=== PATIENT | female | born 1940 | race Caucasian/White ===

== ENCOUNTER 2023-02-27 09:05 | Outpatient (OUT) | payer MEDICARE, OTHER, SELFPAY ==
[2023-02-27 09:53] LABS: Free Thyroxine Index 4.46 (1.30-4.50); Thyroid Stimulating Hormone 0.896 uIU/mL (0.358-3.740)
== END 2023-02-27 09:06 ==
LOC: LAB 09:05
PROVIDERS: PCP Family Medicine; Visit Provider Family Medicine
DX: E03.9 Hypothyroidism, unspecified (principal)
CPT/HCPCS: 36415; 84436; 84443; 84479

== ENCOUNTER 2023-06-03 10:30 | Emergency (ER) | payer MEDICARE, OTHER, SELFPAY ==
[2023-06-03] VITALS (26 sets, daily range): BP systolic 98–117; BP diastolic 67–78; PULSE 103–118; RESP 14–42; TEMP 36.5; O2SAT 96–99; BMI 17.9
--- NOTE | 2023-06-03 10:35 | ECG_ITS ---
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
--- NOTE | 2023-06-03 10:48 | ED_ITS ---
HPI - Arrhythmia/Palpitations General Chief Complaint: Arrhythmia/Palpitations Stated Complaint: FAST HEART RATE Time Seen by Provider: 06/03/23 10:35 Source: patient Mode of arrival: walk-in History of Present Illness HPI narrative: It was already diagnosed with A-fib few years ago with no new changes in her medication, coming to the ER with the palpitation feeling for the last 4 days, the patient has been drinking enough water for the last few days as well because she thought she could be dehydrated at that could be the reason for her tachycardia. The patient denies any dizziness chest pain or any other concerns No nausea no vomiting and she took her medication today as well Related Data Home Medications Medication Instructions Recorded Confirmed amiodarone 200 mg tablet 200 mg PO Q24H 06/03/23 06/03/23 apixaban 2.5 mg tablet (Eliquis) 2.5 mg PO Q12H 06/03/23 06/03/23 furosemide 20 mg tablet 20 mg PO QDAY 06/03/23 06/03/23 irbesartan 75 mg tablet 75 mg PO DAILY 06/03/23 06/03/23 levothyroxine 50 mcg tablet 50 mcg PO .even numbered days 06/03/23 06/03/23 multivitamin (Daily Multi-Vitamin 1 tab PO DAILY 06/03/23 06/03/23 tablet) potassium chloride 10 mEq 10 meq PO DAILY 06/03/23 06/03/23 tablet,extended release Previous Rx's Medication Instructions Recorded metoprolol tartrate 25 mg tablet 25 mg PO BID #20 tabs 06/03/23 Allergies Allergy/AdvReac Type Severity Reaction Status Date / Time Sulfa (Sulfonamide Allergy Verified 06/03/23 10:42 Antibiotics) Review of Systems ROS Status of ROS 10 or more systems reviewed and unremarkable except as noted in history and below PFSH PFS Social History Smoking status: Never smoker Exam Narrative Exam Narrative: Nurses notes and vital signs reviewed and patient is not hypoxic. General: Well-appearing and in no apparent distress. Skin: Warm, dry, no pallor noted. No rash. Head: Normocephalic, atraumatic. Neck: Supple, non-tender. Eye: Pupils are equal, round and EOMI. No scleral icterus. Ears, Nose, Mouth, and Throat: TM are clear, no nasal mucosal hypertrophy. Oral mucosa is moist, no posterior oropharynx erythema, uvula is mid-line Cardiovascular: irregularly regular Rate and Rhythm without murmur, gallop or rub. Respiratory: No accessory muscle use or respiratory distress. Lungs are clear to auscultation, no wheezing, rales or rhonchi Chest Wall: no tenderness Back: No midline thoracic or lumbar vertebral tenderness. No CVA tenderness Musculoskeletal: normal ROM, no calf or popliteal tenderness, no lower extremity edema/swelling GI: Abdomen is soft, non-distended. Normal bowel sounds. No masses appreciated. No tenderness to palpation. No rebound, guarding, or rigidity noted. Neurological: A&O x4. No cranial nerve dysfunction observed. No truncal ataxia. Moves all extremities. Sensation intact. Psychiatric: Cooperative and interactive. Normal mood and affect. Constitutional Vital Signs, click to edit/add: Last Vital Signs Temp 97.7 F 06/03/23 10:35 Pulse 114 H 06/03/23 14:20 Resp 17 06/03/23 14:20 BP 98/67 06/03/23 11:18 Pulse Ox 99 06/03/23 14:20 O2 Del Method Room Air 06/03/23 10:35 Course Vital Signs Vital signs: Vital Signs Temperature 97.7 F 06/03/23 10:35 Pulse Rate 118 H 06/03/23 10:35 Respiratory Rate 14 06/03/23 10:35 Blood Pressure 117/78 06/03/23 10:35 Pulse Oximetry 97 06/03/23 10:35 Oxygen Delivery Method Room Air 06/03/23 10:35 Temperature 97.7 F 06/03/23 10:35 Pulse Rate 114 H 06/03/23 14:20 Respiratory Rate 17 06/03/23 14:20 Blood Pressure 98/67 06/03/23 11:18 Pulse Oximetry 99 06/03/23 14:20 Oxygen Delivery Method Room Air 06/03/23 10:35 MDM - Arrhythmia/Palpitations MDM Narrative Medical decision making narrative: EKG showing A-fib with RVR heart rate was 108 on the EKG although it does show this could be scar around 130 Patient Eliquis for her afib as well as amiodarone The patient CBC and chemistry shows a mild elevation in creatinine as well as elevated BNPep Chest x-ray showed no acute pathology the patient was provided with 1 dose of Lopressor as well as 500 cc of IV fluid It was noted that the patient blood pressure initially was low but after a while in the ER and on bedside measurement her blood pressure was above 130 systolic The patient was eager to go home she did not want to be admitted because she have to care for her son at home. I spoke with the multi slide machine tender taking care of the patient and initially requested the patient being transferred to [facility] for cardioversion but the patient refused and she said that she is feeling better The patient will just follow-up with them as outpatient the metoprolol 25 mg changed to twice daily instead of 1 daily as she had that on her medication but it was stopped recently The patient to come back to the ER in case of any symptoms or concerns Lab Data Labs: Lab Results 06/03/23 06/03/23 Range/Units 10:46 12:18 WBC 7.3 (4.0-11.0) 10^3/uL RBC 4.75 (4.20-5.40) 10^6/uL Hgb 14.2 (12.0-16.0) g/dL Hct 43.9 (36.0-48.0) % MCV 92.4 (81.0-99.0) fL MCH 29.9 (26.7-34.0) pg MCHC 32.3 (29.9-35.2) g/dL RDW 13.6 (11.0-15.0) % Plt Count 298 (150-450) 10^3/uL MPV 11.0 (9.5-13.5) fL Neut % (Auto) 65.5 (43.0-75.0) % Lymph % (Auto) 20.6 (20.5-60.0) % [place] % (Auto) 12.1 H (1.7-12.0) % Eos % (Auto) 1.2 (0.9-7.0) % Baso % (Auto) 0.3 (0.2-2.0) % Neut # (Auto) 4.8 (1.4-6.5) 10^3/uL Lymph # (Auto) 1.5 (1.2-3.8) 10^3/uL [place] # (Auto) 0.9 H (0.3-0.8) 10^3/uL Eos # (Auto) 0.1 (0.0-0.7) 10^3/uL Baso # (Auto) 0.0 (0.0-0.1) 10^3/uL Abs Immat Gran (auto) 0.02 (0.00-0.03) 10^3/uL Imm/Tot Granulo (auto) 0.3 (0.0-0.5) % Sodium 139 (136-145) mmol/L Potassium 4.2 (3.5-5.1) mmol/L Chloride 102 (98-107) mmol/L Carbon Dioxide 29.4 (21.0-32.0) mmol/L Anion Gap 11.8 BUN 24.0 H (7.0-18.0) mg/dL Creatinine 1.32 H (0.55-1.02) mg/dL Est GFR ( Amer) 47 L (>=60) Est GFR (Non-Af Amer) 39 L (>=60) BUN/Creatinine Ratio 18.2 Glucose 116 H (74-106) mg/dL Lactate 1.0 (0.4-2.0) mmol/L Calcium 9.6 (8.5-10.1) mg/dL Magnesium 2.4 (1.8-2.4) mg/dL Total Bilirubin 0.4 (0.2-1.0) mg/dL AST 23 (15-37) U/L ALT 19 (14-59) U/L Alkaline Phosphatase 90 (46-116) U/L Troponin I High Sens 14.4 13.8 (4.0-51.3) pg/mL NT-Pro-B Natriuret Pep 1897.0 H* (<=1800.0) pg/mL Total Protein 7.4 (6.4-8.2) g/dL Albumin 3.9 (3.4-5.0) g/dL Globulin 3.5 g/dL Albumin/Globulin Ratio 1.1 TSH 1.542 (0.358-3.740) uIU/mL Discharge Plan Discharge Chief Complaint: Arrhythmia/Palpitations Clinical Impression: A-fib Patient Disposition: Home, Self-Care Time of Disposition Decision: 14:38 Condition: Good Prescriptions / Home Meds: New metoprolol tartrate 25 mg tablet 25 mg PO BID Qty: 20 0RF Discontinued metoprolol tartrate 25 mg tablet 25 mg PO DAILY No Action amiodarone 200 mg tablet 200 mg PO Q24H furosemide 20 mg tablet 20 mg PO QDAY irbesartan 75 mg tablet 75 mg PO DAILY levothyroxine 50 mcg tablet 50 mcg PO .even numbered days potassium chloride 10 mEq tablet extended release 10 meq PO DAILY Eliquis 2.5 mg tablet 2.5 mg PO Q12H multivitamin [Daily Multi-Vitamin] Tablet 1 tab PO DAILY Instructions: A-fib (Atrial Fibrillation) (ED) Stand Alone Forms: Portal Instructions Referrals: Krish Mccoy MD [Primary Care Provider] - 1 week Kaya Patel MD [Physician] - As soon as possible Discharge Date/Time: 06/03/23 14:59
[2023-06-03 11:04] LABS: Basophils Percent Auto 0.3 % (0.2-2.0); Eosinophils Absolute Auto 0.1 10^3/uL (0.0-0.7); Eosinophils Percent Auto 1.2 % (0.9-7.0); Hematocrit 43.9 % (36.0-48.0); Hemoglobin 14.2 g/dL (12.0-16.0); Immature Granulocytes Abs Auto 0.02 10^3/uL (0.00-0.03); Immature Granulocytes Pct Auto 0.3 % (0.0-0.5); Lymphocytes Absolute Auto 1.5 10^3/uL (1.2-3.8); Lymphocytes Percent Auto 20.6 % (20.5-60.0); Mean Corpuscular HGB Conc 32.3 g/dL (29.9-35.2); Mean Corpuscular Hemoglobin 29.9 pg (26.7-34.0); Mean Corpuscular Volume 92.4 fL (81.0-99.0); Monocytes Absolute Auto 0.9 10^3/uL (0.3-0.8); Monocytes Percent Auto 12.1 % (1.7-12.0); Neutrophils Absolute Auto 4.8 10^3/uL (1.4-6.5); Neutrophils Percent Auto 65.5 % (43.0-75.0); Platelet Count 298 10^3/uL (150-450); Red Blood Count 4.75 10^6/uL (4.20-5.40); Red Cell Distribution Width 13.6 % (11.0-15.0); White Blood Count 7.3 10^3/uL (4.0-11.0)
[2023-06-03 11:11] LABS: Alanine Aminotransferase 19 U/L (14-59); Albumin Globulin Ratio 1.1; Albumin Level 3.9 g/dL (3.4-5.0); Alkaline Phosphatase 90 U/L (46-116); Anion Gap 11.8; Aspartate Amino Transferase 23 U/L (15-37); BUN Creatinine Ratio 18.2; Bilirubin Total 0.4 mg/dL (0.2-1.0); Calcium 9.6 mg/dL (8.5-10.1); Carbon Dioxide 29.4 mmol/L (21.0-32.0); Chloride 102 mmol/L (98-107); Estimated GFR (African America 47 (>=60); Estimated GFR (Non-African Ame 39 (>=60); Globulin 3.5 g/dL; Glucose 116 mg/dL (74-106); Potassium 4.2 mmol/L (3.5-5.1); Sodium 139 mmol/L (136-145); Total Protein 7.4 g/dL (6.4-8.2)
[2023-06-03] MEDS: 0.9 % SODIUM CHLORIDE 1,000 ML 500 ML IV (11:12)
[2023-06-03] MEDS: METOPROLOL TARTRATE 5 MG/5 ML VIAL 2.5 MG IVP (11:13)
[2023-06-03 11:18] LABS: Thyroid Stimulating Hormone 1.542 uIU/mL (0.358-3.740)
[2023-06-03 11:19] LABS: Magnesium 2.4 mg/dL (1.8-2.4); Troponin I High Sensitivity 14.4 pg/mL (4.0-51.3)
--- NOTE | 2023-06-03 11:22 | XR_ITS ---
The [address] [address] Patient Name: RAFIA KNOWLES MRN: [id number] date: 1940 Sex: F Assigned Patient Location: ER Current Patient Location: ER Accession/Order Number: [id number] Exam Date: 06/03/2023 11:30 Report Date: 06/03/2023 11:40 At the request of: KEYSHAWN MACHUCA Procedure: XR chest 1V EXAM: XR chest 1V HISTORY: sob COMPARISON: 01/14/2023 TECHNIQUE: Single view of the chest FINDINGS: Heart size normal. No focal consolidation, pleural effusion, pulmonary congestion or pneumothorax. XR/XR chest 1V IMPRESSION: No acute findings. Electronically authenticated by: MARYANN MA Date: 06/03/2023 11:40
--- NOTE | 2023-06-03 11:52 | ECG_ITS ---
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
[2023-06-03 12:41] LABS: Troponin I High Sensitivity 13.8 pg/mL (4.0-51.3)
== END 2023-06-03 14:59 | disposition home or self-care (01) ==
PROVIDERS: Emergency Provider Emergency Medicine; PCP Family Medicine
DX: I48.91 Unspecified atrial fibrillation (principal); Z79.01 Long term (current) use of anticoagulants; Z79.899 Other long term (current) drug therapy; Z79.890 Hormone replacement therapy
CPT/HCPCS: 36415; 71045; 80053; 83605; 83735; 83880; 84443; 84484; 85025; 93005; 96374; 99285

== ENCOUNTER 2023-08-28 10:06 | Outpatient (OUT) | payer MEDICARE, OTHER, SELFPAY ==
--- NOTE | 2023-08-28 10:49 | CA_ITS ---
Patient Name: RAFIA KNOWLES MR#: [id number] : 1940 Exam Date: 08/28/2023 Ordering Doctor: DR IVELISSE PATEL M.D. ECHOCARDIOGRAM REPORT PROCEDURE: CA ECHO DOPPLER COMPLETE INDICATIONS: Mitral valve regurgitation, hypertension COMPARISON: None. DESCRIPTION: COMPLETE ECHOCARDIOGRAM Real-time transthoracic echocardiography with 2D, M-mode, spectral and color flow Doppler performed. QUALITY: Technical quality was good. 66 , 107 # LEFT VENTRICLE: Mild dilatation. Normal left ventricular wall thickness. LV EF: Global left ventricular systolic function is difficult to assess but appears moderately reduced; visually estimated ejection fraction is 30 to 35%. Diffuse hypokinesis. DIASTOLIC: Diastolic dysfunction. ATRIAL SEPTUM: Visually appears intact. LEFT ATRIUM: Severe dilatation. RIGHT ATRIUM: Moderate dilatation. RIGHT VENTRICLE: Normal chamber size. Normal right ventricular systolic function. TRICUSPID VALVE: Normal mobility and thickness. Mild regurgitation. Doppler studies reveal moderately (45-60) elevated right sided pressures. RVSP 49 mmHg MITRAL VALVE: Moderately thickened. No evidence of mitral valve stenosis. There is no mitral annular calcification. Severe mitral regurgitation. AORTIC VALVE: Normal trileaflet appearance. Mildly calcified aortic valve. Normal leaflet mobility. Doppler velocity suggests no significant aortic valve stenosis. Trivial aortic regurgitation. AORTIC ROOT: Normal diameter and appearance. PULMONIC VALVE: Normal thickness and mobility. No stenosis. Trivial regurgitation. PERICARDIUM: No evidence of pericardial effusion. IVC: Collapses with inspirations. IVC is dilated (2.3 cm) CONCLUSION: 1. Global left ventricular systolic function is difficult to assess but appears moderately reduced; visually estimated ejection fraction is 30 to 35% 2. The left ventricle is mildly dilated 3. The right ventricle is normal in size and systolic function 4. Diastolic dysfunction 5. Biatrial enlargement 6. Mild tricuspid regurgitation 7. Mildly elevated right-sided pressures; RVSP 49 mmHg 8. Severe mitral regurgitation Adult Echocardiography Procedure Report Left Ventricle LVEDD (3.7 - 5.6 cm): 5.57 cm LVESD (2.2 - 4.0 cm): 4.53 cm LVIVS thickness (0.6 - 1.2 cm): 0.93 cm LVPW thickness (0.5 - 1.0 cm): 0.80 cm e': 0.14 m/s E - e': 5.57 LVOT Max Gradient: 1.82 mm[Hg] LVOT Area (cm2): 0.67 m/s Peak Velocity (LVOT): 0.67 m/s Mean Velocity (LVOT): 0.45 m/s LVOT Diameter 2.00 cm Left Atrium LA Volume Index (2D A2C): 98.74 ml/m2 Left Atrium Systolic Dimension: 4.27 cm Mitral Valve MV E to A Ratio: 3.28 Mitral Valve A-Wave Peak Velocity: 0.24 m/s Mitral Valve E-Wave Peak Velocity: 0.78 m/s Right Ventricle Aorta AO Root Diam: 2.90 cm Ascending Ao Diam: 2.78 cm Aortic Valve AoV Area (Peak Rashaun): 1.44 cm2, 1.44 cm2 AoV Area (VTI): 1.61 cm2, 1.61 cm2 Peak Velocity(Antegrade Flow): 1.47 m/s Peak Gradient(Antegrade Flow): 8.69 mm[Hg] Mean Velocity(Antegrade Flow): 0.88 m/s Mean Gradient(Antegrade Flow): 3.65 mm[Hg] Velocity Time Integral: 34.49 cm Tricuspid Valve Peak Velocity (Regurgitant Flow): 2.93 m/s Pulmonic Valve Peak Velocity: 0.64 m/s Peak Gradient: 2.02 mm[Hg], 1.32 mm[Hg] Right Atrium Right Atrium Systolic Pressure: 54.80 ml, 54.80 ml Dictated by: Ivelisse Patel M.D. on 08/28/2023 at 15:42 Approved by: Ivelisse Patel M.D. on 08/28/2023 at 15:52
== END 2023-08-28 10:07 | disposition home or self-care (01) ==
LOC: CARD 10:06
PROVIDERS: PCP Family Medicine; Visit Provider Internal Medicine Interventional Cardiology
DX: I34.0 Nonrheumatic mitral (valve) insufficiency (principal)
CPT/HCPCS: 93306; 93356

== ENCOUNTER 2023-09-28 15:20 | Emergency (ER) | payer MEDICARE, OTHER, SELFPAY ==
[2023-09-28] VITALS (15 sets, daily range): BP systolic 107–137; BP diastolic 61–82; PULSE 85–114; RESP 15–29; TEMP 36.5; O2SAT 83–100; BMI 17.3
--- NOTE | 2023-09-28 15:25 | XR_ITS ---
The [place] [id number] Patient Name: RAFIA KNOWLES MRN: [id number] date: 1940 Sex: F Assigned Patient Location: ER Current Patient Location: ER Accession/Order Number: [id number] Exam Date: 09/28/2023 15:48 Report Date: 09/28/2023 16:26 At the request of: REGIS THAKUR Procedure: XR chest 1V CLINICAL HISTORY: Tachycardia. EXAMINATION: Portable AP upright chest: 09/28/2023 at 1545 hours. COMPARISON: AP chest 06/03/2023. FINDINGS: The patient is slightly rotated and lordotic. The trachea is midline. The heart size seems upper limits of the normal. The aorta is slightly tortuous. The lungs appear hyperinflated but clear. There is no focal consolidating infiltrates, pleural edema, or pneumothorax. XR/XR chest 1V IMPRESSION: Stable hyperinflated lungs without acute cardiopulmonary disease. Electronically authenticated by: ANIKA PETERSON Date: 09/28/2023 16:26
--- NOTE | 2023-09-28 15:41 | ED_ITS ---
HPI - General Adult General Chief complaint: Arrhythmia/Palpitations Stated complaint: rapid heart rate Time Seen by Provider: 09/28/23 15:22 Source: patient Mode of arrival: walk-in Limitations: no limitations History of Present Illness HPI narrative: Patient is a very pleasant 83-year-old female with a history of A-fib who presents to the emergency department for palpitations and a sensation that her heart is racing since 09/20/2024. She states that she saw her transmission calibration engineer from [facility] locally at the beginning of August last month, he wanted her to perform a test and she declined this stating if it ain't broke do not fix it . She did not have any medication adjustments at that time and had no focal medical complaints. She states due to her beta-lida usage, her heart rate was low and she was bradycardic in the office, her transmission calibration engineer felt it was too low. She states her heart rate has been in the 110s to 120s at home, she saw her PCP earlier this week and states she only told him that her heart rate was higher but did not indicate that she thought she was back in A-fib. She denies any other focal medical complaints, she is mildly short of breath intermittently on exertion, she has no chest pain. She has had no peripheral edema. She has been taking all of her medications including her anticoagulation appropriately. Related Data Home Medications Medication Instructions Recorded Confirmed amiodarone 200 mg tablet 200 mg PO Q24H 06/03/23 09/28/23 apixaban 2.5 mg tablet (Eliquis) 2.5 mg PO Q12H 06/03/23 09/28/23 furosemide 20 mg tablet 20 mg PO QDAY 06/03/23 09/28/23 irbesartan 75 mg tablet 75 mg PO DAILY 06/03/23 09/28/23 levothyroxine 50 mcg tablet 50 mcg PO .even numbered days 06/03/23 09/28/23 multivitamin (Daily Multi-Vitamin 1 tab PO DAILY 06/03/23 09/28/23 tablet) potassium chloride 10 mEq 10 meq PO DAILY 06/03/23 09/28/23 tablet,extended release Previous Rx's Medication Instructions Recorded metoprolol tartrate 25 mg tablet 25 mg PO BID #20 tabs 06/03/23 Allergies Allergy/AdvReac Type Severity Reaction Status Date / Time Sulfa (Sulfonamide Allergy Verified 06/03/23 10:42 Antibiotics) Review of Systems ROS Constitutional Denies: fever or chills Ears, nose, mouth, and throat Denies: throat pain or nasal congestion Cardiovascular Reports: palpitations; Denies: chest pain Respiratory Reports: shortness of breath; Denies: cough Gastrointestinal Denies: nausea or vomiting Musculoskeletal Denies: back pain Integumentary/Breast Denies: rash Neurological Denies: headache Hematologic/Lymphatic Denies: easy bruising PFSH [facility] Social History Smoking status: Never smoker Exam Narrative Exam Narrative: Gen.: Awake, alert, in no distress Head: Normocephalic, atraumatic ENT: Moist mucous membranes Respiratory: No respiratory distress, lungs clear bilaterally Cardio: Irregular, tachycardia Gastrointestinal: Abdomen is soft, nondistended and nontender to palpation Extremities: Moves extremities equally, no pedal edema Psych: Normal mood and affect Neuro: No focal neuro deficit Skin: Warm, dry, intact Constitutional Vital Signs, click to edit/add: Last Vital Signs Temp 97.7 F 09/28/23 15:25 Pulse 88 09/28/23 17:20 Resp 18 09/28/23 17:20 BP 110/61 09/28/23 17:15 Pulse Ox 100 09/28/23 17:20 O2 Del Method Room Air 09/28/23 15:25 Course Vital Signs Vital signs: Vital Signs Temperature 97.7 F 09/28/23 15:25 Pulse Rate 104 H 09/28/23 15:25 Respiratory Rate 18 09/28/23 15:25 Blood Pressure 137/82 09/28/23 15:25 Oxygen Delivery Method Room Air 09/28/23 15:25 Temperature 97.7 F 09/28/23 15:25 Pulse Rate 88 09/28/23 17:20 Respiratory Rate 18 09/28/23 17:20 Blood Pressure 110/61 09/28/23 17:15 Pulse Oximetry 100 09/28/23 17:20 Oxygen Delivery Method Room Air 09/28/23 15:25 Medical Decision Making MDM Narrative Medical decision making narrative: Patient was treated with 7.5 mg IV Cardizem bolus as well as gentle IV fluids with improvement of heart rate. She remains in A-fib with old left bundle branch block. She maintains normal vital signs otherwise in the ER. On reevaluation by attending physician, patient is resting comfortably with stable vitals. She has no complaints of chest pain, shortness of breath in the ER. Labs and chest x-ray are unremarkable. She request to be discharged home to follow-up with cardiology. She was encouraged to continue her anticoagulation and regular medications and return to the ER if symptoms change or worsen. Medical Records Medical records reviewed: Yes I reviewed the patient's medical records Lab Data Lab results reviewed: Yes I reviewed the patient's lab results Labs: Lab Results 09/28/23 Range/Units 15:39 WBC 8.2 (4.0-11.0) 10^3/uL RBC 4.44 (4.20-5.40) 10^6/uL Hgb 13.7 (12.0-16.0) g/dL Hct 41.9 (36.0-48.0) % MCV 94.4 (81.0-99.0) fL MCH 30.9 (26.7-34.0) pg MCHC 32.7 (29.9-35.2) g/dL RDW 13.2 (11.0-15.0) % Plt Count 255 (150-450) 10^3/uL MPV 11.4 (9.5-13.5) fL Neut % (Auto) 68.4 (43.0-75.0) % Lymph % (Auto) 21.2 (20.5-60.0) % [place] % (Auto) 8.4 (1.7-12.0) % Eos % (Auto) 1.3 (0.9-7.0) % Baso % (Auto) 0.2 (0.2-2.0) % Neut # (Auto) 5.6 (1.4-6.5) 10^3/uL Lymph # (Auto) 1.7 (1.2-3.8) 10^3/uL [place] # (Auto) 0.7 (0.3-0.8) 10^3/uL Eos # (Auto) 0.1 (0.0-0.7) 10^3/uL Baso # (Auto) 0.0 (0.0-0.1) 10^3/uL Abs Immat Gran (auto) 0.04 H (0.00-0.03) 10^3/uL Imm/Tot Granulo (auto) 0.5 (0.0-0.5) % PT 10.7 (9.0-11.6) sec INR 1.01 Sodium 139 (136-145) mmol/L Potassium 4.0 (3.5-5.1) mmol/L Chloride 103 (98-107) mmol/L Carbon Dioxide 30.4 (21.0-32.0) mmol/L Anion Gap 9.6 BUN 28.0 H (7.0-18.0) mg/dL Creatinine 1.33 H (0.55-1.02) mg/dL Est GFR ( Amer) 46 L (>=60) Est GFR (Non-Af Amer) 38 L (>=60) BUN/Creatinine Ratio 21.1 Glucose 142 H (74-106) mg/dL Calcium 10.1 (8.5-10.1) mg/dL Total Bilirubin 0.4 (0.2-1.0) mg/dL AST 36 (15-37) U/L ALT 39 (14-59) U/L Alkaline Phosphatase 100 (46-116) U/L Troponin I High Sens 12.8 (4.0-51.3) pg/mL Total Protein 7.2 (6.4-8.2) g/dL Albumin 3.7 (3.4-5.0) g/dL Globulin 3.5 g/dL Albumin/Globulin Ratio 1.1 TSH 1.676 (0.358-3.740) uIU/mL Imaging Data Chest x-ray: Attestation: I have reviewed the pertinent imaging results. Radiologist's impression: ITS Impressions Chest X-Ray 09/28/23 15:25 IMPRESSION: Stable hyperinflated lungs without acute cardiopulmonary disease. Electronically authenticated by: ANIKA PETERSON Date: 09/28/2023 16:26 ECG Data Attestation: I personally reviewed and interpreted this ECG as follows: (ekg, #1: A-fib with RVR, left bundle branch block, rate 115, no acute ST elevation. EKG reviewed by attending physician. EKG #2: A-fib at a rate of 90 with old left bundle branch block and no acute ST elevation or ectopy. EKG reviewed by attending physician) Discharge Plan Discharge Chief Complaint: Arrhythmia/Palpitations Clinical Impression: A-fib Patient Disposition: Home, Self-Care Time of Disposition Decision: 17:28 Condition: Good Prescriptions / Home Meds: No Action amiodarone 200 mg tablet 200 mg PO Q24H furosemide 20 mg tablet 20 mg PO QDAY irbesartan 75 mg tablet 75 mg PO DAILY levothyroxine 50 mcg tablet 50 mcg PO .even numbered days potassium chloride 10 mEq tablet extended release 10 meq PO DAILY Eliquis 2.5 mg tablet 2.5 mg PO Q12H multivitamin [Daily Multi-Vitamin] Tablet 1 tab PO DAILY metoprolol tartrate 25 mg tablet 25 mg PO BID Qty: 20 0RF Instructions: A-fib (Atrial Fibrillation) (ED) Stand Alone Forms: Portal Instructions Referrals: Krish Mccoy MD [Primary Care Provider] - 1 week Kaya Patel MD [Physician] - 1 week
--- OUTSIDE RECORDS SUMMARY | 2023-09-28 15:46 | XMS_ITS | CCD ---
Author Name Unknown Address [address] [facility] [address] [place] [address] Organization [facility] Care Team Providers Care Sap Bw Architect Name Role Phone ELTAHAWY, EHAB A Attending Unavailable ELTAHAWY, EHAB A Admitting Unavailable HOY, GERBER Referring Unavailable HOY, GERBER Primary Care Unavailable HOY ., DR MAYES Primary Care Unavailable JOSE, SHANTEL Attending Unavailable JOSE, SHANTEL Admitting Unavailable WEST, DR FLORENTINO Mello Consulting Unavailable JOSE, SHANTEL Consulting Unavailable HOY ., DR MAYES Admitting Unavailable HOY ., DR MAYES Attending Unavailable HOY ., DR MAYES Consulting Unavailable HOY ., DR MAYES Primary Care Unavailable HOY ., DR MAYES Primary Care Unavailable HOY ., DR MAYES Admitting Unavailable HOY ., DR MAYES Attending Unavailable HOY ., DR MAYES Consulting Unavailable HAY ., DR MARIE Attending Unavailable HAY ., DR MARIE Consulting Unavailable HAY ., DR MARIE Admitting Unavailable HOY ., DR MAYES Primary Care Unavailable LAICONSTANCE Consulting Unavailable ELTAHAWY, EHAB Attending Unavailable JOSE, SHANTEL Attending Unavailable JOSE, SHANTEL Attending Unavailable JAS VALDIVIA Attending Unavailable JAS VALDIVIA Attending Unavailable Allergies Allergy Classification Reported Allergen(s) Allergy Type Date of Onset Reaction(s) Facility (3 sources) Angiotensin Converting Enzyme (Hossein) Inhibitors; Translations: [HOSSEIN INHIBITORS] Drug allergy (disorder) 07-03-2012 [facility] Repository (3 sources) Sulfonamides (Antibiotic); Translations: [SULFA (SULFONAMIDE ANTIBIOTICS)] Drug allergy (disorder) 07-03-2012 [facility] Rep[facility] Problems Active Problems Problem Classification Problem Date Documented Date Episodic/Chronic Cardiac dysrhythmias (5 sources) Unspecified atrial fibrillation; Translations: [Paroxysmal atrial fibrillation] Onset: 06-08-2022 Chronic Cardiac dysrhythmias (8 sources) Palpitations; Translations: [Tachycardia, unspecified] Onset: 01-15-2023 Episodic Conduction disorders (2 sources) Left bundle-branch block, unspecified; Translations: [Left bundle-branch block, unspecified] Onset: 06-08-2022 Chronic Congestive heart failure; nonhypertensive (1 source) Unspecified diastolic (congestive) heart failure; Translations: [UNSPECIFIED DIASTOLIC HEART FAILURE] Onset: 02-01-2023 Chronic Coronary atherosclerosis and other heart disease (2 sources) 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; Translations: [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] Onset: 06-08-2022 Chronic Deficiency and other anemia (1 source) Anemia, unspecified; Translations: [ANEMIA UNSPECIFIED] Onset: 02-01-2023 Episodic Diabetes mellitus without complication (1 source) Other abnormal glucose; Translations: [OTHER ABNORMAL GLUCOSE] Onset: 02-01-2023 Episodic Disorders of lipid metabolism (2 sources) Mixed hyperlipidemia; Translations: [Mixed hyperlipidemia] Onset: 06-08-2022 Chronic Essential hypertension (2 sources) Essential (primary) hypertension; Translations: [Essential (primary) hypertension] Onset: 06-08-2022 Chronic Heart valve disorders (2 sources) Nonrheumatic mitral (valve) insufficiency; Translations: [Nonrheumatic mitral (valve) insufficiency] Onset: 06-08-2022 Chronic Hypertension with complications and secondary hypertension (1 source) Hypertensive heart disease with heart failure; Translations: [HTN HEART DISEASE W/HEART FAIL] Onset: 02-01-2023 Chronic Nutritional deficiencies (1 source) Vitamin D deficiency, unspecified; Translations: [VITAMIN D DEFICIENCY UNSPECIFIED] Onset: 02-01-2023 Chronic Other aftercare (1 source) intermission coordinator (current) use of anticoagulants; Translations: [CARE HOME CURRNT USE ANTICOAGULANTS] Onset: 01-17-2023 Episodic Other aftercare (1 source) intermission coordinator (current) use of aspirin; Translations: [CARE HOME CURRENT USE OF ASPIRIN] Onset: 01-17-2023 Episodic Danielle-; endo-; and myocarditis; cardiomyopathy (except that caused by tuberculosis or sexually transmitted disease) (1 source) Cardiomyopathy, unspecified; Translations: [CARDIOMYOPATHY UNSPECIFIED] Onset: 02-01-2023 Chronic Thyroid disorders (1 source) Hypothyroidism, unspecified; Translations: [HYPOTHYROIDISM UNSPECIFIED] Onset: 02-01-2023 Chronic Unclassified (2 sources) CONTACT W/AND (SUSP) EXPOS COVID-19; Translations: [CONTACT W/AND (SUSP) EXPOS COVID-19] Onset: 09-30-2022 Unclassified (1 source) COUGH, UNSPECIFIED; Translations: [COUGH, UNSPECIFIED] Onset: 09-30-2022 Viral infection (1 source) COVID-19; Translations: [COVID-19] Onset: 09-30-2022 Past or Other Problems Problem Classification Problem Date Documented Da te Episodic/Chronic Other aftercare (7 sources) Other intermission coordinator (current) drug therapy; Translations: [OTH CARE HOME CURRENT DRUG THERAPY] Onset: 10-17-2022 Episodic Other lower respiratory disease (2 sources) Other forms of dyspnea; Translations: [Other forms of dyspnea] Onset: 06-08-2022 Episodic Other upper respiratory disease (1 source) Nasal congestion; Translations: [NASAL CONGESTION] Onset: 09-30-2022 Episodic Unclassified (1 source) CONTACT W/AND (SUSP) EXPOS COVID-19; Translations: [CONTACT W/AND (SUSP) EXPOS COVID-19] Onset: 09-27-2022 Results Test Name Value Interpretation Reference Range Facility Office Visiton 08-23-2023 Follow-up visit [id number] [facility] 1940 Date Provider Department Center 08/23/2023 Bina-KAYA PATEL [facility] Family History Problem Relation Age of Onset Diabetes Mother Hypertension Mother Hypertension Father Diabetes Sister Heart attack Maternal Grandmother Family Status - Relation Status Age at Mother Father Sister Maternal Grandmother Level of Service:15935 [place] OFFICE/OUTPATIENT ESTABLISHED LOW MDM 20-29 MIN Normal [facility] Office Visiton 02-15-2023 Follow-up visit [id number] Al[facility] Escobedo 1940 Date Provider Department Center 02/15/2023 Melly-SHANTEL GARCIA CARD [facility] Family History Problem Relation Age of Onset Diabetes Mother Hypertension Mother Hypertension Father Diabetes Sister Heart attack Maternal Grandmother Family Status - Relation Status Age at Mother Father Sister Maternal Grandmother Level of Service:91083 [place] OFFICE/OUTPATIENT ESTABLISHED LOW MDM 20-29 MIN Reason for Visit and Comments: Atrial Fibrillation [80] Valve Disorder [3372] Hypertension [196070] Normal [facility] BNPon 01-26-2023 Natriuretic peptide B (Bld) [Mass/Vol] 1751.0 pg/mL Normal <=1,800.0 [facility] Comment on above: Performed By: #### L CHAMP, TSH #### [facility] [address] [place] [address] Dr. Tierney Rivera CBC AUTO DIFFon 01-26-2023 BASO # 0.0 103/ul Normal 0.0-0.1 [facility] Comment on above: Performed By: #### C BC #### [facility] [address] [place] [address] Dr. Tierney Rivera Basophils/100 WBC (Bld) 0.3 % Normal 0.2-2.0 [facility] Comment on above: Performed By: #### C BC #### [facility] [address] [place] [address] Dr. Tierney Rivera EO # 0.1 103/ul Normal 0.0-0.7 [facility] Comment on above: Performed By: #### C BC #### [facility] [address] [place] [address] Dr. Tierney Rivera Eosinophils/100 WBC (Bld) 2.3 % Normal 0.9-7.0 [facility] Comment on above: Performed By: #### C BC #### [facility] [address] [place] [address] Dr. Tierney Rivera Erythrocyte distribution width (RBC) [Ratio] 13.1 % Normal 11.0-15.0 [facility] Comment on above: Performed By: #### C BC #### [facility] [address] [place] [address] Dr. Tierney Rivera Hematocrit (Bld) [Volume fraction] 43.5 % Normal 36.0-48.0 [facility] Comment on above: Performed By: #### C BC #### [facility] [address] [place] [address] Dr. Tierney Rivera Hemoglobin (Bld) [Mass/Vol] 13.9 g/dL Normal 12.0-16.0 [facility] Comment on above: Performed By: #### C BC #### [facility] [address] [place] [address] Dr. Tierney Rivera IG # 0.02 10e3/ul Normal 0.00-0.03 [facility] Comment on above: Performed By: #### C BC #### [facility] [address] [place] [address] Dr. Tierney Rivera IG % 0.3 % Normal 0.0-0.5 [facility] Comment on above: Performed By: #### C BC #### [facility] [address] [place] [address] Dr. Tierney Rivera LYMPH # 1.2 103/ul Normal 1.2-3.8 [facility] Comment on above: Performed By: #### C BC #### [facility] [address] [place] [address] Dr. Tierney Rivera Lymphocytes/100 WBC (Bld) 20.6 % Normal 20.5-60.0 [facility] Comment on above: Performed By: #### C BC #### [facility] [address] [place] [address] Dr. Tierney Rivera MANUAL DIFF REQ NO Normal [facility] Comment on above: Performed By: #### C BC #### [facility] [address] [place] [address] Dr. Tierney Rivera MCH (RBC) [Entitic mass] 29.4 pg Normal 26.7-34.0 [facility] Comment on above: Performed By: #### C BC #### [facility] [address] [place] [address] Dr. Tierney Rivera MCHC (RBC) [Mass/Vol] 32.0 g/dL Normal 29.9-35.2 [facility] Comment on above: Performed By: #### C BC #### [facility] [address] [place] [address] Dr. Tierney Rivera MCV (RBC) [Entitic vol] 92.2 fL Normal 81.0-99.0 [facility] Comment on above: Performed By: #### C BC #### [facility] [address] [address] [address] Tierney Rivera MONO # 0.6 103/ul Normal 0.3-0.[address] [facility] Comment on above: Performed By: #### C BC #### [facility] [address] [address] [address] Tierney Rivera Monocytes/100 WBC (Bld) 10.2 % Normal 1.7-12.0 [facility] Comment on above: Performed By: #### C BC #### [facility] [address] [address] [address] Tierney Rivera NEUT # 3.8 103/ul Normal 1.4-6.5 [facility] Comment on above: Performed By: #### C BC #### [facility] [address] [place] [address] Dr. Tierney Rivera Neutrophils/100 WBC (Bld) 66.3 % Normal 43.0-75.0 [facility] Comment on above: Performed By: #### C BC #### [facility] [address] [address] [address] Tierney Rivera Platelet mean volume (Bld) [Entitic vol] 11.2 fL Normal 9.5-13.5 [facility] Comment on above: Performed By: #### C BC #### [facility] [address] [address] [address] Tiereny Rivera PLT 253 103/ul Normal 150-[address] [facility] Comment on above: Performed By: #### C BC #### [facility] [address] [address] [address] Tierney Rivera RBC 4.72 106/ul Normal 4.20-5.[address] [facility] Comment on above: Performed By: #### C BC #### [facility] [address] [address] [address] Tierney Rivera WBC 5.8 103/ul Normal 4.0-11.[address] [facility] Comment on above: Performed By: #### C BC #### [facility] [address] [place] [address] Dr. Tierney Rivera FREE THYROXINE INDEX T7on FTI 5.18 Critically high 1.30-4.50 [facility] Comment on above: Performed By: #### L IVER, TSH #### [facility] [address] [place] [address] Dr. Tierney Rivera T3U 36.0 % Normal 30.0-39.0 [facility] Comment on above: Performed By: #### L IVER, TSH #### [facility] [address] [place] [address] Dr. Tierney Rivera T4 [Mass/Vol] 14.40 ug/dL Critically high 4.80-13.90 [facility] Comment on above: Performed By: #### L IVER, TSH #### [facility] [address] [place] [address] Dr. Tierney Rivera GLYCOHEMOGLOBIN A1Con 2022 ADA RECOMMENDATION SEE BELOW Normal [facility] Comment on above: Result Comment: ADA RECOMMENDED LIMIT 4.0 - 6.0 ADA THERAPEUTIC TARGET < 7.0 ACTION SUGGESTED > 7.0 Performed By: #### L IVER, TSH #### [facility] [address] [place] [address] Dr. Tierney Rivera Glucose [Mass/Vol] 117 mg/dL Normal [facility] Comment on above: Performed By: #### L IVER, TSH #### [facility] [address] [place] [address] Dr. Tierney Rivera HbA1c (Bld) [Mass fraction] 5.7 % Normal 4.5-6.2 [facility] Comment on above: Performed By: #### L IVER, TSH #### [facility] [address] [place] [address] Dr. Tierney Rivera IRONon 01-26-2023 Iron [Mass/Vol] 67.0 ug/dL Normal 50.0-170.0 [facility] Comment on above: Performed By: #### V ITAD, IRON #### [facility] [address] [place] [address] Dr. Tierney Rivera PROF 14(COMP METB)on 023 Albumin [Mass/Vol] 4.0 g/dL Normal 3.4-5.0 [facility] Comment on above: Performed By: #### Breonna OAKES, TSH #### [facility] [address] [address] [address] Tierney Rivera Albumin/Globulin [Mass ratio] 1.1 {ratio} Normal [facility] Comment on above: Performed By: #### L CHAMP, TSH #### [facility] [address] [address] [address] Tierney Rivera ALP [Catalytic activity/Vol] 98 U/L Normal 46-116 [facility] Comment on above: Performed By: #### Breonna OAKES, TSH #### [facility] [address] [address] [address] Tierney Rivera ALT [Catalytic activity/Vol] 29 U/L Normal 14-59 [facility] Comment on above: Performed By: #### Breonna OAKES, TSH #### [facility] [address] [address] [address] Tierney Rivera Anion gap [Moles/Vol] 11.7 mmol/L Normal [facility] Comment on above: Performed By: #### Breonna OAKES, TSH #### [facility] [address] [address] [address] Tierney Rivera AST [Catalytic activity/Vol] 22 U/L Normal 15-37 [facility] Comment on above: Performed By: #### L CHAMP, TSH #### [facility] [address] [address] [address] Tierney Rivera Bilirubin [Mass/Vol] 0.4 mg/dL Normal 0.2-1.0 [facility] Comment on above: Performed By: #### L CHAMP, TSH #### [facility] [address] [address] [address] Tierney Rivera Calcium [Mass/Vol] 10.1 mg/dL Normal 8.5-10.1 [facility] Comment on above: Performed By: #### L CHAMP, TSH #### [facility] [address] [address] [address] Tierney Rivera Chloride [Moles/Vol] 103 mmol/L Normal 98-107 [facility] Comment on above: Performed By: #### L IVER, TSH #### [facility] [address] [address] [address] Tierney Rivera CO2 [Moles/Vol] 30.5 mmol/L Normal 21.0-32.0 [facility] Comment on above: Performed By: #### L IVER, TSH #### [facility] [address] [address] [address] Tierney Rivera Creatinine [Mass/Vol] 1.15 mg/dL Critically high 0.55-1.02 [facility] Comment on above: Performed By: #### L IVER, TSH #### [facility] [address] [place] [address] Dr. Tierney Rivera EGFR-AF KAZAKH 55 mL/min/1.73m2 Critically low >=60 [facility] Comment on above: Performed By: #### L IVER, TSH #### [facility] [address] [address] [address] Tierney Rivera EGFR-NON AF KAZAKH 45 mL/min/1.73m2 Critically low >=60 [facility] Comment on above: Performed By: #### L IVER, TSH #### [facility] [address] [address] [address] Tierney Rivera Globulin (S) [Mass/Vol] 3.8 g/dL Normal [facility] Comment on above: Performed By: #### L IVER, TSH #### [facility] [address] [address] [address] Tierney Rivera Glucose [Mass/Vol] 97 mg/dL Normal 74-106 [facility] Comment on above: Performed By: #### L IVER, TSH #### [facility] [address] [address] [address] Tierney Rivera Potassium [Moles/Vol] 4.2 mmol/L Normal 3.5-5.1 [facility] Comment on above: Performed By: #### L IVER, TSH #### [facility] [address] [place] [address] Dr. Tierney Rivera Protein [Mass/Vol] 7.8 g/dL Normal 6.4-8.2 [facility] Comment on above: Performed By: #### L IVER, TSH #### [facility] [address] [place] [address] Dr. Tierney Rivera Sodium [Moles/Vol] 141 mmol/L Normal 136-145 [facility] Comment on above: Performed By: #### L IVER, TSH #### [facility] [address] [place] [address] Dr. Tierney Rivera Urea nitrogen [Mass/Vol] 18.0 mg/dL Normal 7.0-18.0 [facility] Comment on above: Performed By: #### L IVER, TSH #### [facility] [address] [place] [address] Dr. Tierney Rivera Urea nitrogen/Creatinine [Mass ratio] 15.7 mg/mg Normal [facility] Comment on above: Performed By: #### L CHAMP, TSH #### [facility] [address] [place] [address] Dr. Tierney Rivera TSHon 01-26-2023 TSH 2.066 uIU/mL Normal 0.358-3.740 [facility] Comment on above: Performed By: #### L IVBISHNU, TSH #### [facility] [address] [place] [address] Dr. Tierney Rivera VITAMIN D 25 OHon 01-26-2023 VIT D 25-OH 45.0 ng/mL Normal [facility] Comment on above: Performed By: #### V ITAD, IRON #### [facility] [address] [place] [address] Dr. Tierney Rievra VIT D RANGES SEE BELOW Normal [facility] Comment on above: Result Comment: <20 ng/mL Vit D deficient 20 - <30 ng/mL Vit D insufficient 30 - 100 ng/mL Vit D sufficient >100 ng/mL Potential Toxicity Performed By: #### V ITAD, IRON #### [facility] [address] [place] [address] Dr. Tierney Rivera BNPon 01-15-2023 Natriuretic peptide B (Bld) [Mass/Vol] 868.0 pg/mL Normal <=1,800.0 [facility] Comment on above: Performed By: #### H STROPN, BNP, CMP #### [facility] [address] [place] [address] Dr. Tierney Rivera CBC AUTO DIFFon 01-15-2023 BASO # 0.0 103/ul Normal 0.0-0.1 [facility] Comment on above: Performed By: #### L CHAMP TSH #### [facility] [address] [place] [address] Dr. Tierney Rivera Basophils/100 WBC (Bld) 0.3 % Normal 0.2-2.0 [facility] Comment on above: Performed By: #### Breonna OAKES TSH #### [facility] [address] [place] [address] Dr. Tierney Rivera EO # 0.1 103/ul Normal 0.0-0.7 [facility] Comment on above: Performed By: #### Breonna OAKES TSH #### [facility] [address] [place] [address] Dr. Tierney Rivera Eosinophils/100 WBC (Bld) 1.7 % Normal 0.9-7.0 [facility] Comment on above: Performed By: #### Breonna OAKES TSH #### [facility] [address] [place] [address] Dr. Tierney Rivera Erythrocyte distribution width (RBC) [Ratio] 13.2 % Normal 11.0-15.0 [facility] Comment on above: Performed By: #### Breonna OAKES TSH #### [facility] [address] [place] [address] Dr. Tierney Rivera Hematocrit (Bld) [Volume fraction] 45.1 % Normal 36.0-48.0 [facility] Comment on above: Performed By: #### Breonna OAKES TSH #### [facility] [address] [place] [address] Dr. Tierney Rivera Hemoglobin (Bld) [Mass/Vol] 15.1 g/dL Normal 12.0-16.[address] [facility] Comment on above: Performed By: #### L CHAMP, TSH #### [facility] [address] [place] [address] Dr. Tierney Rivera IG # 0.01 10e3/ul Normal 0.00-0.[address] [facility] Comment on above: Performed By: #### L IVBISHNU, TSH #### [facility] [address] [place] [address] Dr. Tierney Rivera IG % 0.2 % Normal 0.0-0.[address] [facility] Comment on above: Performed By: #### L CHAMP, TSH #### [facility] [address] [place] [address] Dr. Tierney Rivera LYMPH # 2.2 103/ul Normal 1.2-3.[address] [facility] Comment on above: Performed By: #### L CHAMP, TSH #### [facility] [address] [place] [address] Dr. Tierney Rivera Lymphocytes/100 WBC (Bld) 32.5 % Normal 20.5-60.[address] [facility] Comment on above: Performed By: #### L CHAMP, TSH #### [facility] [address] [place] [address] Dr. Tierney Rivera MANUAL DIFF REQ NO Normal [facility] Comment on above: Performed By: #### L CHAMP, TSH #### [facility] [address] [place] [address] Dr. Tierney Rivera MCH (RBC) [Entitic mass] 30.0 pg Normal 26.7-34.[address] [facility] Comment on above: Performed By: #### L IVER, TSH #### [facility] [address] [place] [address] Dr. Tierney Rivera MCHC (RBC) [Mass/Vol] 33.5 g/dL Normal 29.9-35.[address] [facility] Comment on above: Performed By: #### L IVBISHNU, TSH #### [facility] [address] [address] [address] Tierney Rivera MCV (RBC) [Entitic vol] 89.7 fL Normal 81.0-99.0 [facility] Comment on above: Performed By: #### L IVER, TSH #### [facility] [address] [place] [address] Dr. Tierney Rivera MONO # 0.8 103/ul Normal 0.3-0.[address] [facility] Comment on above: Performed By: #### L IVER, TSH #### [facility] [address] [place] [address] Dr. Tierney Rivera Monocytes/100 WBC (Bld) 12.6 % Critically high 1.7-12.0 [facility] Comment on above: Performed By: #### L IVER, TSH #### [facility] [address] [place] [address] Dr. Tierney Rivera NEUT # 3.5 103/ul Normal 1.4-6.[address] [facility] Comment on above: Performed By: #### L IVER, TSH #### [facility] [address] [place] [address] Dr. Tierney Rivera Neutrophils/100 WBC (Bld) 52.7 % Normal 43.0-75.0 [facility] Comment on above: Performed By: #### L IVBISHNU, TSH #### [facility] [address] [place] [address] Dr. Tierney Rivera Platelet mean volume (Bld) [Entitic vol] 11.0 fL Normal 9.5-13.[address] [facility] Comment on above: Performed By: #### L IVER, TSH #### [facility] [address] [place] [address] Dr. Tierney Rviera PLT 266 103/ul Normal 150-[address] [facility] Comment on above: Performed By: #### L IVER, TSH #### [facility] [address] [place] [address] Dr. Tierney Rivera RBC 5.03 106/ul Normal 4.20-5.[address] [facility] Comment on above: Performed By: #### L IVER, TSH #### [facility] [address] [place] [address] Dr. Tierney Rivera WBC 6.6 103/ul Normal 4.0-11.0 [facility] Comment on above: Performed By: #### L IVER, TSH #### [facility] [address] [place] [address] Dr. Tierney Rivera CULTURE BLOODon 01-15-2023 Microscopic examination of blood, culture Culture Observations: NO GROWTH AT 5 DAYS. Normal [facility] Comment on above: Performed By: #### L IVER, TSH #### [facility] [address] [place] [address] Dr. Tierney Rivera Microscopic examination of blood, culture Culture Observations: NO GROWTH AT 5 DAYS. Normal [facility] Comment on above: Performed By: #### L IVER, TSH #### [facility] [address] [place] [address] Dr. Tierney Rivera ER URINE PROFILEon Bilirubin Ql (U) Negative Normal NEGATIVE [facility] Comment on above: Performed By: #### L IVER, TSH #### [facility] [address] [place] [address] Dr. Tierney Rivera Clarity (U) CLEAR Normal CLEAR [facility] Comment on above: Performed By: #### L IVER, TSH #### [facility] [address] [place] [address] Dr. Tierney Rivera Color (U) LT. YELLOW Normal YELLOW [facility] Comment on above: Performed By: #### L IVER, TSH #### [facility] [address] [place] [address] Dr. Tierney Rivera ERUAHD A micrscopic examination will be performed if indicated. Normal [facility] Comment on above: Performed By: #### L IVER, TSH #### [facility] [address] [place] [address] Dr. Tierney Rivera Glucose Ql (U) Negative Normal NEGATIVE [facility] Comment on above: Performed By: #### L IVER, TSH #### [facility] [address] [place] [address] Dr. Tierney Rivera Hemoglobin Ql (U) Negative Normal NEGATIVE [facility] Comment on above: Performed By: #### L IVER, TSH #### [facility] [address] [place] [address] Dr. Tierney Rivera Ketones Ql (U) Negative Normal NEGATIVE [facility] Comment on above: Performed By: #### L IVER, TSH #### [facility] [address] [place] [address] Dr. Tierney Rivera LEUKOCYTES Negative Normal NEGATIVE [facility] Comment on above: Performed By: #### L IVER, TSH #### [facility] [address] [place] [address] Dr. Tierney Rivera Nitrite Ql (U) Negative Normal NEGATIVE [facility] Comment on above: Performed By: #### L IVER, TSH #### [facility] [address] [place] [address] Dr. Tierney Rivera pH (U) 7.5 [pH] Normal 5-9 [facility] Comment on above: Performed By: #### L IVER, TSH #### [facility] [address] [place] [address] Dr. Tierney Rivera SPEC GRAVITY 1.010 Normal 1.005-<=1.[address] [place] [address] Comment on above: Performed By: #### L IVER, TSH #### [facility] [address] [place] [address] Dr. Tierney Rivera UA PROTEIN Negative Normal NEGATIVE/ TRACE [facility] Comment on above: Performed By: #### L IVER, TSH #### [facility] [address] [place] [address] Dr. Tierney Rivera UR MICRO IND NOT INDICATED Normal [facility] Comment on above: Performed By: #### L IVER, TSH #### [facility] [address] [place] [address] Dr. Tierney Rivera Urobilinogen Qn (U) 0.2 {Radu'U}/dL Normal 0.2 - 1. 0 [facility] Comment on above: Performed By: #### L CHAMP, TSH #### [facility] [address] [address] [address] Tierney Rivera LACTATE/LACTIC ACIDon 2022 Lactate [Moles/Vol] 1.5 mmol/L Normal 0.4-2.0 [facility] Comment on above: Performed By: #### L ACT #### [facility] [address] [address] [address] Tierney Rivera PROF 14(COMP METB)on 023 Albumin [Mass/Vol] 4.3 g/dL Normal 3.4-5.0 [facility] Comment on above: Performed By: #### L CHAMP, TSH #### [facility] [address] [place] [address] Dr. Tierney Rivera Albumin/Globulin [Mass ratio] 1.2 {ratio} Normal [facility] Comment on above: Performed By: #### L CHAMP, TSH #### [facility] [address] [place] [address] Dr. Tierney Rivera ALP [Catalytic activity/Vol] 111 U/L Normal 46-116 [facility] Comment on above: Performed By: #### L CHAMP, TSH #### [facility] [address] [place] [address] Dr. Tierney Rivera ALT [Catalytic activity/Vol] 23 U/L Normal 14-59 [facility] Comment on above: Performed By: #### L CHAMP, TSH #### [facility] [address] [address] [address] Tierney Rivera Anion gap [Moles/Vol] 11.8 mmol/L Normal [facility] Comment on above: Performed By: #### L CHAMP, TSH #### [facility] [address] [place] [address] Dr. Tierney Rivera AST [Catalytic activity/Vol] 22 U/L Normal 15-37 [facility] Comment on above: Performed By: #### L CHAMP, TSH #### [facility] [address] [place] [address] Dr. Tierney Rivera Bilirubin [Mass/Vol] 0.4 mg/dL Normal 0.2-1.0 [facility] Comment on above: Performed By: #### L CHAMP, TSH #### [facility] [address] [place] [address] Dr. Tierney Rivera Calcium [Mass/Vol] 10.6 mg/dL Critically high 8.5-10.1 [facility] Comment on above: Performed By: #### L CHAMP, TSH #### [facility] [address] [place] [address] Dr. Tierney Rivera Chloride [Moles/Vol] 103 mmol/L Normal 98-107 [facility] Comment on above: Performed By: #### L CHAMP, TSH #### [facility] [address] [place] [address] Dr. Tierney Rivera CO2 [Moles/Vol] 29.2 mmol/L Normal 21.0-32.0 [facility] Comment on above: Performed By: #### L CHAMP, TSH #### [facility] [address] [place] [address] Dr. Tierney Rivera Creatinine [Mass/Vol] 1.13 mg/dL Critically high 0.55-1.02 [facility] Comment on above: Performed By: #### L CHAMP, TSH #### [facility] [address] [place] [address] Dr. Tierney Rivera EGFR-AF KAZAKH 56 mL/min/1.73m2 Critically low >=[address] [facility] Comment on above: Performed By: #### L CHAMP, TSH #### [facility] [address] [place] [address] Dr. Tierney Rivera EGFR-NON AF KAZAKH 46 mL/min/1.73m2 Critically low >=60 [facility] Comment on above: Performed By: #### L CHAMP, TSH #### [facility] [address] [place] [address] Dr. Tierney Rivera Globulin (S) [Mass/Vol] 3.7 g/dL Normal [facility] Comment on above: Performed By: #### L CHAMP, TSH #### [facility] [address] [address] [address] Tierney Rivera Glucose [Mass/Vol] 109 mg/dL Critically high 74-106 [facility] Comment on above: Performed By: #### Breonna OAKES, TSH #### [facility] [address] [place] [address] Dr. Tierney Rivera Potassium [Moles/Vol] 4.0 mmol/L Normal 3.5-5.1 [facility] Comment on above: Performed By: #### L CHAMP, TSH #### [facility] [address] [place] [address] Dr. Tierney Rivera Protein [Mass/Vol] 8.0 g/dL Normal 6.4-8.2 [facility] Comment on above: Performed By: #### Breonna OAKES, TSH #### [facility] [address] [place] [address] Dr. Tierney Rivera Sodium [Moles/Vol] 140 mmol/L Normal 136-145 [facility] Comment on above: Performed By: #### Breonna OAKES, TSH #### [facility] [address] [place] [address] Dr. Tierney Rivera Urea nitrogen [Mass/Vol] 17.0 mg/dL Normal 7.0-18.0 [facility] Comment on above: Performed By: #### Breonna OAKES, TSH #### [facility] [address] [place] [address] Dr. Tierney Rivera Urea nitrogen/Creatinine [Mass ratio] 15.0 mg/mg Normal [facility] Comment on above: Performed By: #### Breonna OAKES, TSH #### [facility] [address] [place] [address] Dr. Tierney Rivera TROPONIN, HIGH SENSITIVITYon 01-15-2023 HSTROP 21.6 pg/mL Normal 4.0-51.[address] [facility] Comment on above: Result Comment: CUT- OFF POINTS HAVE BEEN ESTABLISHED BASED ON THE FOURTH UNIVERSAL DEFINITIONS OF MYOCARDIAL INFARCTION. THE UPPER REFERENCE LIMIT (URL) OF TROPONIN, DEFINED THE 99TH PERCENTILE OF cTnI DISTRIBUTION IN A REFERENCE POPULATION, HAS BEEN CONFIRMED THE DECISION THRESHOLD FOR [place] DIAGNOSIS. Performed By: #### H MATIAS BNP, CMP #### [facility] [address] [address] [address] Tierney Rivera XR CHEST 1 Von 01-15-2023 XR CHEST 1 V CHEST X-RAY HISTORY: Chest pain COMPARISON: 05/23/2021 chest x-ray TECHNIQUE: 1 view chest is submitted for review. FINDINGS: The lungs are hyperexpanded. Interstitial opacity in the right lower lobe. No effusion. The cardiac silhouette is enlarged.. Pulmonary vascularity is unremarkable. Osseous structures are within expected limits for patients age. . IMPRESSION: Hyperexpanded lungs with airspace opacity in the right lower lobe. Please correlate for pneumonia vs atelectasis. Electronically authenticated by: CONSTANCE LAI Date: 2023-01-15 00:29 Normal [facility] 37on 01-11-2023 37 Stop Metoprolol Increased irbesartan to 150 mg daily ( 2- 75 mg tablets until this pill bottle is empty) I sent a prescription for the higher dose so your next bottle you will be back to 1 tablet per day. Check blood work in 1-2 weeks to check kidney function Normal [facility] Office Visiton 01-11-2023 Follow-up visit [id number] Alfa Escobedo 1940 F Date Provider Department Center 01/11/2023 SHANTEL ALBERTO [facility] Family History Problem Relation Age of Onset Diabetes Mother Hypertension Mother Hypertension Father Diabetes Sister Heart attack Maternal Grandmother Family Status - Relation Status Age at Mother Father Sister Maternal Grandmother Level of Service:58112 [place] OFFICE/OUTPATIENT ESTABLISHED MOD MDM 30-39 MIN Reason for Visit and Comments: Atrial Fibrillation [80] Coronary Artery Disease [187] Valve Disorder [3372] Hypertension [356600] Normal [facility] FREE T4on 10-17-2022 Free T4 [Mass/Vol] 1.49 ng/dL Critically high 0.76-1.46 [facility] Comment on above: Performed By: #### L IVER, TSH #### [facility] [address] [place], [place] [address] Dr. Tierney Rivera LIVER PROFILEon 10-17-2022 Albumin [Mass/Vol] 3.7 g/dL Normal 3.4-5.0 [facility] Comment on above: Performed By: #### L IVER, TSH #### [facility] [address] [address] [address] Tierney Rivera Albumin/Globulin [Mass ratio] 1.1 {ratio} Normal [facility] Comment on above: Performed By: #### L IVER, TSH #### [facility] [address] [address] [address] Tierney Rivera ALP [Catalytic activity/Vol] 104 U/L Normal 46-116 [facility] Comment on above: Performed By: #### L IVER, TSH #### [facility] [address] [address] [address] Tierney Rivera ALT [Catalytic activity/Vol] 27 U/L Normal 14-59 [facility] Comment on above: Performed By: #### L IVER, TSH #### [facility] [address] [address] [address] Tierney Rivera AST [Catalytic activity/Vol] 23 U/L Normal 15-37 [facility] Comment on above: Performed By: #### L IVER, TSH #### [facility] [address] [address] [address] Tierney Rivera BILI, CONJUGATED 0.1 mg/dL Normal 0.0-0.2 [facility] Comment on above: Performed By: #### L IVER, TSH #### [facility] [address] [address] [address] Tierney Rivera Bilirubin [Mass/Vol] 0.4 mg/dL Normal 0.2-1.0 [facility] Comment on above: Performed By: #### L IVER, TSH #### [facility] [address] [address] [address] Tierney Rivera Globulin (S) [Mass/Vol] 3.5 g/dL Normal [facility] Comment on above: Performed By: #### L IVER, TSH #### [facility] [address] [address] [address] Tierney Rivera Protein [Mass/Vol] 7.2 g/dL Normal 6.4-8.2 [facility] Comment on above: Performed By: #### L CHAMP, TSH #### [facility] [address] [place] [address] Dr. Tierney Rivera TSHon 10-17-2022 TSH 1.020 uIU/mL Normal 0.358-3.740 [facility] Comment on above: Performed By: #### L LILAER, TSH #### [facility] [address] [place], [place] [address] Dr. Tierney Rivera XR CHEST 2 Von 10-17-2022 XR CHEST 2 V EXAMINATION: XR CHES T 2 V HISTORY: Long-term current use of drug therapy COMPARISON: 05/23/2021 TECHNIQUE: PA and lateral FINDINGS: LUNGS: No significant pulmonary parenchymal abnormalities. Hyperinflation. No focal infiltrates VASCULATURE: No increased pulmonary vasculature. PLEURA: No pneumothorax, effusion, or pleural thickening. CARDIAC: No cardiomegaly or cardiac silhouette abnormality. MEDIASTINUM: No visible mass or adenopathy. BONES: No fracture or visible bone lesion. OTHER: Negative. IMPRESSION: Hyperinflation, clear lungs Electronically authenticated by: FLORENTINO MAURO Date: 2022-10-17 09:[address] [facility] Covid-19 PCR (CVDTB)on SARS-CoV-2 (COVID-19) RNA SEDRIKC+probe Ql (Unsp spec) Detected Critically abnormal NOT DETECTED [facility] Comment on above: Result Comment: This test is not yet approved or cleared by the [place] FDA. When there are no FDA-approved or cleared tests available, and other criteria are met, FDA can make tests available under an emergency access mechanism called an Emergency Use Authorization (EUA). The EUA for this test is supported by the Chip Separator of Health and Human Service's (HHS's) declaration that circumstances exist to justify the emergency use of in vitro diagnostics for the detection and/or diagnosis of the virus that causes COVID-19. This EUA will remain in effect (meaning this test can be used) for the duration of the COVID-19 declaration justifying emergency of IVDs, unless it is terminated or revoked by FDA (after which the test may no longer be used). Performed By: #### C VDTBH #### [facility] [address] [address] [address] Tierney Rivera INFLUENZA A AND B AGon 09-27 [facility] SEE BELOW Normal [facility] Comment on above: Result Comment: Nega tive for Flu A protein angiten. Infection due to Flu A cannot be ruled out. Flu A angiten in the sample may be below the detection limit of the test. Performed By: #### I NFLUAB #### [facility] [address] [address] [address] Tierney Rivera INFLUBNEG SEE BELOW Normal [facility] Comment on above: Result Comment: Nega tive for Flu B protein antigen. Infection due to Flu B cannot be ruled out. Flu B antigen in the sample may be below the detection limit of the test. Performed By: #### I NFLUAB #### [facility] [address] [place] [address] Dr. Tierney Rivera INFLUENZA A AG Negative Normal NEGATIVE SEE COMMENT [facility] Comment on above: Performed By: #### I NFLUAB #### [facility] [address] [place] [address] Dr. Tierney Rivera INFLUENZA B AG Negative Normal NEGATIVE SEE COMMENT [facility] Comment on above: Performed By: #### I NFLUAB #### [facility] [address] [place] [address] Dr. Tierney Rivera Cardiovascular Lab Reporton 06-11-2021 Cardiovascular Lab Report [facility] Patient Name: Gregg [facility] Laura MR #: [id number] Department of Physician: Cecilia Hansen M.D. Division of Service Date: 06/10/2021 Cardiology Birthdate: 1940 Adult Cardiovascular Room #: [place] [address] Cardiovascular Laboratory Report FINAL IMPRESSION: 1. Angiographically non-obstructive coronary arteries. 2. Severely reduced global left ventricular systolic function by noninvasive imaging. 3. Mildly elevated right-sided heart pressures with moderately elevated pulmonary capillary wedge pressure consistent with biventricular congestive heart failure. 4. Low normal cardiac output/cardiac index. 5. Giant V waves on pulmonary capillary wedge pressure tracing consistent with severe mitral regurgitation. 6. Mild systemic hypertension. RECOMMENDATIONS: 1. Aggressive cardiovascular risk factor modification. 2. Resume Eliquis p.o. b.i.d. for thromboembolic prophylaxis given atrial fibrillation and high CHADS2-VASc score. 3. Amiodarone will be continued as a p.o. loading dose followed by maintenance dose of 200 mg daily. 4. Lasix will be added at 20 mg daily followed by a basic metabolic panel in 5 days; hydrochlorothiazide will be discontinued. 5. To avoid potential interactions, digoxin will be discontinued. 6. The patient will undergo a repeat echocardiogram in 2-3 months to evaluate her ejection fraction and degree of mitral regurgitation; if no improvement and she maintains sinus rhythm, she may need assessment for mitral valve replacement or MitraClip. 7. Follow up with Dr. Patel in the [facility]. 8. Follow up with Dr. Mccoy as scheduled. PROCEDURES: Ultrasound-guided access of the right common femoral vein, ultrasound-guided access of right common femoral artery, limited femoral angiography, right heart catheterization, bilateral selective coronary angiography, placement of a 5-New Zealander MynxGrip closure device. METHODS: After risks, benefits, and alternatives were explained, written informed consent was obtained. The patient was prepped and draped in usual sterile fashion over both groins. Using 1% lidocaine solution, local infiltration anesthesia was achieved. Using modified Seldinger technique, a micropuncture kit and under ultrasound guidance access to the right common femoral vein was obtained. A 6-New Zealander 11 cm sheath was inserted without difficulty. This was repeated over the artery; a 5-[place] Ze[place]ander 11 cm sheath was inserted. A Mcdonald catheter was used for right heart catheterization. Pressures were measured in the right atrium, right ventricle, pulmonary artery, and pulmonary capillary wedge positions. Oxygen saturations were obtained and cardiac output/cardiac index was calculated using modified Gisele principle. The Mcdonald catheter was removed. Bilateral selective coronary angiography was performed using 5-New Zealander JL4 and JR4 catheters. After reviewing the images, it was elected to conclude the procedure. All catheters were removed. A 5-[place] Zeal[place] MynxGrip closure device was deployed per protocol achieving optimal hemostasis over the arterial puncture site. The venous sheath was removed with application of manual pressure to achieve optimal hemostasis. Overall, the patient tolerated the procedure well. There were no overt complications. She was to be transferred to the holding area in stable condition. FINDINGS: Hemodynamics. AO 138/61 (84). RA 6. RV 43/4, 8. PA 43/18 (31). PCWP 18. TPG 13. Cardiac output 4.03/cardiac index 2.44. AO sat 95%/PA sat 65%. LEFT VENTRICULOGRAPHY: This was not performed. Ejection fraction is 20% to 25% by noninvasive imaging. CORONARY ARTERIES: Left main coronary artery. This arises from the left coronary cusp. It bifurcates into the left anterior descending and left circumflex coronary arteries and is free of significant stenosis. Left anterior descending coronary artery. This is angiographically nonobstructive. Left circumflex coronary artery. This is angiographically nonobstructive. Right coronary artery. This is a dominant vessel giving rise to the posterior descending and posterolateral branches. It is angiographically nonobstructive. Limited femoral angiography: shows minimal plaque and anatomy suitable for closure device. INDICATIONS: The patient is an 81-year-old woman who has new onset heart failure with reduced ejection fraction, atrial fibrillation with rapid ventricular response and severe mitral regurgitation by echocardiography. She presented today for coronary angiography and hemodynamic study. Findings and management strategies are outlined above. Electronically Signed by: Kaya Patel M.D. 06/15/2021 12:00 P Kaya Patel M.D. Date Dict: 06/10/2021/01:03 P/Kaya Patel M.D (more content not included)... Normal [facility] Encounters Encounter Date Encounter Type Care Provider Facility Start: 09-14-2023 End: 09-14-2023 ambulatory JAS VALDIVIA Not Available Start: 08-31-2023 End: 08-31-2023 ambulatory JAS VALDIVIA Not Available Start: 08-23-2023 End: 08-23-2023 ambulatory KAYA PATEL [facility] Start: 02-15-2023 End: 02-15-2023 ambulatory SHANTEL [facility] Start: 01-26-2023 End: 01-27-[address] GERBER MCCOY . Facility:[facility] Start: 01-15-2023 End: 01-15-[address] CYNTHIA ROMERO . Facility[facility] Start: 01-11-2023 End: 01-11-2023 ambulatory SHANTEL [facility] Start: 10-17-2022 End: 10-18-[address] GERBER MCCOY . Facility:[facility] Start: 09-27-2022 End: 09-27-[address] GERBER MCCOY . Facility:[facility] Start: 06-10-2021 End: 06-11-2021 ambulatory KAYA PATEL Facility:[facility] Payers Date Payer Category Payer Unknown [id number] 1958 Medicare [id number] 1958 Unknown [id number] 1940 Unknown [id number] [id number] 1940 Unknown [id number] 2.16.84 [id number] 1940 Unknown [id number] 2.16.84 [id number] 1940 Unknown [id number] 2.16.84 [id number] 1940 Unknown [id number] 2.16.84 [id number] 1940 Unknown [id number] [id number] 1940 Unknown [id number] Clinical Notes 01-11-2023 to 08-23-2023 Note Date & Type Note Facility 08-23-[address] [facility] Cardiology Clinic Note Chief Complaint: Patient here for 6 mo follow up CAD, PAF, and mitral valve regurgitation. She was kept overnight for observation in May 2023 at [facility], and declined transfer to [facility] for cardioversion. Patient does not remember this visit. Her this past March 2023. She denies chest pain, SOB, palpitations, lightheadedness, and bleeding on Eliquis. Dr. Mccoy switched her to metoprolol tartrate 25mg and she says she feels good on it. HPI: Lucille Escobedo is a 83 y.o. female with a history of severe mitral regurgitation, mild coronary artery disease, hypertension and paroxysmal atrial fibrillation here in routine follow-up Doing well; has no cardiovascular complaints. I was upset to hear her in March of this year. He apparently was diagnosed with malignant melanoma a year before and subsequently diagnosed with lymphoma. Cardiology ROS: Review of Systems Musculoskeletal: Positive for arthritis, back pain and joint pain. All other systems reviewed and are negative. Past Medical History She has a past medical history of Abnormal ECG, Arrhythmia, Atrial fibrillation (CMS/HCC), Coronary artery disease, Heart valve disease, Hypertension, LBBB (left bundle branch block), and Paroxysmal supraventricular tachycardia (CMS/HCC). Surgical History She has a past surgical history that includes Appendectomy; Cardioversion; Cardiac catheterization; and Hysterectomy. Social History She reports that she has never smoked. She has never used smokeless tobacco. She reports that she does not currently use alcohol. No history on file for drug use. Family History Family History Problem Relation Name Age of Onset Diabetes Mother Hypertension Mother Hypertension Father Diabetes Sister Heart attack Maternal Grandmother Allergies Hossein inhibitors and Sulfa (sulfonamide antibiotics) Medications Current Outpatient Medications: amiodarone (Pacerone) 200 mg tablet, Take 1 tablet (200 mg) by mouth once daily as directed., Disp: 90 tablet, Rfl: 3 apixaban (Eliquis) 2.5 mg tablet, Take 1 tablet by mouth in the morning and at bedtime., Disp: , Rfl: furosemide (Lasix) 20 mg tablet, Take 1 tablet (20 mg) by mouth in the morning., Disp: 90 tablet, Rfl: 3 irbesartan (Avapro) 75 mg tablet, Take 75 mg by mouth at bedtime. Taking 75mg in the AM, and 37.5mg in the PM, Disp: , Rfl: levothyroxine (Synthroid, Levoxyl) 50 mcg tablet, Take 50 mcg by mouth every other day., Disp: , Rfl: metoprolol succinate XL (Toprol-XL) 25 mg 24 hr tablet, 25 mg in the morning., Disp: , Rfl: potassium chloride CR (Klor-Con) 10 mEq ER tablet, Take 1 tablet by mouth in the morning., Disp: , Rfl: Last Recorded Vitals BP 145/65 (BP Location: Left arm, Patient Position: Sitting) Pulse (!) 45 Ht 1.676 m (5' 6 ) Wt 46.3 kg (102 lb) SpO2 99% BMI 16.46 kg/m??? Physical Examination: GENERAL: alert and oriented x3, well developed, in no acute distress. HEAD: atraumatic, normocephalic. EYES: VICENTE, EOMI. NECK: trachea midline, no JVD present, no carotid bruits present. CARDIAC: S1, S2 present. RRR. No murmur, rubs, or gallops. RESPIRATORY: CTAB, no increased effort of breathing, no rales, rhonchi, or wheezing. ABDOMEN: soft, nontender, nondistended. EXTREMITIES: no lower extremity edema, peripheral pulses are 2+ bilaterally. No rash/skin discoloration present. NEURO: strength/sensation equal and symmetric in bilateral upper and lower extremities. PSYCH: appropriate mood, affect, and judgement. Echocardiogram 11/19/2020: Global left ventricular systolic function appears low normal limits; ejection fraction estimated to be 50 to 55%. Severe dilatation of the left atrium. Right ventricle is normal in size and systolic function. Mild to moderate tricuspid regurgitation. Moderate to severe mitral regurgitation. Transesophageal Echocardiogram-[facility] Name: LUCILLE ESCOBEDO Study Date: 06/10/2021 10:12 AM B/P: 126 mmHg/68 mmHg HR: Date of : 1940 Location: [facility] Height: 66 in. Age: 81 year(s) Patient Room : Weight: 135 lb. Gender: Female Patient Status: OutPt BSA: 1.69 m2 Indication: Atrial Fibrillation Examination: TUAN/CFI with Cardioversion Image Quality: Good Patient Consent: Informed, written consent was obtained for the procedure s p @ c 3 Exam Location: A TUAN was performed in the [employer] without complications s p @ c 3 Anesthesia Pharyngeal anesthesia with viscous Lidocaine Conclusions Left Ventricle: The left ventricle is normal size. Global left ventricular systolic function is severely reduced. The EF is 20 % visually. Diffuse global hypokinesis. Right Ventricle: The right ventricle is normal in size. Right ventricular systolic function appears normal. Left Atrium: The left atrium is severely enlarged. Left Atrium Appendage: Normal left atrial appendage, no (more content not included)... [facility] 02-15-2023 Note Stable with toprol 35 mg [facility] 02-15-2023 Note Stable continue heart healthy di et [facility] 02-15-2023 Note Hypertension is well controlled with irbesartan 75 mgin am and 37.5 mg in pm, toprol 25 mg daily [facility] 02-15-2023 Note Patient here for 1 m o follow up hypertension and mitral valve regurgitation. Irbesartan was increased to 150mg daily at last visit and metoprolol was stopped. A few days later she went to [facility] ED for tachycardia. They restarted her metoprolol at 25mg daily. She says PCP advised her to take 12.5mg bid, but she is still taking 25mg once daily. She is taking 75mg of irbesartan in the morning, and 37.5mg in the evening. Denies chest pain, SOB, palpitations, and bleeding on Eliquis. Had labs 01/26/23. Review of Systems Musculoskeletal: Positive for arthritis and joint pain. All other systems reviewed and are negative. [facility] 02-15-2023 Note [facility] CARDIOLOGY PROGR ESS NOTE HPI: Lucille Escobedo is a 83 y.o. female here for CAD, HTN, HPL, Lt BBB, P a fib, MV regurg. Pt here for re-evaluation of B/P and Heart rate. After stopping metoprolol she was evaluated in ED with tachycardia, therefore metoprolol 25 mg daily was resumed. States heart rate has remained stable, denied lightheadedness, dizziness, syncope. States she has been taking irbesartan 75 mg in am and added 1/2 tab- 37.5 mg in the evening and with review of her b/p log she has stayed well controlled on this regime- typically b/p 130/80 or less. Review of Systems Constitutional: Negative. Respiratory: Negative. Cardiovascular: Negative. Neurological: Negative. All other systems reviewed and are negative. Visit Vitals BP 150/60 (BP Location: Right arm, Patient Position: Sitting) Pulse 51 Ht 1.676 m (5' 6 ) Wt 52.2 kg (115 lb) SpO2 99% BMI 18.56 kg/m??? Smoking Status Never BSA 1.56 m??? Allergies Allergen Reactions Hossein Inhibitors Other Sulfa (Sulfonamide Antibiotics) Other Medications: Current Outpatient Medications on File Prior to Visit Medication Sig Dispense Refill amiodarone (Pacerone) 200 mg tablet Take 1 tablet (200 mg) by mouth once daily as directed. 90 tablet 3 apixaban (Eliquis) 2.5 mg tablet Take 1 tablet by mouth in the morning and at bedtime. furosemide (Lasix) 20 mg tablet Take 1 tablet by mouth in the morning. irbesartan (Avapro) 75 mg tablet Take 75 mg by mouth at bedtime. Taking 75mg in the AM, and 37.5mg in the PM levothyroxine (Synthroid, Levoxyl) 50 mcg tablet Take 50 mcg by mouth every other day. metoprolol succinate XL (Toprol-XL) 25 mg 24 hr tablet 25 mg in the morning. potassium chloride CR (Klor-Con) 10 mEq ER tablet Take 1 tablet by mouth in the morning. [DISCONTINUED] irbesartan (Avapro) 150 mg tablet Take 1 tablet (150 mg) by mouth at bedtime. (Patient taking differently: Take 37.5 mg by mouth at bedtime.) 30 tablet 11 No current facility-administered medications on file prior to visit. Physical Exam: Constitutional: Appearance: Normal appearance. Without apparent distress, thin appearing HENT: Head: Normocephalic and atraumatic. Nose: Nose normal. Mouth/Throat: Mouth: Mucous membranes are moist. Eyes: Extraocular Movements: Extraocular movements intact. Conjunctiva/sclera: Conjunctivae normal. Neck: Vascular: No JVD. Cardiovascular: Rate and Rhythm: Normal rate and regular rhythm. Pulses: Dorsalis pedis pulses are 3 on the right side and 3on the left side. Posterior tibial pulses are 3 on the right side and 3 on the left side. Heart sounds: Normal heart sounds, S1 normal and S2 normal. Pulmonary: Effort: Pulmonary effort is normal. Breath sounds: Normal breath sounds. Abdominal: General: Bowel sounds are normal. Palpations: Abdomen is soft. Musculoskeletal: General: Normal range of motion. Cervical back: Normal range of motion. Right lower leg: No edema. Left lower leg: No edema. Skin: General: Skin is warm and dry. Capillary Refill: Capillary refill takes less than 2 seconds. Neurological: General: No focal deficit present. Mental Status: She is alert and oriented to person, place, and time. Psychiatric: Mood and Affect: Mood normal. Behavior: Behavior normal. Thought Content: Thought content normal. Judgment: Judgment normal. Labs: 10/17/22 Liver function normal, TSH normal 01/27/22 CBC normal BUN 17, CR 1.24, K+ 4.0 Liver function normal Chol 199, HDL 45, trig 123, LDL 129.4 06/15/21 BUN 17, CR 1.12 06/08/21 BUN 16, CR 1.02 Last lab values have been reviewed CV Testin07/21/21 Echo 06/10/21 TUAN No echocardiogram results found for the past 12 months Assessment/Plan: Coronary atherosclerosis Continue GDMT, CAD remains stable- no concerning symptoms continue risk factor modifications- heart healthy diet, regular exercise as tolerated and continue all medications. Paroxysmal atrial fibrillation (CMS/HCC) [id number]= 5 Remains on amiodarone, toprol 25 mg and eliquis anticoagulation Denied any bleeding tendencies Amiodarone annual monitoring- pt will need TSH for thyroid function, PFT for pulm function, and eye exam with opthalmologist Essential hypertension Hypertension is well controlled with irbesartan 75 mgin am and 37.5 mg in pm, toprol 25 mg daily Hyperlipidemia Stable continue heart healthy diet Paroxysmal supraventricular tachycardia (CMS/HCC) Stable with toprol 35 mg RTC 6 months [facility] 02-15-2023 Note [id number]= 5 Remains on amiodarone, toprol 25 mg and eliquis anticoagulation Denied any bleeding tendencies Amiodarone annual monitoring- pt will need TSH for thyroid function, PFT for pulm function, and eye exam with opthalmologist [facility] 02-15-2023 Note Continue GDMT, CAD r emains stable- no concerning symptoms continue risk factor modifications- heart healthy diet, regular exercise as tolerated and continue all medications. [facility] 01-11-2023 Note Hypertension is unco ntrolled- increase irbesartan to 150 mg, repeat BMP in 1-2 weeks to assess renal function. Asked pt to monitor b/p at home, start a log of her b/p and bring with her to next visit. [facility] 01-11-2023 Note Recommended low chol esterol- heart healthy diet [facility] 01-11-2023 Note Stable [facility] 01-11-2023 Note stable [facility] 01-11-2023 Note Will continue to mon itor- she does not want to proceed with mitral clipping procedure [facility] 01-11-2023 Note stable [facility] 01-11-2023 Note Patient here for 1 y ear follow up CAD, valve disorder, and hypertension. She decided not to proceed with valve surgery and never saw CT surgery. Had labs and CXR in Sep 2022 for amiodarone testing, but PFT's were not completed. Denies chest pain, SOB, palpitations, and bleeding on Eliquis. Review of Systems Musculoskeletal: Positive for arthritis and joint pain. All other systems reviewed and are negative. [facility] 01-11-2023 Note [facility] CARDIOLOGY PROGR ESS NOTE HPI: Lucille Escobedo is a 82 y.o. female here for CAD, dyspnea, HTN, MV regurg, P afib, P SVT. Patient states that she had follow-up with [facility] regarding possible mitral clipping and at this time because she feels well she does not want to proceed with that procedure-has a lot of anxiety and concerns regarding mitral clipping. Denies shortness of breath, chest pain, orthopnea or palpitations States last time she had atrial fibs was when her PCP stopped her metoprolol because of bradycardia. After resuming her metoprolol has not happened since and she only takes metoprolol tartrate 25 mg once a day. Overall pt is doing well, heart rate remains 45-50 bpm. Review of Systems Constitutional: Negative. Respiratory: Negative. Cardiovascular: Negative. Neurological: Negative. All other systems reviewed and are negative. Visit Vitals BP 154/64 (BP Location: Left arm, Patient Position: Sitting) Pulse (!) 47 Ht 1.676 m (5' 6 ) Wt 52.6 kg (116 lb) SpO2 100% BMI 18.72 kg/m??? Smoking Status Never BSA 1.57 m??? Allergies Allergen Reactions Hossein Inhibitors Other Sulfa (Sulfonamide Antibiotics) Other Medications: Current Outpatient Medications on File Prior to Visit Medication Sig Dispense Refill apixaban (Eliquis) 2.5 mg tablet Take 1 tablet by mouth in the morning and at bedtime. furosemide (Lasix) 20 mg tablet Take 1 tablet by mouth in the morning. levothyroxine (Synthroid, Levoxyl) 50 mcg tablet Take 1 tablet by mouth in the morning. potassium chloride CR (Klor-Con) 10 mEq ER tablet Take 1 tablet by mouth in the morning. [DISCONTINUED] amiodarone (Pacerone) 200 mg tablet Take 1 tablet (200 mg) by mouth once daily as directed. 90 tablet 1 [DISCONTINUED] irbesartan (Avapro) 75 mg tablet Take 1 tablet by mouth in the morning. [DISCONTINUED] metoprolol succinate XL (Toprol-XL) 25 mg 24 hr tablet Take 25 mg by mouth. [DISCONTINUED] metoprolol tartrate (Lopressor) 25 mg tablet Take 25 mg by mouth in the morning and at bedtime. No current facility-administered medications on file prior to visit. Physical Exam: Constitutional: Appearance: Normal appearance. Without apparent distress, chronically ill, thin appearing HENT: Head: Normocephalic and atraumatic. Nose: Nose normal. Mouth/Throat: Mouth: Mucous membranes are moist. Eyes: Extraocular Movements: Extraocular movements intact. Conjunctiva/sclera: Conjunctivae normal. Neck: Vascular: No JVD. Cardiovascular: Rate and Rhythm: Normal rate and regular rhythm. Pulses: Dorsalis pedis pulses are 3 on the right side and 3on the left side. Posterior tibial pulses are 3 on the right side and 3 on the left side. Heart sounds: Axillary systolic murmur, S1 normal and S2 normal. Pulmonary: Effort: Pulmonary effort is normal. Breath sounds: Normal breath sounds. Abdominal: General: Bowel sounds are normal. Palpations: Abdomen is soft. Musculoskeletal: General: Normal range of motion. Cervical back: Normal range of motion. Right lower leg: No edema. Left lower leg: No edema. Skin: General: Skin is warm and dry. Capillary Refill: Capillary refill takes less than 2 seconds. Neurological: General: No focal deficit present. Mental Status: She is alert and oriented to person, place, and time. Psychiatric: Mood and Affect: Mood normal. Behavior: Behavior normal. Thought Content: Thought content normal. Judgment: Judgment normal. Labs: 10/17/22 Liver function normal 01/27/22 CBC normal BUN 17, CR 1.24, K+ 4.0 Liver function normal Chol 199, HDL 45, trig 123, LDL 129.4 06/15/21 BUN 17, CR 1.12 06/08/21 BUN 16, CR 1.02 Last lab values have been reviewed CV Testin07/21/21 Echo 06/10/21 TUAN Assessment/Plan: Coronary atherosclerosis MILD (CATH 2009) Continue risk factor modifications including heart healthy diet, exercise on a regular regimen, continue medications No aspirin in light of Eliquis, hold metoprolol r/t bradycardia- will monitor for any recurrent Afib/tachycardia Paroxysmal atrial fibrillation (CMS/HCC) History of fib/flutter; currently on, amiodarone 200 mg daily, andEliquis Heart rate well controlled, regular rate and rhythm during assessment Dyspnea stable Mitral valve regurgitation Will continue to monitor- she does not want to proceed with mitral clipping procedure Paroxysmal supraventricular tachycardia (CMS/HCC) stable Left bundle branch block Stable Hyperlipidemia Recommended low cholesterol- heart healthy diet Essential hypertension Hypertension is uncontrolled- increase irbesartan to 150 mg, repeat BMP in 1-2 weeks to assess renal function. Asked pt to monitor b/p at home, start a log of her b/p and bring with her to next visit. RTC 1 month to assess b/p and heart rate [facility] 01-11-2023 Note History of fib/flutt er; currently on, amiodarone 200 mg daily, andEliquis Heart rate well controlled, regular rate and rhythm during assessment [facility] 01-11-2023 Note MILD (CATH 2009) Continue risk factor modifications including heart healthy diet, exercise on a regular regimen, continue medications No aspirin in light of Eliquis, hold metoprolol r/t bradycardia- will monitor for any recurrent Afib/tachycardia [facility] Summary Purpose Family History No Family History Records FoundNo Family History Records FoundNo Family History Records FoundNo Family History Records Found Advance Directives No Advanced Directives Records FoundNo Advanced Directives Records FoundNo Advanced Directives Records FoundNo Advanced Directives Records Found Additional Source Comments INFORMATION SOURCE (unrecogn ized section and content) DATE CREATED AUTHOR 06/15/2021 [facility] DATE CREATED AUTHOR AUTHOR'S ORGANIZ ATION 02/02/2023 [facility] DATE CREATED AUTHOR AUTHOR'S ORGANIZ ATION 08/25/2023 [facility] DATE CREATED AUTHOR AUTHOR'S ORGANIZ ATION 09/15/2023 [facility] EPIC FOR RECORDS PERTAINING TO PATIENTS WHO ARE OR HAVE BEEN ENROLLED IN A CHEMICAL DEPENDENCY/SUBSTANCEABUSE PROGRAM, SOME INFORMATION MAY BE OMITTED. This clinical summary was aggregated from multiple sources. Caution should be exercised in using it in the provision of clinical care. This summary normalizes information from multiple sources, and as a consequence, information in this document may materially change the coding, format and clinical context of patient data. In addition, data may be omitted in some cases. CLINICAL DECISIONS SHOULD BE BASED ON THE PRIMARY CLINICAL RECORDS. [employer] provides no warranty or guarantee of the accuracy or completeness of information in this document.
[2023-09-28 15:47] LABS: Basophils Percent Auto 0.2 % (0.2-2.0); Eosinophils Absolute Auto 0.1 10^3/uL (0.0-0.7); Eosinophils Percent Auto 1.3 % (0.9-7.0); Hematocrit 41.9 % (36.0-48.0); Hemoglobin 13.7 g/dL (12.0-16.0); Immature Granulocytes Abs Auto 0.04 10^3/uL (0.00-0.03); Immature Granulocytes Pct Auto 0.5 % (0.0-0.5); Lymphocytes Absolute Auto 1.7 10^3/uL (1.2-3.8); Lymphocytes Percent Auto 21.2 % (20.5-60.0); Mean Corpuscular HGB Conc 32.7 g/dL (29.9-35.2); Mean Corpuscular Hemoglobin 30.9 pg (26.7-34.0); Mean Corpuscular Volume 94.4 fL (81.0-99.0); Mean Platelet Volume 11.4 fL (9.5-13.5); Monocytes Absolute Auto 0.7 10^3/uL (0.3-0.8); Monocytes Percent Auto 8.4 % (1.7-12.0); Neutrophils Absolute Auto 5.6 10^3/uL (1.4-6.5); Neutrophils Percent Auto 68.4 % (43.0-75.0); Platelet Count 255 10^3/uL (150-450); Red Blood Count 4.44 10^6/uL (4.20-5.40); Red Cell Distribution Width 13.2 % (11.0-15.0); White Blood Count 8.2 10^3/uL (4.0-11.0)
[2023-09-28] MEDS: DILTIAZEM HCL 25 MG/5 ML VIAL 7.5 MG IV (15:50)
[2023-09-28 16:01] LABS: INR 1.01; Prothrombin Time 10.7 sec (9.0-11.6)
[2023-09-28 16:08] LABS: Alanine Aminotransferase 39 U/L (14-59); Albumin Globulin Ratio 1.1; Albumin Level 3.7 g/dL (3.4-5.0); Alkaline Phosphatase 100 U/L (46-116); Anion Gap 9.6; Aspartate Amino Transferase 36 U/L (15-37); BUN Creatinine Ratio 21.1; Bilirubin Total 0.4 mg/dL (0.2-1.0); Calcium 10.1 mg/dL (8.5-10.1); Carbon Dioxide 30.4 mmol/L (21.0-32.0); Chloride 103 mmol/L (98-107); Estimated GFR (African America 46 (>=60); Estimated GFR (Non-African Ame 38 (>=60); Globulin 3.5 g/dL; Glucose 142 mg/dL (74-106); Sodium 139 mmol/L (136-145); Thyroid Stimulating Hormone 1.676 uIU/mL (0.358-3.740); Total Protein 7.2 g/dL (6.4-8.2); Troponin I High Sensitivity 12.8 pg/mL (4.0-51.3)
[2023-09-28] MEDS: 0.9 % SODIUM CHLORIDE 1,000 ML 500 ML IV (16:52)
--- NOTE | 2023-09-28 17:05 | ECG_ITS ---
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
--- NOTE | 2023-09-28 17:11 | ECG_ITS ---
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
== END 2023-09-28 17:36 | disposition home or self-care (01) ==
PROVIDERS: Physician Assistant; Emergency Provider Emergency Medicine; PCP Family Medicine
DX: I48.91 Unspecified atrial fibrillation (principal); Z79.01 Long term (current) use of anticoagulants; Z79.899 Other long term (current) drug therapy; Z79.890 Hormone replacement therapy
CPT/HCPCS: 36415; 71045; 80053; 84443; 84484; 85025; 85610; 93005; 96374; 99285

== ENCOUNTER 2023-10-14 04:04 | Observation (INO) | payer MEDICARE, OTHER, SELFPAY ==
[2023-10-14] VITALS (10 sets, daily range): BP systolic 118–177; BP diastolic 53–86; PULSE 50–69; RESP 16–22; TEMP 36.1–36.5; O2SAT 90–98; BMI 17.3; BMI 17.7
--- OUTSIDE RECORDS SUMMARY | 2023-10-14 04:10 | XMS_ITS | CCD ---
Author Name Unknown Address [address] [place] [address] Organization [facility] Care Team Providers Care Audiologist Name Role Phone ELTAHAWY, EHAB A Attending [...] MAYES Primary Care Unavailable LAICONSTANCE Consulting Unavailable JOSE, SHANTEL Attending Unavailable JOSE, SHANTEL Attending Unavailable ELTAHAWY, EHAB Attending Unavailable JAS VALDIVIA Attending Unavailable JAS VALDIVIA Attending Unavailable JAS VALDIVIA Attending Unavailable JAS VALDIVIA Attending Unavailable Allergies Allergy Classification Reported Allergen(s) Allergy Type Date of Onset Reaction(s) Facility (3 sources) Angiotensin Converting Enzyme (Hossein) Inhibitors; Translations: [HOSSEIN INHIBITORS] Drug allergy (disorder) 07-03-2012 [facility] Repository (3 sources) Sulfonamides (Antibiotic); Translations: [SULFA (SULFONAMIDE ANTIBIOTICS)] Drug allergy (disorder) 07-03-2012 [facility] Repository Problems Active Problems Problem [...] disease (2 sources) Atherosclerotic heart disease of [place] coronary artery without angina pectoris; Translations: [Atherosclerotic heart disease of [place] coronary artery without angina pectoris] Onset: 06-08-2022 [...] Onset: 02-01-2023 Chronic Other aftercare (1 source) 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) use of anticoagulants; Translations: [[employer] CURRNT USE ANTICOAGULANTS] Onset: 01-17-2023 Episodic Other aftercare (1 source) [facility] (current) use of aspirin; Translations: [[employer] CURRENT USE OF ASPIRIN] Onset: 01-17-2023 Episodic [...] te Episodic/Chronic Other aftercare (7 sources) Other nursing home (current) drug therapy; Translations: [OTH [employer] CURRENT DRUG THERAPY] Onset: 10-17-2022 Episodic Other lower respiratory disease (2 sources) Other forms of dyspnea; Translations: [Other forms of dyspnea] Onset: 06-08-2022 Episodic Other upper respiratory disease (1 source) Nasal congestion; Translations: [NASAL CONGESTION] Onset: 09-30-2022 Episodic Unclassified (1 source) CONTACT W/AND (SUSP) EXPOS COVID-19; Translations: [CONTACT W/AND (SUSP) EXPOS COVID-19] Onset: 09-27-2022 Results Test Name Value Interpretation Reference Range Facility 36on 10-04-2023 36 Patient called to [facility] aware that [facility] called her yesterday to schedule muga scan. She told them she did not want the test because her heart is not pumping low anymore . I advised patient that without diagnostic testing someone cannot tell the function of their own heart. She asked me what getting a pacemaker entailed. I told her it's usually done as outpatient, done at [facility]. I told her she would have to be very careful with using her left arm and wouldn't be able to drive for a month. She told me you just made up my mind for me . Patient has now decided to not have muga scan done. Normal [facility] Telephoneon 09-28-2023 Telephone [id number] Alfa Escobedo 1940 F Date Provider Department Center 09/28/2023 CRISTINA CAR OTTONIEL [facility] Family History Problem Relation Age of Onset Diabetes Mother Hypertension Mother Hypertension Father Diabetes Sister Heart attack Maternal Grandmother Family Status - Relation Status Age at Mother Father Sister Maternal Grandmother Normal [facility] Office Visiton 08-23-2023 Follow-up visit [id number] Alfa Escobedo 1940 Provider Department Center 08/23/2023 Bina-SERJIOLEIAKAYA LINDA CARD [facility] Family History Problem Relation Age of Onset Diabetes Mother Hypertension Mother Hypertension Father Diabetes Sister Heart attack Maternal Grandmother Family Status - Relation Status Age at Mother Father Sister Maternal Grandmother Level of Service:54180 [place] OFFICE/OUTPATIENT ESTABLISHED LOW MDM 20-29 MIN Normal [facility] Office Visiton 02-15-2023 Follow-up visit [id number] Alfa Escobedo 1940 Provider Department Center 02/15/2023 SHANTEL ALBERTO CARD [facility] Family History Problem Relation Age of Onset Diabetes Mother Hypertension Mother Hypertension Father Diabetes Sister Heart attack Maternal Grandmother Family Status - Relation Status Age at Mother Father Sister Maternal Grandmother Level of Service:32856 [place] OFFICE/OUTPATIENT ESTABLISHED LOW MDM 20-29 MIN Reason for Visit and Comments: Atrial Fibrillation [80] Valve Disorder [3372] Hypertension [967946] Normal [facility] BNPon 01-26-2023 Natriuretic peptide B (Bld) [Mass/Vol] 1751.0 pg/mL Normal <=1,800.0 [facility] Comment on above: Performed By: #### L IVER, TSH #### [facility] [address] [place] [address] Dr. Tierney Rivera CBC AUTO DIFFon 01-26-2023 BASO # 0.0 103/ul Normal 0.0-0.1 [facility] Comment on above: Performed By: #### C BC #### [facility] [address] [place] [address] Dr. Tierney Rivera Basophils/100 WBC (Bld) 0.3 % Normal 0.2-2.0 [facility] Comment on above: Performed By: #### C BC #### [facility] [address] [place] [address] Dr. Tierney Rivera EO # 0.1 103/ul Normal 0.0-0.7 [facility] Comment on above: Performed By: #### C BC #### [facility] [address] [place] [address] Dr. Tierney Rivera Eosinophils/100 WBC (Bld) 2.3 % Normal 0.9-7.0 [facility] Comment on above: Performed By: #### C BC #### [facility] [address] [place] [address] Dr. Tierney Rivera Erythrocyte distribution width (RBC) [Ratio] 13.1 % Normal 11.0-15.0 [facility] Comment on above: Performed By: #### C BC #### [facility] [address] [place] [address] Dr. Tierney Rivera Hematocrit (Bld) [Volume fraction] 43.5 % Normal 36.0-48.0 [facility] Comment on above: Performed By: #### C BC #### [facility] [address] [place] [address] Dr. Tierney Rivera Hemoglobin (Bld) [Mass/Vol] 13.9 g/dL Normal 12.0-16.0 [facility] Comment on above: Performed By: #### C BC #### [facility] [address] [place] [address] Dr. Tierney Rivera IG # 0.02 10e3/ul Normal 0.00-0.03 [facility] Comment on above: Performed By: #### C BC #### [facility] [address] [place] [address] Dr. Tierney Rivera IG % 0.3 % Normal 0.0-0.5 [facility] Comment on above: Performed By: #### C BC #### [facility] [address] [place] [address] Dr. Tierney Rivera LYMPH # 1.2 103/ul Normal 1.2-3.8 [facility] Comment on above: Performed By: #### C BC #### [facility] [address] [place] [address] Dr. Tierney Rivera Lymphocytes/100 WBC (Bld) 20.6 % Normal 20.5-60.0 [facility] Comment on above: Performed By: #### C BC #### [facility] [address] [place] [address] Dr. Tierney Rivera MANUAL DIFF REQ NO Normal [facility] Comment on above: Performed By: #### C BC #### [facility] [address] [place] [address] Dr. Tierney Rivera MCH (RBC) [Entitic mass] 29.4 pg Normal 26.7-34.0 [facility] Comment on above: Performed By: #### C BC #### [facility] [address] [place] [address] Dr. Tierney Rivera MCHC (RBC) [Mass/Vol] 32.0 g/dL Normal 29.9-35.2 [facility] Comment on above: Performed By: #### C BC #### [facility] [address] [place] [address] Dr. Tierney Rivera MCV (RBC) [Entitic vol] 92.2 fL Normal 81.0-99.0 [facility] Comment on above: Performed By: #### C BC #### [facility] [address] [place] [address] Dr. Tierney Rivera MONO # 0.6 103/ul Normal 0.3-0.8 [facility] Comment on above: Performed By: #### C BC #### [facility] [address] [place] [address] Dr. Tierney Rivera Monocytes/100 WBC (Bld) 10.2 % Normal 1.7-12.0 [facility] Comment on above: Performed By: #### C BC #### [facility] [address] [place] [address] Dr. Tierney Rivera NEUT # 3.8 103/ul Normal 1.4-6.5 [facility] Comment on above: Performed By: #### C BC #### [facility] [address] [place] [address] Dr. Tierney Rivera Neutrophils/100 WBC (Bld) 66.3 % Normal 43.0-75.0 [facility] Comment on above: Performed By: #### C BC #### [facility] [address] [address] [address] Tierney Rivera Platelet mean volume (Bld) [Entitic vol] 11.2 fL Normal 9.5-13.5 [facility] Comment on above: Performed By: #### C BC #### [facility] [address] [address] [address] Tierney Rivera PLT 253 103/ul Normal 150-450 [facility] Comment on above: Performed By: #### C BC #### [facility] [address] [address] [address] Tierney Rivera RBC 4.72 106/ul Normal 4.20-5.40 [facility] Comment on above: Performed By: #### C BC #### [facility] [address] [address] [address] Tierney Rivera WBC 5.8 103/ul Normal 4.0-11.0 [facility] Comment on above: Performed By: #### C BC #### [facility] [address] [address] [address] Tierney Rivera FREE THYROXINE INDEX T7on FTI 5.18 Critically high 1.30-4.50 [facility] Comment on above: Performed By: #### L IVER, TSH #### [facility] [address] [address] [address] Tierney Rivera T3U 36.0 % Normal 30.0-39.0 [facility] Comment on above: Performed By: #### L IVER, TSH #### [facility] [address] [address] [address] Tierney Rivera T4 [Mass/Vol] 14.40 ug/dL Critically high 4.80-13.90 [facility] Comment on above: Performed By: #### L IVER, TSH #### [facility] [address] [address] [address] Tierney Rivera GLYCOHEMOGLOBIN A1Con 2022 ADA RECOMMENDATION SEE BELOW Normal [facility] Comment on above: Result Comment: ADA RECOMMENDED LIMIT 4.0 - 6.0 ADA THERAPEUTIC TARGET < 7.0 ACTION SUGGESTED > 7.0 Performed By: #### L CHAMP, TSH #### [facility] [address] [place] [address] Dr. Tierney Rivera Glucose [Mass/Vol] 117 mg/dL Normal [facility] Comment on above: Performed By: #### L CHAMP, TSH #### [facility] [address] [place] [address] Dr. Tierney Rivera HbA1c (Bld) [Mass fraction] 5.7 % Normal 4.5-6.2 [facility] Comment on above: Performed By: #### L CHAMP, TSH #### [facility] [address] [place] [address] Dr. Tierney Rivera IRONon 01-26-2023 Iron [Mass/Vol] 67.0 ug/dL Normal 50.0-170.0 [facility] Comment on above: Performed By: #### V ITAD, IRON #### [facility] [address] [place] [address] Dr. Tierney Rivera PROF 14(COMP METB)on 023 Albumin [Mass/Vol] 4.0 g/dL Normal 3.4-5.0 [facility] Comment on above: Performed By: #### L CHAMP, TSH #### [facility] [address] [place] [address] Dr. Tierney Rivera Albumin/Globulin [Mass ratio] 1.1 {ratio} Normal [facility] Comment on above: Performed By: #### L CHAMP, TSH #### [facility] [address] [place] [address] Dr. Tierney Rivera ALP [Catalytic activity/Vol] 98 U/L Normal 46-116 [facility] Comment on above: Performed By: #### L CHAMP, TSH #### [facility] [address] [place] [address] Dr. Tierney Rivera ALT [Catalytic activity/Vol] 29 U/L Normal 14-59 [facility] Comment on above: Performed By: #### L CHAMP, TSH #### [facility] [address] [address] [address] Tierney Rivera Anion gap [Moles/Vol] 11.7 mmol/L Normal [facility] Comment on above: Performed By: #### L IVER, TSH #### [facility] [address] [address] [address] Tierney Rivera AST [Catalytic activity/Vol] 22 U/L Normal 15-37 [facility] Comment on above: Performed By: #### L IVER, TSH #### [facility] [address] [address] [address] Tierney Rivera Bilirubin [Mass/Vol] 0.4 mg/dL Normal 0.2-1.0 [facility] Comment on above: Performed By: #### L IVER, TSH #### [facility] [address] [address] [address] Tierney Rivera Calcium [Mass/Vol] 10.1 mg/dL Normal 8.5-10.1 [facility] Comment on above: Performed By: #### L IVER, TSH #### [facility] [address] [address] [address] Tierney Rivera Chloride [Moles/Vol] 103 mmol/L Normal 98-107 [facility] Comment on above: Performed By: #### L IVER, TSH #### [facility] [address] [address] [address] Tierney Rivera CO2 [Moles/Vol] 30.5 mmol/L Normal 21.0-32.0 [facility] Comment on above: Performed By: #### L IVER, TSH #### [facility] [address] [address] [address] Tierney Rivera Creatinine [Mass/Vol] 1.15 mg/dL Critically high 0.55-1.02 [facility] Comment on above: Performed By: #### L IVER, TSH #### [facility] [address] [address] [address] Tierney Rivera EGFR-AF NICARAGUAN 55 mL/min/1.73m2 Critically low >=60 [facility] Comment on above: Performed By: #### L IVER, TSH #### [facility] [address] [address] [address] Tierney Rivera EGFR-NON AF NICARAGUAN 45 mL/min/1.73m2 Critically low >=60 [facility] Comment on above: Performed By: #### L IVER, TSH #### [facility] [address] [address] [address] Tierney Rivera Globulin (S) [Mass/Vol] 3.8 g/dL Normal [facility] Comment on above: Performed By: #### L IVER, TSH #### [facility] [address] [address] [address] Tierney Rivera Glucose [Mass/Vol] 97 mg/dL Normal 74-106 [facility] Comment on above: Performed By: #### L IVER, TSH #### [facility] [address] [place] [address] Dr. Tierney Rivera Potassium [Moles/Vol] 4.2 mmol/L Normal 3.5-5.1 [facility] Comment on above: Performed By: #### L IVER, TSH #### [facility] [address] [place] [address] Dr. Tierney Rivera Protein [Mass/Vol] 7.8 g/dL Normal 6.4-8.2 [facility] Comment on above: Performed By: #### L IVER, TSH #### [facility] [address] [place] [address] Dr. Tierney Rivera Sodium [Moles/Vol] 141 mmol/L Normal 136-145 [facility] Comment on above: Performed By: #### L IVER, TSH #### [facility] [address] [place] [address] Dr. Tierney Rivera Urea nitrogen [Mass/Vol] 18.0 mg/dL Normal 7.0-18.0 [facility] Comment on above: Performed By: #### L IVER, TSH #### [facility] [address] [place] [address] Dr. Tierney Rivera Urea nitrogen/Creatinine [Mass ratio] 15.7 mg/mg Normal [facility] Comment on above: Performed By: #### L CHAMP TSH #### [facility] [address] [place] [address] Dr. Tierney Rivera TSHon 01-26-2023 TSH 2.066 uIU/mL Normal 0.358-3.740 [facility] Comment on above: Performed By: #### Breonna OAKES TSH #### [facility] [address] [place] [address] Dr. Tierney Rivera VITAMIN D 25 OHon 01-26-2023 VIT D 25-OH 45.0 ng/mL Normal [facility] Comment on above: Performed By: #### V SHANNEN, IRON #### [facility] [address] [place] [address] Dr. Tierney Rivera VIT D RANGES SEE BELOW Normal [facility] Comment on above: Result Comment: <20 ng/mL Vit D deficient 20 - <30 ng/mL Vit D insufficient 30 - 100 ng/mL Vit D sufficient >100 ng/mL Potential Toxicity Performed By: #### Riaz PRIDE, IRON #### [facility] [address] [place] [address] Dr. Tierney Rivera BNPon 01-15-2023 Natriuretic peptide B (Bld) [Mass/Vol] 868.0 pg/mL Normal <=1,800.0 [facility] Comment on above: Performed By: #### H STROPN, BNP, CMP #### [facility] [address] [place] [address] Dr. Tierney Rivera CBC AUTO DIFFon 01-15-2023 BASO # 0.0 103/ul Normal 0.0-0.1 [facility] Comment on above: Performed By: #### L CHAMP TSH #### [facility] [address] [place] [address] Dr. Tierney Rivera Basophils/100 WBC (Bld) 0.3 % Normal 0.2-2.0 [facility] Comment on above: Performed By: #### Breonna OAKES TSH #### [facility] [address], [place] [id number] Dr. Tierney Rivera EO # 0.1 103/ul Normal 0.0-0.7 [facility] Comment on above: Performed By: #### L IVBISHNU, TSH #### [facility] [address] [place] [address] Dr. Tierney Rivera Eosinophils/100 WBC (Bld) 1.7 % Normal 0.9-7.0 [facility] Comment on above: Performed By: #### L IVBISHNU, TSH #### [facility] [address] [place] [address] Dr. Tierney Rivera Erythrocyte distribution width (RBC) [Ratio] 13.2 % Normal 11.0-15.0 [facility] Comment on above: Performed By: #### L IVBISHNU, TSH #### [facility] [address] [place] [address] Dr. Tierney Rivera Hematocrit (Bld) [Volume fraction] 45.1 % Normal 36.0-48.0 [facility] Comment on above: Performed By: #### L IVBISHNU, TSH #### [facility] [address] [place] [address] Dr. Tierney Rivera Hemoglobin (Bld) [Mass/Vol] 15.1 g/dL Normal 12.0-16.0 [facility] Comment on above: Performed By: #### L IVBISHNU, TSH #### [facility] [address] [place] [address] Dr. Tierney Rivera IG # 0.01 10e3/ul Normal 0.00-0.03 [facility] Comment on above: Performed By: #### L IVER, TSH #### [facility] [address] [place] [address] Dr. Tierney Rivera IG % 0.2 % Normal 0.0-0.5 [facility] Comment on above: Performed By: #### L IVBISHNU, TSH #### [facility] [address] [place] [address] Dr. Tierney Rivera LYMPH # 2.2 103/ul Normal 1.2-3.8 [facility] Comment on above: Performed By: #### L IVBISHNU, TSH #### [facility] [address] [address] [address] Tierney Rivera Lymphocytes/100 WBC (Bld) 32.5 % Normal 20.5-60.0 [facility] Comment on above: Performed By: #### L IVER, TSH #### [facility] [address] [address] [address] Tierney Rivera MANUAL DIFF REQ NO Normal [facility] Comment on above: Performed By: #### L IVER, TSH #### [facility] [address] [place] [address] Dr. Tierney Rivera MCH (RBC) [Entitic mass] 30.0 pg Normal 26.7-34.0 [facility] Comment on above: Performed By: #### L IVER, TSH #### [facility] [address] [place] [address] Dr. Tierney Rivera MCHC (RBC) [Mass/Vol] 33.5 g/dL Normal 29.9-35.2 [facility] Comment on above: Performed By: #### L IVER, TSH #### [facility] [address] [place] [address] Dr. Tierney Rivera MCV (RBC) [Entitic vol] 89.7 fL Normal 81.0-99.0 [facility] Comment on above: Performed By: #### L IVER, TSH #### [facility] [address] [place] [address] Dr. Tierney Rivera MONO # 0.8 103/ul Normal 0.3-0.8 [facility] Comment on above: Performed By: #### L IVER, TSH #### [facility] [address] [place] [address] Dr. Tierney Rivera Monocytes/100 WBC (Bld) 12.6 % Critically high 1.7-12.0 [facility] Comment on above: Performed By: #### L IVER, TSH #### [facility] [address] [place] [address] Dr. Tierney Rivera NEUT # 3.5 103/ul Normal 1.4-6.5 [facility] Comment on above: Performed By: #### L IVER, TSH #### [facility] [address] [address] [address] Tierney Rivera Neutrophils/100 WBC (Bld) 52.7 % Normal 43.0-75.0 [facility] Comment on above: Performed By: #### L IVER, TSH #### [facility] [address] [address] [address] Tierney Rivera Platelet mean volume (Bld) [Entitic vol] 11.0 fL Normal 9.5-13.5 [facility] Comment on above: Performed By: #### L IVBISHNU, TSH #### [facility] [address] [place] [address] Dr. Tierney Rivera PLT 266 103/ul Normal 150-450 [facility] Comment on above: Performed By: #### L IVBISHNU, TSH #### [facility] [address] [place] [address] Dr. Tierney Rivera RBC 5.03 106/ul Normal 4.20-5.40 [facility] Comment on above: Performed By: #### L CHAMP, TSH #### [facility] [address] [place] [address] Dr. Tierney Rivera WBC 6.6 103/ul Normal 4.0-11.0 [facility] Comment on above: Performed By: #### L CHAMP, TSH #### [facility] [address] [place] [address] Dr. Tierney Rivera CULTURE BLOODon 01-15-2023 Microscopic examination of blood, culture Culture Observations: NO GROWTH AT 5 DAYS. Normal [facility] Comment on above: Performed By: #### L IVBISHNU, TSH #### [facility] [address] [place] [address] Dr. Tierney Rivera Microscopic examination of blood, culture Culture Observations: NO GROWTH AT 5 DAYS. Normal [facility] Comment on above: Performed By: #### L IVER, TSH #### [facility] [address] [place] [address] Dr. Tierney Rivera ER URINE PROFILEon 3 Bilirubin Ql (U) Negative Normal NEGATIVE [facility] Comment on above: Performed By: #### L IVER, TSH #### [facility] [address] [place] [address] Dr. Tierney Rivera Clarity (U) CLEAR Normal CLEAR [facility] Comment on above: Performed By: #### L IVER, TSH #### [facility] [address] [place] [address] Dr. Tierney Rivera Color (U) LT. YELLOW Normal YELLOW [facility] Comment on above: Performed By: #### L IVER, TSH #### [facility] [address] [place] [address] Dr. Tierney Rivera ERUAHGianna A micrscopic examination will be performed if indicated. Normal [facility] Comment on above: Performed By: #### L IVER, TSH #### [facility] [address] [place] [address] Dr. Tierney Rivera Glucose Ql (U) Negative Normal NEGATIVE [facility] Comment on above: Performed By: #### L IVER, TSH #### [facility] [address] [place] [address] Dr. Tierney Rivera Hemoglobin Ql (U) Negative Normal NEGATIVE [facility] Comment on above: Performed By: #### L IVER, TSH #### [facility] [address] [place] [address] Dr. Tierney Rivera Ketones Ql (U) Negative Normal NEGATIVE [facility] Comment on above: Performed By: #### L IVER, TSH #### [facility] [address] [place] [address] Dr. Tierney Rivera LEUKOCYTES Negative Normal NEGATIVE [facility] Comment on above: Performed By: #### L IVER, TSH #### [facility] [address] [place] [address] Dr. Tierney Rivera Nitrite Ql (U) Negative Normal NEGATIVE [facility] [place] Comment on above: Performed By: #### L IVER, TSH #### [facility] [address] [place] [address] Dr. Tierney Rivera pH (U) 7.5 [pH] Normal 5-9 [facility] Comment on above: Performed By: #### L IVER, TSH #### [facility] [address] [place] [address] Dr. Tierney Rivera SPEC GRAVITY 1.010 Normal 1.005-<=1.02 5 [facility] Comment on above: Performed By: #### L IVER, TSH #### [facility] [address] [place] [address] Dr. Tierney Rivera UA PROTEIN Negative Normal NEGATIVE/ TRACE [facility] Comment on above: Performed By: #### L IVER, TSH #### [facility] [address] [place] [address] Dr. Tierney Rivera UR MICRO IND NOT INDICATED Normal [facility] Comment on above: Performed By: #### L IVER, TSH #### [facility] [address] [place] [address] Dr. Tierney Rivera Urobilinogen Qn (U) 0.2 {Radu'U}/dL Normal 0.2 - 1. 0 [facility] Comment on above: Performed By: #### L IVER, TSH #### [facility] [address] [place] [address] Dr. Tierney Rivera LACTATE/LACTIC ACIDon 2022 Lactate [Moles/Vol] 1.5 mmol/L Normal 0.4-2.0 [facility] Comment on above: Performed By: #### L ACT #### [facility] [address] [place] [address] Dr. Tierney Rivera PROF 14(COMP METB)on 023 Albumin [Mass/Vol] 4.3 g/dL Normal 3.4-5.0 [facility] Comment on above: Performed By: #### L IVER, TSH #### [facility] [address] [place] [address] Dr. Tierney Rivera Albumin/Globulin [Mass ratio] 1.2 {ratio} Normal [facility] Comment on above: Performed By: #### L IVER, TSH #### [facility] [address] [place] [address] Dr. Tierney Rivera ALP [Catalytic activity/Vol] 111 U/L Normal 46-116 [facility] Comment on above: Performed By: #### L CHAMP, TSH #### [facility] [address] [address] [address] Tierney Rivera ALT [Catalytic activity/Vol] 23 U/L Normal 14-59 [facility] Comment on above: Performed By: #### L CHAMP, TSH #### [facility] [address] [address] [address] Tierney Rivera Anion gap [Moles/Vol] 11.8 mmol/L Normal [facility] Comment on above: Performed By: #### L CHAMP, TSH #### [facility] [address] [place] [address] Dr. Tierney Rivera AST [Catalytic activity/Vol] 22 U/L Normal 15-37 [facility] Comment on above: Performed By: #### Breonna OAKES, TSH #### [facility] [address] [place] [address] Dr. Tierney Rivera Bilirubin [Mass/Vol] 0.4 mg/dL Normal 0.2-1.0 [facility] Comment on above: Performed By: #### L CHAMP, TSH #### [facility] [address] [place] [address] Dr. Tierney Rivera Calcium [Mass/Vol] 10.6 mg/dL Critically high 8.5-10.[address] [facility] Comment on above: Performed By: #### Breonna OAKES, TSH #### [facility] [address] [place] [address] Dr. Tierney Rivera Chloride [Moles/Vol] 103 mmol/L Normal 98-107 [facility] Comment on above: Performed By: #### L CHAMP, TSH #### [facility] [address] [address] [address] Tierney Rivera CO2 [Moles/Vol] 29.2 mmol/L Normal 21.0-32.0 [facility] Comment on above: Performed By: #### L CHAMP, TSH #### [facility] [address] [address] [address] Tierney Rivera Creatinine [Mass/Vol] 1.13 mg/dL Critically high 0.55-1.02 [facility] Comment on above: Performed By: #### L CHAMP, TSH #### [facility] [address] [address] [address] Tierney Rivera EGFR-AF NICARAGUAN 56 mL/min/1.73m2 Critically low >=60 [facility] Comment on above: Performed By: #### L CHAMP, TSH #### [facility] [address] [address] [address] Tierney Rivera EGFR-NON AF NICARAGUAN 46 mL/min/1.73m2 Critically low >=60 [facility] Comment on above: Performed By: #### L CHAMP, TSH #### [facility] [address] [place] [address] Dr. Tierney Rivera Globulin (S) [Mass/Vol] 3.7 g/dL Normal [facility] Comment on above: Performed By: #### L CHAMP, TSH #### [facility] [address] [address] [address] Tierney Rivera Glucose [Mass/Vol] 109 mg/dL Critically high 74-106 [facility] Comment on above: Performed By: #### L CHAMP, TSH #### [facility] [address] [address] [address] Tierney Rivera Potassium [Moles/Vol] 4.0 mmol/L Normal 3.5-5.1 [facility] Comment on above: Performed By: #### L CHAMP, TSH #### [facility] [address] [address] [address] Tierney Rivera Protein [Mass/Vol] 8.0 g/dL Normal 6.4-8.2 [facility] Comment on above: Performed By: #### L CHAMP, TSH #### [facility] [address] [address] [address] Tierney Rivera Sodium [Moles/Vol] 140 mmol/L Normal 136-145 [facility] Comment on above: Performed By: #### L CHAMP, TSH #### [facility] [address] [place], [place] [address] Dr. Tierney Rivera Urea nitrogen [Mass/Vol] 17.0 mg/dL Normal 7.0-18.0 [facility] Comment on above: Performed By: #### L LILAER, TSH #### [facility] [address] [place], [place] [address] Dr. Tierney Rivera Urea nitrogen/Creatinine [Mass ratio] 15.0 mg/mg Normal [facility] Comment on above: Performed By: #### L IVER, TSH #### [facility] [address] [place], [place] [address] Dr. Tierney Rivera TROPONIN, HIGH SENSITIVITYon 01-15-2023 HSTROP 21.6 pg/mL Normal 4.0-51.3 [facility] Comment on above: Result Comment: CUT- OFF POINTS HAVE BEEN ESTABLISHED BASED ON THE FOURTH UNIVERSAL DEFINITIONS OF MYOCARDIAL INFARCTION. THE UPPER REFERENCE LIMIT (URL) OF TROPONIN, DEFINED THE 99TH PERCENTILE OF cTnI DISTRIBUTION IN A REFERENCE POPULATION, HAS BEEN CONFIRMED THE DECISION THRESHOLD FOR [place] DIAGNOSIS. Performed By: #### H STROPN, BNP, CMP #### [facility] [id number] Tierney Rivera XR CHEST 1 Von [...] by: CONSTANCE LAI Date: 2023-01-15 00:29 Normal [facility] 37on 01-11-2023 37 Stop Metoprolol Increased irbesartan to 150 mg daily ( 2- 75 mg tablets until this pill bottle is empty) I sent a prescription for the higher dose so your next bottle you will be back to 1 tablet per day. Check blood work in 1-2 weeks to check kidney function Normal [facility] Office Visiton 01-11-2023 Follow-up visit [id number] Alfa Escobedo 1940 F Date Provider Department Center 01/11/2023 SHANTEL ALBERTO [facility] Family History Problem Relation Age of Onset Diabetes Mother Hypertension Mother Hypertension Father Diabetes Sister Heart attack Maternal Grandmother Family Status - Relation Status Age at Mother Father Sister Maternal Grandmother Level of Service:81251 [place] OFFICE/OUTPATIENT ESTABLISHED MOD MDM 30-39 MIN Reason for Visit and Comments: Atrial Fibrillation [80] Coronary Artery Disease [187] Valve Disorder [3372] Hypertension [251984] Normal [facility] FREE T4on 10-17-2022 Free T4 [Mass/Vol] 1.49 ng/dL Critically high 0.76-1.46 [facility] Comment on above: Performed By: #### L CHAMP TSH #### [facility] [address] [place] [address] Dr. Tierney Rivera LIVER PROFILEon 10-17-2022 Albumin [Mass/Vol] 3.7 g/dL Normal 3.4-5.0 [facility] Comment on above: Performed By: #### L CHAMP TSH #### [facility] [address] [place] [address] Dr. Tierney Rivera Albumin/Globulin [Mass ratio] 1.1 {ratio} Normal [facility] Comment on above: Performed By: #### L CHAMP TSH #### [facility] [address] [place] [address] Dr. Tierney Rivera ALP [Catalytic activity/Vol] 104 U/L Normal 46-116 [facility] Comment on above: Performed By: #### L IVBISHNU, TSH #### [facility] [address] [place] [address] Dr. Tierney Rivera ALT [Catalytic activity/Vol] 27 U/L Normal 14-59 [facility] Comment on above: Performed By: #### L IVBISHNU, TSH #### [facility] [address] [place] [address] Dr. Tierney Rivera AST [Catalytic activity/Vol] 23 U/L Normal 15-37 [facility] Comment on above: Performed By: #### L IVER, TSH #### [facility] [address] [place] [address] Dr. Tierney Rivera BILI, CONJUGATED 0.1 mg/dL Normal 0.0-0.2 [facility] Comment on above: Performed By: #### L IVER, TSH #### [facility] [address] [place] [address] Dr. Tierney Rivera Bilirubin [Mass/Vol] 0.4 mg/dL Normal 0.2-1.0 [facility] Comment on above: Performed By: #### L IVER, TSH #### [facility] [address] [place] [address] Dr. Tierney Rivera Globulin (S) [Mass/Vol] 3.5 g/dL Normal [facility] Comment on above: Performed By: #### L CHAMP, TSH #### [facility] [address] [place] [address] Dr. Tierney Rivera Protein [Mass/Vol] 7.2 g/dL Normal 6.4-8.2 [facility] Comment on above: Performed By: #### L CHAMP, TSH #### [facility] [address] [place] [address] Dr. Tierney Rivera TSHon 10-17-2022 TSH 1.020 uIU/mL Normal 0.358-3.740 [facility] Comment on above: Performed By: #### L CHAMP, TSH #### [facility] [address] [place] [address] Dr. Tierney Rivera XR CHEST 2 Von [...] FLORENTINO MAURO Date: 2022-10-17 09:46 Normal [facility] Covid-19 PCR ([facility])on SARS-CoV-2 (COVID-19) RNA SEDRICK+probe Ql (Unsp spec) Detected Critically abnormal NOT DETECTED [facility] Comment on above: Result Comment: This test is not yet approved or cleared by the [place] FDA. When there are no FDA-approved or cleared tests available, and other criteria are met, FDA can make tests available under an emergency access mechanism called an Emergency Use Authorization (EUA). The EUA for this test is supported by the [place] Registrar of Health and Human Service's (HHS's) declaration [...] used). Performed By: #### C VDTBH #### [facility] [address] [place] [address] Dr. Tierney Rivera INFLUENZA A AND B AGon 09-27 [facility] SEE BELOW Normal [facility] Comment on above: Result Comment: Nega tive for Flu A protein angiten. Infection due to Flu A cannot be ruled out. Flu A angiten in the sample may be below the detection limit of the test. Performed By: #### I NFLUAB #### [facility] [address] [place] [address] Dr. Tierney [facility] Normal [facility] Comment on above: Result Comment: Nega tive for Flu B protein antigen. Infection due to Flu B cannot be ruled out. Flu B antigen in the sample may be below the detection limit of the test. Performed By: #### I NFLUAB #### [facility] [address] [place] [address] Dr. Tierney Rivera INFLUENZA A AG Negative Normal NEGATIVE SEE COMMENT [facility] Comment on above: Performed By: #### I NFLUAB #### [facility] [address], [place] [address] Dr. Tierney Rivera INFLUENZA B AG Negative Normal NEGATIVE SEE COMMENT [facility] Comment on above: Performed By: #### I NFLUAB #### [facility] [address], [place] [address] Dr. Tierney Rivera Cardiovascular Lab Reporton 06-11-2021 Cardiovascular Lab Report [facility] Patient Name: [facility] Laura MR #: [id number] Department of Physician: Cecilia Hansen M.D. Division of Service Date: 06/10/2021 Cardiology Birthdate: 1940 Adult Cardiovascular Room #: [facility] [address] [facility]. [place], [place] [address] Cardiovascular Laboratory Report FINAL IMPRESSION: 1. Angiographically [...] or MitraClip. 7. Follow up with Dr. Olvera in the [facility]. 8. Follow up with Dr. Mccoy as scheduled. PROCEDURES: Ultrasound-guided access of the right common femoral vein, ultrasound-guided access of right common femoral artery, limited femoral angiography, right heart catheterization, bilateral selective coronary angiography, placement of a 5-Martiniquais MynxGrip closure device. METHODS: After risks, benefits, and alternatives were explained, written informed consent was obtained. The patient was prepped and draped in usual sterile fashion over both groins. Using 1% lidocaine solution, local infiltration anesthesia was achieved. Using modified Seldinger technique, a micropuncture kit and under ultrasound guidance access to the right common femoral vein was obtained. A 6-Martiniquais 11 cm sheath was inserted without difficulty. This was repeated over the artery; a 5-Martiniquais 11 cm sheath was inserted. A Mcdonald catheter was used for right heart catheterization. Pressures were measured in the right atrium, right ventricle, pulmonary artery, and pulmonary capillary wedge positions. Oxygen saturations were obtained and cardiac output/cardiac index was calculated using modified Gisele principle. The Mcdonald catheter was removed. Bilateral selective coronary angiography was performed using 5-Martiniquais JL4 and JR4 catheters. After reviewing the images, it was elected to conclude the procedure. All catheters were removed. A 5-Martiniquais MynxGrip closure device was deployed per protocol [...] are outlined above. Electronically Signed by: Kaya Olvera M.D. 06/15/2021 12:00 P Kaya Olvera M.D. Date Dict: 06/10/2021/01:03 P/Kaya Olvera M.D (more content not included)... Normal [facility] Encounters Encounter Date Encounter Type Care Provider Facility Start: 10-12-2023 End: 10-12-2023 ambulatory AJS VALDIVIA Not Available Start: 09-28-2023 End: 09-28-2023 ambulatory JAS VALDIVIA Not Available Start: 09-14-2023 End: 09-14-2023 ambulatory JAS VALDIVIA Not Available Start: 08-31-2023 End: 08-31-2023 ambulatory JAS VALDIVIA Not Available Start: 08-23-2023 End: 08-23-2023 ambulatory KAYA OLVERA [facility] Start: 02-15-2023 End: 02-15-2023 ambulatory [facility] Start: 01-26-2023 End: 01-27-[address] GERBER MCCOY . Facility:[facility] Start: 01-15-2023 End: 01-15-[address] CYNTHIA ROMERO . Facility:[facility] Start: 01-11-2023 End: 01-11-2023 ambulatory [facility] Start: 10-17-2022 End: 10-18-[address] GERBER MCCOY . Facility:[facility] Start: 09-27-2022 End: 09-27-[address] GERBER MCCOY . Facility:[facility] Start: 06-10-2021 End: 06-11-2021 ambulatory KAYA OLVERA Facility:[facility] Payers Date Payer Category Payer Unknown [id number] 1958 Medicare [id number] 1958 Unknown [id number] 1940 Unknown [id number] 2.16.8 [id number] 1940 Unknown [id number] 2.16.84 [id number] 1940 Unknown [id number] 2.16.84 [id number] 1940 Unknown [id number] 2.16.84 [id number] 1940 Unknown [id number] 2.16.84 [id number] 1940 Unknown [id number] 2.16.84 [id number] 1940 Unknown [id number] 2.16.840 .[id number] 1940 Unknown [id number] 2.16.840 .[id number] 1940 Unknown [id number] [id number] .[id number] Clinical Notes 01-11-2023 to 08-23-2023 Note Date & Type Note Facility 08-23-2023 Note [facility] Cardiology Clinic Note Chief Complaint: Patient here for 6 mo follow up CAD, PAF, and mitral valve regurgitation. She was kept overnight for observation in May 2023 at [facility], and declined transfer to [facility] for cardioversion. Patient does not remember this [...] regurgitation. Moderate to severe mitral regurgitation. Transesophageal Echocardiogram-[facility] Name: LUCILLE ESCOBEDO Study Date: 06/10/2021 10:12 AM B/P: 126 mmHg/68 mmHg HR: Date of : 1940 Location: [facility] Height: 66 in. Age: 81 year(s) Patient Room : Weight: 135 lb. Gender: Female Patient Status: OutPt BSA: 1.69 m2 Indication: Atrial Fibrillation Examination: TUAN/CFI with Cardioversion Image Quality: Good Patient Consent: Informed, written consent was obtained for the procedure s p @ c 3 Exam Location: A TUAN was performed in the Associate Team Physician without complications s p @ c 3 [...] atrial appendage, no (more content not included)... [facility] 02-15-2023 Note [facility] Stable continue heart healthy di et [facility] 02-15-2023 Note Hypertension is well controlled with irbesartan 75 mgin am and 37.5 mg in pm, toprol 25 mg daily [facility] 02-15-2023 Note [facility] C[facility] PROGR [...] continue all medications. Paroxysmal atrial fibrillation (CMS/HCC) [id number]= 5 Remains on amiodarone, toprol 25 mg [...] with toprol 35 mg RTC 6 months [facility] 02-15-2023 Note Patient here for 1 m o follow up hypertension and mitral valve regurgitation. Irbesartan was increased to 150mg daily at last visit and metoprolol was stopped. A few days later she went to [facility] ED for tachycardia. They restarted her metoprolol [...] All other systems reviewed and are negative. [facility] 02-15-2023 Note [id number]= 5 Remains on amiodarone, toprol 25 mg and eliquis anticoagulation Denied any bleeding tendencies Amiodarone annual monitoring- pt will need TSH for thyroid function, PFT for pulm function, and eye exam with opthalmologist [facility] 02-15-2023 Note Continue GDMT, CAD r emains stable- no concerning symptoms continue risk factor modifications- heart healthy diet, regular exercise as tolerated and continue all medications. [facility] 01-11-2023 Note Hypertension is unco ntrolled- increase irbesartan to 150 mg, repeat BMP in 1-2 weeks to assess renal function. Asked pt to monitor b/p at home, start a log of her b/p and bring with her to next visit. [facility] 01-11-2023 Note Recommended low chol esterol- heart healthy diet [facility] 01-11-2023 Note Stable [facility] 01-11-2023 Note stable [facility] 04-19-2023 Note Will continue to mon itor- she does not want to proceed with mitral clipping procedure [facility] 01-11-2023 Note stable [facility] 01-11-2023 Note Patient here for 1 y [...] All other systems reviewed and are negative. [facility] 01-11-2023 Note [facility] CARDIOLOGY PROGR [...] month to assess b/p and heart rate [facility] 01-11-2023 Note History of fib/flutt er; currently on, amiodarone 200 mg daily, andEliquis Heart rate well controlled, regular rate and rhythm during assessment [facility] 01-11-2023 Note MILD (CATH 2009) Continue risk factor modifications including heart healthy diet, exercise on a regular regimen, continue medications No aspirin in light of Eliquis, hold metoprolol r/t bradycardia- will monitor for any recurrent Afib/tachycardia [facility] Summary Purpose Family History No Family History Records FoundNo Family History Records FoundNo Family History Records FoundNo Family History Records Found Advance Directives No Advanced Directives Records FoundNo Advanced Directives Records FoundNo Advanced Directives Records FoundNo Advanced Directives Records Found Additional Source Comments INFORMATION SOURCE (unrecogn ized section and content) DATE CREATED AUTHOR 06/15/2021 [facility] DATE CREATED AUTHOR AUTHOR'S ORGANIZ ATION 02/02/2023 [facility] DATE CREATED AUTHOR AUTHOR'S ORGANIZ ATION 10/05/2023 [facility] DATE CREATED AUTHOR AUTHOR'S ORGANIZ ATION 10/13/2023 [facility] EPIC FOR RECORDS PERTAINING TO PATIENTS [...] BE BASED ON THE PRIMARY CLINICAL RECORDS. [facility]. provides no warranty or guarantee of the accuracy or completeness of information in this document.
--- NOTE | 2023-10-14 04:20 | ECG_ITS ---
[facility] Test Date: 2023-10-14 Pat Name: RAFIA KNOWLES Department: Room: - Gender: Female Curriculum Development Manager: : 1940 Requested By: [id number] Order Number: [id number] Reading MD: PRIYANKA HANLEY Measurements Intervals [place] Rate: 65 P: 90 MN: 200 QRS: -61 QRSD: 174 T: 91 QT: 504 QTc: 515 Interpretive Statements 1100 Sinus rhythm w/ first degree AV blocka and LEFT BUNDLE BRANCH BLOCK with secondary ST/T wave changes 3623 Possible inferior myocardial infarction, probably old 7200 Abnormal left axis deviation 9150 abnormal ECG Electronically Signed On 10-14-2023 10:09:42 EST by PRIYANKA HANLEY
--- NOTE | 2023-10-14 04:20 | XR_ITS ---
The [address] [address] Patient Name: RAFIA KNOWLES MRN: [id number] date: 1940 Sex: F Assigned Patient Location: ER Current Patient Location: ER Accession/Order Number: [id number] Exam Date: 10/14/2023 04:38 Report Date: 10/14/2023 04:56 At the request of: COLLEEN LOPEZ Procedure: XR chest 1V EXAM: XR chest 1V HISTORY: SOB COMPARISON: Chest radiograph dated 09/28/2023. TECHNIQUE: One view of the chest was obtained. FINDINGS: The cardiac silhouette is stable in size. Aortic atherosclerotic disease is seen. There are small bilateral pleural effusions. There is no significant pneumothorax. There are mixed interstitial and airspace opacities in the lungs. No acute osseous abnormality is seen. XR/XR chest 1V IMPRESSION: 1. Mixed interstitial and airspace opacities in the lungs could represent pulmonary edema and/or multifocal pneumonia. 2. Small bilateral pleural effusions. Electronically authenticated by: Alessia FERRARA Date: 10/14/2023 04:56
[2023-10-14 04:38] LABS: Adenovirus NOT DETECTED (NOT DETECTE); Bordetella parapertussis NOT DETECTED (NOT DETECTE); Coronavirus 229E NOT DETECTED (NOT DETECTE); Coronavirus HKU1 NOT DETECTED (NOT DETECTE); Coronavirus NL63 NOT DETECTED (NOT DETECTE); Coronavirus OC43 NOT DETECTED (NOT DETECTE); Human Metapneumovirus NOT DETECTED (NOT DETECTE); Human Rhinovirus/Enterovirus NOT DETECTED (NOT DETECTE); Influenza A NOT DETECTED (NOT DETECTE); Influenza B NOT DETECTED (NOT DETECTE); Mycoplasma pneumoniae NOT DETECTED (NOT DETECTE); Parainfluenza Virus 1 NOT DETECTED (NOT DETECTE); Parainfluenza Virus 2 NOT DETECTED (NOT DETECTE); Parainfluenza Virus 3 NOT DETECTED (NOT DETECTE); Parainfluenza Virus 4 NOT DETECTED (NOT DETECTE); Respiratory Syncytial Virus NOT DETECTED (NOT DETECTE); SARS-CoV-2 NOT DETECTED (NOT DETECTE)
[2023-10-14 04:46] LABS: Basophils Percent Auto 0.4 % (0.2-2.0); Eosinophils Absolute Auto 0.2 10^3/uL (0.0-0.7); Eosinophils Percent Auto 1.8 % (0.9-7.0); Hematocrit 44.1 % (36.0-48.0); Hemoglobin 14.3 g/dL (12.0-16.0); Immature Granulocytes Abs Auto 0.05 10^3/uL (0.00-0.03); Immature Granulocytes Pct Auto 0.5 % (0.0-0.5); Lymphocytes Absolute Auto 1.5 10^3/uL (1.2-3.8); Lymphocytes Percent Auto 15.5 % (20.5-60.0); Mean Corpuscular HGB Conc 32.4 g/dL (29.9-35.2); Mean Corpuscular Hemoglobin 30.9 pg (26.7-34.0); Mean Corpuscular Volume 95.2 fL (81.0-99.0); Mean Platelet Volume 11.3 fL (9.5-13.5); Monocytes Absolute Auto 0.8 10^3/uL (0.3-0.8); Monocytes Percent Auto 7.7 % (1.7-12.0); Neutrophils Absolute Auto 7.2 10^3/uL (1.4-6.5); Neutrophils Percent Auto 74.1 % (43.0-75.0); Platelet Count 316 10^3/uL (150-450); Red Blood Count 4.63 10^6/uL (4.20-5.40); Red Cell Distribution Width 13.9 % (11.0-15.0); White Blood Count 9.7 10^3/uL (4.0-11.0)
[2023-10-14 05:03] LABS: Carbon Dioxide 28.2 mmol/L (21.0-32.0); Chloride 103 mmol/L (98-107); Estimated GFR (African America 48 (>=60); Estimated GFR (Non-African Ame 39 (>=60); Glucose 105 mg/dL (74-106); Potassium 4.2 mmol/L (3.5-5.1); Sodium 142 mmol/L (136-145)
[2023-10-14 05:05] LABS: Troponin I High Sensitivity 23.5 pg/mL (4.0-51.3)
--- NOTE | 2023-10-14 05:07 | PC.NURSE ---
Marian from lab called with BNP result of 3028. Dr asencio
--- NOTE | 2023-10-14 05:09 | ED.SOB1 ---
HPI - SOB/Dyspnea General Chief Complaint: Shortness of Breath/Dyspnea Stated Complaint: Chest pain Time Seen by Provider: 10/14/23 04:16 Source: patient Mode of arrival: Wheelchair Limitations: no limitations History of Present Illness HPI Narrative: 83-year-old female presents to the emergency department for difficulty breathing. It started at 2:00 this morning. She doesn't complain of chest pain or fever or cough and she does not have back pain. She's been taking all her medications as prescribed. It's continuous and worse with exertion. Related Data Home Medications Medication Instructions Recorded Confirmed amiodarone 200 mg tablet 200 mg PO Q24H 06/03/23 10/14/23 apixaban 2.5 mg tablet (Eliquis) 2.5 mg PO Q12H 06/03/23 10/14/23 furosemide 20 mg tablet 20 mg PO QDAY 06/03/23 10/14/23 irbesartan 75 mg tablet 75 mg PO DAILY 06/03/23 10/14/23 levothyroxine 50 mcg tablet 50 mcg PO .even numbered days 06/03/23 10/14/23 multivitamin (Daily Multi-Vitamin 1 tab PO DAILY 06/03/23 10/14/23 tablet) potassium chloride 10 mEq 10 meq PO DAILY 06/03/23 10/14/23 tablet,extended release Previous Rx's Medication Instructions Recorded metoprolol tartrate 25 mg tablet 25 mg PO BID #20 tabs 06/03/23 Allergies Allergy/AdvReac Type Severity Reaction Status Date / Time Sulfa (Sulfonamide Allergy Verified 10/14/23 04:16 Antibiotics) Review of Systems ROS Narrative A ten point review of systems is negative except as noted above. PFSH PFSH Social History Smoking status: Never smoker Exam Narrative Exam Narrative: Nurses note and vital signs reviewed and patient is not hypoxic. General: The patient appears well and in no apparent distress. Patient is resting comfortably on cart. Skin: Warm, dry, no pallor noted. There is no rash noted. Head: Normocephalic, atraumatic Eye: Normal conjunctiva, no drainage Ears, Nose, Mouth, and Throat: oral mucosa is moist. Nares patent. Cardiovascular: Regular Rate and Rhythm Respiratory: bilateral rales present at the bases Back: non-tender. GI: no tenderness to palpation, no masses appreciated. No rebound, guarding, or rigidity noted. Musculoskeletal: The patient has no evidence of calf tenderness, no pitting edema, symmetrical pulses noted bilaterally Neurological: A&O x4, normal speech Psychiatric: Cooperative Constitutional Vital Signs, click to edit/add: Last Vital Signs Temp 97.7 F 10/14/23 04:09 Pulse 69 10/14/23 04:09 Resp 18 10/14/23 04:09 BP 177/86 H 10/14/23 04:09 Pulse Ox 90 L 10/14/23 04:21 O2 Del Method Room Air 10/14/23 04:21 O2 Flow Rate 2 10/14/23 04:21 Course Vital Signs Vital signs: Vital Signs Temperature 97.7 F 10/14/23 04:09 Pulse Rate 69 10/14/23 04:09 Respiratory Rate 18 10/14/23 04:09 Blood Pressure 177/86 H 10/14/23 04:09 Pulse Oximetry 90 L 10/14/23 04:09 Oxygen Delivery Method Room Air 10/14/23 04:09 Temperature 97.7 F 10/14/23 04:09 Pulse Rate 69 10/14/23 04:09 Respiratory Rate 18 10/14/23 04:09 Blood Pressure 177/86 H 10/14/23 04:09 Pulse Oximetry 90 L 10/14/23 04:21 Oxygen Delivery Method Room Air 10/14/23 04:21 Oxygen Delivery Flow Rate 2 10/14/23 04:21 MDM - SOB/Dyspnea MDM Narrative Medical decision making narrative: Pulmonary edema is identified on the chest x-ray and I've no clinical suspicion of pneumonia. Her BNP is elevated and the troponin is normal. She was given IV Lasix here and is being admitted. Findings are discussed with the patient and her family. Differential Diagnosis Differential diagnosis: Likely congestive heart failure, community acquired pneumonia and other (pulmonary edema, myocardial infarction) Lab Data Attestation: I reviewed the patient's lab results. Labs: Lab Results 10/14/23 Range/Units 04:20 WBC 9.7 (4.0-11.0) 10^3/uL RBC 4.63 (4.20-5.40) 10^6/uL Hgb 14.3 (12.0-16.0) g/dL Hct 44.1 (36.0-48.0) % MCV 95.2 (81.0-99.0) fL MCH 30.9 (26.7-34.0) pg MCHC 32.4 (29.9-35.2) g/dL RDW 13.9 (11.0-15.0) % Plt Count 316 (150-450) 10^3/uL MPV 11.3 (9.5-13.5) fL Neut % (Auto) 74.1 (43.0-75.0) % Lymph % (Auto) 15.5 L (20.5-60.0) % [place] % (Auto) 7.7 (1.7-12.0) % Eos % (Auto) 1.8 (0.9-7.0) % Baso % (Auto) 0.4 (0.2-2.0) % Neut # (Auto) 7.2 H (1.4-6.5) 10^3/uL Lymph # (Auto) 1.5 (1.2-3.8) 10^3/uL [place] # (Auto) 0.8 (0.3-0.8) 10^3/uL Eos # (Auto) 0.2 (0.0-0.7) 10^3/uL Baso # (Auto) 0.0 (0.0-0.1) 10^3/uL Abs Immat Gran (auto) 0.05 H (0.00-0.03) 10^3/uL Imm/Tot Granulo (auto) 0.5 (0.0-0.5) % Sodium 142 (136-145) mmol/L Potassium 4.2 (3.5-5.1) mmol/L Chloride 103 (98-107) mmol/L Carbon Dioxide 28.2 (21.0-32.0) mmol/L Anion Gap 15.0 BUN 26.0 H (7.0-18.0) mg/dL Creatinine 1.30 H (0.55-1.02) mg/dL Est GFR ( Amer) 48 L (>=60) Est GFR (Non-Af Amer) 39 L (>=60) BUN/Creatinine Ratio 20.0 Glucose 105 (74-106) mg/dL Calcium 10.0 (8.5-10.1) mg/dL Troponin I High Sens 23.5 (4.0-51.3) pg/mL NT-Pro-B Natriuret Pep 3028.0 H* (<=1800.0) pg/mL Imaging Data Chest x-ray: Radiologist's impression: ITS Impressions Chest X-Ray 10/14/23 04:20 IMPRESSION: 1. Mixed interstitial and airspace opacities in the lungs could represent pulmonary edema and/or multifocal pneumonia. 2. Small bilateral pleural effusions. Electronically authenticated by: Alessia FERRARA Date: 10/14/2023 04:56 ECG Data Attestation: I personally reviewed and interpreted this ECG as follows: (EKG on my interpretation shows sinus rhythm and a rate of 65.) Critical Care Time Critical Care Time Critical Care Time: Yes Total Critical Care Time: 35 Attestation: Due to the high probability of sudden and clinically significant deterioration in the patient's condition he/she required the highest level of my preparedness to intervene urgently I provided critical care time including documentation time, medication orders and management, reevaluation, vital sign assessment, ordering and reviewing of lab tests, ordering and reviewing of x-ray studies, and admission orders. Aggregate critical care time is 35 minutes including only time during which I was engaged in work directly related to his/her care and did not include time spent treating other patients simultaneously. Discharge Plan Discharge Chief Complaint: Shortness of Breath/Dyspnea Clinical Impression: Pulmonary edema Patient Disposition: Admitted As Inpatient Time of Disposition Decision: 05:22 Condition: Fair
[2023-10-14] MEDS: FUROSEMIDE 40 MG/4 ML VIAL IVP (05:31)
--- OUTSIDE RECORDS SUMMARY | 2023-10-14 07:55 | XMS_ITS | CCD ---
Author Name Unknown Address [address] [place] [address] Organization [facility] Care Team Providers Care Schedule Manager Name Role Phone ELTAHAWY, EHAB A Attending Unavailable ELTAHAWY, EHAB A Admitting Unavailable HOY, GREBER Referring Unavailable HOY, GERBER Primary Care Unavailable [...] [HOSSEIN INHIBITORS] Drug allergy (disorder) 07-03-2012 [facility] Repository (3 sources) Sulfonamides (Antibiotic); Translations: [SULFA (SULFONAMIDE ANTIBIOTICS)] Drug allergy (disorder) 07-03-2012 [facility] Repository Problems Active Problems Problem Classification Problem [...] disease (2 sources) Atherosclerotic heart disease of rincon coronary artery without angina pectoris; Translations: [Atherosclerotic heart disease of rincon coronary artery without angina pectoris] Onset: 06-08-2022 [...] Onset: 02-01-2023 Chronic Other aftercare (1 source) lobsterman (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 She told them she did not want the test because her heart is not pumping low anymore . I advised patient that without diagnostic testing someone cannot tell the function of their own heart. She asked me what getting a pacemaker entailed. I told her it's usually done as outpatient, done at [facility]. I told her she would have to be very careful with using her left arm and wouldn't be able to drive for a month. She told me you just made up my mind for me . Patient has now decided to not have muga scan done. Normal [facility] Telephoneon 09-28-2023 Telephone [id number] Alfa Escobedo 1940 F Date Provider Department Center 09/28/2023 CRISTINA CAR OTTONIEL [facility] Family History Problem Relation Age of Onset Diabetes Mother Hypertension Mother Hypertension Father Diabetes Sister Heart attack Maternal Grandmother Family Status - Relation Status Age at Mother Father Sister Maternal Grandmother Normal [facility] Office Visiton 08-23-2023 Follow-up visit [id number] Alfa Escobedo 1940 Provider Department Center 08/23/2023 Bina-SERJIOLEIAKAYA LINDA CARD [facility] Family History Problem Relation Age of Onset Diabetes Mother Hypertension Mother Hypertension Father Diabetes Sister Heart attack Maternal Grandmother Family Status - Relation Status Age at Mother Father Sister Maternal Grandmother Level of Service:22362 FL OFFICE/OUTPATIENT ESTABLISHED LOW MDM 20-29 MIN Normal [facility] Office Visiton 02-15-2023 Follow-up visit [id number] Alfa Escobedo 1940 Provider Department Center 02/15/2023 SHANTEL ALBERTO CARD [facility] Family History Problem Relation Age of Onset Diabetes Mother Hypertension Mother Hypertension Father Diabetes Sister Heart attack Maternal Grandmother Family Status - Relation Status Age at Mother Father Sister Maternal Grandmother Level of Service:60515 FL OFFICE/OUTPATIENT ESTABLISHED LOW MDM 20-29 MIN Reason for Visit and Comments: Atrial Fibrillation [80] Valve Disorder [3372] Hypertension [967122] Normal [facility] BNPon 01-26-2023 Natriuretic peptide B (Bld) [Mass/Vol] 1751.0 pg/mL Normal <=1,800.0 [place] Comment on above: Performed By: #### L IVER, TSH #### [facility] [address] [place] [address] Dr. Tierney Rivera CBC AUTO DIFFon 01-26-2023 BASO # 0.0 103/ul Normal 0.0-0.1 [place] Comment on above: Performed By: #### C BC #### [facility] [address] [place] [address] Dr. Tierney Rivera Basophils/100 WBC (Bld) 0.3 % Normal 0.2-2.0 [place] Comment on above: Performed By: #### C BC #### [facility] [address] [place] [address] Dr. Tierney Rivera EO # 0.1 103/ul Normal 0.0-0.7 [place] Comment on above: Performed By: #### C BC #### [facility] [address] [place] [address] Dr. Tierney Rivera Eosinophils/100 WBC (Bld) 2.3 % Normal 0.9-7.0 [place] Comment on above: Performed By: #### C BC #### [facility] [address] [place] [address] Dr. Tierney Rivera Erythrocyte distribution width (RBC) [Ratio] 13.1 % Normal 11.0-15.0 [place] Comment on above: Performed By: #### C BC #### [facility] [address] [place] [address] Dr. Tierney iRvera Hematocrit (Bld) [Volume fraction] 43.5 % Normal 36.0-48.0 [place] Comment on above: Performed By: #### C BC #### [facility] [address] [place] [address] Dr. Tierney Rivera Hemoglobin (Bld) [Mass/Vol] 13.9 g/dL Normal 12.0-16.0 [place] Comment on above: Performed By: #### C BC #### [facility] [address] [place] [address] Dr. Tierney Rivera IG # 0.02 10e3/ul Normal 0.00-0.03 [place] Comment on above: Performed By: #### C BC #### [facility] [address] [place] [address] Dr. Tierney Rivera IG % 0.3 % Normal 0.0-0.5 [facility] Comment on above: Performed By: #### C BC #### [facility] [address] [place] [address] Dr. Tierney Rivera LYMPH # 1.2 103/ul Normal 1.2-3.8 [facility] Comment on above: Performed By: #### C BC #### [facility] [address] [place] [address] Dr. Tierney Rivera Lymphocytes/100 WBC (Bld) 20.6 % Normal 20.5-60.0 [place] Comment on above: Performed By: #### C BC #### [facility] [address] [place] [address] Dr. Tierney Rivera MANUAL DIFF REQ NO Normal [facility] Comment on above: Performed By: #### C BC #### [facility] [address] [place] [address] Dr. Tierney Rivera MCH (RBC) [Entitic mass] 29.4 pg Normal 26.7-34.0 [place] Comment on above: Performed By: #### C BC #### [facility] [address] [place] [address] Dr. Tierney Rivera MCHC (RBC) [Mass/Vol] 32.0 g/dL Normal 29.9-35.2 [place] Comment on above: Performed By: #### C BC #### [facility] [address] [place] [address] Dr. Tierney Rivera MCV (RBC) [Entitic vol] 92.2 fL Normal 81.0-99.0 [place] Comment on above: Performed By: #### C BC #### [facility] [address] [place] [address] Dr. Tierney Rivera MONO # 0.6 103/ul Normal 0.3-0.8 [place] Comment on above: Performed By: #### C BC #### [facility] [address] [place] [address] Dr. Tierney Rivera Monocytes/100 WBC (Bld) 10.2 % Normal 1.7-12.0 [place] Comment on above: Performed By: #### C BC #### [facility] [address] [place] [address] Dr. Tierney Rivera NEUT # 3.8 103/ul Normal 1.4-6.5 [facility] Comment on above: Performed By: #### C BC #### [facility] [address] [place] [address] Dr. Tierney Rivera Neutrophils/100 WBC (Bld) 66.3 % Normal 43.0-75.0 [facility] Comment on above: Performed By: #### C BC #### [facility] [address] [address] [address] Tierney Rivera Platelet mean volume (Bld) [Entitic vol] 11.2 fL Normal 9.5-13.5 [place] Comment on above: Performed By: #### C BC #### [facility] [address] [address] [address] Tierney Rivera PLT 253 103/ul Normal 150-450 [place] Comment on above: Performed By: #### C BC #### [facility] [address] [address] [address] Tierney Rivera RBC 4.72 106/ul Normal 4.20-5.40 [place] Comment on above: Performed By: #### C BC #### [facility] [address] [address] [address] Tierney Rivera WBC 5.8 103/ul Normal 4.0-11.0 [place] Comment on above: Performed By: #### C BC #### [facility] [address] [address] [address] Tierney Rivera FREE THYROXINE INDEX T7on FTI 5.18 Critically high 1.30-4.50 [facility] Comment on above: Performed By: #### L IVER, TSH #### [facility] [address] [address] [address] Tierney Rivera T3U 36.0 % Normal 30.0-39.0 [place] Comment on above: Performed By: #### L IVER, TSH #### [facility] [address] [address] [address] Tierney Rivera T4 [Mass/Vol] 14.40 ug/dL Critically high 4.80-13.90 [facility] Comment on above: Performed By: #### L IVER, TSH #### [facility] [address] [address] [address] Tierney Rivera GLYCOHEMOGLOBIN A1Con 2022 ADA RECOMMENDATION SEE BELOW Normal [facility] Comment on above: Result Comment: ADA RECOMMENDED LIMIT 4.0 - 6.0 ADA THERAPEUTIC TARGET < 7.0 ACTION SUGGESTED > 7.0 Performed By: #### L CHAMP, TSH #### [facility] [address] [place] [address] Dr. Tierney Rivera Glucose [Mass/Vol] 117 mg/dL Normal [facility] Comment on above: Performed By: #### L CHAMP, TSH #### [facility] [address] [place] [address] Dr. Tierney Rivera HbA1c (Bld) [Mass fraction] 5.7 % Normal 4.5-6.2 [place] Comment on above: Performed By: #### L CHAMP, TSH #### [facility] [address] [place] [address] Dr. Tierney Rivera IRONon 01-26-2023 Iron [Mass/Vol] 67.0 ug/dL Normal 50.0-170.0 [facility] Comment on above: Performed By: #### V ITAD, IRON #### [facility] [address] [place] [address] Dr. Tierney Rivera PROF 14(COMP METB)on 023 Albumin [Mass/Vol] 4.0 g/dL Normal 3.4-5.0 [facility] Comment on above: Performed By: #### L CHAMP, TSH #### [facility] [address] [place] [address] Dr. Tierney Rivera Albumin/Globulin [Mass ratio] 1.1 {ratio} Normal [place] Comment on above: Performed By: #### L CHAMP, TSH #### [facility] [address] [place] [address] Dr. Tierney Rivera ALP [Catalytic activity/Vol] 98 U/L Normal 46-116 [place] Comment on above: Performed By: #### L CHAMP, TSH #### [facility] [address] [place] [address] Dr. Tierney Rivera ALT [Catalytic activity/Vol] 29 U/L Normal 14-59 [facility] Comment on above: Performed By: #### L CHAMP, TSH #### [facility] [address] [address] [address] Tierney Rivera Anion gap [Moles/Vol] 11.7 mmol/L Normal [place] Comment on above: Performed By: #### L IVER, TSH #### [facility] [address] [address] [address] Tierney Rivera AST [Catalytic activity/Vol] 22 U/L Normal 15-37 [place] Comment on above: Performed By: #### L IVER, TSH #### [facility] [address] [address] [address] Tierney Rivera Bilirubin [Mass/Vol] 0.4 mg/dL Normal 0.2-1.0 [place] Comment on above: Performed By: #### L IVER, TSH #### [facility] [address] [address] [address] Tierney Rievra Calcium [Mass/Vol] 10.1 mg/dL Normal 8.5-10.1 [facility] Comment on above: Performed By: #### L IVER, TSH #### [facility] [address] [address] [address] Tierney Rivera Chloride [Moles/Vol] 103 mmol/L Normal 98-107 [place] Comment on above: Performed By: #### L IVER, TSH #### [facility] [address] [address] [address] Tierney Rivera CO2 [Moles/Vol] 30.5 mmol/L Normal 21.0-32.0 [facility] Comment on above: Performed By: #### L IVER, TSH #### [facility] [address] [address] [address] Tierney Rivera Creatinine [Mass/Vol] 1.15 mg/dL Critically high 0.55-1.02 [place] Comment on above: Performed By: #### L IVER, TSH #### [facility] [address] [address] [address] Tierney Rivera EGFR-AF SUDANESE 55 mL/min/1.73m2 Critically low >=60 [facility] Comment on above: Performed By: #### L IVER, TSH #### [facility] [address] [address] [address] Tierney Rivera EGFR-NON AF SUDANESE 45 mL/min/1.73m2 Critically low >=60 [place] Comment on above: Performed By: #### L IVER, TSH #### [facility] [address] [address] [address] Tierney Rivera Globulin (S) [Mass/Vol] 3.8 g/dL Normal [place] Comment on above: Performed By: #### L IVER, TSH #### [facility] [address] [address] [address] Tierney Rivera Glucose [Mass/Vol] 97 mg/dL Normal 74-106 [facility] Comment on above: Performed By: #### L IVER, TSH #### [facility] [address] [place] [address] Dr. Tierney Rivera Potassium [Moles/Vol] 4.2 mmol/L Normal 3.5-5.1 [place] Comment on above: Performed By: #### L IVER, TSH #### [facility] [address] [place] [address] Dr. Tierney Rivera Protein [Mass/Vol] 7.8 g/dL Normal 6.4-8.2 [facility] Comment on above: Performed By: #### L IVER, TSH #### [facility] [address] [place] [address] Dr. Tierney Rivera Sodium [Moles/Vol] 141 mmol/L Normal 136-145 [facility] Comment on above: Performed By: #### L IVER, TSH #### [facility] [address] [place] [address] Dr. Tierney Rivera Urea nitrogen [Mass/Vol] 18.0 mg/dL Normal 7.0-18.0 [place] Comment on above: Performed By: #### L IVER, TSH #### [facility] [address] [place] [address] Dr. Tierney Rivera Urea nitrogen/Creatinine [Mass ratio] 15.7 mg/mg Normal [facility] Comment on above: Performed By: #### L CHAMP TSH #### [facility] [address] [place] [address] Dr. Tierney Rivera TSHon 01-26-2023 TSH 2.066 uIU/mL Normal 0.358-3.740 [facility] Comment on above: Performed By: #### Breonna OAKES TSH #### [facility] [address] [place] [address] Dr. Tierney Rivera VITAMIN D 25 OHon 01-26-2023 VIT D 25-OH 45.0 ng/mL Normal [place] Comment on above: Performed By: #### V SHANNEN, IRON #### [facility] [address] [place] [address] Dr. Tierney Rivera VIT D RANGES SEE BELOW Normal [place] Comment on above: Result Comment: <20 ng/mL Vit D deficient 20 - <30 ng/mL Vit D insufficient 30 - 100 ng/mL Vit D sufficient >100 ng/mL Potential Toxicity Performed By: #### Riaz PRIDE, IRON #### [facility] [address] [place] [address] Dr. Tierney Rivera BNPon 01-15-2023 Natriuretic peptide B (Bld) [Mass/Vol] 868.0 pg/mL Normal <=1,800.0 [place] Comment on above: Performed By: #### H STROPN, BNP, CMP #### [facility] [address] [place] [address] Dr. Tierney Rivera CBC AUTO DIFFon 01-15-2023 BASO # 0.0 103/ul Normal 0.0-0.1 [place] Comment on above: Performed By: #### L CHAMP TSH #### [facility] [address] [place] [address] Dr. Tierney Rivera Basophils/100 WBC (Bld) 0.3 % Normal 0.2-2.0 [place] Comment on above: Performed By: #### Breonna OAKES TSH #### [facility] [address] [place], [place] [id number] Dr. Tierney Rivera EO # 0.1 103/ul Normal 0.0-0.7 [facility] Comment on above: Performed By: #### L IVBISHNU, TSH #### [facility] [address] [place] [address] Dr. Tierney Rivera Eosinophils/100 WBC (Bld) 1.7 % Normal 0.9-7.0 [facility] Comment on above: Performed By: #### L IVBISHNU, TSH #### [facility] [address] [place] [address] Dr. Tierney Rivera Erythrocyte distribution width (RBC) [Ratio] 13.2 % Normal 11.0-15.0 [facility] Comment on above: Performed By: #### L IVBISHNU, TSH #### [facility] [address] [place] [address] Dr. Tierney Rivera Hematocrit (Bld) [Volume fraction] 45.1 % Normal 36.0-48.0 [facility] Comment on above: Performed By: #### L IVBISHNU, TSH #### [facility] [address] [place] [address] Dr. Tierney Rivera Hemoglobin (Bld) [Mass/Vol] 15.1 g/dL Normal 12.0-16.0 [facility] Comment on above: Performed By: #### L IVBISHNU, TSH #### [facility] [address] [place] [address] Dr. Tierney Rivera IG # 0.01 10e3/ul Normal 0.00-0.03 [facility] Comment on above: Performed By: #### L IVER, TSH #### [facility] [address] [place] [address] Dr. Tiereny Rivera IG % 0.2 % Normal 0.0-0.5 [facility] Comment on above: Performed By: #### L IVBISHNU, TSH #### [facility] [address] [place] [address] Dr. Tierney Rivera LYMPH # 2.2 103/ul Normal 1.2-3.8 [facility] Comment on above: Performed By: #### L IVBISHNU, TSH #### [facility] [address] [address] [address] Tierney Rivera Lymphocytes/100 WBC (Bld) 32.5 % Normal 20.5-60.0 [place] Comment on above: Performed By: #### L IVER, TSH #### [facility] [address] [address] [address] Tierney Rivera MANUAL DIFF REQ NO Normal [facility] Comment on above: Performed By: #### L IVER, TSH #### [facility] [address] [place] [address] Dr. Tierney Rivera MCH (RBC) [Entitic mass] 30.0 pg Normal 26.7-34.0 [facility] Comment on above: Performed By: #### L IVER, TSH #### [facility] [address] [place] [address] Dr. Tierney Rivera MCHC (RBC) [Mass/Vol] 33.5 g/dL Normal 29.9-35.2 [facility] Comment on above: Performed By: #### L IVER, TSH #### [facility] [address] [place] [address] Dr. Tierney Rivera MCV (RBC) [Entitic vol] 89.7 fL Normal 81.0-99.0 [place] Comment on above: Performed By: #### L IVER, TSH #### [facility] [address] [place] [address] Dr. Tierney Rivera MONO # 0.8 103/ul Normal 0.3-0.8 [facility] Comment on above: Performed By: #### L IVER, TSH #### [facility] [address] [place] [address] Dr. Tierney Rivera Monocytes/100 WBC (Bld) 12.6 % Critically high 1.7-12.0 [place] Comment on above: Performed By: #### L IVER, TSH #### [facility] [address] [place] [address] Dr. Tierney Rivera NEUT # 3.5 103/ul Normal 1.4-6.5 [facility] Comment on above: Performed By: #### L IVER, TSH #### [facility] [address] [address] [address] Tierney Rivera Neutrophils/100 WBC (Bld) 52.7 % Normal 43.0-75.0 [place] Comment on above: Performed By: #### L IVER, TSH #### [facility] [address] [address] [address] Tierney Rivera Platelet mean volume (Bld) [Entitic vol] 11.0 fL Normal 9.5-13.5 [place] Comment on above: Performed By: #### L IVBISHNU, TSH #### [facility] [address] [place] [address] Dr. Tierney Rivera PLT 266 103/ul Normal 150-450 [place] Comment on above: Performed By: #### L IVBISHNU, TSH #### [facility] [address] [place] [address] Dr. Tierney Rivera RBC 5.03 106/ul Normal 4.20-5.40 [place] Comment on above: Performed By: #### L CHAMP, TSH #### [facility] [address] [place] [address] Dr. Tierney Rivera WBC 6.6 103/ul Normal 4.0-11.0 [facility] Comment on above: Performed By: #### L CHAMP, TSH #### [facility] [address] [place] [address] Dr. Tierney Rivera CULTURE BLOODon 01-15-2023 Microscopic examination of blood, culture Culture Observations: NO GROWTH AT 5 DAYS. Normal [facility] Comment on above: Performed By: #### L IVBISHNU, TSH #### [facility] [address] [place] [address] Dr. Tierney Rivera Microscopic examination of blood, culture Culture Observations: NO GROWTH AT 5 DAYS. Normal [place] Comment on above: Performed By: #### L IVER, TSH #### [facility] [address] [place] [address] Dr. Tierney Rivera ER URINE PROFILEon 3 Bilirubin Ql (U) Negative Normal NEGATIVE [facility] Comment on above: Performed By: #### L IVER, TSH #### [facility] [address] [place] [address] Dr. Tierney Rivera Clarity (U) CLEAR Normal CLEAR [place] Comment on above: Performed By: #### L IVER, TSH #### [facility] [address] [place] [address] Dr. Tierney Rivera Color (U) LT. YELLOW Normal YELLOW [place] Comment on above: Performed By: #### L IVER, TSH #### [facility] [address] [place] [address] Dr. Tierney Rivera ERUAHGianna A micrscopic examination will be performed if indicated. Normal [facility] Comment on above: Performed By: #### L IVER, TSH #### [facility] [address] [place] [address] Dr. Tierney Rivera Glucose Ql (U) Negative Normal NEGATIVE [facility] Comment on above: Performed By: #### L IVER, TSH #### [facility] [address] [place] [address] Dr. Tierney Rivera Hemoglobin Ql (U) Negative Normal NEGATIVE [facility] Comment on above: Performed By: #### L IVER, TSH #### [facility] [address] [place] [address] Dr. Tierney Rivera Ketones Ql (U) Negative Normal NEGATIVE [facility] Comment on above: Performed By: #### L IVER, TSH #### [facility] [address] [place] [address] Dr. Tierney Rivera LEUKOCYTES Negative Normal NEGATIVE [place] Comment on above: Performed By: #### L IVER, TSH #### [facility] [address] [place] [address] Dr. Tierney Rivera Nitrite Ql (U) Negative Normal NEGATIVE [facility] Comment on above: Performed By: #### L IVER, TSH #### [facility] [address] [place] [address] Dr. Tierney Rivera pH (U) 7.5 [pH] Normal 5-9 [place] Comment on above: Performed By: #### L IVER, TSH #### [facility] [address] [place] [address] Dr. Tierney Rivera SPEC GRAVITY 1.010 Normal 1.005-<=1.02 5 [place] Comment on above: Performed By: #### L IVER, TSH #### [facility] [address] [place] [address] Dr. Tierney Rivera UA PROTEIN Negative Normal NEGATIVE/ TRACE [place] Comment on above: Performed By: #### L IVER, TSH #### [facility] [address] [place] [address] Dr. Tierney Rivera UR MICRO IND NOT INDICATED Normal [facility] Comment on above: Performed By: #### L IVER, TSH #### [facility] [address] [place] [address] Dr. Tierney Rivera Urobilinogen Qn (U) 0.2 {Radu'U}/dL Normal 0.2 - 1. 0 [place] Comment on above: Performed By: #### L IVER, TSH #### [facility] [address] [place] [address] Dr. Tierney Rivera LACTATE/LACTIC ACIDon 2022 Lactate [Moles/Vol] 1.5 mmol/L Normal 0.4-2.0 [facility] Comment on above: Performed By: #### L ACT #### [facility] [facility] [address] [place] [address] Dr. Tierney Rivera PROF 14(COMP METB)on 023 Albumin [Mass/Vol] 4.3 g/dL Normal 3.4-5.0 [facility] Comment on above: Performed By: #### L IVER, TSH #### [facility] [address] [place] [address] Dr. Tierney Rivera Albumin/Globulin [Mass ratio] 1.2 {ratio} Normal [place] Comment on above: Performed By: #### L IVER, TSH #### [facility] [address] [place] [address] Dr. Tierney Rivera ALP [Catalytic activity/Vol] 111 U/L Normal 46-116 [place] Comment on above: Performed By: #### L CHAMP, TSH #### [facility] [address] [address] [address] Tierney Rivera ALT [Catalytic activity/Vol] 23 U/L Normal 14-59 [place] Comment on above: Performed By: #### L CHAMP, TSH #### [facility] [address] [address] [address] Tierney Rivera Anion gap [Moles/Vol] 11.8 mmol/L Normal [place] Comment on above: Performed By: #### L CHAMP, TSH #### [facility] [address] [place] [address] Dr. Tierney Rivera AST [Catalytic activity/Vol] 22 U/L Normal 15-37 [place] Comment on above: Performed By: #### Breonna OAKES, TSH #### [facility] [address] [place] [address] Dr. Tierney Rivera Bilirubin [Mass/Vol] 0.4 mg/dL Normal 0.2-1.0 [place] Comment on above: Performed By: #### L CHAMP, TSH #### [facility] [address] [place] [address] Dr. Tierney Rivera Calcium [Mass/Vol] 10.6 mg/dL Critically high 8.5-10.1 [facility] Comment on above: Performed By: #### Breonna OAKES, TSH #### [facility] [address] [place] [address] Dr. Tierney Rivera Chloride [Moles/Vol] 103 mmol/L Normal 98-107 [place] Comment on above: Performed By: #### L CHAMP, TSH #### [facility] [address] [address] [address] Tierney Rivera CO2 [Moles/Vol] 29.2 mmol/L Normal 21.0-32.0 [facility] Comment on above: Performed By: #### L CHAMP, TSH #### [facility] [address] [address] [address] Tierney Rivera Creatinine [Mass/Vol] 1.13 mg/dL Critically high 0.55-1.02 [place] Comment on above: Performed By: #### L CHAMP, TSH #### [facility] [address] [address] [address] Tierney Rivera EGFR-AF SUDANESE 56 mL/min/1.73m2 Critically low >=60 [place] Comment on above: Performed By: #### L CHAMP, TSH #### [facility] [address] [address] [address] Tierney Rivera EGFR-NON AF SUDANESE 46 mL/min/1.73m2 Critically low >=60 [place] Comment on above: Performed By: #### L CHAMP, TSH #### [facility] [address] [place] [address] Dr. Tierney Rivera Globulin (S) [Mass/Vol] 3.7 g/dL Normal [place] Comment on above: Performed By: #### L CHAMP, TSH #### [facility] [address] [address] [address] Tierney Rivera Glucose [Mass/Vol] 109 mg/dL Critically high 74-[address] [facility] Comment on above: Performed By: #### L CHAMP, TSH #### [facility] [address] [address] [address] Tierney Rivera Potassium [Moles/Vol] 4.0 mmol/L Normal 3.5-5.1 [place] Comment on above: Performed By: #### L CHAMP, TSH #### [facility] [address] [address] [address] Tierney Rivera Protein [Mass/Vol] 8.0 g/dL Normal 6.4-8.2 [facility] Comment on above: Performed By: #### L CHAMP, TSH #### [facility] [address] [address] [address] Tierney Rivera Sodium [Moles/Vol] 140 mmol/L Normal 136-145 [facility] Comment on above: Performed By: #### L CHAMP, TSH #### [facility] [address] [place], [place] [address] Dr. Teirney Rivera Urea nitrogen [Mass/Vol] 17.0 mg/dL Normal 7.0-18.0 [place] Comment on above: Performed By: #### L LILAER, TSH #### [facility] [address] [place], [place] [address] Dr. Tierney Rivera Urea nitrogen/Creatinine [Mass ratio] 15.0 mg/mg Normal [place] Comment on above: Performed By: #### L IVER, TSH #### [facility] [address] [place], [place] [address] Dr. Tierney Rivera TROPONIN, HIGH SENSITIVITYon 01-15-2023 HSTROP 21.6 pg/mL Normal 4.0-51.3 [place] Comment on above: Result Comment: CUT- OFF POINTS HAVE BEEN ESTABLISHED BASED ON THE FOURTH UNIVERSAL DEFINITIONS OF MYOCARDIAL INFARCTION. THE UPPER REFERENCE LIMIT (URL) OF TROPONIN, DEFINED THE 99TH PERCENTILE OF cTnI DISTRIBUTION IN A REFERENCE POPULATION, HAS BEEN CONFIRMED THE DECISION THRESHOLD FOR NE DIAGNOSIS. Performed By: #### H STROPN, BNP, CMP #### [facility] [address] [id number] Tierney Rivera XR CHEST 1 Von [...] by: CONSTANCE LAI Date: 2023-01-15 00:29 Normal [place] 37on 01-11-2023 37 Stop Metoprolol Increased irbesartan to 150 mg daily ( 2- 75 mg tablets until this pill bottle is empty) I sent a prescription for the higher dose so your next bottle you will be back to 1 tablet per day. Check blood work in 1-2 weeks to check kidney function Normal [facility] Office Visiton 01-11-2023 Follow-up visit [id number] Alfa Escobedo 1940 F Date Provider Department Center 01/11/2023 SHANTEL ALBERTO [facility] Family History Problem Relation Age of Onset Diabetes Mother Hypertension Mother Hypertension Father Diabetes Sister Heart attack Maternal Grandmother Family Status - Relation Status Age at Mother Father Sister Maternal Grandmother Level of Service:98429 [place] OFFICE/OUTPATIENT ESTABLISHED MOD MDM 30-39 MIN Reason for Visit and Comments: Atrial Fibrillation [80] Coronary Artery Disease [187] Valve Disorder [3372] Hypertension [066605] Normal [facility] FREE T4on 10-17-2022 Free T4 [Mass/Vol] 1.49 ng/dL Critically high 0.76-1.[address] [facility] Comment on above: Performed By: #### L CHAMP TSH #### [facility] [address] [place] [address] Dr. Tierney Rivera LIVER PROFILEon 10-17-2022 Albumin [Mass/Vol] 3.7 g/dL Normal 3.4-5.0 [facility] Comment on above: Performed By: #### L CHAMP TSH #### [facility] [address] [place] [address] Dr. Tierney Rivera Albumin/Globulin [Mass ratio] 1.1 {ratio} Normal [place] Comment on above: Performed By: #### L CHAMP TSH #### [facility] [address] [place] [address] Dr. Tierney Rivera ALP [Catalytic activity/Vol] 104 U/L Normal 46-116 [place] Comment on above: Performed By: #### L IVBISHNU, TSH #### [facility] [address] [place] [address] Dr. Tierney Rivera ALT [Catalytic activity/Vol] 27 U/L Normal 14-59 [place] Comment on above: Performed By: #### L IVBISHNU, TSH #### [facility] [address] [place] [address] Dr. Tierney Rivera AST [Catalytic activity/Vol] 23 U/L Normal 15-37 [place] Comment on above: Performed By: #### L IVER, TSH #### [facility] [address] [place] [address] Dr. Tierney Rivera BILI, CONJUGATED 0.1 mg/dL Normal 0.0-0.2 [facility] Comment on above: Performed By: #### L IVER, TSH #### [facility] [address] [place] [address] Dr. Tierney Rivera Bilirubin [Mass/Vol] 0.4 mg/dL Normal 0.2-1.0 [place] Comment on above: Performed By: #### L IVER, TSH #### [facility] [address] [place] [address] Dr. Tierney Rivera Globulin (S) [Mass/Vol] 3.5 g/dL Normal [place] Comment on above: Performed By: #### L CHAMP, TSH #### [facility] [address] [place] [address] Dr. Tierney Rivera Protein [Mass/Vol] 7.2 g/dL Normal 6.4-8.2 [facility] Comment on above: Performed By: #### L CHAMP, TSH #### [facility] [address] [place] [address] Dr. Tierney Rivera TSHon 10-17-2022 TSH 1.020 uIU/mL Normal 0.358-3.740 [facility] Comment on above: Performed By: #### L CHAMP, TSH #### [facility] [address] [place] [address] Dr. Tierney Rivera XR CHEST 2 Von [...] FLORENTINO MAURO Date: 2022-10-17 09:46 Normal [facility] Covid-19 PCR ([facility])on SARS-CoV-2 (COVID-19) RNA SEDRICK+probe Ql (Unsp spec) Detected Critically abnormal NOT DETECTED [facility] Comment on above: Result Comment: This test is not yet approved or cleared by the [place] FDA. When there are no FDA-approved or cleared tests available, and other criteria are met, FDA can make tests available under an emergency access mechanism called an Emergency Use Authorization (EUA). The EUA for this test is supported by the Tapper Operator of Health and Human Service's (HHS's) declaration [...] used). Performed By: #### C VDTBH #### [facility] [address] [place] [address] Dr. Tierney Rivera INFLUENZA A AND B AGon 09-27 [facility] SEE BELOW Normal [place] Comment on above: Result Comment: Nega tive for Flu A protein angiten. Infection due to Flu A cannot be ruled out. Flu A angiten in the sample may be below the detection limit of the test. Performed By: #### I NFLUAB #### [facility] [address] [place] [address] Dr. Tierney Rivera [facility] Normal [place] Comment on above: Result Comment: Nega tive for Flu B protein antigen. Infection due to Flu B cannot be ruled out. Flu B antigen in the sample may be below the detection limit of the test. Performed By: #### I NFLUAB #### [facility] [address] [place] [address] Dr. Tierney Rivera INFLUENZA A AG Negative Normal NEGATIVE SEE COMMENT [place] Comment on above: Performed By: #### I NFLUAB #### [facility] [address] [place], [place] [address] Dr. Tierney Rivera INFLUENZA B AG Negative Normal NEGATIVE SEE COMMENT [facility] Comment on above: Performed By: #### I NFLUAB #### [facility] [address] [place], [place] [address] Dr. Tierney Rivera Cardiovascular Lab Reporton 06-11-2021 Cardiovascular Lab Report [facility] Patient Name: Gregg [facility] Laura MR #: [id number] Department of Physician: Cecilia Hansen M.D. Division of Service Date: 06/10/2021 Cardiology Birthdate: 1940 Adult Cardiovascular Room #: [facility] [address]. [place], [place] [address] Cardiovascular Laboratory Report FINAL IMPRESSION: 1. Angiographically [...] Follow up with Dr. Olvera in the [facility]. 8. Follow up with Dr. Mccoy as scheduled. PROCEDURES: Ultrasound-guided access of the right common femoral vein, ultrasound-guided access of right common femoral artery, limited femoral angiography, right heart catheterization, bilateral selective coronary angiography, placement of a 5-Canadian MynxGrip closure device. METHODS: After risks, benefits, and alternatives were explained, written informed consent was obtained. The patient was prepped and draped in usual sterile fashion over both groins. Using 1% lidocaine solution, local infiltration anesthesia was achieved. Using modified Seldinger technique, a micropuncture kit and under ultrasound guidance access to the right common femoral vein was obtained. A 6-Canadian 11 cm sheath was inserted without difficulty. This was repeated over the artery; a 5-Canadian 11 cm sheath was inserted. A Mcdonald catheter was used for right heart catheterization. Pressures were measured in the right atrium, right ventricle, pulmonary artery, and pulmonary capillary wedge positions. Oxygen saturations were obtained and cardiac output/cardiac index was calculated using modified Gisele principle. The Mcdonald catheter was removed. Bilateral selective coronary angiography was performed using 5-Canadian JL4 and JR4 catheters. After reviewing the images, it was elected to conclude the procedure. All catheters were removed. A 5-Canadian MynxGrip closure device was deployed per protocol [...] M.D (more content not included)... Normal [facility] Encounters Encounter Date Encounter Type Care Provider Facility Start: 10-12-2023 End: 10-12-2023 ambulatory JAS VALDIVIA Not Available Start: 09-28-2023 End: 09-28-2023 ambulatory JAS VALDIVIA Not Available Start: 09-14-2023 End: 09-14-2023 ambulatory JAS VALDIVIA Not Available Start: 08-31-2023 End: 08-31-2023 ambulatory JAS VALDIVIA Not Available Start: 08-23-2023 End: 08-23-2023 ambulatory KAAY OLVERA [facility] Start: 02-15-2023 End: 02-15-2023 ambulatory [facility] Start: 01-26-2023 End: 01-27-[address] GERBRE MCCOY . Facility:[facility] Start: 01-15-2023 End: 01-15-[address] CYNTHIA ROMERO . Facility:[facility] Start: 01-11-2023 End: 01-11-2023 ambulatory [facility] Start: 10-17-2022 End: 10-18-[address] GERBER MCCOY . Facility:[facility] Start: 09-27-2022 End: 09-27-[address] GERBER MCCOY . Facility:[facility] Start: 06-10-2021 End: 06-11-2021 ambulatory KAYA OLVERA Facility:[facility] Payers Date Payer Category Payer Unknown [id number] 1958 Medicare [id number] 1958 Unknown [id number] 1940 Unknown [id number] 2.16.8 [id number] 1940 Unknown [id number] 2.16.84 [id number] 1940 Unknown [id number] 2.16.84 [id number] 1940 Unknown [id number] 2.16.84 [id number] 1940 Unknown [id number] 2.16.84 [id number] 1940 Unknown [id number] 2.16.84 [id number] 1940 Unknown [id number] 2.16.840 .[id number] 1940 Unknown [id number] 2.16.840 .[id number] 1940 Unknown [id number] [id number] .[id number] Clinical Notes 01-11-2023 to 08-23-2023 Note Date & Type Note Facility 08-23-[address] [facility] Cardiology Clinic Note Chief Complaint: Patient here for 6 mo follow up CAD, PAF, and mitral valve regurgitation. She was kept overnight for observation in May 2023 at [facility], and declined transfer to [facility] for cardioversion. Patient does not remember [...] regurgitation. Moderate to severe mitral regurgitation. Transesophageal Echocardiogram-[facility] Name: LUCILLE ESCOBEDO Study Date: 06/10/2021 10:12 AM B/P: 126 mmHg/68 mmHg HR: Date of : 1940 Location: [facility] Height: 66 in. Age: 81 year(s) Patient Room : Weight: 135 lb. Gender: Female Patient Status: OutPt BSA: 1.69 m2 Indication: Atrial Fibrillation Examination: TUAN/CFI with Cardioversion Image Quality: Good Patient Consent: Informed, written consent was obtained for the procedure s p @ c 3 Exam Location: A TUAN was performed in the [facility] without complications s p @ c 3 [...] atrial appendage, no (more content not included)... [facility] 02-15-2023 [facility] Stable continue heart healthy di et [facility] 02-15-2023 Note Hypertension is well controlled with irbesartan 75 mgin am and 37.5 mg in pm, toprol 25 mg daily [facility] 02-15-2023 Note [facility] CARDIOLOGY PROGR ESS NOTE [...] continue all medications. Paroxysmal atrial fibrillation (CMS/HCC) [id number]= 5 Remains on amiodarone, toprol 25 mg [...] with toprol 35 mg RTC 6 months [facility] 02-15-2023 Note Patient here for 1 m o follow up hypertension and mitral valve regurgitation. Irbesartan was increased to 150mg daily at last visit and metoprolol was stopped. A few days later she went to [facility] ED for tachycardia. They restarted her metoprolol [...] All other systems reviewed and are negative. [facility] 02-15-2023 Note [id number]= 5 Remains on amiodarone, toprol 25 mg and eliquis anticoagulation Denied any bleeding tendencies Amiodarone annual monitoring- pt will need TSH for thyroid function, PFT for pulm function, and eye exam with opthalmologist [facility] 02-15-2023 Note Continue GDMT, CAD r emains stable- no concerning symptoms continue risk factor modifications- heart healthy diet, regular exercise as tolerated and continue all medications. [facility] 01-11-2023 Note Hypertension is unco ntrolled- increase irbesartan to 150 mg, repeat BMP in 1-2 weeks to assess renal function. Asked pt to monitor b/p at home, start a log of her b/p and bring with her to next visit. [facility] 01-11-2023 Note Recommended low chol esterol- heart healthy diet [facility] 01-11-2023 Note Stable [facility] 01-11-2023 Note stable [facility] 04-19-2023 Note Will continue to mon itor- she does not want to proceed with mitral clipping procedure [facility] 01-11-2023 Note stable [facility] 01-11-2023 Note Patient here for 1 y [...] All other systems reviewed and are negative. [facility] 01-11-2023 Note [facility] CARDIOLOGY PROGR ESS NOTE [...] month to assess b/p and heart rate [facility] 01-11-2023 Note History of fib/flutt er; currently on, amiodarone 200 mg daily, andEliquis Heart rate well controlled, regular rate and rhythm during assessment [facility] 01-11-2023 Note MILD (CATH 2009) Continue risk factor modifications including heart healthy diet, exercise on a regular regimen, continue medications No aspirin in light of Eliquis, hold metoprolol r/t bradycardia- will monitor for any recurrent Afib/tachycardia [facility] Summary Purpose Family History No Family History Records FoundNo Family History Records FoundNo Family History Records FoundNo Family History Records Found Advance Directives No Advanced Directives Records FoundNo Advanced Directives Records FoundNo Advanced Directives Records FoundNo Advanced Directives Records Found Additional Source Comments INFORMATION SOURCE (unrecogn ized section and content) DATE CREATED AUTHOR 06/15/2021 [facility] DATE CREATED AUTHOR AUTHOR'S ORGANIZ ATION 02/02/2023 [facility] DATE CREATED AUTHOR AUTHOR'S ORGANIZ ATION 10/05/2023 [facility] DATE CREATED AUTHOR AUTHOR'S ORGANIZ ATION 10/13/2023 [facility] EPIC FOR RECORDS PERTAINING TO [...] BE BASED ON THE PRIMARY CLINICAL RECORDS. [facility]. provides no warranty or guarantee of the accuracy or completeness of information in this document.
--- NOTE | 2023-10-14 08:52 | P.HP_ITS ---
H&P: HPI History of Present Illness Chief complaint: Chest pain Narrative: Patient woke up at about 2 in the morning with some wheezes and slight cough, breathing became more difficulty and labored and presented to the emergency room. 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 History of atrial fibrillation but she is in sinus in the ER. She was admitted for workup and treatment of same. She also had hypoxia in the ER her pulse ox on previous to visits was 98% this was down to 90% Review of Systems ROS Status of ROS 10 or more systems reviewed and unremark able except as noted in history and below [facility] Surgical History (Updated 10/14/23 @ 07:51 by Yamila Santoyo) H/O: hysterectomy ?Z90.710 - Acquired absence of both cervix and uterus (ICD-10) Social History Smoking status: Never smoker Highest level of school completed/degree received: high school graduate Meds Home Medications and Allergies Home Medications Medication Instructions Recorded Confirmed Type amiodarone 200 mg tablet 200 mg PO Q24H 06/03/23 10/14/23 History apixaban 2.5 mg tablet (Eliquis) 2.5 mg PO Q12H 06/03/23 10/14/23 History irbesartan 75 mg tablet 75 mg PO DAILY 06/03/23 10/14/23 History levothyroxine 50 mcg tablet 50 mcg PO .even numbered days 06/03/23 10/14/23 History metoprolol tartrate 25 mg tablet 25 mg PO BID #20 tabs 06/03/23 10/14/23 Rx multivitamin (Daily Multi-Vitamin 1 tab PO DAILY 06/03/23 10/14/23 History tablet) potassium chloride 10 mEq 10 meq PO DAILY 06/03/23 10/14/23 History tablet,extended release furosemide 40 mg tablet (Lasix) 40 mg PO DAILY #30 tabs 10/14/23 Rx isosorbide mononitrate 30 mg 30 mg PO DAILY #30 tabs 10/14/23 Rx tablet,extended release 24 hr Allergies Allergy/AdvReac Type Severity Reaction Status Date / Time Sulfa (Sulfonamide Allergy Verified 10/14/23 04:16 Antibiotics) Exam Constitutional Vital Signs, click to edit/add: Last Vital Signs Temp 96.9 F L 10/14/23 07:58 Pulse 58 L 10/14/23 08:18 Resp 18 10/14/23 07:58 BP 118/60 10/14/23 07:58 Pulse Ox 97 10/14/23 07:58 O2 Del Method Room Air 10/14/23 07:58 O2 Flow Rate 2 10/14/23 04:21 Documenting provider has reviewed patient's vital signs: yes Common normals: no apparent distress Chest Common normals: inspection of chest normal Respiratory Common normals: normal respiratory effort Auscultation: rales (bases) Cardio Common normals: regular rate and regular rhythm Results Labs Labs: Short CBC 10/14/23 Range/Units 04:20 WBC 9.7 (4.0-11.0) 10^3/uL Hgb 14.3 (12.0-16.0) g/dL Hct 44.1 (36.0-48.0) % Plt Count 316 (150-450) 10^3/uL BMP 10/14/23 04:20 Sodium 142 Potassium 4.2 Chloride 103 Carbon Dioxide 28.2 BUN 26.0 H Creatinine 1.30 H Glucose 105 Calcium 10.0 Assessment and Plan Assessment and Plan (1) Pulmonary edema: (2) A-fib: Plan Uncontrolled hypertension with relative hypoxia with a drop of from normal 98% down to 90%. Placed on 2 L with good result. This is due to pleural effusion and acute combined congestive heart failure with a reduced ejection fraction on echo in August. Complicated by chronic kidney disease stage II. Patient diuresed a liter and feels like her breathing is better. She was taken off of supplemental oxygen was so far good results again in the 97 to 98% range. She has not been up and ambulating yet. She does have an urgency to be at home to care for her disabled daughter. With good diuresis so far. Able to be weaned off of supplemental oxygen without hypoxia. Check second troponin. If that is negative then she can be discharged home with an adjustment in her outpatient medications by increasing Lasix to 40 mg and adding Imdur. Hypertension-blood pressure elevated here, adding Imdur at home and will monitor I will see patient in the office in 2 days. Chronic kidney disease stage II-monitor as an outpatient Pleural effusions likely secondary to the acute combined congestive heart failure with reduced ejection fraction-repeat chest x-ray next week when I see her in the office Atrial fibrillation by history-on anticoagulation, normal sinus rhythm today History of hypothyroidism-check labs The patient rapidly improving-we will check a second troponin, if that is negative she discharged home in improving condition. Medications see list. Follow-up with me in the office in 2 days. Maintain observation status due to rapid improvement.
[2023-10-14 09:08] LABS: Magnesium 2.3 mg/dL (1.8-2.4)
[2023-10-14 09:17] LABS: Troponin I High Sensitivity 28.7 pg/mL (4.0-51.3)
[2023-10-14] MEDS: POTASSIUM CHLORIDE 10 MEQ ER TABLET PO (11:30)
[2023-10-14] MEDS: METOPROLOL TARTRATE 25 MG TABLET PO (11:30)
[2023-10-14] MEDS: APIXABAN 5 MG TABLET 2.5 MG PO (11:30)
[2023-10-14] MEDS: MULTIVITAMIN TABLET 1 TAB PO (11:30)
[2023-10-14] MEDS: ISOSORBIDE MONONITRATE 30 MG TAB.ER.24H PO (11:30)
[2023-10-14] MEDS: LEVOTHYROXINE SODIUM 25 MCG TABLET 50 MCG PO (11:31)
[2023-10-14] MEDS: AMIODARONE HCL 200 MG TABLET PO (11:31)
[2023-10-14] MEDS: LOSARTAN POTASSIUM 25 MG TABLET PO (11:31)
--- OUTSIDE RECORDS SUMMARY | 2023-10-16 08:43 | XMS_ITS | CCD ---
Author Name Unknown Address [address] [place] [address] Organization [facility] Care Team Providers Care Signal Helper Name Role Phone ELTAHAWY, EHAB A Attending Unavailable ELTAHAWY, EHAB A Admitting Unavailable HOY, GERBER Referring Unavailable HOY, GERBER Primary Care Unavailable HOY ., DR MAYES Primary Care Unavailable JOSE, SHANTEL Attending Unavailable JOSE, SHANTEL Admitting Unavailable WEST, DR FLORENTINO [employer] Consulting Unavailable JOSE, SHANTEL Consulting Unavailable HOY [...] [HOSSEIN INHIBITORS] Drug allergy (disorder) 07-03-2012 [facility] Repository (3 sources) Sulfonamides (Antibiotic); Translations: [SULFA (SULFONAMIDE ANTIBIOTICS)] Drug allergy (disorder) 07-03-2012 [facility] Repository Problems Active Problems Problem Classification Problem [...] disease (2 sources) Atherosclerotic heart disease of [place] coronary artery without angina pectoris; Translations: [Atherosclerotic heart disease of [place] coronary artery without angina pectoris] Onset: 06-08-2022 [...] Onset: 02-01-2023 Chronic Other aftercare (1 source) 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 She told them she did not want the test because her heart is not pumping low anymore . I advised patient that without diagnostic testing someone cannot tell the function of their own heart. She asked me what getting a pacemaker entailed. I told her it's usually done as outpatient, done at [facility]. I told her she would have to be very careful with using her left arm and wouldn't be able to drive for a month. She told me you just made up my mind for me . Patient has now decided to not have muga scan done. Normal [facility] Telephoneon 09-28-2023 Telephone [id number] Alfa Escobedo 1940 F Date Provider Department Center 09/28/2023 CRISTINA CAR OTTONIEL [facility] Family History Problem Relation Age of Onset Diabetes Mother Hypertension Mother Hypertension Father Diabetes Sister Heart attack Maternal Grandmother Family Status - Relation Status Age at Mother Father Sister Maternal Grandmother Normal [facility] Office Visiton 08-23-2023 Follow-up visit [id number] Alfa Escobedo 1940 Provider Department Center 08/23/2023 Bina-SERJIOLEIAKAYA LINDA CARD [facility] Family History Problem Relation Age of Onset Diabetes Mother Hypertension Mother Hypertension Father Diabetes Sister Heart attack Maternal Grandmother Family Status - Relation Status Age at Mother Father Sister Maternal Grandmother Level of Service:59678 NE OFFICE/OUTPATIENT ESTABLISHED LOW MDM 20-29 MIN Normal [facility] Office Visiton 02-15-2023 Follow-up visit [id number] Alfa Escobedo 1940 Provider Department Center 02/15/2023 SHANTEL ALBERTO CARD [facility] Family History Problem Relation Age of Onset Diabetes Mother Hypertension Mother Hypertension Father Diabetes Sister Heart attack Maternal Grandmother Family Status - Relation Status Age at Mother Father Sister Maternal Grandmother Level of Service:68385 NE OFFICE/OUTPATIENT ESTABLISHED LOW MDM 20-29 MIN Reason for Visit and Comments: Atrial Fibrillation [80] Valve Disorder [3372] Hypertension [878374] Normal [facility] BNPon 01-26-2023 Natriuretic peptide B (Bld) [Mass/Vol] 1751.0 pg/mL Normal <=1,800.0 [facility] Comment on above: Performed By: #### L IVER, TSH #### [facility] [address] [place] [address] Dr. Tierney Rivera CBC AUTO DIFFon 01-26-2023 BASO # 0.0 103/ul Normal 0.0-0.1 [facility] Comment on above: Performed By: #### C BC #### [facility] [address] [place] [address] Dr. Tierney Rivera Basophils/100 WBC (Bld) 0.3 % Normal 0.2-2.0 [facility] Comment on above: Performed By: #### C BC #### [facility] [address] [place] [address] Dr. Tierney Rivera EO # 0.1 103/ul Normal 0.0-0.7 [facility] Comment on above: Performed By: #### C BC #### [facility] [address] [place] [address] Dr. Tierney Rivera Eosinophils/100 WBC (Bld) 2.3 % Normal 0.9-7.0 [facility] Comment on above: Performed By: #### C BC #### [facility] [address] [place] [address] Dr. Tierney Rivera Erythrocyte distribution width (RBC) [Ratio] 13.1 % Normal 11.0-15.0 [facility] Comment on above: Performed By: #### C BC #### [facility] [address] [place] [address] Dr. Tierney Rivera Hematocrit (Bld) [Volume fraction] 43.5 % Normal 36.0-48.0 [facility] Comment on above: Performed By: #### C BC #### [facility] [address] [place] [address] Dr. Tierney Rivera Hemoglobin (Bld) [Mass/Vol] 13.9 g/dL Normal 12.0-16.0 [facility] Comment on above: Performed By: #### C BC #### [facility] [address] [place] [address] Dr. Tierney Rivera IG # 0.02 10e3/ul Normal 0.00-0.03 [facility] Comment on above: Performed By: #### C BC #### [facility] [address] [place] [address] Dr. Tierney Rivera IG % 0.3 % Normal 0.0-0.5 [facility] Comment on above: Performed By: #### C BC #### [facility] [address] [place] [address] Dr. Tierney Rivera LYMPH # 1.2 103/ul Normal 1.2-3.8 [facility] Comment on above: Performed By: #### C BC #### [facility] [address] [place] [address] Dr. Tierney Rivera Lymphocytes/100 WBC (Bld) 20.6 % Normal 20.5-60.0 [facility] Comment on above: Performed By: #### C BC #### [facility] [address] [place] [address] Dr. Tierney Rivera MANUAL DIFF REQ NO Normal [facility] Comment on above: Performed By: #### C BC #### [facility] [address] [place] [address] Dr. Tierney Rivera MCH (RBC) [Entitic mass] 29.4 pg Normal 26.7-34.0 [facility] Comment on above: Performed By: #### C BC #### [facility] [address] [place] [address] Dr. Tierney Rivera MCHC (RBC) [Mass/Vol] 32.0 g/dL Normal 29.9-35.2 [facility] Comment on above: Performed By: #### C BC #### [facility] [address] [place] [address] Dr. Tierney Rivera MCV (RBC) [Entitic vol] 92.2 fL Normal 81.0-99.0 [facility] Comment on above: Performed By: #### C BC #### [facility] [address] [place] [address] Dr. Tierney Rivera MONO # 0.6 103/ul Normal 0.3-0.8 [facility] Comment on above: Performed By: #### C BC #### [facility] [address] [place] [address] Dr. Tierney Rivera Monocytes/100 WBC (Bld) 10.2 % Normal 1.7-12.0 [facility] Comment on above: Performed By: #### C BC #### [facility] [address] [place] [address] Dr. Tierney Rivera NEUT # 3.8 103/ul Normal 1.4-6.5 [facility] Comment on above: Performed By: #### C BC #### [facility] [address] [place] [address] Dr. Tierney Rivera Neutrophils/100 WBC (Bld) 66.3 % Normal 43.0-75.0 [facility] Comment on above: Performed By: #### C BC #### [facility] [address] [address] [address] Tierney Rivera Platelet mean volume (Bld) [Entitic vol] 11.2 fL Normal 9.5-13.5 [facility] Comment on above: Performed By: #### C BC #### [facility] [address] [address] [address] Tierney Rivera PLT 253 103/ul Normal 150-450 [facility] Comment on above: Performed By: #### C BC #### [facility] [address] [address] [address] Tierney Rivera RBC 4.72 106/ul Normal 4.20-5.40 [facility] Comment on above: Performed By: #### C BC #### [facility] [address] [address] [address] Tierney Rivera WBC 5.8 103/ul Normal 4.0-11.0 [facility] Comment on above: Performed By: #### C BC #### [facility] [address] [address] [address] Tierney Rivera FREE THYROXINE INDEX T7on FTI 5.18 Critically high 1.30-4.50 [facility] Comment on above: Performed By: #### L IVER, TSH #### [facility] [address] [address] [address] Tierney Rivera T3U 36.0 % Normal 30.0-39.0 [facility] Comment on above: Performed By: #### L IVER, TSH #### [facility] [address] [address] [address] Tierney Rivera T4 [Mass/Vol] 14.40 ug/dL Critically high 4.80-13.90 [facility] Comment on above: Performed By: #### L IVER, TSH #### [facility] [address] [address] [address] Tierney Rivera GLYCOHEMOGLOBIN A1Con 2022 ADA RECOMMENDATION SEE BELOW Normal [facility] Comment on above: Result Comment: ADA RECOMMENDED LIMIT 4.0 - 6.0 ADA THERAPEUTIC TARGET < 7.0 ACTION SUGGESTED > 7.0 Performed By: #### L CHAMP, TSH #### [facility] [address] [place] [address] Dr. Tierney Rivera Glucose [Mass/Vol] 117 mg/dL Normal [facility] Comment on above: Performed By: #### L CHAMP, TSH #### [facility] [address] [place] [address] Dr. Tierney Rivera HbA1c (Bld) [Mass fraction] 5.7 % Normal 4.5-6.2 [facility] Comment on above: Performed By: #### L CHAMP, TSH #### [facility] [address] [place] [address] Dr. Tierney Rivera IRONon 01-26-2023 Iron [Mass/Vol] 67.0 ug/dL Normal 50.0-170.0 [facility] Comment on above: Performed By: #### V ITAD, IRON #### [facility] [address] [place] [address] Dr. Tierney Rivera PROF 14(COMP METB)on 023 Albumin [Mass/Vol] 4.0 g/dL Normal 3.4-5.0 [facility] Comment on above: Performed By: #### L CHAMP, TSH #### [facility] [address] [place] [address] Dr. Tierney Rivera Albumin/Globulin [Mass ratio] 1.1 {ratio} Normal [facility] Comment on above: Performed By: #### L CHAMP, TSH #### [facility] [address] [place] [address] Dr. Tierney Rivera ALP [Catalytic activity/Vol] 98 U/L Normal 46-116 [facility] Comment on above: Performed By: #### L CHAMP, TSH #### [facility] [address] [place] [address] Dr. Tierney Rivera ALT [Catalytic activity/Vol] 29 U/L Normal 14-59 [facility] Comment on above: Performed By: #### L CHAMP, TSH #### [facility] [address] [address] [address] Tierney Rivera Anion gap [Moles/Vol] 11.7 mmol/L Normal [facility] Comment on above: Performed By: #### L IVER, TSH #### [facility] [address] [address] [address] Tierney Rivera AST [Catalytic activity/Vol] 22 U/L Normal 15-37 [facility] Comment on above: Performed By: #### L IVER, TSH #### [facility] [address] [address] [address] Tierney Rivera Bilirubin [Mass/Vol] 0.4 mg/dL Normal 0.2-1.0 [facility] Comment on above: Performed By: #### L IVER, TSH #### [facility] [address] [address] [address] Tierney Rivera Calcium [Mass/Vol] 10.1 mg/dL Normal 8.5-10.1 [facility] Comment on above: Performed By: #### L IVER, TSH #### [facility] [address] [address] [address] Tierney Rivera Chloride [Moles/Vol] 103 mmol/L Normal 98-107 [facility] Comment on above: Performed By: #### L IVER, TSH #### [facility] [address] [address] [address] Tierney Rivera CO2 [Moles/Vol] 30.5 mmol/L Normal 21.0-32.0 [facility] Comment on above: Performed By: #### L IVER, TSH #### [facility] [address] [address] [address] Tierney Rivera Creatinine [Mass/Vol] 1.15 mg/dL Critically high 0.55-1.02 [facility] Comment on above: Performed By: #### L IVER, TSH #### [facility] [address] [address] [address] Tierney Rivera EGFR-AF CZECH 55 mL/min/1.73m2 Critically low >=60 [facility] Comment on above: Performed By: #### L IVER, TSH #### [facility] [address] [address] [address] Tierney Rivera EGFR-NON AF CZECH 45 mL/min/1.73m2 Critically low >=60 [facility] Comment on above: Performed By: #### L IVER, TSH #### [facility] [address] [address] [address] Tierney Rivera Globulin (S) [Mass/Vol] 3.8 g/dL Normal [facility] Comment on above: Performed By: #### L IVER, TSH #### [facility] [address] [address] [address] Tierney Rivera Glucose [Mass/Vol] 97 mg/dL Normal 74-106 [facility] Comment on above: Performed By: #### L IVER, TSH #### [facility] [address] [place] [address] Dr. Tierney Rivera Potassium [Moles/Vol] 4.2 mmol/L Normal 3.5-5.1 [facility] Comment on above: Performed By: #### L IVER, TSH #### [facility] [address] [place] [address] Dr. Tierney Rivera Protein [Mass/Vol] 7.8 g/dL Normal 6.4-8.2 [facility] Comment on above: Performed By: #### L IVER, TSH #### [facility] [address] [place] [address] Dr. Tierney Rivera Sodium [Moles/Vol] 141 mmol/L Normal 136-145 [facility] Comment on above: Performed By: #### L IVER, TSH #### [facility] [address] [place] [address] Dr. Tierney Rivera Urea nitrogen [Mass/Vol] 18.0 mg/dL Normal 7.0-18.0 [facility] Comment on above: Performed By: #### L IVER, TSH #### [facility] [address] [place] [address] Dr. Tierney Rivera Urea nitrogen/Creatinine [Mass ratio] 15.7 mg/mg Normal [facility] Comment on above: Performed By: #### L CHAMP TSH #### [facility] [address] [place] [address] Dr. Tierney Rivera TSHon 01-26-2023 TSH 2.066 uIU/mL Normal 0.358-3.740 [facility] Comment on above: Performed By: #### Breonna OAKES TSH #### [facility] [address] [place] [address] Dr. Tierney Rivera VITAMIN D 25 OHon 01-26-2023 VIT D 25-OH 45.0 ng/mL Normal [facility] Comment on above: Performed By: #### V SHANNEN, IRON #### [facility] [address] [place] [address] Dr. Tierney Rivera VIT D RANGES SEE BELOW Normal [facility] Comment on above: Result Comment: <20 ng/mL Vit D deficient 20 - <30 ng/mL Vit D insufficient 30 - 100 ng/mL Vit D sufficient >100 ng/mL Potential Toxicity Performed By: #### Riaz PRIDE, IRON #### [facility] [address] [place] [address] Dr. Tierney Rivera BNPon 01-15-2023 Natriuretic peptide B (Bld) [Mass/Vol] 868.0 pg/mL Normal <=1,800.0 [facility] Comment on above: Performed By: #### H STROPN, BNP, CMP #### [facility] [address] [place] [address] Dr. Tierney Rivera CBC AUTO DIFFon 01-15-2023 BASO # 0.0 103/ul Normal 0.0-0.1 [facility] Comment on above: Performed By: #### L CHAMP TSH #### [facility] [address] [place] [address] Dr. Tierney Rivera Basophils/100 WBC (Bld) 0.3 % Normal 0.2-2.0 [facility] Comment on above: Performed By: #### Breonna OAKES TSH #### [facility] [address] [place], [place] [id number] Dr. Tierney Rivera EO # 0.1 103/ul Normal 0.0-0.7 [facility] Comment on above: Performed By: #### L IVBISHNU, TSH #### [facility] [address] [place] [address] Dr. Tierney Rivera Eosinophils/100 WBC (Bld) 1.7 % Normal 0.9-7.0 [facility] Comment on above: Performed By: #### L IVBISHNU, TSH #### [facility] [address] [place] [address] Dr. Tierney Rivera Erythrocyte distribution width (RBC) [Ratio] 13.2 % Normal 11.0-15.0 [facility] Comment on above: Performed By: #### L IVBISHNU, TSH #### [facility] [address] [place] [address] Dr. Tierney Rivera Hematocrit (Bld) [Volume fraction] 45.1 % Normal 36.0-48.0 [facility] Comment on above: Performed By: #### L IVBISHNU, TSH #### [facility] [address] [place] [address] Dr. Tierney Rivera Hemoglobin (Bld) [Mass/Vol] 15.1 g/dL Normal 12.0-16.0 [facility] Comment on above: Performed By: #### L IVBISHNU, TSH #### [facility] [address] [place] [address] Dr. Tierney Rivera IG # 0.01 10e3/ul Normal 0.00-0.03 [facility] Comment on above: Performed By: #### L IVER, TSH #### [facility] [address] [place] [address] Dr. Tierney Rivera IG % 0.2 % Normal 0.0-0.5 [facility] Comment on above: Performed By: #### L IVBISHNU, TSH #### [facility] [address] [place] [address] Dr. Tierney Rivera LYMPH # 2.2 103/ul Normal 1.2-3.8 [facility] Comment on above: Performed By: #### L IVBISHNU, TSH #### [facility] [address] [address] [address] Tierney Rivera Lymphocytes/100 WBC (Bld) 32.5 % Normal 20.5-60.0 [facility] Comment on above: Performed By: #### L IVER, TSH #### [facility] [address] [address] [address] Tierney Rivera MANUAL DIFF REQ NO Normal [facility] Comment on above: Performed By: #### L IVER, TSH #### [facility] [address] [place] [address] Dr. Tierney Rivera MCH (RBC) [Entitic mass] 30.0 pg Normal 26.7-34.0 [facility] Comment on above: Performed By: #### L IVER, TSH #### [facility] [address] [place] [address] Dr. Tierney Rivera MCHC (RBC) [Mass/Vol] 33.5 g/dL Normal 29.9-35.2 [facility] Comment on above: Performed By: #### L IVER, TSH #### [facility] [address] [place] [address] Dr. Tierney Rivera MCV (RBC) [Entitic vol] 89.7 fL Normal 81.0-99.0 [facility] Comment on above: Performed By: #### L IVER, TSH #### [facility] [address] [place] [address] Dr. Tierney Rivera MONO # 0.8 103/ul Normal 0.3-0.8 [facility] Comment on above: Performed By: #### L IVER, TSH #### [facility] [address] [place] [address] Dr. Tierney Rivera Monocytes/100 WBC (Bld) 12.6 % Critically high 1.7-12.0 [facility] Comment on above: Performed By: #### L IVER, TSH #### [facility] [address] [place] [address] Dr. Tierney Rivera NEUT # 3.5 103/ul Normal 1.4-6.5 [facility] Comment on above: Performed By: #### L IVER, TSH #### [facility] [address] [address] [address] Tierney Rivera Neutrophils/100 WBC (Bld) 52.7 % Normal 43.0-75.0 [facility] Comment on above: Performed By: #### L IVER, TSH #### [facility] [address] [address] [address] Tierney Rivera Platelet mean volume (Bld) [Entitic vol] 11.0 fL Normal 9.5-13.5 [facility] Comment on above: Performed By: #### L IVBISHNU, TSH #### [facility] [address] [place] [address] Dr. Tierney Rivera PLT 266 103/ul Normal 150-450 [facility] Comment on above: Performed By: #### L IVBISHNU, TSH #### [facility] [address] [place] [address] Dr. Tierney Rivera RBC 5.03 106/ul Normal 4.20-5.40 [facility] Comment on above: Performed By: #### L CHAMP, TSH #### [facility] [address] [place] [address] Dr. Tierney Rivera WBC 6.6 103/ul Normal 4.0-11.0 [facility] Comment on above: Performed By: #### L CHAMP, TSH #### [facility] [address] [place] [address] Dr. Tierney Rivera CULTURE BLOODon 01-15-2023 Microscopic examination of blood, culture Culture Observations: NO GROWTH AT 5 DAYS. Normal [facility] Comment on above: Performed By: #### L IVBISHNU, TSH #### [facility] [address] [place] [address] Dr. Tierney Rivera Microscopic examination of blood, culture Culture Observations: NO GROWTH AT 5 DAYS. Normal [facility] Comment on above: Performed By: #### L IVER, TSH #### [facility] [address] [place] [address] Dr. Tierney Rivera ER URINE PROFILEon 3 Bilirubin Ql (U) Negative Normal NEGATIVE [facility] Comment on above: Performed By: #### L IVER, TSH #### [facility] [address] [place] [address] Dr. Tierney Rivera Clarity (U) CLEAR Normal CLEAR [facility] Comment on above: Performed By: #### L IVER, TSH #### [facility] [address] [place] [address] Dr. Tierney Rivera Color (U) LT. YELLOW Normal YELLOW [facility] Comment on above: Performed By: #### L IVER, TSH #### [facility] [address] [place] [address] Dr. Tierney Rivera ERUAHGianna A micrscopic examination will be performed if indicated. Normal [facility] Comment on above: Performed By: #### L IVER, TSH #### [facility] [address] [place] [address] Dr. Tierney Rivera Glucose Ql (U) Negative Normal NEGATIVE [facility] [facility] Comment on above: Performed By: #### L IVER, TSH #### [facility] [address] [place] [address] Dr. Tierney Rivera Hemoglobin Ql (U) Negative Normal NEGATIVE [facility] Comment on above: Performed By: #### L IVER, TSH #### [facility] [address] [place] [address] Dr. Tierney Rivera Ketones Ql (U) Negative Normal NEGATIVE [facility] Comment on above: Performed By: #### L IVER, TSH #### [facility] [address] [place] [address] Dr. Tierney Rivera LEUKOCYTES Negative Normal NEGATIVE [facility] Comment on above: Performed By: #### L IVER, TSH #### [facility] [address] [place] [address] Dr. Tierney Rivera Nitrite Ql (U) Negative Normal NEGATIVE [facility] Comment on above: Performed By: #### L IVER, TSH #### [facility] [address] [place] [address] Dr. Tierney Rivera pH (U) 7.5 [pH] Normal 5-9 [facility] Comment on above: Performed By: #### L IVER, TSH #### [facility] [address] [place] [address] Dr. Tierney Rivera SPEC GRAVITY 1.010 Normal 1.005-<=1.02 5 [facility] Comment on above: Performed By: #### L IVER, TSH #### [facility] [address] [place] [address] Dr. Tierney Rivera UA PROTEIN Negative Normal NEGATIVE/ TRACE [facility] Comment on above: Performed By: #### L IVER, TSH #### [facility] [address] [place] [address] Dr. Tierney Rivera UR MICRO IND NOT INDICATED Normal [facility] Comment on above: Performed By: #### L IVER, TSH #### [facility] [address] [place] [address] Dr. Tierney Rivera Urobilinogen Qn (U) 0.2 {Radu'U}/dL Normal 0.2 - 1. 0 [facility] Comment on above: Performed By: #### L IVER, TSH #### [facility] [address] [place] [address] Dr. Tierney Rivera LACTATE/LACTIC ACIDon 2022 Lactate [Moles/Vol] 1.5 mmol/L Normal 0.4-2.0 [facility] Comment on above: Performed By: #### L ACT #### [facility] [address] [place] [address] Dr. Tierney Rivera PROF 14(COMP METB)on 023 Albumin [Mass/Vol] 4.3 g/dL Normal 3.4-5.0 [facility] Comment on above: Performed By: #### L IVER, TSH #### [facility] [address] [place] [address] Dr. Tierney Rivera Albumin/Globulin [Mass ratio] 1.2 {ratio} Normal [facility] Comment on above: Performed By: #### L IVER, TSH #### [facility] [address] [place] [address] Dr. Tierney Rivera ALP [Catalytic activity/Vol] 111 U/L Normal 46-116 [facility] Comment on above: Performed By: #### L CHAMP, TSH #### [facility] [address] [address] [address] Tierney Rivera ALT [Catalytic activity/Vol] 23 U/L Normal 14-59 [facility] Comment on above: Performed By: #### L CHAMP, TSH #### [facility] [address] [address] [address] Tierney Rivera Anion gap [Moles/Vol] 11.8 mmol/L Normal [facility] Comment on above: Performed By: #### L CHAMP, TSH #### [facility] [address] [place] [address] Dr. Tierney Rivera AST [Catalytic activity/Vol] 22 U/L Normal 15-37 [facility] Comment on above: Performed By: #### Breonna OAKES, TSH #### [facility] [address] [place] [address] Dr. Tierney Rivera Bilirubin [Mass/Vol] 0.4 mg/dL Normal 0.2-1.0 [facility] Comment on above: Performed By: #### L CHAMP, TSH #### [facility] [address] [place] [address] Dr. Tierney Rivera Calcium [Mass/Vol] 10.6 mg/dL Critically high 8.5-10.1 T [facility] Comment on above: Performed By: #### Breonna OAKES, TSH #### [facility] [address] [place] [address] Dr. Tierney Rivera Chloride [Moles/Vol] 103 mmol/L Normal 98-107 [facility] Comment on above: Performed By: #### L CHAMP, TSH #### [facility] [address] [address] [address] Tierney Rivera CO2 [Moles/Vol] 29.2 mmol/L Normal 21.0-32.0 [facility] Comment on above: Performed By: #### L CHAMP, TSH #### [facility] [address] [address] [address] Tierney Rivera Creatinine [Mass/Vol] 1.13 mg/dL Critically high 0.55-1.02 [facility] Comment on above: Performed By: #### L CHAMP, TSH #### [facility] [address] [address] [address] Tierney Rivera EGFR-AF CZECH 56 mL/min/1.73m2 Critically low >=60 [facility] Comment on above: Performed By: #### L CHAMP, TSH #### [facility] [address] [address] [address] Tierney Rivera EGFR-NON AF CZECH 46 mL/min/1.73m2 Critically low >=60 [facility] Comment on above: Performed By: #### L CHAMP, TSH #### [facility] [address] [place] [address] Dr. Tierney Rivera Globulin (S) [Mass/Vol] 3.7 g/dL Normal [facility] Comment on above: Performed By: #### L CHAMP, TSH #### [facility] [address] [address] [address] Tierney Rivera Glucose [Mass/Vol] 109 mg/dL Critically high 74-106 [facility] Comment on above: Performed By: #### L CHAMP, TSH #### [facility] [address] [address] [address] Tierney Rivera Potassium [Moles/Vol] 4.0 mmol/L Normal 3.5-5.1 [facility] Comment on above: Performed By: #### L CHAMP, TSH #### [facility] [address] [address] [address] Tierney Rivera Protein [Mass/Vol] 8.0 g/dL Normal 6.4-8.2 [facility] Comment on above: Performed By: #### L CHAMP, TSH #### [facility] [address] [address] [address] Tierney Rivera Sodium [Moles/Vol] 140 mmol/L Normal 136-145 [facility] Comment on above: Performed By: #### L CHAMP, TSH #### [facility] [address] [place], [place] [address] Dr. Tierney Rivera Urea nitrogen [Mass/Vol] 17.0 mg/dL Normal 7.0-18.0 [facility] Comment on above: Performed By: #### L LILAER, TSH #### [facility] [address] [place], [place] [address] Dr. Tierney Rivera Urea nitrogen/Creatinine [Mass ratio] 15.0 mg/mg Normal [facility] Comment on above: Performed By: #### L IVER, TSH #### [facility] [address] [place], [place] [address] Dr. Tierney Rivera TROPONIN, HIGH SENSITIVITYon 01-15-2023 HSTROP 21.6 pg/mL Normal 4.0-51.3 [facility] Comment on above: Result Comment: CUT- OFF POINTS HAVE BEEN ESTABLISHED BASED ON THE FOURTH UNIVERSAL DEFINITIONS OF MYOCARDIAL INFARCTION. THE UPPER REFERENCE LIMIT (URL) OF TROPONIN, DEFINED THE 99TH PERCENTILE OF cTnI DISTRIBUTION IN A REFERENCE POPULATION, HAS BEEN CONFIRMED THE DECISION THRESHOLD FOR OR DIAGNOSIS. Performed By: #### H STROPN, BNP, CMP #### [facility] [address] [id number] Tierney Rivera XR CHEST 1 Von [...] by: CONSTANCE LAI Date: 2023-01-15 00:29 Normal [facility] 37on 01-11-2023 37 Stop Metoprolol Increased irbesartan to 150 mg daily ( 2- 75 mg tablets until this pill bottle is empty) I sent a prescription for the higher dose so your next bottle you will be back to 1 tablet per day. Check blood work in 1-2 weeks to check kidney function Normal [facility] Office Visiton 01-11-2023 Follow-up visit [id number] Alfa Escobedo 1940 F Date Provider Department Center 01/11/2023 SHANTEL ALBERTO [facility] Family History Problem Relation Age of Onset Diabetes Mother Hypertension Mother Hypertension Father Diabetes Sister Heart attack Maternal Grandmother Family Status - Relation Status Age at Mother Father Sister Maternal Grandmother Level of Service:73406 NE OFFICE/OUTPATIENT ESTABLISHED MOD MDM 30-39 MIN Reason for Visit and Comments: Atrial Fibrillation [80] Coronary Artery Disease [187] Valve Disorder [3372] Hypertension [773167] Normal [facility] FREE T4on 10-17-2022 Free T4 [Mass/Vol] 1.49 ng/dL Critically high 0.76-1.46 [facility] Comment on above: Performed By: #### L CHAMP TSH #### [facility] [address] [place] [address] Dr. Tierney Rivera LIVER PROFILEon 10-17-2022 Albumin [Mass/Vol] 3.7 g/dL Normal 3.4-5.0 [facility] Comment on above: Performed By: #### L CHAMP TSH #### [facility] [address] [place] [address] Dr. Tierney Rivera Albumin/Globulin [Mass ratio] 1.1 {ratio} Normal [facility] Comment on above: Performed By: #### L CHAMP TSH #### [facility] [address] [place] [address] Dr. Tierney Rivera ALP [Catalytic activity/Vol] 104 U/L Normal 46-116 [facility] Comment on above: Performed By: #### L IVBISHNU, TSH #### [facility] [address] [place] [address] Dr. Tierney Rivera ALT [Catalytic activity/Vol] 27 U/L Normal 14-59 [facility] Comment on above: Performed By: #### L IVBISHNU, TSH #### [facility] [address] [place] [address] Dr. Tierney Rivera AST [Catalytic activity/Vol] 23 U/L Normal 15-37 [facility] Comment on above: Performed By: #### L IVER, TSH #### [facility] [address] [place] [address] Dr. Tierney Rivera BILI, CONJUGATED 0.1 mg/dL Normal 0.0-0.2 [facility] Comment on above: Performed By: #### L IVER, TSH #### [facility] [address] [place] [address] Dr. Tierney Rivera Bilirubin [Mass/Vol] 0.4 mg/dL Normal 0.2-1.0 [facility] Comment on above: Performed By: #### L IVER, TSH #### [facility] [address] [place] [address] Dr. Tierney Rivera Globulin (S) [Mass/Vol] 3.5 g/dL Normal [facility] Comment on above: Performed By: #### L CHAMP, TSH #### [facility] [address] [place] [address] Dr. Tierney Rivera Protein [Mass/Vol] 7.2 g/dL Normal 6.4-8.2 [facility] Comment on above: Performed By: #### L CHAMP, TSH #### [facility] [address] [place] [address] Dr. Tierney Rivera TSHon 10-17-2022 TSH 1.020 uIU/mL Normal 0.358-3.740 [facility] Comment on above: Performed By: #### L CHAMP, TSH #### [facility] [address] [place] [address] Dr. Tierney Rivera XR CHEST 2 Von [...] FLORENTINO MAURO Date: 2022-10-17 09:46 Normal [facility] Covid-19 PCR ([facility])on SARS-CoV-2 (COVID-19) RNA SEDRICK+probe Ql (Unsp spec) Detected Critically abnormal NOT DETECTED [facility] Comment on above: Result Comment: This test is not yet approved or cleared by the [place] FDA. When there are no FDA-approved or cleared tests available, and other criteria are met, FDA can make tests available under an emergency access mechanism called an Emergency Use Authorization (EUA). The EUA for this test is supported by the [employer] of Health and Human Service's (HHS's) [...] used). Performed By: #### C VDTBH #### [facility] [address] [place] [address] Dr. Tierney Rivera INFLUENZA A AND B AGon 09-27 [facility] SEE BELOW Normal [facility] Comment on above: Result Comment: Nega tive for Flu A protein angiten. Infection due to Flu A cannot be ruled out. Flu A angiten in the sample may be below the detection limit of the test. Performed By: #### I NFLUAB #### [facility] [address] [place] [address] Dr. Tier[address] [facility] [facility] Normal [facility] Comment on above: Result Comment: Nega tive for Flu B protein antigen. Infection due to Flu B cannot be ruled out. Flu B antigen in the sample may be below the detection limit of the test. Performed By: #### I NFLUAB #### [facility] [address] [place] [address] Dr. Tierney Rivera INFLUENZA A AG Negative Normal NEGATIVE SEE COMMENT [facility] Comment on above: Performed By: #### I NFLUAB #### [facility] [address] [place], [place] [address] Dr. Tierney Rivera INFLUENZA B AG Negative Normal NEGATIVE SEE COMMENT [facility] Comment on above: Performed By: #### I NFLUAB #### [facility] [address] [place], [place] [address] Dr. Tierney Rivera Cardiovascular Lab Reporton 06-11-2021 Cardiovascular Lab Report [facility] Patient Name: Gregg [facility] Laura MR #: [id number] Department of Physician: Cecilia Hansen M.D. Division of Service Date: 06/10/2021 Cardiology Birthdate: 1940 Adult Cardiovascular Room #: [facility] [address] [place], [place] [address] Cardiovascular Laboratory Report FINAL IMPRESSION: 1. Angiographically [...] Follow up with Dr. Olvera in the [facility]. 8. Follow up with Dr. Mccoy as scheduled. PROCEDURES: Ultrasound-guided access of the right common femoral vein, ultrasound-guided access of right common femoral artery, limited femoral angiography, right heart catheterization, bilateral selective coronary angiography, placement of a 5-Mexican MynxGrip closure device. METHODS: After risks, benefits, and alternatives were explained, written informed consent was obtained. The patient was prepped and draped in usual sterile fashion over both groins. Using 1% lidocaine solution, local infiltration anesthesia was achieved. Using modified Seldinger technique, a micropuncture kit and under ultrasound guidance access to the right common femoral vein was obtained. A 6-Mexican 11 cm sheath was inserted without difficulty. This was repeated over the artery; a 5-Mexican 11 cm sheath was inserted. A Mcdonald catheter was used for right heart catheterization. Pressures were measured in the right atrium, right ventricle, pulmonary artery, and pulmonary capillary wedge positions. Oxygen saturations were obtained and cardiac output/cardiac index was calculated using modified Gisele principle. The Mcdonald catheter was removed. Bilateral selective coronary angiography was performed using 5-Mexican JL4 and JR4 catheters. After reviewing the images, it was elected to conclude the procedure. All catheters were removed. A 5-Mexican MynxGrip closure device was deployed per protocol [...] M.D (more content not included)... Normal [facility] Encounters Encounter Date Encounter Type Care Provider Facility Start: 10-12-2023 End: 10-12-2023 ambulatory JAS VALDIVIA Not Available Start: 09-28-2023 End: 09-28-2023 ambulatory JAS VALDIVIA Not Available Start: 09-14-2023 End: 09-14-2023 ambulatory JAS VALDIVIA Not Available Start: 08-31-2023 End: 08-31-2023 ambulatory JAS VALDIVIA Not Available Start: 08-23-2023 End: 08-23-2023 ambulatory KAYA OLVERA [facility] Start: 02-15-2023 End: 02-15-2023 ambulatory [facility] Start: 01-26-2023 End: 01-27-[address] GERBER MCCOY . Facility:[facility] Start: 01-15-2023 End: 01-15-[address] CYNTHIA ROMERO . Facility:[facility] Start: 01-11-2023 End: 01-11-2023 ambulatory [facility] Start: 10-17-2022 End: 10-18-[address] GERBER MCCOY . Facility:[facility] Start: 09-27-2022 End: 09-27-[address] GERBER MCCOY . Facility:[facility] Start: 06-10-2021 End: 06-11-2021 ambulatory KAYA OLVERA Facility:[facility] Payers Date Payer Category Payer Unknown [id number] 1958 Medicare [id number] 1958 Unknown [id number] 1940 Unknown [id number] 2.16.8 [id number] 1940 Unknown [id number] 2.16.84 [id number] 1940 Unknown [id number] 2.16.84 [id number] 1940 Unknown [id number] 2.16.84 [id number] 1940 Unknown [id number] 2.16.84 [id number] 1940 Unknown [id number] 2.16.84 [id number] 1940 Unknown [id number] 2.16.840 .[id number] 1940 Unknown [id number] 2.16.840 .[id number] 1940 Unknown [id number] 2.16.840 .[id number] Clinical Notes 01-11-2023 to 08-23-2023 Note Date & Type Note Facility 08-23-2023 Note [facility] Cardiology Clinic Note Chief Complaint: Patient here for 6 mo follow up CAD, PAF, and mitral valve regurgitation. She was kept overnight for observation in May 2023 at [facility], and declined transfer to [facility] for cardioversion. Patient does not remember [...] regurgitation. Moderate to severe mitral regurgitation. Transesophageal Echocardiogram-[facility] Name: LUCILLE ESCOBEDO Study Date: 06/10/2021 10:12 AM B/P: 126 mmHg/68 mmHg HR: Date of : 1940 Location: [facility] Height: 66 in. Age: 81 year(s) Patient Room : Weight: 135 lb. Gender: Female Patient Status: OutPt BSA: 1.69 m2 Indication: Atrial Fibrillation Examination: TUAN/CFI with Cardioversion Image Quality: Good Patient Consent: Informed, written consent was obtained for the procedure s p @ c 3 Exam Location: A TUAN was performed in the [employer] without complications s p @ c 3 [...] atrial appendage, no (more content not included)... [facility] 02-15-2023 [facility] Stable continue heart healthy di et [facility] 02-15-2023 Note Hypertension is well controlled with irbesartan 75 mgin am and 37.5 mg in pm, toprol 25 mg daily [facility] 02-15-2023 Note [facility] CARDIOLOGY PROGR ESS NOTE [...] continue all medications. Paroxysmal atrial fibrillation (CMS/HCC) [id number]= 5 Remains on amiodarone, toprol 25 mg [...] with toprol 35 mg RTC 6 months [facility] 02-15-2023 Note Patient here for 1 m o follow up hypertension and mitral valve regurgitation. Irbesartan was increased to 150mg daily at last visit and metoprolol was stopped. A few days later she went to [facility] ED for tachycardia. They restarted her [...] All other systems reviewed and are negative. [facility] 02-15-2023 Note [id number]= 5 Remains on amiodarone, toprol 25 mg and eliquis anticoagulation Denied any bleeding tendencies Amiodarone annual monitoring- pt will need TSH for thyroid function, PFT for pulm function, and eye exam with opthalmologist [facility] 02-15-2023 Note Continue GDMT, CAD r emains stable- no concerning symptoms continue risk factor modifications- heart healthy diet, regular exercise as tolerated and continue all medications. [facility] 01-11-2023 Note Hypertension is unco ntrolled- increase irbesartan to 150 mg, repeat BMP in 1-2 weeks to assess renal function. Asked pt to monitor b/p at home, start a log of her b/p and bring with her to next visit. [facility] 01-11-2023 Note Recommended low chol esterol- heart healthy diet [facility] 01-11-2023 Note Stable [facility] 01-11-2023 Note stable [facility] 04-19-2023 Note Will continue to mon itor- she does not want to proceed with mitral clipping procedure [facility] 01-11-2023 Note stable [facility] 01-11-2023 Note Patient here for 1 y [...] All other systems reviewed and are negative. [facility] 01-11-2023 Note [facility]TP CARDIOLOGY PROGR ESS NOTE [...] month to assess b/p and heart rate [facility] 01-11-2023 Note History of fib/flutt er; currently on, amiodarone 200 mg daily, andEliquis Heart rate well controlled, regular rate and rhythm during assessment [facility] 01-11-2023 Note MILD (CATH 2009) Continue risk factor modifications including heart healthy diet, exercise on a regular regimen, continue medications No aspirin in light of Eliquis, hold metoprolol r/t bradycardia- will monitor for any recurrent Afib/tachycardia [facility] Summary Purpose Family History No Family History Records FoundNo Family History Records FoundNo Family History Records FoundNo Family History Records Found Advance Directives No Advanced Directives Records FoundNo Advanced Directives Records FoundNo Advanced Directives Records FoundNo Advanced Directives Records Found Additional Source Comments INFORMATION SOURCE (unrecogn ized section and content) DATE CREATED AUTHOR 06/15/2021 [facility] DATE CREATED AUTHOR AUTHOR'S ORGANIZ ATION 02/02/2023 [facility] DATE CREATED AUTHOR AUTHOR'S ORGANIZ ATION 10/05/2023 [facility] DATE CREATED AUTHOR AUTHOR'S ORGANIZ ATION 10/13/2023 [facility] EPIC FOR RECORDS PERTAINING TO [...] BE BASED ON THE PRIMARY CLINICAL RECORDS. [facility] [employer] [facility] provides no warranty or guarantee of the accuracy or completeness of information in this document.
--- NOTE | 2023-10-16 10:41 | CM.DCFOLLOWU ---
Person spoke with: patient How are you feeling? well How is your pain? no pain Did you understand your discharge instructions? yes Do you have any questions about your discharge instructions? no Were you given any prescriptions at discharge? yes Were you able to get your prescriptions filled? yes Do you understand how to take your medications as ordered? yes Do you have any questions about your follow up appointment and do you plan to keep your follow up appointment? no questions, has follow up with PCP today Is there anything else that you would like to discuss? no Questions/Comments/Concerns/Other: N/A
== END 2023-10-14 12:18 | disposition home or self-care (01) ==
LOC: ER 05:22 → MS 08:11
PROVIDERS: Admitting Provider Family Medicine; Emergency Provider Emergency Medicine; PCP Family Medicine; Visit Provider Family Medicine
DX: I13.0 Hypertensive heart and chronic kidney disease with heart failure and stage 1 through stage 4 chronic kidney disease, or unspecified chronic kidney disease (principal); I50.41 Acute combined systolic (congestive) and diastolic (congestive) heart failure; N18.2 Chronic kidney disease, stage 2 (mild); E03.9 Hypothyroidism, unspecified; R09.02 Hypoxemia; I48.91 Unspecified atrial fibrillation; Z20.822 Contact with and (suspected) exposure to COVID-19; Z79.01 Long term (current) use of anticoagulants; Z79.899 Other long term (current) drug therapy; Z79.890 Hormone replacement therapy; Z90.710 Acquired absence of both cervix and uterus
CPT/HCPCS: 0202U; 36415; 71045; 80048; 81001; 83735; 83880; 84484; 85025; 87086; 93005; 94761; 96374; 99285; G0378; J1940

== ENCOUNTER 2024-02-01 08:19 | Outpatient (OUT) | payer MEDICARE, OTHER, SELFPAY ==
--- OUTSIDE RECORDS SUMMARY | 2024-02-01 08:38 | XMS_ITS | CCD ---
Author Organization [facility] Care Team Providers Care Machine Sander Name Role Phone ELTAHAWY, EHAB A Attending Unavailable ELTAHAWY, EHAB A Admitting Unavailable KENY GERBER Referring Unavailable MANUELAY, GERBER Primary Care Unavailable HOY ., DR [...] HOY ., DR MAYES Primary Care Unavailable CONSTANCE LAI Consulting Unavailable JOSE, SHANTEL Attending Unavailable JOSE, SHANTEL Attending Unavailable ELTAHAWY, EHAB Attending Unavailable Gerber Mccoy MD Primary Care Provider [phone] HIPOLITO MENDIETA Attending Unavailable HIPOLITO MENDIETA Attending Unavailable HIPOLITO MENDIETA Attending Unavailable HIPOLITO MENDIETA Attending Unavailable HIPOLITO MENDIETA Attending Unavailable HIPOLITO MENDIETA Attending Unavailable Allergies Allergy Classification Reported Allergen(s) Allergy Type Date of Onset Reaction(s) Facility (3 sources) Angiotensin Converting Enzyme (Hossein) Inhibitors; Translations: [HOSSEIN INHIBITORS] Drug allergy (disorder) 2 [facility] Repository (3 sources) Sulfonamides (Antibiotic); Translations: [SULFA (SULFONAMIDE ANTIBIOTICS)] Drug allergy (disorder) 2 [facility] Repository (2 sources) Angiotensin-conve rting enzyme inhibitor agent Drug Allergy 4 Other, Unknown [facility] Healthcare (2 sources) Sulfonamides (Antibiotic) Drug Allergy 4 Other, Unknown [facility] Healthcare (2 sources) Verapamil Drug Allergy 4 Unknown [facility] Healthcare Medications Current Medications Medication Drug Class(es) Dates Sig (Normalized) Sig (Original) amiodarone hydrochloride 200 mg oral tablet (2 sources) Antiarrhythmic Start: 06-26-2023 take 1 tablet by mouth in the morning amiodarone (Pacerone) 200 MG tablet Take 200 mg by mouth in the morning. 0 06/26/2023 Active apixaban 2.5 mg oral tablet (2 sources) Factor Xa Inhibitor Start: 07-25-2023 take 1 tablet by mouth in the morning Eliquis 2.5 MG tablet Take 2.5 mg by mouth in the morning and 2.5 mg before bedtime. 0 07/25/2023 Active furosemide 20 mg oral tablet (2 sources) Loop Diuretic Start: 06-26-2023 take 1 tablet by mouth in the morning furosemide (Lasix) 20 MG tablet Take 20 mg by mouth in the morning. 0 06/26/2023 Active irbesartan 75 mg oral tablet (2 sources) Angiotensin 2 Receptor Willis Start: 06-26-2023 take 1 tablet by mouth in the morning irbesartan (Avapro) 75 MG tablet Take 75 mg by mouth in the morning. 0 06/26/2023 Active levothyroxine sodium 0.05 mg oral tablet (2 sources) l-Thyroxine take 1 tablet by mouth in the morning levothyroxine (Synthroid, Levoxyl) 50 MCG tablet Take 1 tablet by mouth in the morning. 0 Active metoprolol tartrate 25 mg oral tablet (2 sources) beta-Adrenergic Willis take 1 tablet by mouth once daily metoprolol tartrate (Lopressor) 25 MG tablet Take 1 tablet every day by oral route for 85 days. 0 Active novvyvncidmv-patd-e inerals-folic acid (Centrum Silver, geriatric,) tablet (2 sources) multivitamin-iro n- minerals-folic acid (Centrum Silver, geriatric,) tablet as directed Orally 0 Active potassium chloride 10 meq extended release oral tablet (2 sources) Start: 06-26-2023 take 1 tablet by mouth in the morning potassium chloride CR (Klor-Con) 10 MEQ ER tablet Take 10 mEq by mouth in the morning. 0 06/26/2023 Active Problems Active Problems Problem Classification Problem Date [...] disease (2 sources) Atherosclerotic heart disease of [place] coronary artery without angina pectoris; Translations: [Atherosclerotic heart disease of [place] coronary artery without angina pectoris] Onset: 06-08-2022 [...] HEART DISEASE W/HEART FAIL] Onset: 02-01-2023 Chronic Mycoses (1 source) Onychomycosis; Translations: [Tinea unguium] 11-08-2023 Episodic Nutritional deficiencies (1 source) Vitamin D deficiency, unspecified; Translations: [VITAMIN D DEFICIENCY UNSPECIFIED] Onset: 02-01-2023 Chronic Other aftercare (1 source) 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; Translations: [HALFWAY CURRNT USE ANTICOAGULANTS] Onset: 01-17-2023 Episodic Other aftercare (1 source) 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; Translations: [HALFWAY CURRENT USE OF ASPIRIN] Onset: 01-17-2023 Episodic Other connective tissue disease (1 source) Pain in left foot; Translations: [Pain in left foot] 11-08-2023 Episodic Other connective tissue disease (1 source) Pain of toes of bilateral feet; Translations: [Pain in right toe(s)] 11-08-2023 Episodic Danielle-; endo-; and myocarditis; cardiomyopathy (except [...] UNSPECIFIED] Onset: 09-30-2022 Viral infection (1 source) Verruca plantaris; Translations: [Plantar wart] 11-08-2023 Episodic Viral infection (1 source) COVID-19; Translations: [COVID-19] Onset: 09-30-2022 Past or Other Problems Problem Classification Problem Date Documented Da te Episodic/Chronic Other aftercare (7 sources) 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 She told them she did not want the test because her heart is not pumping low anymore . I advised patient that without diagnostic testing someone cannot tell the function of their own heart. She asked me what getting a pacemaker entailed. I told her it's usually done as outpatient, done at [facility]. I told her she would have to be very careful with using her left arm and wouldn't be able to drive for a month. She told me you just made up my mind for me . Patient has now decided to not have muga scan done. Normal [facility] Telephoneon 09-28-2023 Telephone [id number] Alfa Escobedo [facility] 1940 F Date Provider Department Center 09/28/2023 CRISTINA CAR [facility] Family History Problem Relation Age of Onset Diabetes Mother Hypertension Mother Hypertension Father Diabetes Sister Heart attack Maternal Grandmother Family Status - Relation Status Age at Mother Father Sister Maternal Grandmother Normal [facility] Office Visiton 08-23-2023 Follow-up visit [id number] EscobedoAlfa quinn 1940 Date Provider Department Center 08/23/2023 Bina-KAYA PATEL OTTONIEL [facility] Family History Problem Relation Age of Onset Diabetes Mother Hypertension Mother Hypertension Father Diabetes Sister Heart attack Maternal Grandmother Family Status - Relation Status Age at Mother Father Sister Maternal Grandmother Level of Service:50499 NC OFFICE/OUTPATIENT ESTABLISHED LOW MDM 20-29 MIN Normal [facility] Office Visiton 02-15-2023 Follow-up visit [id number] Alfa Escobedo quinn 1940 Date Provider Department Center 02/15/2023 SHANTEL ALBERTO CARD [facility] Family History Problem Relation Age of Onset Diabetes Mother Hypertension Mother Hypertension Father Diabetes Sister Heart attack Maternal Grandmother Family Status - Relation Status Age at Mother Father Sister Maternal Grandmother Level of Service:24842 NC OFFICE/OUTPATIENT ESTABLISHED LOW MDM 20-29 MIN Reason for Visit and Comments: Atrial Fibrillation [80] Valve Disorder [3372] Hypertension [232078] Normal [facility] BNPon 01-26-2023 Natriuretic peptide B (Bld) [Mass/Vol] 1751.0 pg/mL Normal <=1,800.0 [facility] Comment on above: Performed By: #### L IVER, TSH #### [facility] [address] [place] [address] Dr. Tierney Rivera CBC AUTO DIFFon 01-26-2023 BASO # 0.0 103/ul Normal 0.0-0.1 [facility] Comment on above: Performed By: #### C BC #### [facility] [address] [place] [address] Dr. Tierney Rivera Basophils/100 WBC (Bld) 0.3 % Normal 0.2-2.0 [facility] Comment on above: Performed By: #### C BC #### [facility] [address] [place] [address] Dr. Tierney Rivera EO # 0.1 103/ul Normal 0.0-0.7 [facility] Comment on above: Performed By: #### C BC #### [facility] [address] [place] [address] Dr. Tierney Rivera Eosinophils/100 WBC (Bld) 2.3 % Normal 0.9-7.0 [facility] Comment on above: Performed By: #### C BC #### [facility] [address] [place] [address] Dr. Tierney Rivera Erythrocyte distribution width (RBC) [Ratio] 13.1 % Normal 11.0-15.0 [facility] Comment on above: Performed By: #### C BC #### [facility] [address] [place] [address] Dr. Tierney Rivera Hematocrit (Bld) [Volume fraction] 43.5 % Normal 36.0-48.0 [facility] Comment on above: Performed By: #### C BC #### [facility] [address] [place] [address] Dr. Tierney Rivera Hemoglobin (Bld) [Mass/Vol] 13.9 g/dL Normal 12.0-16.0 [facility] Comment on above: Performed By: #### C BC #### [facility] [address] [place] [address] Dr. Tierney Rivera IG # 0.02 10e3/ul Normal 0.00-0.03 [facility] Comment on above: Performed By: #### C BC #### [facility] [address] [place] [address] Dr. Tierney Rivera IG % 0.3 % Normal 0.0-0.5 [facility] Comment on above: Performed By: #### C BC #### [facility] [address] [place] [address] Dr. Tierney Rivera LYMPH # 1.2 103/ul Normal 1.2-3.8 [facility] Comment on above: Performed By: #### C BC #### [facility] [address] [place] [address] Dr. Tierney Rivera Lymphocytes/100 WBC (Bld) 20.6 % Normal 20.5-60.0 [facility] Comment on above: Performed By: #### C BC #### [facility] [address] [place] [address] Dr. Tierney Rivera MANUAL DIFF REQ NO Normal [facility] Comment on above: Performed By: #### C BC #### [facility] [address] [place] [address] Dr. Tierney Rivera MCH (RBC) [Entitic mass] 29.4 pg Normal 26.7-34.0 [facility] Comment on above: Performed By: #### C BC #### [facility] [address] [place] [address] Dr. Tierney Rivera MCHC (RBC) [Mass/Vol] 32.0 g/dL Normal 29.9-35.2 [facility] Comment on above: Performed By: #### C BC #### [facility] [address] [place] [address] Dr. Tierney Rivera MCV (RBC) [Entitic vol] 92.2 fL Normal 81.0-99.0 [facility] Comment on above: Performed By: #### C BC #### [facility] [address] [place] [address] Dr. Tierney Rivera MONO # 0.6 103/ul Normal 0.3-0.8 [facility] Comment on above: Performed By: #### C BC #### [facility] [address] [address] [address] Tierney Rivera Monocytes/100 WBC (Bld) 10.2 % Normal 1.7-12.0 [facility] Comment on above: Performed By: #### C BC #### [facility] [address] [address] [address] Tierney Rivera NEUT # 3.8 103/ul Normal 1.4-6.5 [facility] Comment on above: Performed By: #### C BC #### [facility] [address] [address] [address] Tierney Rivera Neutrophils/100 WBC (Bld) 66.3 % Normal 43.0-75.0 [facility] Comment on above: Performed By: #### C BC #### [facility] [address] [place] [address] Dr. Tierney Rivera Platelet mean volume (Bld) [Entitic vol] 11.2 fL Normal 9.5-13.5 [facility] Comment on above: Performed By: #### C BC #### [facility] [address] [place] [address] Dr. Tierney Rivera PLT 253 103/ul Normal 150-450 [facility] Comment on above: Performed By: #### C BC #### [facility] [address] [place] [address] Dr. Tierney Rivera RBC 4.72 106/ul Normal 4.20-5.40 [facility] Comment on above: Performed By: #### C BC #### [facility] [address] [place] [address] Dr. Tierney Rivera WBC 5.8 103/ul Normal 4.0-11.0 [facility] Comment on above: Performed By: #### C BC #### [facility] [address] [place] [address] Dr. Tierney Rivera FREE THYROXINE INDEX T7on FTI 5.18 Critically high 1.30-4.50 [facility] Comment on above: Performed By: #### L IVER, TSH #### [facility] [address] [address] [address] Tierney Rivera T3U 36.0 % Normal 30.0-39.0 [facility] Comment on above: Performed By: #### L IVER, TSH #### [facility] [address] [address] [address] Tierney Rivera T4 [Mass/Vol] 14.40 ug/dL Critically high 4.80-13.90 [facility] Comment on above: Performed By: #### L IVER, TSH #### [facility] [address] [place] [address] Dr. Tierney Rivera GLYCOHEMOGLOBIN A1Con 2022 ADA RECOMMENDATION SEE BELOW Normal [facility] Comment on above: Result Comment: ADA RECOMMENDED LIMIT 4.0 - 6.0 ADA THERAPEUTIC TARGET < 7.0 ACTION SUGGESTED > 7.0 Performed By: #### L CHAMP, TSH #### [facility] [address] [address] [address] Tierney Rivera Glucose [Mass/Vol] 117 mg/dL Normal [facility] Comment on above: Performed By: #### L CHAMP, TSH #### [facility] [address] [address] [address] Tierney Rivera HbA1c (Bld) [Mass fraction] 5.7 % Normal 4.5-6.2 [facility] Comment on above: Performed By: #### L CHAMP, TSH #### [facility] [address] [address] [address] Tierney Rivera IRONon 01-26-2023 Iron [Mass/Vol] 67.0 ug/dL Normal 50.0-170.0 [facility] Comment on above: Performed By: #### V ITAD, IRON #### [facility] [address] [place] [address] Dr. Tierney Rivera PROF 14(COMP METB)on 023 Albumin [Mass/Vol] 4.0 g/dL Normal 3.4-5.0 [facility] Comment on above: Performed By: #### L IVER, TSH #### [facility] [address] [address] [address] Tierney Rivera Albumin/Globulin [Mass ratio] 1.1 {ratio} Normal [facility] Comment on above: Performed By: #### L IVER, TSH #### [facility] [address] [address] [address] Tierney Rivera ALP [Catalytic activity/Vol] 98 U/L Normal 46-116 [facility] Comment on above: Performed By: #### L IVBISHNU, TSH #### [facility] [address] [address] [address] Tierney Rivera ALT [Catalytic activity/Vol] 29 U/L Normal 14-59 [facility] Comment on above: Performed By: #### L IVBISHNU, TSH #### [facility] [address] [address] [address] Tierney Rivera Anion gap [Moles/Vol] 11.7 mmol/L Normal [facility] Comment on above: Performed By: #### L CHAMP, TSH #### [facility] [address] [address] [address] Tierney Rivera AST [Catalytic activity/Vol] 22 U/L Normal 15-37 [facility] Comment on above: Performed By: #### L CHAMP, TSH #### [facility] [address] [address] [address] Tierney Rivera Bilirubin [Mass/Vol] 0.4 mg/dL Normal 0.2-1.0 [facility] Comment on above: Performed By: #### L IVBISHNU, TSH #### [facility] [address] [address] [address] Tierney Rivera Calcium [Mass/Vol] 10.1 mg/dL Normal 8.5-10.1 [facility] Comment on above: Performed By: #### L IVBISHNU, TSH #### [facility] [address] [address] [address] Tierney Rivera Chloride [Moles/Vol] 103 mmol/L Normal 98-107 [facility] Comment on above: Performed By: #### L CHAMP, TSH #### [facility] [address] [address] [address] Tierney Rivera CO2 [Moles/Vol] 30.5 mmol/L Normal 21.0-32.0 [facility] Comment on above: Performed By: #### L IVER, TSH #### [facility] [address] [address] [address] Tierney Rivera Creatinine [Mass/Vol] 1.15 mg/dL Critically high 0.55-1.02 [facility] Comment on above: Performed By: #### L IVER, TSH #### [facility] [address] [address] [address] Tierney Rivera EGFR-AF PORTUGUESE 55 mL/min/1.73m2 Critically low >=60 [facility] Comment on above: Performed By: #### L IVER, TSH #### [facility] [address] [place] [address] Dr. Tierney Rivera EGFR-NON AF [place] 45 mL/min/1.73m2 Critically low >=60 [facility] Comment on above: Performed By: #### L IVER, TSH #### [facility] [address] [address] [address] Tierney Rivera Globulin (S) [Mass/Vol] 3.8 g/dL Normal [facility] Comment on above: Performed By: #### L IVER, TSH #### [facility] [address] [address] [address] Tierney Rivera Glucose [Mass/Vol] 97 mg/dL Normal 74-106 [facility] Comment on above: Performed By: #### L IVER, TSH #### [facility] [address] [address] [address] Tierney Rivera Potassium [Moles/Vol] 4.2 mmol/L Normal 3.5-5.1 [facility] Comment on above: Performed By: #### L IVER, TSH #### [facility] [address] [address] [address] Tierney Rivera Protein [Mass/Vol] 7.8 g/dL Normal 6.4-8.2 [facility] Comment on above: Performed By: #### L IVBISHNU, TSH #### [facility] [address] [place] [address] Dr. Tierney Rivera Sodium [Moles/Vol] 141 mmol/L Normal 136-145 [facility] Comment on above: Performed By: #### L IVBISHNU, TSH #### [facility] [address] [place] [address] Dr. Tierney Rivera Urea nitrogen [Mass/Vol] 18.0 mg/dL Normal 7.0-18.0 [facility] Comment on above: Performed By: #### L CHAMP, TSH #### [facility] [address] [place] [address] Dr. Tierney Rivera Urea nitrogen/Creatinine [Mass ratio] 15.7 mg/mg Normal [facility] Comment on above: Performed By: #### L CHAMP, TSH #### [facility] [address] [place] [address] Dr. Tierney Rivera TSHon 01-26-2023 TSH 2.066 uIU/mL Normal 0.358-3.[address] [facility] Comment on above: Performed By: #### L CHAMP, TSH #### [facility] [address] [place] [address] Dr. Tierney Rivera VITAMIN D 25 OHon 01-26-2023 VIT D 25-OH 45.0 ng/mL Normal [facility] Comment on above: Performed By: #### V SHANNEN IRON #### [facility] [address] [place] [address] Dr. Tierney Rivera VIT D RANGES SEE BELOW Normal [facility] Comment on above: Result Comment: <20 ng/mL Vit D deficient 20 - <30 ng/mL Vit D insufficient 30 - 100 ng/mL Vit D sufficient >100 ng/mL Potential Toxicity Performed By: #### V SHANNEN IRON #### [facility] [address] [place] [address] Dr. Tierney Rivera BNPon 01-15-2023 Natriuretic peptide B (Bld) [Mass/Vol] 868.0 pg/mL Normal <=1,800.0 [facility] Comment on above: Performed By: #### H STROPN, BNP, CMP #### [facility] [address] [place] [address] Dr. Tierney Rivera CBC AUTO DIFFon 01-15-2023 BASO # 0.0 103/ul Normal 0.0-0.1 [facility] Comment on above: Performed By: #### L CHAMP, TSH #### [facility] [address] [place] [address] Dr. Tierney Rivera Basophils/100 WBC (Bld) 0.3 % Normal 0.2-2.0 [facility] Comment on above: Performed By: #### L CHAMP, TSH #### [facility] [address] [place] [address] Dr. Tierney Rivera EO # 0.1 103/ul Normal 0.0-0.7 [facility] Comment on above: Performed By: #### L CHAMP, TSH #### [facility] [address] [place] [address] Dr. Tierney Rivera Eosinophils/100 WBC (Bld) 1.7 % Normal 0.9-7.0 [facility] Comment on above: Performed By: #### L CHAMP, TSH #### [facility] [address] [place] [address] Dr. Tierney Rivera Erythrocyte distribution width (RBC) [Ratio] 13.2 % Normal 11.0-15.0 [facility] Comment on above: Performed By: #### L CHAMP, TSH #### [facility] [address] [place] [address] Dr. Tierney Rivera Hematocrit (Bld) [Volume fraction] 45.1 % Normal 36.0-48.0 [facility] Comment on above: Performed By: #### L CHAMP, TSH #### [facility] [address] [place] [address] Dr. Tierney Rivera Hemoglobin (Bld) [Mass/Vol] 15.1 g/dL Normal 12.0-16.0 [facility] Comment on above: Performed By: #### L CHAMP, TSH #### [facility] [address] [address] [address] Tierney Rivera IG # 0.01 10e3/ul Normal 0.00-0.03 [facility] Comment on above: Performed By: #### L IVER, TSH #### [facility] [address] [address] [address] Tierney Rivera IG % 0.2 % Normal 0.0-0.5 [facility] Comment on above: Performed By: #### L CHAMP, TSH #### [facility] [address] [address] [address] Tierney Rivera LYMPH # 2.2 103/ul Normal 1.2-3.8 [facility] Comment on above: Performed By: #### L CHAMP, TSH #### [facility] [address] [place] [address] Dr. Tierney Rivera Lymphocytes/100 WBC (Bld) 32.5 % Normal 20.5-60.0 [facility] Comment on above: Performed By: #### L CHAMP, TSH #### [facility] [address] [place] [address] Dr. Tierney Rivera MANUAL DIFF REQ NO Normal [facility] Comment on above: Performed By: #### L CHAMP, TSH #### [facility] [address] [place] [address] Dr. Tierney Rivera MCH (RBC) [Entitic mass] 30.0 pg Normal 26.7-34.0 [facility] Comment on above: Performed By: #### L CHAMP, TSH #### [facility] [address] [address] [address] Tierney Rivera MCHC (RBC) [Mass/Vol] 33.5 g/dL Normal 29.9-35.2 [facility] Comment on above: Performed By: #### L IVER, TSH #### [facility] [address] [address] [address] Tierney Rivera MCV (RBC) [Entitic vol] 89.7 fL Normal 81.0-99.0 [facility] Comment on above: Performed By: #### L IVER, TSH #### [facility] [address] [address] [address] Tierney Rivera MONO # 0.8 103/ul Normal 0.3-0.8 [facility] Comment on above: Performed By: #### L IVER, TSH #### [facility] [address] [place] [address] Dr. Tierney Rivera Monocytes/100 WBC (Bld) 12.6 % Critically high 1.7-12.0 [facility] Comment on above: Performed By: #### L IVER, TSH #### [facility] [address] [place] [address] Dr. Tierney Rivera NEUT # 3.5 103/ul Normal 1.4-6.5 [facility] Comment on above: Performed By: #### L IVER, TSH #### [facility] [address] [place] [address] Dr. Tierney Rivera Neutrophils/100 WBC (Bld) 52.7 % Normal 43.0-75.0 [facility] Comment on above: Performed By: #### L IVER, TSH #### [facility] [address] [place] [address] Dr. Tierney Rivera Platelet mean volume (Bld) [Entitic vol] 11.0 fL Normal 9.5-13.5 [facility] Comment on above: Performed By: #### L IVER, TSH #### [facility] [address] [place] [address] Dr. Tierney Rivera PLT 266 103/ul Normal 150-450 [facility] Comment on above: Performed By: #### L IVER, TSH #### [facility] [address] [place] [address] Dr. Tierney Rivera RBC 5.03 106/ul Normal 4.20-5.40 [facility] Comment on above: Performed By: #### L IVER, TSH #### [facility] [address] [place] [address] Dr. Tierney Rivera WBC 6.6 103/ul Normal 4.0-11.0 [facility] Comment on above: Performed By: #### L IVER, TSH #### [facility] [address] [place] [address] Dr. Tierney Rivera CULTURE BLOODon 01-15-2023 Microscopic examination of blood, culture Culture Observations: NO GROWTH AT 5 DAYS. Normal [facility] Comment on above: Performed By: #### L IVER, TSH #### [facility] [address] [place] [address] Dr. Tierney Rivera Microscopic examination of blood, culture Culture Observations: NO GROWTH AT 5 DAYS. Normal [facility] Comment on above: Performed By: #### L IVER, TSH #### [facility] [address] [place] [address] Dr. Tierney Rivera ER URINE PROFILEon Bilirubin Ql (U) Negative Normal NEGATIVE [facility] Comment on above: Performed By: #### L IVER, TSH #### [facility] [address] [place] [address] Dr. Tierney Rivera Clarity (U) CLEAR Normal CLEAR [facility] Comment on above: Performed By: #### L IVER, TSH #### [facility] [address] [place] [address] Dr. Tierney Rivera Color (U) LT. YELLOW Normal YELLOW [facility] Comment on above: Performed By: #### L IVER, TSH #### [facility] [address] [place] [address] Dr. Tierney Rivera ERUAHD A micrscopic examination will be performed if indicated. Normal [facility] Comment on above: Performed By: #### L IVER, TSH #### [facility] [address] [place] [address] Dr. Tierney Rivera Glucose Ql (U) Negative Normal NEGATIVE [facility] Comment on above: Performed By: #### L IVER, TSH #### [facility] [address] [place] [address] Dr. Tierney Rivera Hemoglobin Ql (U) Negative Normal NEGATIVE [facility] Comment on above: Performed By: #### L IVER, TSH #### [facility] [address] [place] [address] Dr. Tierney Rivera Ketones Ql (U) Negative Normal NEGATIVE [facility] Comment on above: Performed By: #### L IVER, TSH #### [facility] [address] [place] [address] Dr. Tierney Rivera LEUKOCYTES Negative Normal NEGATIVE [facility] Comment on above: Performed By: #### L IVER, TSH #### [facility] [address] [place] [address] Dr. Tierney Rivera Nitrite Ql (U) Negative Normal NEGATIVE [facility] Comment on above: Performed By: #### L IVER, TSH #### [facility] [address] [place] [address] Dr. Tierney Rivera pH (U) 7.5 [pH] Normal 5-9 [facility] Comment on above: Performed By: #### L IVER, TSH #### [facility] [address] [place] [address] Dr. Tierney Rivera SPEC GRAVITY 1.010 Normal 1.005-<=1.[address] [place] [address] Comment on above: Performed By: #### L IVER, TSH #### [facility] [address] [place] [address] Dr. Tierney Rivera UA PROTEIN Negative Normal NEGATIVE/ TRACE [facility] Comment on above: Performed By: #### L IVER, TSH #### [facility] [address] [place] [address] Dr. Tierney Rivera UR MICRO IND NOT INDICATED Normal [facility] Comment on above: Performed By: #### L IVER, TSH #### [facility] [address] [place] [address] Dr. Tierney Rivera Urobilinogen Qn (U) 0.2 {Radu'U}/dL Normal 0.2 - 1. 0 [facility] Comment on above: Performed By: #### L IVER, TSH #### [facility] [address] [place] [address] Dr. Tierney Rivera LACTATE/LACTIC ACIDon 2022 Lactate [Moles/Vol] 1.5 mmol/L Normal 0.4-2.0 [facility] Comment on above: Performed By: #### L ACT #### [facility] [address] [place] [address] Dr. Tierney Rivera PROF 14(COMP METB)on 023 Albumin [Mass/Vol] 4.3 g/dL Normal 3.4-5.0 [facility] Comment on above: Performed By: #### L CHAMP, TSH #### [facility] [address] [place] [address] Dr. Tierney Rivera Albumin/Globulin [Mass ratio] 1.2 {ratio} Normal [facility] Comment on above: Performed By: #### L CHAMP, TSH #### [facility] [address] [place] [address] Dr. Tierney Rivera ALP [Catalytic activity/Vol] 111 U/L Normal 46-116 [facility] Comment on above: Performed By: #### L CHAMP, TSH #### [facility] [address] [place] [address] Dr. Tierney Rivera ALT [Catalytic activity/Vol] 23 U/L Normal 14-59 [facility] Comment on above: Performed By: #### L CHAMP, TSH #### [facility] [address] [place] [address] Dr. Tierney Rivera Anion gap [Moles/Vol] 11.8 mmol/L Normal [facility] Comment on above: Performed By: #### L CHAMP, TSH #### [facility] [address] [place] [address] Dr. Tierney Rivera AST [Catalytic activity/Vol] 22 U/L Normal 15-37 [facility] Comment on above: Performed By: #### L CHAMP, TSH #### [facility] [address] [place] [address] Dr. Tierney Rivera Bilirubin [Mass/Vol] 0.4 mg/dL Normal 0.2-1.0 [facility] Comment on above: Performed By: #### L CHAMP, TSH #### [facility] [address] [place] [address] Dr. Tierney Rivera Calcium [Mass/Vol] 10.6 mg/dL Critically high 8.5-10.1 [facility] Comment on above: Performed By: #### L CHAMP, TSH #### [facility] [address] [address] [address] Tierney Rivera Chloride [Moles/Vol] 103 mmol/L Normal 98-107 [facility] Comment on above: Performed By: #### L CHAMP, TSH #### [facility] [address] [address] [address] Tierney Rivera CO2 [Moles/Vol] 29.2 mmol/L Normal 21.0-32.0 [facility] Comment on above: Performed By: #### L CHAMP, TSH #### [facility] [address] [place] [address] Dr. Tierney Rivera Creatinine [Mass/Vol] 1.13 mg/dL Critically high 0.55-1.02 [facility] Comment on above: Performed By: #### Breonna OAKES, TSH #### [facility] [address] [place] [address] Dr. Tierney Rivera EGFR-AF PORTUGUESE 56 mL/min/1.73m2 Critically low >=60 [facility] Comment on above: Performed By: #### Breonna OAKES, TSH #### [facility] [address] [place] [address] Dr. Tierney Rivera EGFR-NON AF PORTUGUESE 46 mL/min/1.73m2 Critically low >=60 [facility] Comment on above: Performed By: #### Breonna OAKES, TSH #### [facility] [address] [place] [address] Dr. Tierney Rivera Globulin (S) [Mass/Vol] 3.7 g/dL Normal [facility] Comment on above: Performed By: #### L CHAMP, TSH #### [facility] [address] [place] [address] Dr. Tierney Rivera Glucose [Mass/Vol] 109 mg/dL Critically high 74-106 [facility] Comment on above: Performed By: #### L CHAMP, TSH #### [facility] [address] [address] [address] Tierney Rivera Potassium [Moles/Vol] 4.0 mmol/L Normal 3.5-5.1 [facility] Comment on above: Performed By: #### L CHAMP, TSH #### [facility] [address] [place] [address] Dr. Tierney Rivera Protein [Mass/Vol] 8.0 g/dL Normal 6.4-8.2 [facility] Comment on above: Performed By: #### L CHAMP, TSH #### [facility] [address] [address] [address] Tierney Rivera Sodium [Moles/Vol] 140 mmol/L Normal 136-145 [facility] Comment on above: Performed By: #### L CHAMP, TSH #### [facility] [address] [place] [address] Dr. Tierney Rivera Urea nitrogen [Mass/Vol] 17.0 mg/dL Normal 7.0-18.0 [facility] Comment on above: Performed By: #### L CHAMP, TSH #### [facility] [address] [place] [address] Dr. Tierney Rivera Urea nitrogen/Creatinine [Mass ratio] 15.0 mg/mg Normal [facility] Comment on above: Performed By: #### L CHAMP, TSH #### [facility] [address] [place] [address] Dr. Tierney Rivera TROPONIN, HIGH SENSITIVITYon 01-15-2023 HSTROP 21.6 pg/mL Normal 4.0-51.3 [facility] Comment on above: Result Comment: CUT- OFF POINTS HAVE BEEN ESTABLISHED BASED ON THE FOURTH UNIVERSAL DEFINITIONS OF MYOCARDIAL INFARCTION. THE UPPER REFERENCE LIMIT (URL) OF TROPONIN, DEFINED THE 99TH PERCENTILE OF cTnI DISTRIBUTION IN A REFERENCE POPULATION, HAS BEEN CONFIRMED THE DECISION THRESHOLD FOR [place] DIAGNOSIS. Performed By: #### H STROPN, BNP, CMP #### [facility] [address] [place] [address] Dr. Tierney Rivera XR CHEST 1 Von [...] by: CONSTANCE LAI Date: 2023-01-15 00:29 Normal [facility] 37on 01-11-2023 37 Stop Metoprolol Increased irbesartan to 150 mg daily ( 2- 75 mg tablets until this pill bottle is empty) I sent a prescription for the higher dose so your next bottle you will be back to 1 tablet per day. Check blood work in 1-2 weeks to check kidney function Normal [facility] Office Visiton 01-11-2023 Follow-up visit [id number] Alfa Escobedo 1940 F Date Provider Department Center 01/11/2023 SHANTEL ALBERTO [facility] Family History Problem Relation Age of Onset Diabetes Mother Hypertension Mother Hypertension Father Diabetes Sister Heart attack Maternal Grandmother Family Status - Relation Status Age at Mother Father Sister Maternal Grandmother Level of Service:85179 NC OFFICE/OUTPATIENT ESTABLISHED MOD MDM 30-39 MIN Reason for Visit and Comments: Atrial Fibrillation [80] Coronary Artery Disease [187] Valve Disorder [3372] Hypertension [951560] Normal [facility] FREE T4on 10-17-2022 Free T4 [Mass/Vol] 1.49 ng/dL Critically high 0.76-1.46 [facility] Comment on above: Performed By: #### L IVER, TSH #### [facility] [address] [place], [place] [address] Dr. Tierney Rivera LIVER PROFILEon 10-17-2022 Albumin [Mass/Vol] 3.7 g/dL Normal 3.4-5.0 [facility] Comment on above: Performed By: #### L IVER, TSH #### [facility] [address] [place], [place] [address] Dr. Tierney Rivera Albumin/Globulin [Mass ratio] 1.1 {ratio} Normal [facility] Comment on above: Performed By: #### L IVER, TSH #### [facility] [address] [place] [address] Dr. Tierney Rivear ALP [Catalytic activity/Vol] 104 U/L Normal 46-116 [facility] Comment on above: Performed By: #### L IVER, TSH #### [facility] [address] [place] [address] Dr. Tierney Rivera ALT [Catalytic activity/Vol] 27 U/L Normal 14-59 [facility] Comment on above: Performed By: #### L IVER, TSH #### [facility] [address] [place] [address] Dr. Tierney Rivera AST [Catalytic activity/Vol] 23 U/L Normal 15-37 [facility] Comment on above: Performed By: #### L IVER, TSH #### [facility] [address] [place] [address] Dr. Tierney Rivera BILI, CONJUGATED 0.1 mg/dL Normal 0.0-0.2 [facility] Comment on above: Performed By: #### L IVER, TSH #### [facility] [address] [place] [address] Dr. Tierney Rivera Bilirubin [Mass/Vol] 0.4 mg/dL Normal 0.2-1.0 [facility] Comment on above: Performed By: #### L IVER, TSH #### [facility] [address] [place] [address] Dr. Tierney Rivera Globulin (S) [Mass/Vol] 3.5 g/dL Normal [facility] Comment on above: Performed By: #### L IVER, TSH #### [facility] [address] [place] [address] Dr. Tierney Rivera Protein [Mass/Vol] 7.2 g/dL Normal 6.4-8.2 [facility] Comment on above: Performed By: #### L IVER, TSH #### [facility] [address] [place] [address] Dr. Tierney Rivera TSHon 10-17-2022 TSH 1.020 uIU/mL Normal 0.358-3.740 [facility] Comment on above: Performed By: #### L LILAER, TSH #### [facility] [address] [address] [address] Tierney Rivera XR CHEST 2 Von [...] FLORENTINO MAURO Date: 2022-10-17 09:46 Normal [facility] Covid-19 PCR (CVDTB)on SARS-CoV-2 (COVID-19) RNA SEDRICK+probe Ql (Unsp spec) Detected Critically abnormal NOT DETECTED [facility] Comment on above: Result Comment: This test is not yet approved or cleared by the [place] FDA. When there are no FDA-approved or cleared tests available, and other criteria are met, FDA can make tests available under an emergency access mechanism called an Emergency Use Authorization (EUA). The EUA for this test is supported by the Economic Research Analyst of Health and Human Service's (HHS's) declaration [...] used). Performed By: #### C VDTBH #### [facility] [address] [place], [place] [address] Dr. Tierney Rivera INFLUENZA A AND B AGon 09-27 INFLUANEGH SEE BELOW Normal [facility] Comment on above: Result Comment: Nega tive for Flu A protein angiten. Infection due to Flu A cannot be ruled out. Flu A angiten in the sample may be below the detection limit of the test. Performed By: #### I NFLUAB #### [facility] [address] [place] [address] Dr. Tierney Rivera [facility] SEE BELOW Normal [facility] Comment on above: Result Comment: Nega tive for Flu B protein antigen. Infection due to Flu B cannot be ruled out. Flu B antigen in the sample may be below the detection limit of the test. Performed By: #### I NFLUAB #### [facility] [address] [place] [address] Dr. Tierney Rivera INFLUENZA A AG Negative Normal NEGATIVE SEE COMMENT [facility] Comment on above: Performed By: #### I NFLUAB #### [facility] [address] [place] [address] Dr. Tierney Rivera INFLUENZA B AG Negative Normal NEGATIVE SEE COMMENT [facility] Comment on above: Performed By: #### I NFLUAB #### [facility] [address] [place] [address] Dr. Tierney Rivera Cardiovascular Lab Reporton 06-11-2021 Cardiovascular Lab Report [facility] Patient Name: Gre[facility] Laura MR #: [id number] Department of Physician: Cecilia Hansen M.D. Division of Service Date: 06/10/2021 Cardiology Birthdate: 1940 Adult Cardiovascular Room #: [place] [address] Cardiovascular Laboratory Report FINAL IMPRESSION: 1. Angiographically [...] Follow up with Dr. Patel in the [facility]. 8. Follow up with Dr. Mccoy as scheduled. PROCEDURES: Ultrasound-guided access of the right common femoral vein, ultrasound-guided access of right common femoral artery, limited femoral angiography, right heart catheterization, bilateral selective coronary angiography, placement of a 5-Costa Rican MynxGrip closure device. METHODS: After risks, benefits, and alternatives were explained, written informed consent was obtained. The patient was prepped and draped in usual sterile fashion over both groins. Using 1% lidocaine solution, local infiltration anesthesia was achieved. Using modified Seldinger technique, a micropuncture kit and under ultrasound guidance access to the right common femoral vein was obtained. A 6-C[place] Rican 11 cm sheath was inserted without difficulty. This was repeated over the artery; a 5-[place]ican 11 cm sheath was inserted. A Mcdonald catheter was used for right heart catheterization. Pressures were measured in the right atrium, right ventricle, pulmonary artery, and pulmonary capillary wedge positions. Oxygen saturations were obtained and cardiac output/cardiac index was calculated using modified Gisele principle. The Mcdonald catheter was removed. Bilateral selective coronary angiography was performed using 5-C[place]ican JL4 and JR4 catheters. After reviewing the images, it was elected to conclude the procedure. All catheters were removed. A 5-[place]ican MynxGrip closure device was deployed per protocol [...] M.D (more content not included)... Normal [facility] Vital Signs Date Time Vital Sign Value Performing Clinician Rebecca gimenez 11-09-2023 13:51-0500 Body height 167.6 cm Hipolito Mendieta DPM Work Phone: [facility] 11-09-2023 13:51-0500 Body mass index (BMI) [Ratio] 17.27 kg/m2 Hipolito Mendieta DPM Work Phone: [facility] 11-09-2023 13:51-0500 Body weight 48.53 kg Hipolito Mendieta DPM Work Phone: [facility] 11-09-2023 13:51-0500 Diastolic blood pressure 81 mm[Hg] Hipolito Mendieta DPM Work Phone: [facility] 11-09-2023 13:51-0500 Heart rate 78 /min Hipolito Mendieta DPM Work Phone: [facility] 11-09-2023 13:51-0500 Systolic blood pressure 120 mm[Hg] Hipolito Anam DPM Work Phone: [facility] Encounters Encounter Date Encounter Type Care Provider Facility Start: 01-18-2024 End: 01-18-2024 ambulatory HIPOLITO MENDIETA Not Available Start: 11-09-2023 End: 11-09-2023 ambulatory HIPOLITO MENDIETA Not Available Start: 11-09-2023 Chart abstracting Hipolito garrido DPM Work Phone: [facility] Start: 11-09-2023 End: 11-09-2023 Patient encounter procedure Hipolito Mendieta DPM Work Phone: [facility] Comment on above: Verruca plantaris (P rimary Dx); Foot pain, left; Onychomycosis; Toe pain, bilateral Start: 10-12-2023 End: 10-12-2023 ambulatory HIPOLITO MENDIETA Not Available Start: 09-28-2023 End: 09-28-2023 ambulatory HIPOLITO MENDIETA Not Available Start: 09-14-2023 End: 09-14-2023 ambulatory HIPOLITO MENDIETA Not Available Start: 08-31-2023 End: 08-31-2023 ambulatory HIPOLITO MENDIETA Not Available Start: 08-23-2023 End: 08-23-2023 ambulatory KAYA [facility] Start: 02-15-2023 End: 02-15-2023 ambulatory SHANTEL [facility] Start: 01-26-2023 End: 01-27-[address] GERBER MCCOY . Facility:[facility] Start: 01-15-2023 End: 01-15-[address] CYNTHIA ROMERO . Facility:[facility] Start: 01-11-2023 End: 01-11-2023 ambulatory SHANTEL [facility] Start: 10-17-2022 End: 10-18-[address] GERBER MCCOY . Facility:[facility] Start: 09-27-2022 End: 09-27-[address] GERBER MCCOY . Facility:[facility] Start: 06-10-2021 End: 06-11-2021 ambulatory KAYA PATEL Facility:[facility] Plan of Treatment Date Care Activity Detail Author Start: 11-09-2023 End: 11-09-2023 Patient encounter procedure 11/09/2023 1:50 PM EST Procedure Visit [facility] [address] [facility] [address] [place] [phone] Hipolito Mendieta, DPLaura [address] [facility] [address] [place] [address] [facility] Payers Date Payer Category Payer Unknown [employer] [id number] 2023-Present [address] [employer] [place] [id number] 2018 Unknown [id number] 2006 Medicare MEDICARE MEDICAR E PART B [id number] 2006-Present [address] [address] [place] [address] Medicare [id number] 1959 Medicare [id number] 1959 Unknown [id number] 1940 Unknown [id number] 1940 Unknown [id number] 1940 Unknown [id number] 1940 Unknown [id number] 1940 Unknown [id number] 1940 Unknown [id number] [id number] 9 1940 Unknown [id number] [id number] 9 1940 Unknown [id number] [id number] 9 1940 Unknown [id number] [id number] 9 1940 Unknown [id number] [id number] 9 1940 Unknown [id number] 9 Social History Date Type Detail Facility Start: 08-31-2023 Tobacco smoking stat [facility] Tobacco smoking consumption unknown [facility] Start: 10-12-2023 End: 11-09-2023 Alcohol intake Defer [facility] Start: 1940 Sex Assigned At Not on file [facility] Gender identity Not on file [facility] Clinical Notes 01-11-2023 to 11-09-2023 Hipolito Mendieta, DPM - 11/09/2023 1:50 PM EST Note Date & Type Note Facility 11-09-2023 History of Present illness Narrative Patient: Lucille Escobedo : 1940 PCP: Gerber Mccoy MD SUBJECTIVE Patient presents today for follow up of skin lesion/neoplasm of unknown origin to the left and right foot Pt states that previous treatment of acid tx with some improvement Pt rates pain the pain on a 1-10 scale an intensity of 0-1 Pt presents today for followup. Patient presents today with a CC of elongated, thick nails. Pt states nails have been elongated and thick for many years and cause pain with ambulation in shoegear. Pt has tried previous treatment with minimal relief. Pt presents today for nail care and treatment. Allergies: Allergies Allergen Reactions Hossein Inhibitors Other and Unknown Sulfa Antibiotics Other and Unknown Verapamil Unknown Past Medical History: Past Medical History: Diagnosis Date Hypertension ([facility]) Medications: Current Outpatient Medications: amiodarone (Pacerone) 200 MG tablet, Take 200 mg by mouth in the morning., Disp: , Rfl: Eliquis 2.5 MG tablet, Take 2.5 mg by mouth in the morning and 2.5 mg before bedtime., Disp: , Rfl: furosemide (Lasix) 20 MG tablet, Take 20 mg by mouth in the morning., Disp: , Rfl: irbesartan (Avapro) 75 MG tablet, Take 75 mg by mouth in the morning., Disp: , Rfl: levothyroxine (Synthroid, Levoxyl) 50 MCG tablet, Take 1 tablet by mouth in the morning., Disp: , Rfl: metoprolol tartrate (Lopressor) 25 MG tablet, Take 1 tablet every day by oral route for 85 days., Disp: , Rfl: ldyzbzqmviwd-snie-ucvdigzn-folic acid (Centrum Silver, geriatric,) tablet, as directed Orally, Disp: , Rfl: potassium chloride CR (Klor-Con) 10 MEQ ER tablet, Take 10 mEq by mouth in the morning., Disp: , Rfl: Social History: Social History Socioeconomic History Marital status: Spouse name: Not on file Number of children: Not on file Years of education: Not on file Highest education level: Not on file Occupational History Not on file Tobacco Use Smoking status: Unknown Smokeless tobacco: Not on file Vaping Use Vaping Use: Unknown Substance and Sexual Activity Alcohol use: Defer Drug use: Defer Sexual activity: Defer Other Topics Concern Not on file Social History Narrative Not on file Social Determinants of Health Financial Resource Strain: Not on file Food Insecurity: Not on file Transportation Needs: Not on file Physical Activity: Not on file Stress: Not on file Social Connections: Not on file Intimate Partner Violence: Not on file Housing Stability: Not on file ROS: General: denies fever, chills, fatigue, malaise OBJECTIVE LE EXAM: DERM: Positive hair growth b/l feet. Left sub 2nd metatarsal region has a 0.1cm x 0.1 cm nummular lesion Elongated thick yellow crumbly nails digits 1 through 10 with positive hair growth VASC: Positive palpable pedal pulses bilaterally NEURO: Gross sensation intact to bilateral feet ORTHO: Positive pain on palpation to nails 1 through 10 Positive pain on palpation to left foot lesion ASSESSMENT 1. Verruca plantaris 2. Foot pain, left 3. Onychomycosis 4. Toe pain, bilateral PLAN Application of salinocaine acid medication to lesion/lesions located at left foot Informed pt of risks and benefits of procedure including high reoccurence rate, infection, pain and consent given. Application of DSD post procedure. Discussed proper foot care with patient today. Debride nails in length and thickness digits 1 through 10 Hipolito Mendieta DPM documented in this encounter [facility] 08-23-2023 Note [facility] [facility] Note Chief Complaint: Patient here for 6 mo follow up CAD, PAF, and mitral valve regurgitation. She was kept overnight for observation in May 2023 at [facility], and declined transfer to [facility] for cardioversion. Patient does not remember [...] regurgitation. Moderate to severe mitral regurgitation. Transesophageal Echocardiogram-[facility] Name: LUCILLE ESCOBEDO Study Date: 06/10/2021 10:12 AM B/P: 126 mmHg/68 mmHg HR: Date of : 1940 Location: [facility] Height: 66 in. Age: 81 year(s) Patient Room : Weight: 135 lb. Gender: Female Patient Status: OutPt BSA: 1.69 m2 Indication: Atrial Fibrillation Examination: TUAN/CFI with Cardioversion Image Quality: Good Patient Consent: Informed, written consent was obtained for the procedure s p @ c 3 Exam Location: A TUAN was performed in the [employer] without complications s p @ c 3 [...] atrial appendage, no (more content not included)... [facility]15-2023 [facility] St[facility] continue hear t healthy diet [facility] 02-15-2023 Note Hypertension is well controlled with irbesartan 75 mgin am and 37.5 mg in pm, toprol 25 mg daily [facility] 02-15-2023 Note [facility] CARDIOLOGY PROGR ESS NOTE [...] continue all medications. Paroxysmal atrial fibrillation (CMS/HCC) [id number]= 5 Remains on amiodarone, toprol 25 mg [...] with toprol 35 mg RTC 6 months [facility] 02-15-2023 Note Patient here for 1 m o follow up hypertension and mitral valve regurgitation. Irbesartan was increased to 150mg daily at last visit and metoprolol was stopped. A few days later she went to [facility] ED for tachycardia. They restarted her [...] All other systems reviewed and are negative. [facility] 02-15-2023 Note [id number]= 5 Remains on amiodarone, toprol 25 mg and eliquis anticoagulation Denied any bleeding tendencies Amiodarone annual monitoring- pt will need TSH for thyroid function, PFT for pulm function, and eye exam with opthalmologist [facility] 02-15-2023 Note Continue GDMT, CAD r emains stable- no concerning symptoms continue risk factor modifications- heart healthy diet, regular exercise as tolerated and continue all medications. [facility] 01-11-2023 Note Hypertension is unco ntrolled- increase irbesartan to 150 mg, repeat BMP in 1-2 weeks to assess renal function. Asked pt to monitor b/p at home, start a log of her b/p and bring with her to next visit. [facility] 01-11-2023 Note Recommended low chol esterol- heart healthy diet [facility] 01-11-2023 Note Stable [facility] 01-11-2023 Note stable [facility] 01-11-2023 Note Will continue to mon itor- she does not want to proceed with mitral clipping procedure [facility] 01-11-2023 Note stable [facility] 01-11-2023 Note Patient here for 1 [...] All other systems reviewed and are negative. [facility] 01-11-2023 Note [facility] CARDIOLOGY PROGR ESS NOTE HPI: Lucille M Escobedo is a 82 y.o. female here [...] month to assess b/p and heart rate [facility] 01-11-2023 Note History of fib/flutt er; currently on, amiodarone 200 mg daily, andEliquis Heart rate well controlled, regular rate and rhythm during assessment [facility] 01-11-2023 Note MILD (CATH 2009) Continue risk factor modifications including heart healthy diet, exercise on a regular regimen, continue medications No aspirin in light of Eliquis, hold metoprolol r/t bradycardia- will monitor for any recurrent Afib/tachycardia [facility] Evaluation note Diagnosis Verruca plantaris- Primary Plantar wart Foot pain, left Pain in soft tissues of limb Onychomycosis Dermatophytosis of nail Toe pain, bilateral documented in this encounter [facility] Summary Purpose Family History No Family History Records FoundNo Family History Records FoundNo Family History Records FoundNo Family History Records Found Advance Directives No Advanced Directives Records FoundNo Advanced Directives Records FoundNo Advanced Directives Records FoundNo Advanced Directives Records Found Additional Source Comments INFORMATION SOURCE (unrecogn ized section and content) DATE CREATED AUTHOR 06/15/2021 [facility] DATE CREATED AUTHOR AUTHOR'S ORGANIZ ATION 02/02/2023 [facility] DATE CREATED AUTHOR AUTHOR'S ORGANIZ ATION 10/05/2023 [facility] DATE CREATED AUTHOR AUTHOR'S ORGANIZ ATION 01/20/2024 [facility] EPIC Care Teams (unrecognized sec tion and content) Machine Sander Relationship Specialty Start Date End Date Gerber Mccoy MD [address] [place] [address] PCP - General Family Medicine 08/31/23 Machine Sander Relationship Specialty Start Date End Date Gerber Mccoy MD [address] [place] [address] PCP - General Family Medicine 08/31/23 Reason for Visit (unrecogniz ed section and content) Reason Comments Toenail Care Non dm Nails FOR RECORDS PERTAINING TO PATIENTS WHO ARE [...] BE BASED ON THE PRIMARY CLINICAL RECORDS. [employer] provides no warranty or guarantee of the accuracy or completeness of information in this document.
[2024-02-01 08:57] LABS: Basophils Percent Auto 0.3 % (0.2-2.0); Eosinophils Absolute Auto 0.1 10^3/uL (0.0-0.7); Eosinophils Percent Auto 1.3 % (0.9-7.0); Hematocrit 41.1 % (36.0-48.0); Hemoglobin 13.3 g/dL (12.0-16.0); Immature Granulocytes Abs Auto 0.01 10^3/uL (0.00-0.03); Immature Granulocytes Pct Auto 0.1 % (0.0-0.5); Lymphocytes Absolute Auto 1.3 10^3/uL (1.2-3.8); Lymphocytes Percent Auto 16.9 % (20.5-60.0); Mean Corpuscular HGB Conc 32.4 g/dL (29.9-35.2); Mean Corpuscular Hemoglobin 30.2 pg (26.7-34.0); Mean Corpuscular Volume 93.4 fL (81.0-99.0); Mean Platelet Volume 11.3 fL (9.5-13.5); Monocytes Absolute Auto 0.7 10^3/uL (0.3-0.8); Monocytes Percent Auto 9.3 % (1.7-12.0); Neutrophils Absolute Auto 5.4 10^3/uL (1.4-6.5); Neutrophils Percent Auto 72.1 % (43.0-75.0); Platelet Count 232 10^3/uL (150-450); Red Cell Distribution Width 13.1 % (11.0-15.0); White Blood Count 7.5 10^3/uL (4.0-11.0)
[2024-02-01 10:42] LABS: Estimated Average Glucose 117 mg/dL; Glycohemoglobin A1C 5.7 % (4.5-6.2)
[2024-02-01 10:53] LABS: Alanine Aminotransferase 30 U/L (14-59); Albumin Globulin Ratio 1.1; Albumin Level 3.8 g/dL (3.4-5.0); Alkaline Phosphatase 93 U/L (46-116); Anion Gap 11.4; Aspartate Amino Transferase 29 U/L (15-37); Bilirubin Total 0.7 mg/dL (0.2-1.0); Calcium 10.2 mg/dL (8.5-10.1); Carbon Dioxide 30.6 mmol/L (21.0-32.0); Chloride 103 mmol/L (98-107); Chol HDL Ratio 3.9; Cholesterol 201 mg/dL (<=200); Estimated GFR (African America 50 (>=60); Estimated GFR (Non-African Ame 41 (>=60); Globulin 3.4 g/dL; Glucose 90 mg/dL (74-106); HDL Cholesterol 52 mg/dL (40-60); Sodium 141 mmol/L (136-145); Thyroid Stimulating Hormone 1.269 uIU/mL (0.358-3.740); Total Protein 7.2 g/dL (6.4-8.2); Triglycerides 118 mg/dL (<=150); VLDL CHOLESTEROL 23.6 mg/dL
[2024-02-02 11:11] LABS: Insulin 4.9 uIU/mL (2.6-24.9)
[2024-02-02 12:46] LABS: Occult Blood Negative
== END 2024-02-01 08:20 | disposition home or self-care (01) ==
LOC: LAB 08:20
PROVIDERS: PCP Family Medicine; Visit Provider Family Medicine
DX: R00.2 Palpitations (principal); I10 Essential (primary) hypertension; E78.5 Hyperlipidemia, unspecified; R73.09 Other abnormal glucose; Z12.12 Encounter for screening for malignant neoplasm of rectum; D64.9 Anemia, unspecified; E55.9 Vitamin D deficiency, unspecified
CPT/HCPCS: 36415; 80053; 80061; 82306; 83036; 83525; 83540; 84436; 84443; 84481; 85025; G0328

== ENCOUNTER 2024-06-28 13:50 | Outpatient (OUT) | payer MEDICARE, OTHER, SELFPAY ==
--- NOTE | 2024-06-28 14:08 | XR_ITS ---
The [address] [address] Patient Name: RAFIA KNOWLES MRN: [id number] date: 1940 Sex: F Assigned Patient Location: LAB Current Patient Location: LAB Accession/Order Number: [id number] Exam Date: 06/28/2024 14:14 Report Date: 06/28/2024 14:46 At the request of: IVELISSE OLVERA Procedure: XR chest 2V EXAM: XR chest 2V HISTORY: Other Floor Nurse Drug Therapy Z79.899 COMPARISON: 10/14/2023 TECHNIQUE: Upright PA and lateral chest x-ray FINDINGS: The heart is not enlarged and the vasculature is not distended. There is been interval clearing of the lungs, with reduced vascular congestion. Infiltrates have resolved and the there are no longer small bilateral effusions present. No acute infiltrate, effusion or pneumothorax is identified. There is flattening of the hemidiaphragms indicating COPD. The osseous structures are grossly intact. XR/XR chest 2V IMPRESSION: Significant overall interval improvement of the chest. No focal infiltrate or cardiac decompensation is now identified. Electronically authenticated by: HERBIE QUIROZ Date: 06/28/2024 14:46
[2024-06-28 14:51] LABS: Free T4 1.53 ng/dL (0.76-1.46)
[2024-06-28 14:59] LABS: Alanine Aminotransferase 28 U/L (14-59); Albumin Globulin Ratio 1.2; Albumin Level 3.9 g/dL (3.4-5.0); Alkaline Phosphatase 101 U/L (46-116); Aspartate Amino Transferase 25 U/L (15-37); Bilirubin Direct 0.1 mg/dL (0.0-0.2); Bilirubin Total 0.5 mg/dL (0.2-1.0); Globulin 3.2 g/dL; Thyroid Stimulating Hormone 1.482 uIU/mL (0.358-3.740); Total Protein 7.1 g/dL (6.4-8.2)
== END 2024-06-28 13:51 | disposition home or self-care (01) ==
LOC: LAB 13:54
PROVIDERS: PCP Family Medicine; Visit Provider Internal Medicine Interventional Cardiology
DX: Z79.899 Other long term (current) drug therapy (principal)
CPT/HCPCS: 36415; 71046; 80076; 84439; 84443

== ENCOUNTER 2024-08-14 10:31 | Outpatient (OUT) | payer MEDICARE, OTHER, SELFPAY ==
--- OUTSIDE RECORDS SUMMARY | 2024-08-14 10:36 | XMS_ITS | CCD ---
Author Organization [facility] Care Team Providers Care Financial Risk Manager Name Role Phone ELTAHAWY, EHAB A Attending Unavailable ELTATAOY, EHAB A Admitting Unavailable GERBER MCCOY Referring Unavailable GERBER MCCOY Primary Care Unavailable HOY ., DR MAYES Primary Care Unavailable SHANTEL GARCIA Attending Unavailable JOSE, SHANTEL Admitting Unavailable COUNCIL BLUFFS, DR FLORENTINO Mello Consulting Unavailable SHANTEL GARCIA Consulting Unavailable HOY ., DR MAYES Admitting [...] Primary Care Unavailable CONSTANCE LAI Consulting Unavailable Gerber Mccoy MD Primary Care Provider [phone] HIPOLITO MENDIETA Attending Unavailable HIPOLITO MENDIETA Attending Unavailable HIPOLITO MENDIETA Attending Unavailable HIPOLITO MENDIETA Attending Unavailable BROWNRENOHIPOLITO Jr Attending Unavailable BROWN HIPOLITO A Attending Unavailable BROWN HIPOLITO A Attending Unavailable ELTAHAWY, EHAB Attending Unavailable ELTAHAWY, EHAB Attending Unavailable Allergies Allergy Classification Reported Allergen(s) Allergy Type Date of Onset Reaction(s) Facility (3 sources) Angiotensin Converting Enzyme (Hossein) Inhibitors; Translations: [HOSSEIN INHIBITORS] Drug allergy (disorder) 2 [facility] Repository (3 sources) Sulfonamides (Antibiotic); Translations: [SULFA (SULFONAMIDE ANTIBIOTICS)] Drug allergy (disorder) 2 [facility] Repository (2 sources) Angiotensin-conve rting enzyme inhibitor agent Drug Allergy 4 Other, Unknown [facility] (2 sources) Sulfonamides (Antibiotic) Drug Allergy 4 Other, Unknown [facility] (2 sources) Verapamil Drug Allergy 4 Unknown [facility] Healthcare Medications Current Medications Medication Drug Class(es) [...] oral route for 85 days. 0 Active [id number] inerals-folic acid (Centrum Silver, geriatric,) tablet (2 [...] Active Problems Problem Classification Problem Date Documented Da te Episodic/Chronic Cardiac dysrhythmias (1 source) Unspecified atrial fibrillation; Translations: [UNSPECIFIED ATRIAL FIBRILLATION] Onset: 02-01-2023 Chronic Cardiac dysrhythmias (8 sources) Palpitations; Translations: [Tachycardia, unspecified] Onset: 01-15-2023 Episodic Congestive heart failure; nonhypertensive (3 sources) Unspecified diastolic (congestive) heart failure; Translations: [Acute combined systolic (congestive) and diastolic (congestive) heart failure] Onset: 02-01-2023 Chronic Deficiency and other anemia (1 source) Anemia, unspecified; Translations: [ANEMIA UNSPECIFIED] Onset: 02-01-2023 Episodic Diabetes mellitus without complication (1 source) Other abnormal glucose; Translations: [OTHER ABNORMAL GLUCOSE] Onset: 02-01-2023 Episodic Heart valve disorders (2 sources) Nonrheumatic mitral [...] Onset: 02-01-2023 Chronic Other aftercare (1 source) jail (current) use of anticoagulants; Translations: [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 USE ANTICOAGULANTS] Onset: 01-17-2023 Episodic Other aftercare (5 sources) Other long term care phlebotomist (current) drug therapy; Translations: [OTH ASSISTED CURRENT DRUG THERAPY] Onset: 10-17-2022 Episodic Other aftercare (1 source) jail (current) use of aspirin; Translations: [ASSISTED CURRENT USE OF ASPIRIN] Onset: 01-17-2023 Episodic [...] Problem Date Documented Da te Episodic/Chronic Other upper respiratory disease (1 source) Nasal congestion; Translations: [NASAL CONGESTION] Onset: 09-30-2022 Episodic Unclassified (1 source) CONTACT W/AND (SUSP) EXPOS COVID-19; Translations: [CONTACT W/AND (SUSP) EXPOS COVID-19] Onset: 09-27-2022 Results Test Name Value Interpretation Reference Range Facility Office Visiton 08-07-2024 Follow-up visit [id number] Alfa Escobedo 1940 F Date Provider Department Center 08/07/2024 KAYA STEELE OTTONIEL Farias Family History Problem Relation Age of Onset Diabetes Mother Hypertension Mother Hypertension Father Diabetes Sister Heart attack Maternal Grandmother Family Status - Relation Status Age at Mother Father Sister Maternal Grandmother Level of Service:58187 RI OFFICE/OUTPATIENT ESTABLISHED MOD MDM 30 MIN [facility] 36on 07-01-2024 36 Regarding labs from 06/28/2024: MD Alejandra Hansen MA Her free T4 is high; she needs to discuss with whoever is managing her thyroid medications Thanks Labs faxed to Dr. Mccoy's office on . I called his office just now to confirm they received results. [facility] 36on 10-04-2023 36 Patient called to marvel ke aware that [facility] called her yesterday to schedule muga scan. She told them she did not want the test because her heart is not pumping low anymore . I advised patient that without diagnostic testing someone cannot tell the function of their own heart. She asked me what getting a pacemaker entailed. I told her it's usually done as outpatient, done at [facility] [place]. I told her she would have to be very careful with using her left arm and wouldn't be able to drive for a month. She told me you just made up my mind for me . Patient has now decided to not have muga scan done. [facility] Telephoneon 09-28-2023 Telephone [id number] Alfa Escobedo 1940 F Date Provider Department Center 09/28/2023 CRISTINA CAR Family History Problem Relation Age of Onset Diabetes Mother Hypertension Mother Hypertension Father Diabetes Sister Heart attack Maternal Grandmother Family Status - Relation Status Age at Mother Father Sister Maternal Grandmother [facility] Office Visiton 08-23-2023 Follow-up visit [id number] Alfa Escobedo 1940 F Date Provider Department Center 08/23/2023 Bina-KAYA PATEL Family History Problem Relation Age of Onset Diabetes Mother Hypertension Mother Hypertension Father Diabetes Sister Heart attack Maternal Grandmother Family Status - Relation Status Age at Mother Father Sister Maternal Grandmother Level of Service:04034 RI OFFICE/OUTPATIENT ESTABLISHED LOW MDM 20-29 MIN [facility] BNPon 01-26-2023 Natriuretic peptide B (Bld) [Mass/Vol] 1751.0 pg/mL Normal <=1,800.0 [facility] Comment on above: Performed By: #### L IVER, TSH #### [facility] [address], [place] [address] Dr. Tierney Rivera CBC AUTO DIFFon 01-26-2023 BASO # 0.0 103/ul Normal 0.0-0.1 [facility] Comment on above: Performed By: #### C BC #### [facility] [address] [place] [address] Dr. Tierney Rivera Basophils/100 WBC (Bld) 0.3 % Normal 0.2-2.0 [facility] Comment on above: Performed By: #### C BC #### [facility] [address] [place] [address] Dr. Tierney Rivera EO # 0.1 103/ul Normal 0.0-0.7 [facility] Comment on above: Performed By: #### C BC #### [facility] [address] [place] [address] Dr. Tierney Rivera Eosinophils/100 WBC (Bld) 2.3 % Normal 0.9-7.0 [facility] Comment on above: Performed By: #### C BC #### [facility] [address] [place] [address] Dr. Tierney Rivera Erythrocyte distribution width (RBC) [Ratio] 13.1 % Normal 11.0-15.0 [facility] Comment on above: Performed By: #### C BC #### [facility] [address] [place] [address] Dr. Tierney Rivera Hematocrit (Bld) [Volume fraction] 43.5 % Normal 36.0-48.0 [facility] Comment on above: Performed By: #### C BC #### [facility] [address] [place] [address] Dr. Tierney Rivera Hemoglobin (Bld) [Mass/Vol] 13.9 g/dL Normal 12.0-16.0 [facility] Comment on above: Performed By: #### C BC #### [facility] [address] [place] [address] Dr. Tierney Rivera IG # 0.02 10e3/ul Normal 0.00-0.03 [facility] Comment on above: Performed By: #### C BC #### [facility] [address] [place] [address] Dr. Tierney Rivera IG % 0.3 % Normal 0.0-0.5 [facility] Comment on above: Performed By: #### C BC #### [facility] [address] [place] [address] Dr. Tierney Rivera LYMPH # 1.2 103/ul Normal 1.2-3.8 [facility] Comment on above: Performed By: #### C BC #### [facility] [address] [place] [address] Dr. Tierney Rivera Lymphocytes/100 WBC (Bld) 20.6 % Normal 20.5-60.0 [facility] Comment on above: Performed By: #### C BC #### [facility] [address] [place] [address] Dr. Tierney Rivera MANUAL DIFF REQ NO Normal [facility] Comment on above: Performed By: #### C BC #### [facility] [address] [place] [address] Dr. Tierney Rivera MCH (RBC) [Entitic mass] 29.4 pg Normal 26.7-34.0 [facility] Comment on above: Performed By: #### C BC #### [facility] [address] [place] [address] Dr. Tierney Rivera MCHC (RBC) [Mass/Vol] 32.0 g/dL Normal 29.9-35.2 [facility] Comment on above: Performed By: #### C BC #### [facility] [address] [place] [address] Dr. Tierney Rivera MCV (RBC) [Entitic vol] 92.2 fL Normal 81.0-99.0 [facility] Comment on above: Performed By: #### C BC #### [facility] [address] [place] [address] Dr. Tierney Rivera MONO # 0.6 103/ul Normal 0.3-0.8 [facility] Comment on above: Performed By: #### C BC #### [facility] [address] [place] [address] Dr. Tierney Rivera Monocytes/100 WBC (Bld) 10.2 % Normal 1.7-12.0 [facility] Comment on above: Performed By: #### C BC #### [facility] [address] [place] [address] Dr. Tierney Rivera NEUT # 3.8 103/ul Normal 1.4-6.5 [facility] Comment on above: Performed By: #### C BC #### [facility] [address] [place] [address] Dr. Tierney Rivera Neutrophils/100 WBC (Bld) 66.3 % Normal 43.0-75.0 [facility] Comment on above: Performed By: #### C BC #### [facility] [address] [place] [address] Dr. Tierney Rivera Platelet mean volume (Bld) [Entitic vol] 11.2 fL Normal 9.5-13.5 [facility] Comment on above: Performed By: #### C BC #### [facility] [address] [place] [address] Dr. Tierney Rivera PLT 253 103/ul Normal 150-450 [facility] Comment on above: Performed By: #### C BC #### [facility] [address] [place] [address] Dr. Tierney Rivera RBC 4.72 106/ul Normal 4.20-5.40 [facility] Comment on above: Performed By: #### C BC #### [facility] [address] [place] [address] Dr. Tierney Rivera WBC 5.8 103/ul Normal 4.0-11.0 [facility] Comment on above: Performed By: #### C BC #### [facility] [address] [place] [address] Dr. Tierney Rivera FREE THYROXINE INDEX T7on FTI 5.18 Critically high 1.30-4.50 [facility] Comment on above: Performed By: #### L IVER, TSH #### [facility] [address] [place] [address] Dr. Tierney Rivera T3U 36.0 % Normal 30.0-39.0 [facility] Comment on above: Performed By: #### L IVER, TSH #### [facility] [address] [place] [address] Dr. Tierney Rivera T4 [Mass/Vol] 14.40 ug/dL Critically high 4.80-13.90 [facility] Comment on above: Performed By: #### L IVER, TSH #### [facility] [address] [place] [address] Dr. Tierney Rivera GLYCOHEMOGLOBIN A1Con 2022 ADA RECOMMENDATION SEE BELOW Normal [facility] Comment on above: Result Comment: ADA RECOMMENDED LIMIT 4.0 - 6.0 ADA THERAPEUTIC TARGET < 7.0 ACTION SUGGESTED > 7.0 Performed By: #### L IVER, TSH #### [facility] [address] [place] [address] Dr. Tierney Rivera Glucose [Mass/Vol] 117 mg/dL Normal [facility] Comment on above: Performed By: #### L IVBISHNU, TSH #### [facility] [address] [place] [address] Dr. Tierney Rivera HbA1c (Bld) [Mass fraction] 5.7 % Normal 4.5-6.2 [facility] Comment on above: Performed By: #### L IVER, TSH #### [facility] [address] [place] [address] Dr. Tierney Rivera IRONon 01-26-2023 Iron [Mass/Vol] 67.0 ug/dL Normal 50.0-170.0 [facility] Comment on above: Performed By: #### V ITAD, IRON #### [facility] [address] [place] [address] Dr. Tierney Rivera PROF 14(COMP METB)on 023 Albumin [Mass/Vol] 4.0 g/dL Normal 3.4-5.0 [facility] Comment on above: Performed By: #### L IVER, TSH #### [facility] [address] [place] [address] Dr. Tierney Rivera Albumin/Globulin [Mass ratio] 1.1 {ratio} Normal [facility] Comment on above: Performed By: #### L IVER, TSH #### [facility] [address] [place] [address] Dr. Tierney Rivera ALP [Catalytic activity/Vol] 98 U/L Normal 46-116 [facility] Comment on above: Performed By: #### L IVER, TSH #### [facility] [address] [place] [address] [address] Tierney Rivera ALT [Catalytic activity/Vol] 29 U/L Normal 14-59 [facility] Comment on above: Performed By: #### L IVER, TSH #### [facility] [address] [place] [address] [address] Tierney Rivera Anion gap [Moles/Vol] 11.7 mmol/L Normal [facility] Comment on above: Performed By: #### L IVER, TSH #### [facility] [address] [place] [address] [address] Tierney Rivera AST [Catalytic activity/Vol] 22 U/L Normal 15-37 [facility] Comment on above: Performed By: #### L IVER, TSH #### [facility] [address] [place] [address] Dr. Tierney Rivera Bilirubin [Mass/Vol] 0.4 mg/dL Normal 0.2-1.0 [facility] Comment on above: Performed By: #### L IVER, TSH #### [facility] [address] [place] [address] Dr. Tierney Rivera Calcium [Mass/Vol] 10.1 mg/dL Normal 8.5-10.1 [facility] Comment on above: Performed By: #### L IVER, TSH #### [facility] [address] [place] [address] Dr. Tierney Rivera Chloride [Moles/Vol] 103 mmol/L Normal 98-107 [facility] Comment on above: Performed By: #### L IVER, TSH #### [facility] [address] [place] [address] [address] Tierney Rivera CO2 [Moles/Vol] 30.5 mmol/L Normal 21.0-32.0 [facility] Comment on above: Performed By: #### L IVER, TSH #### [facility] [address] [place] [address] [address] Tierney Rivera Creatinine [Mass/Vol] 1.15 mg/dL Critically high 0.55-1.02 [facility] Comment on above: Performed By: #### L CHAMP, TSH #### [facility] [address] [place] [address] Dr. Tierney Rivera EGFR-AF [place]ORE[place] 55 mL/min/1.73m2 Critically low >=60 [facility] Comment on above: Performed By: #### L CHAMP, TSH #### [facility] [address] [place] [address] [address] Tierney Rivera EGFR-NON AF [place] 45 mL/min/1.73m2 Critically low >=60 [facility] Comment on above: Performed By: #### L CHAMP, TSH #### [facility] [address] [place] [address] Dr. Tierney Rivera Globulin (S) [Mass/Vol] 3.8 g/dL Normal [facility] Comment on above: Performed By: #### Breonna OAKES, TSH #### [facility] [address] [place] [address] Dr. Tierney Rivera Glucose [Mass/Vol] 97 mg/dL Normal 74-106 [facility] Comment on above: Performed By: #### Breonna OAKES, TSH #### [facility] [address] [place] [address] Dr. Tierney Rivera Potassium [Moles/Vol] 4.2 mmol/L Normal 3.5-5.1 [facility] Comment on above: Performed By: #### Breonna OAKES, TSH #### [facility] [address] [place] [address] Dr. Tierney Rivera Protein [Mass/Vol] 7.8 g/dL Normal 6.4-8.2 [facility] Comment on above: Performed By: #### Breonna OAKES, TSH #### [facility] [address] [place] [address] Dr. Tierney Rivera Sodium [Moles/Vol] 141 mmol/L Normal 136-145 [facility] Comment on above: Performed By: #### Breonna OAKES, TSH #### [facility] [address] [place] [address] Dr. Tierney Rivera Urea nitrogen [Mass/Vol] 18.0 mg/dL Normal 7.0-18.0 [facility] Comment on above: Performed By: #### Breonna OAKES, TSH #### [facility] [address] [place] [address] Dr. Tierney Rivera Urea nitrogen/Creatinine [Mass ratio] 15.7 mg/mg Normal [facility] Comment on above: Performed By: #### Breonna OAKES, TSH #### [facility] [address] [place] [address] Dr. Tierney Rivera TSHon 01-26-2023 TSH 2.066 uIU/mL Normal 0.358-3.740 [facility] Comment on above: Performed By: #### Breonna OAKES, TSH #### [facility] [address] [place] [address] Dr. Tierney Rivera VITAMIN D 25 OHon 01-26-2023 VIT D 25-OH 45.0 ng/mL Normal [facility] Comment on above: Performed By: #### V SHANNEN, IRON #### [facility] [address] [place] [address] Dr. Tierney Rivera VIT D RANGES SEE BELOW Normal [facility] Comment on above: Result Comment: <20 ng/mL Vit D deficient 20 - <30 ng/mL Vit D insufficient 30 - 100 ng/mL Vit D sufficient >100 ng/mL Potential Toxicity Performed By: #### V SHANNEN, IRON #### [facility] [address] [place] [address] Dr. Tierney Rivera BNPon 01-15-2023 Natriuretic peptide B (Bld) [Mass/Vol] 868.0 pg/mL Normal <=1,800.0 [facility] Comment on above: Performed By: #### H STROPN, BNP, CMP #### [facility] [address] [place] [address] Dr. Tierney Rivera CBC AUTO DIFFon 01-15-2023 BASO # 0.0 103/ul Normal 0.0-0.1 [facility] Comment on above: Performed By: #### L CHAMP, TSH #### [facility] [address] [place] [address] [address] Tierney Rivera Basophils/100 WBC (Bld) 0.3 % Normal 0.2-2.0 [facility] Comment on above: Performed By: #### L IVER, TSH #### [facility] [address] [place] [address] Dr. Tierney Rivera EO # 0.1 103/ul Normal 0.0-0.7 [facility] Comment on above: Performed By: #### L IVER, TSH #### [facility] [address] [place] [address] [address] Tierney Rivera Eosinophils/100 WBC (Bld) 1.7 % Normal 0.9-7.0 [facility] Comment on above: Performed By: #### L IVER, TSH #### [facility] [address] [place] [address] Dr. Tierney Rivera Erythrocyte distribution width (RBC) [Ratio] 13.2 % Normal 11.0-15.0 [facility] Comment on above: Performed By: #### L IVER, TSH #### [facility] [address] [place] [address] Dr. Tierney Rivera Hematocrit (Bld) [Volume fraction] 45.1 % Normal 36.0-48.0 [facility] Comment on above: Performed By: #### L IVER, TSH #### [facility] [address] [place] [address] Dr. Tierney Rivera Hemoglobin (Bld) [Mass/Vol] 15.1 g/dL Normal 12.0-16.0 [facility] Comment on above: Performed By: #### L IVER, TSH #### [facility] [address] [place] [address] Dr. Tierney Rivera IG # 0.01 10e3/ul Normal 0.00-0.03 [facility] Comment on above: Performed By: #### L IVER, TSH #### [facility] [address] [place] [address] Dr. Tierney Rivera IG % 0.2 % Normal 0.0-0.5 [facility] Comment on above: Performed By: #### L IVER, TSH #### [facility] [address] [place] [address] [address] Tierney Rivera LYMPH # 2.2 103/ul Normal 1.2-3.8 [facility] Comment on above: Performed By: #### L IVER, TSH #### [facility] [address] [place] [address] [address] Tierney Rivera Lymphocytes/100 WBC (Bld) 32.5 % Normal 20.5-60.0 [facility] Comment on above: Performed By: #### L IVER, TSH #### [facility] [address] [place] [address] [address] Tierney Rivera MANUAL DIFF REQ NO Normal [facility] Comment on above: Performed By: #### L IVER, TSH #### [facility] [address] [place] [address] Dr. Tierney Rivera MCH (RBC) [Entitic mass] 30.0 pg Normal 26.7-34.0 [facility] Comment on above: Performed By: #### L IVER, TSH #### [facility] [address] [place] [address] Dr. Tierney Rivera MCHC (RBC) [Mass/Vol] 33.5 g/dL Normal 29.9-35.2 [facility] Comment on above: Performed By: #### L IVER, TSH #### [facility] [address] [place] [address] Dr. Tierney Rivera MCV (RBC) [Entitic vol] 89.7 fL Normal 81.0-99.0 [facility] Comment on above: Performed By: #### L IVER, TSH #### [facility] [address] [place] [address] Dr. Tireney Rivera MONO # 0.8 103/ul Normal 0.3-0.8 [facility] Comment on above: Performed By: #### L IVER, TSH #### [facility] [address] [place] [address] Dr. Tierney Rivera Monocytes/100 WBC (Bld) 12.6 % Critically high 1.7-12.0 [facility] Comment on above: Performed By: #### L CHAMP, TSH #### [facility] [address] [place] [address] Dr. Tierney Rivera NEUT # 3.5 103/ul Normal 1.4-6.5 [facility] Comment on above: Performed By: #### L CHAMP, TSH #### [facility] [address] [place] [address] Dr. Tierney Rivera Neutrophils/100 WBC (Bld) 52.7 % Normal 43.0-75.0 [facility] Comment on above: Performed By: #### L CHAMP, TSH #### [facility] [address] [place] [address] Dr. Tierney Rivera Platelet mean volume (Bld) [Entitic vol] 11.0 fL Normal 9.5-13.5 [facility] Comment on above: Performed By: #### Breonna OAKES, TSH #### [facility] [address] [place] [address] Dr. Tierney Rivera PLT 266 103/ul Normal 150-450 [facility] Comment on above: Performed By: #### Breonna OAKES TSH #### [facility] [address] [place] [address] Dr. Tierney Rivera RBC 5.03 106/ul Normal 4.20-5.40 [facility] Comment on above: Performed By: #### L CHAMP, TSH #### [facility] [address] [place] [address] Dr. Tierney Rivera WBC 6.6 103/ul Normal 4.0-11.0 [facility] Comment on above: Performed By: #### L CHAMP, TSH #### [facility] [address] [place] [address] Dr. Tierney Rivera CULTURE BLOODon 01-15-2023 Microscopic examination of blood, culture Culture Observations: NO GROWTH AT 5 DAYS. Normal [facility] Comment on above: Performed By: #### L CHAMP, TSH #### [facility] [address] [place] [address] Dr. Tierney Rivera Microscopic examination of blood, culture Culture Observations: NO GROWTH AT 5 DAYS. Normal [facility] Comment on above: Performed By: #### L IVER, TSH #### [facility] [address] [place] [address] Dr. Tierney GOETZ URINE PROFILEon 3 Bilirubin Ql (U) Negative Normal NEGATIVE [facility] Comment on above: Performed By: #### L IVER, TSH #### [facility] [address] [place] [address] Dr. Tierney Rivera Clarity (U) CLEAR Normal CLEAR [facility] Comment on above: Performed By: #### L IVER, TSH #### [facility] [address] [place] [address] Dr. Tierney Rivera Color (U) LT. YELLOW Normal YELLOW [facility] Comment on above: Performed By: #### L IVER, TSH #### [facility] [address] [place] [address] Dr. Tierney Rivera ERUAHD A micrscopic examination will be performed if indicated. Normal [facility] Comment on above: Performed By: #### L IVER, TSH #### [facility] [address] [place] [address] Dr. Tierney Rivera Glucose Ql (U) Negative Normal NEGATIVE [facility] Comment on above: Performed By: #### L IVER, TSH #### [facility] [address] [place] [address] Dr. Tierney Rivera Hemoglobin Ql (U) Negative Normal NEGATIVE [facility] Comment on above: Performed By: #### L IVER, TSH #### [facility] [address] [place] [address] Dr. Tierney Rivera Ketones Ql (U) Negative Normal NEGATIVE [facility] Comment on above: Performed By: #### L IVER, TSH #### [facility] [address] [place] [address] Dr. Tierney Rivera LEUKOCYTES Negative Normal NEGATIVE [facility] Comment on above: Performed By: #### L IVER, TSH #### [facility] [address] [place] [address] Dr. Tierney Rivera Nitrite Ql (U) Negative Normal NEGATIVE [facility] Comment on above: Performed By: #### L CHAMP, TSH #### [facility] [address] [place] [address] Dr. Tierney Rivera pH (U) 7.5 [pH] Normal 5-9 [facility] Comment on above: Performed By: #### L CHAMP TSH #### [facility] [address] [place] [address] Dr. Tierney Rivera SPEC GRAVITY 1.010 Normal 1.005-<=1.02 5 [facility] Comment on above: Performed By: #### L CHAMP TSH #### [facility] [address] [place] [address] Dr. Tierney Rivera UA PROTEIN Negative Normal NEGATIVE/ TRACE [facility] Comment on above: Performed By: #### L CHAMP TSH #### [facility] [address] [place] [address] Dr. Tierney Rivera UR MICRO IND NOT INDICATED Normal [facility] Comment on above: Performed By: #### L CHAMP TSH #### [facility] [address] [place] [address] Dr. Tierney Rivera Urobilinogen Qn (U) 0.2 {Radu'U}/dL Normal 0.2 - 1. 0 [facility] Comment on above: Performed By: #### Breonna OAKES TSH #### [facility] [address] [place] [address] Dr. Tierney Rivera LACTATE/LACTIC ACIDon 2022 Lactate [Moles/Vol] 1.5 mmol/L Normal 0.4-2.0 [facility] Comment on above: Performed By: #### L ACT #### [facility] [address] [place] [address] Dr. Tierney Rivera PROF 14(COMP METB)on 023 Albumin [Mass/Vol] 4.3 g/dL Normal 3.4-5.0 [facility] Comment on above: Performed By: #### L IVER, TSH #### [facility] [address] [address] [address] Tierney Rivera Albumin/Globulin [Mass ratio] 1.2 {ratio} Normal [facility] Comment on above: Performed By: #### L IVER, TSH #### [facility] [address] [address] [address] Tierney Rivera ALP [Catalytic activity/Vol] 111 U/L Normal 46-116 [facility] Comment on above: Performed By: #### L CHAMP, TSH #### [facility] [address] [address] [address] Tierney Rivera ALT [Catalytic activity/Vol] 23 U/L Normal 14-59 [facility] Comment on above: Performed By: #### L CHAMP, TSH #### [facility] [address] [address] [address] Tierney Rivera Anion gap [Moles/Vol] 11.8 mmol/L Normal [facility] Comment on above: Performed By: #### L CHAMP, TSH #### [facility] [address] [address] [address] Tierney Rivera AST [Catalytic activity/Vol] 22 U/L Normal 15-37 [facility] Comment on above: Performed By: #### L CHAMP, TSH #### [facility] [address] [address] [address] Tierney Rivera Bilirubin [Mass/Vol] 0.4 mg/dL Normal 0.2-1.0 [facility] Comment on above: Performed By: #### L CHAMP, TSH #### [facility] [address] [address] [address] Tierney Rivera Calcium [Mass/Vol] 10.6 mg/dL Critically high 8.5-10.1 [facility] Comment on above: Performed By: #### L IVBISHNU, TSH #### [facility] [address] [address] [address] Tierney Rivera Chloride [Moles/Vol] 103 mmol/L Normal 98-107 [facility] Comment on above: Performed By: #### L CHAMP, TSH #### [facility] [address] [address] [address] Tierney Rivera CO2 [Moles/Vol] 29.2 mmol/L Normal 21.0-32.0 [facility] Comment on above: Performed By: #### L IVER, TSH #### [facility] [address] [address] [address] Tierney Rivera Creatinine [Mass/Vol] 1.13 mg/dL Critically high 0.55-1.02 [facility] Comment on above: Performed By: #### L IVER, TSH #### [facility] [address] [address] [address] Tierney Rivera EGFR-AF SOUTH [place]OREAN 56 mL/min/1.73m2 Critically low >=60 [facility] Comment on above: Performed By: #### L IVER, TSH #### [facility] [address] [address] [address] Tierney Rivera EGFR-NON AF [place]ORE[place] 46 mL/min/1.73m2 Critically low >=60 [facility] Comment on above: Performed By: #### L IVER, TSH #### [facility] [address] [address] [address] Tierney Rivera Globulin (S) [Mass/Vol] 3.7 g/dL Normal [facility] Comment on above: Performed By: #### L IVER, TSH #### [facility] [address] [address] [address] Tierney Rivera Glucose [Mass/Vol] 109 mg/dL Critically high 74-106 [facility] Comment on above: Performed By: #### L IVER, TSH #### [facility] [address] [address] [address] Tierney Rivera Potassium [Moles/Vol] 4.0 mmol/L Normal 3.5-5.1 [facility] Comment on above: Performed By: #### L IVER, TSH #### [facility] [address] [address] [address] Tierney Rivera Protein [Mass/Vol] 8.0 g/dL Normal 6.4-8.2 [facility] Comment on above: Performed By: #### L IVER, TSH #### [facility] [address] [address] [address] Tierney Rivera Sodium [Moles/Vol] 140 mmol/L Normal 136-145 [facility] Comment on above: Performed By: #### L IVER, TSH #### [facility] [address] [address] [address] Tierney Rivera Urea nitrogen [Mass/Vol] 17.0 mg/dL Normal 7.0-18.0 [facility] Comment on above: Performed By: #### L CHAMP, TSH #### [facility] [address] [address] [address] Tierney Rivera Urea nitrogen/Creatinine [Mass ratio] 15.0 mg/mg Normal [facility] Comment on above: Performed By: #### L LILAER, TSH #### [facility] [address] [address] [address] Tierney Rivera TROPONIN, HIGH SENSITIVITYon 01-15-2023 HSTROP 21.6 pg/mL Normal 4.0-51.3 [facility] Comment on above: Result Comment: CUT- OFF POINTS HAVE BEEN ESTABLISHED BASED ON THE FOURTH UNIVERSAL DEFINITIONS OF MYOCARDIAL INFARCTION. THE UPPER REFERENCE LIMIT (URL) OF TROPONIN, DEFINED THE 99TH PERCENTILE OF cTnI DISTRIBUTION IN A REFERENCE POPULATION, HAS BEEN CONFIRMED THE DECISION THRESHOLD FOR [place] DIAGNOSIS. Performed By: #### H STROPN, BNP, CMP #### [facility] [address] [address] [address] Tierney Rivera XR CHEST 1 Von [...] by: CONSTANCE LAI Date: 2023-01-15 00:29 Normal [facility] FREE T4on 10-17-2022 Free T4 [Mass/Vol] 1.49 ng/dL Critically high 0.76-1.46 T [facility] Comment on above: Performed By: #### L IVER, TSH #### [facility] [address] [address] [address] Tierney Rivera LIVER PROFILEon 10-17-2022 Albumin [Mass/Vol] 3.7 g/dL Normal 3.4-5.0 [facility] Comment on above: Performed By: #### L IVER, TSH #### [facility] [address] [address] [address] Tierney Rivera Albumin/Globulin [Mass ratio] 1.1 {ratio} Normal [facility] Comment on above: Performed By: #### L IVER, TSH #### [facility] [address] [address] [address] Tierney Rivera ALP [Catalytic activity/Vol] 104 U/L Normal 46-116 [facility] Comment on above: Performed By: #### L IVER, TSH #### [facility] [address] [address] [address] Tierney Rivera ALT [Catalytic activity/Vol] 27 U/L Normal 14-59 [facility] Comment on above: Performed By: #### L IVER, TSH #### [facility] [address] [address] [address] Tierney Rivera AST [Catalytic activity/Vol] 23 U/L Normal 15-37 [facility] Comment on above: Performed By: #### L IVER, TSH #### [facility] [address] [address] [address] Tierney Rivera BILI, CONJUGATED 0.1 mg/dL Normal 0.0-0.2 [facility] Comment on above: Performed By: #### L IVER, TSH #### [facility] [address] [address] [address] Tierney Rivera Bilirubin [Mass/Vol] 0.4 mg/dL Normal 0.2-1.0 [facility] Comment on above: Performed By: #### L IVER, TSH #### [facility] [address] [address] [address] Tierney Rivera Globulin (S) [Mass/Vol] 3.5 g/dL Normal [facility] Comment on above: Performed By: #### L IVER, TSH #### [facility] [address] [address] [address] Tierney Rivera Protein [Mass/Vol] 7.2 g/dL Normal 6.4-8.2 [facility] Comment on above: Performed By: #### L IVER, TSH #### [facility] [address] [address] [address] Tierney Rivera TSHon 10-17-2022 TSH 1.020 uIU/mL Normal 0.358-3.740 [facility] Comment on above: Performed By: #### L IVER, TSH #### [facility] [address] [address] [address] Tierney Rivera XR CHEST 2 Von [...] FLORENTINO MAURO Date: 2022-10-17 09:46 Normal [facility] Covid-19 PCR (CVDTBH)on SARS-CoV-2 (COVID-19) RNA SEDRICK+probe Ql (Unsp spec) Detected Critically abnormal NOT DETECTED [facility] Comment on above: Result Comment: This test is not yet approved or cleared by the [place] FDA. When there are no FDA-approved or cleared tests available, and other criteria are met, FDA can make tests available under an emergency access mechanism called an Emergency Use Authorization (EUA). The EUA for this test is supported by the [employer] of Health and Human Service's (HHS's) declaration [...] longer be used). Performed By: #### C VDTB #### [facility] [address] [place] [address] Dr. Tierney Rivera INFLUENZA A AND B [facility] Normal [facility] Comment on above: Result Comment: Nega tive for Flu A protein angiten. Infection due to Flu A cannot be ruled out. Flu A angiten in the sample may be below the detection limit of the test. Performed By: #### I NFLUAB #### [facility] [address] [place] [address] Dr. Tierney Rivera INFLUBNEG SEE BELOW Normal [facility] Comment on above: Result Comment: Nega tive for Flu B protein antigen. Infection due to Flu B cannot be ruled out. Flu B antigen in the sample may be below the detection limit of the test. Performed By: #### I NFLUAB #### [facility] [address] [place] [address] Dr. Tierney Rivera INFLUENZA A AG Negative Normal NEGATIVE SEE COMMENT [facility] Comment on above: Performed By: #### I NFLUAB #### [facility] [address] [place] [address] Dr. Tierney Rivera INFLUENZA B AG Negative Normal NEGATIVE SEE COMMENT [facility] Comment on above: Performed By: #### I NFLUAB #### [facility] [address] [place] [address] Dr. Tierney Rivera Cardiovascular Lab Reporton 06-11-2021 Cardiovascular Lab Report [facility]: [id number] Department of Physician: Ehab Cecilia Patel M.D. Division of Service Date: 06/10/2021 Cardiology Birthdate: 1940 Adult Cardiovascular Room #: [facility] [address] [place] [address] Cardiovascular Laboratory Report FINAL IMPRESSION: 1. Angiographically [...] Follow up with Dr. Patel in the [facility]. 8. Follow up with Dr. Mccoy as scheduled. PROCEDURES: Ultrasound-guided access of the right common femoral vein, ultrasound-guided access of right common femoral artery, limited femoral angiography, right heart catheterization, bilateral selective coronary angiography, placement of a 5-Scottish MynxGrip closure device. METHODS: After risks, benefits, and alternatives were explained, written informed consent was obtained. The patient was prepped and draped in usual sterile fashion over both groins. Using 1% lidocaine solution, local infiltration anesthesia was achieved. Using modified Seldinger technique, a micropuncture kit and under ultrasound guidance access to the right common femoral vein was obtained. A 6-Scottish 11 cm sheath was inserted without difficulty. This was repeated over the artery; a 5-Scottish 11 cm sheath was inserted. A Mcdonald catheter was used for right heart catheterization. Pressures were measured in the right atrium, right ventricle, pulmonary artery, and pulmonary capillary wedge positions. Oxygen saturations were obtained and cardiac output/cardiac index was calculated using modified Gisele principle. The Mcdonald catheter was removed. Bilateral selective coronary angiography was performed using 5-Scottish JL4 and JR4 catheters. After reviewing the images, it was elected to conclude the procedure. All catheters were removed. A 5-Scottish MynxGrip closure device was deployed per protocol [...] M.D (more content not included)... Normal [facility] Vital Signs Date Time Vital Sign Value Performing Clinician Faci lity 11-09-2023 13:51-0500 Body height 167.6 cm Hipolito Mendieta DPM Work Phone: [facility] 11-09-2023 13:51-0500 Body mass index (BMI) [Ratio] 17.27 kg/m2 Hipolito Mendieta DPM Work Phone: [facility] 11-09-2023 13:51-0500 Body weight 48.53 kg Hipolito Mendieta DPM Work Phone: [facility] 11-09-2023 13:51-0500 Diastolic blood pressure 81 mm[Hg] Hipolito Mendieta DPM Work Phone: [facility] 11-09-2023 13:51-0500 Heart rate 78 /min Hipolito Mendieta DPM Work Phone: [facility] 11-09-2023 13:51-0500 Systolic blood pressure 120 mm[Hg] Hipolito Mendieta DPM Work Phone: [facility] Healthcare Encounters Encounter Date Encounter Type Care Provider Facility Start: 08-07-2024 End: 08-07-2024 ambulatory AB [facility] Start: 04-11-2024 End: 04-11-2024 ambulatory HIPOLITO MENDIETA Not Available Start: 01-18-2024 End: 01-18-2024 ambulatory HIPOLITO MENDIETA Not Available Start: 11-09-2023 Chart abstracting Hipolito garrido DPM Work Phone: [facility] Start: 11-09-2023 End: 11-09-2023 Patient encounter procedure Hipolito Mendieta DPM Work Phone: [facility] Comment on above: Verruca plantaris (P rimary Dx); Foot pain, left; Onychomycosis; Toe pain, bilateral Start: 11-09-2023 End: 11-09-2023 ambulatory HIPOLITO MENDIETA Not Available Start: 10-12-2023 End: 10-12-2023 ambulatory HIPOLITO MENDIETA Not Available Start: 09-28-2023 End: 09-28-2023 ambulatory HIPOLITO MENDIETA Not Available Start: 09-14-2023 End: 09-14-2023 ambulatory HIPOLITO MENDIETA Not Available Start: 08-31-2023 End: 08-31-2023 ambulatory HIPOLITO MENDIETA Not Available Start: 08-23-2023 End: 08-23-2023 [facility] Start: 01-26-2023 End: 01-27-[address] GERBER MCCOY . Facility:[facility] Start: 01-15-2023 End: 01-15-[address] CYNTHIA ROMERO . Facility:[facility] Start: 10-17-2022 End: 10-18-[address] GERBER MCCOY . Facility:[facility] Start: 09-27-2022 End: 09-27-[address] GERBER MCCOY . Facility:[facility] Start: 06-10-2021 End: 06-11-2021 [facility] Plan of Treatment Date Care Activity Detail Author Start: 11-09-2023 End: 11-09-2023 Patient encounter procedure 11/09/2023 1:50 PM EST Procedure Visit [facility] [address] [facility] [address] [place] [address] Hipolito Mendieta, DPM [address] [facility] [address] [place] [address] [facility] Payers Date Payer Category Payer Unknown [employer] [place] [employer] [id number] 2023-Present [address] [id number] 2018 Unknown [id number] 2006 Medicare MEDICARE MEDICAR E PART B [id number] 2006-[place] [address] [place] [address] Medicare [id number] 1959 Medicare [id number] 1959 Unknown [id number] 1940 Unknown [id number] 1940 Unknown [id number] 1940 Unknown [id number] 1941 Unknown [id number] 1941 Unknown [id number] 1941 Unknown [id number] 9 1941 Unknown [id number] [id number] 9 1941 Unknown [id number] [id number] 9 1941 Unknown [id number] [id number] 9 1941 Unknown [id number] [id number] 9 1941 Unknown [id number] [id number] 9 1940 Unknown [id number] 9 Social History Date Type Detail Facility Start: 08-31-2023 Tobacco smoking stat [facility] Tobacco smoking consumption unknown [facility] Start: 10-12-2023 End: 11-09-2023 Alcohol intake Defer [facility] Healthcare Start: 1940 Sex Assigned At Not on file [facility] Gender identity Not on file [facility] are Progress note 08-07-2024 Note Date & Type Note Facility 08-07-2024 Note [facility] Cardiology Clinic Note Chief Complaint: Patient here for 1 year follow up CAD, PAF, and mitral valve regurgitation. She had an echo in Aug 2023 after last apt. She was seen in [facility] ED twice in Sep 2023 for afib. Routine labs w/ lipid profile were drawn in January 2024. Routine amiodarone testing was done last month. Patient denies chest pain, SOB, palpitations, lightheadedness/syncope, and bleeding on Eliquis. Doing well. HPI: Lucille Escobedo is a 84 y.o. female with a history of severe mitral regurgitation, mild coronary artery disease, hypertension and paroxysmal atrial fibrillation here in routine follow-up Doing well; has no cardiovascular complaints. I was upset to hear her in March of this year. He apparently was diagnosed with malignant melanoma a year before and subsequently diagnosed with lymphoma. UPDATE 08/07/2024 Remarkably, doing very well. Denies chest pain, has had no shortness of breath, no orthopnea, no paroxysmal external dyspnea no leg swelling Had an episode of fast heart rates a few months ago; this resolved spontaneously Cardiology ROS: Review of Systems Musculoskeletal: Positive for arthritis, back pain and joint pain. All other systems reviewed and are negative. Past Medical History She has a past medical history of Abnormal ECG, Arrhythmia, Atrial fibrillation (CMS/HCC), Coronary artery disease, Heart valve disease, Hypertension, LBBB (left bundle branch block), and Paroxysmal supraventricular tachycardia. Surgical History She has a past surgical [...] mg tablet, Take 75 mg by mouth in the morning., Disp: , Rfl: levothyroxine (Synthroid, Levoxyl) 50 mcg tablet, Take 50 mcg by mouth every other day., Disp: , Rfl: metoprolol tartrate (Lopressor) 25 mg tablet, Take 25 mg by mouth., Disp: , Rfl: potassium chloride CR (Klor-Con) 10 mEq ER tablet, Take 1 tablet by mouth in the morning., Disp: , Rfl: Last Recorded Vitals BP 156/66 (BP Location: Left arm, Patient Position: Sitting) Pulse 50 Ht 1.676 m (5' 6 ) Wt 49 kg (108 lb) SpO2 98% BMI 17.43 kg/m??? Physical Examination: GENERAL: alert and oriented [...] regurgitation. Moderate to severe mitral regurgitation. Transesophageal Echocardiogram-[facility] Name: LUCILLE ESCOBEDO Study Date: 06/10/2021 10:12 AM B/P: 126 mmHg/68 mmHg HR: Date of : 1940 Location: [facility] Height: 66 in. Age: 81 year(s) Patient Room : Weight: 135 lb. Gender: Female Patient Status: OutPt BSA: 1.69 m2 Indication: Atrial Fibrillation Examination: TUAN/CFI with Cardioversion Image Quality: Good Patient Consent: Informed, written consent was obtained for the procedure s p @ c 3 Exam Location: A TUAN was performed in the [employer] without complications s p @ c 3 Anesthesia Pharyngeal anesthesia with viscous Lidocaine Conclusions Left Ventricle: The left ventricle is normal size. Global left ventricular systolic function is severely reduced. The EF is 20 % visually. Diffuse global hypokinesis. Right Ventricle: The right ventricle is normal in size. Right ventricular systolic function appea (more content not included)... [facility] History of Present illness Narrative 11-09-2023 Hipolito Mendieta DPM - 11/09/2023 1:50 PM EST Note Date & Type Note Facility 11-09-2023 History of Presen t illness Narrative Patient: Lucille Lemonels : 1940 PCP: Gerber Mccoy MD SUBJECTIVE [...] History: Past Medical History: Diagnosis Date Hypertension ([facility]/HCC) Medications: Current Outpatient Medications: amiodarone (Pacerone) 200 [...] route for 85 days., Disp: , Rfl: plgnxrfgmvrh-ibbm-hwitkvqe-folic acid (Centrum Silver, geriatric,) tablet, as directed [...] Hipolito Mendieta DPM documented in this encounter [facility] note 11-29-2023 Note Date & Type Note Facility 08-23-2023 Note [facility] Cardiology Clinic Note Chief Complaint: Patient here for 6 mo follow up CAD, PAF, and mitral valve regurgitation. She was kept overnight for observation in May 2023 at [facility], and declined transfer to [facility] for cardioversion. Patient does not remember this [...] regurgitation. Moderate to severe mitral regurgitation. Transesophageal Echocardiogram-[facility] Name: LUCILLE ESCOBEDO Study Date: 06/10/2021 10:12 AM B/P: 126 mmHg/68 mmHg HR: Date of : 1940 Location: [facility] Height: 66 in. Age: 81 year(s) Patient Room : Weight: 135 lb. Gender: Female Patient Status: OutPt BSA: 1.69 m2 Indication: Atrial Fibrillation Examination: TUAN/CFI with Cardioversion Image Quality: Good Patient Consent: Informed, written consent was obtained for the procedure s p @ c 3 Exam Location: A TUAN was performed in the [employer] without complications s p @ c 3 [...] atrial appendage, no (more content not included)... [facility] Evaluation note Note Date & Type Note Facility Evaluation note Diagnosis Verruca plantaris- Primary Plantar [...] and content) DATE CREATED AUTHOR 06/15/2021 [facility] DATE CREATED AUTHOR AUTHOR'S ORGANIZ ATION 02/02/2023 [facility] DATE CREATED AUTHOR AUTHOR'S ORGANIZ ATION 04/15/2024 [facility] EPIC DATE CREATED AUTHOR AUTHOR'S ORGANIZ ATION 08/09/2024 [facility] Care Teams (unrecognized sec tion and content) Financial Risk Manager Relationship Specialty Start Date End Date Gerber Mccyo MD [address] [place] [address] PCP - General Family Medicine 08/31/23 Financial Risk Manager Relationship Specialty Start Date End Date Gerber Mccoy MD [address] [place] [address] PCP - General Family Medicine 08/31/23 Reason [...] BE BASED ON THE PRIMARY CLINICAL RECORDS. [facility]. provides no warranty or guarantee of the accuracy or completeness of information in this document.
[2024-08-14 11:11] LABS: Anion Gap 14.8; BUN Creatinine Ratio 17.2; Calcium 9.5 mg/dL (8.5-10.1); Carbon Dioxide 27.8 mmol/L (21.0-32.0); Chloride 105 mmol/L (98-107); Estimated GFR (African America 51 (>=60 mL/min/1.73m^2); Estimated GFR (Non-African Ame 42 (>=60 mL/min/1.73m^2); Glucose 85 mg/dL (74-106); Potassium 4.6 mmol/L (3.5-5.1); Sodium 143 mmol/L (136-145)
== END 2024-08-14 10:32 | disposition home or self-care (01) ==
LOC: LAB 10:31
PROVIDERS: PCP Family Medicine; Visit Provider Internal Medicine Interventional Cardiology
DX: I50.41 Acute combined systolic (congestive) and diastolic (congestive) heart failure (principal)
CPT/HCPCS: 36415; 80048

== ENCOUNTER 2025-01-28 10:14 | Outpatient (OUT) | payer MEDICARE, OTHER, SELFPAY ==
[2025-01-28 11:01] LABS: Basophils Percent Auto 0.5 % (0.2-2.0); Eosinophils Absolute Auto 0.1 10^3/uL (0.0-0.7); Eosinophils Percent Auto 1.4 % (0.9-7.0); Hematocrit 44.5 % (36.0-48.0); Hemoglobin 14.6 g/dL (12.0-16.0); Immature Granulocytes Abs Auto 0.01 10^3/uL (0.00-0.03); Immature Granulocytes Pct Auto 0.2 % (0.0-0.5); Lymphocytes Absolute Auto 1.2 10^3/uL (1.2-3.8); Lymphocytes Percent Auto 17.8 % (20.5-60.0); Mean Corpuscular HGB Conc 32.8 g/dL (29.9-35.2); Mean Corpuscular Hemoglobin 30.4 pg (26.7-34.0); Mean Corpuscular Volume 92.5 fL (81.0-99.0); Mean Platelet Volume 11.2 fL (9.5-13.5); Monocytes Absolute Auto 0.8 10^3/uL (0.3-0.8); Monocytes Percent Auto 12.4 % (1.7-12.0); Neutrophils Absolute Auto 4.4 10^3/uL (1.4-6.5); Neutrophils Percent Auto 67.7 % (43.0-75.0); Platelet Count 219 10^3/uL (150-450); Red Blood Count 4.81 10^6/uL (4.20-5.40); Red Cell Distribution Width 13.2 % (11.0-15.0); White Blood Count 6.5 10^3/uL (4.0-11.0)
[2025-01-28 11:05] LABS: Bilirubin Urine NEGATIVE (NEGATIVE); Blood Urine NEGATIVE (NEGATIVE); Clarity Urine CLEAR (CLEAR); Color Urine LT. YELLOW (YELLOW); Glucose Urine UA >=1000 mg/dL (NEGATIVE); Ketones Urine NEGATIVE (NEGATIVE); Leukocyte Esterase Urine NEGATIVE (NEGATIVE); Nitrite Urine NEGATIVE (NEGATIVE); Protein Urine NEGATIVE (NEG/TRACE); Specific Gravity Urine 1.025 (1.005-1.025); Urobilinogen Urine 0.2 EU/dL (0.2-1.0); pH Urine 5.5 (5.0-9.0)
[2025-01-28 11:28] LABS: Alanine Aminotransferase 27 U/L (14-59); Albumin Globulin Ratio 1.2; Albumin Level 3.8 g/dL (3.4-5.0); Alkaline Phosphatase 100 U/L (46-116); Anion Gap 11.8; Aspartate Amino Transferase 22 U/L (15-37); BUN Creatinine Ratio 18.8; Bilirubin Total 0.6 mg/dL (0.2-1.0); Calcium 9.8 mg/dL (8.5-10.1); Carbon Dioxide 31.4 mmol/L (21.0-32.0); Chloride 104 mmol/L (98-107); Estimated GFR (African America 54 (>=60 mL/min/1.73m^2); Estimated GFR (Non-African Ame 44 (>=60 mL/min/1.73m^2); Globulin 3.3 g/dL; Glucose 95 mg/dL (74-106); Potassium 4.2 mmol/L (3.5-5.1); Sodium 143 mmol/L (136-145); Thyroid Stimulating Hormone 0.577 uIU/mL (0.358-3.740); Total Protein 7.1 g/dL (6.4-8.2)
[2025-01-28 11:54] LABS: Free T4 1.33 ng/dL (0.76-1.46)
== END 2025-01-28 10:15 | disposition home or self-care (01) ==
LOC: LAB 10:16
PROVIDERS: PCP Family Medicine; Visit Provider Internal Medicine Interventional Cardiology
DX: N39.0 Urinary tract infection, site not specified (principal); I50.41 Acute combined systolic (congestive) and diastolic (congestive) heart failure
CPT/HCPCS: 36415; 80053; 81003; 84439; 84443; 85025; 87086

== ENCOUNTER 2025-02-10 09:33 | Outpatient (OUT) | payer MEDICARE, OTHER, SELFPAY ==
--- NOTE | 2025-02-10 09:38 | XR_ITS ---
[place] [id number] Patient Name: RAFIA KNOWLES MRN: [id number] date: 1940 Sex: F Assigned Patient Location: [facility] Current Patient Location: [facility] Accession/Order Number: [id number] Exam Date: 02/10/2025 09:58 Report Date: 02/10/2025 09:59 At the request of: IEVLISSE OLVERA MD Procedure: XR chest 2V XR chest 2V 02/10/2025 9:52 AM SIGNS AND SYMPTOMS: ^Shelter Use Of Amiodarone PROTOCOL: Frontal and lateral radiographs of the chest COMPARISON: 06/28/2024 FINDINGS: The trachea is midline. The heart and mediastinal structures are within normal limits. The lung parenchyma is clear. The bony thorax is intact. XR/XR chest 2V IMPRESSION: No acute cardiopulmonary pathology. Impression dictated by: Willian Beyer M.D. 02/10/2025 9:59 AM Dictation Location: [place] [address] Electronically authenticated by: [id number] Y Date: 02/10/2025 09:59
--- OUTSIDE RECORDS SUMMARY | 2025-02-10 09:41 | XMS_ITS | CCD ---
Author Organization 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 Architect Name Role Phone ELTAHAWY, EHAB A Attending Unavailable ELTAHAWY, EHAB A Admitting Unavailable MANUELAY, GERBER Referring Unavailable MANUELAY, GERBER Primary Care Unavailable HOY ., DR MAYES Primary Care Unavailable SHANTEL GARCIA Attending Unavailable JOSE, SHANTEL Admitting Unavailable POINT ROBERTS, DR FLORENTINO Mello Consulting Unavailable JOSE, SHANTEL [...] Unavailable Gerber Mccoy MD Primary Care Provider [phone] [place]tahawy, Ehab A Attending Provider [place]tahawy, Ehab A Attending Unavailable [place]tahawy, Ehab A Admitting Unavailable ELTAHAWY, TERRENCEAB Attending Unavailable ELTAHAWY, EHAB Attending Unavailable Gerber Mccoy MD Primary Care Provider [phone] HIPOLITO MENDIETA Attending Unavailable HIPOLITO MENDIETA Attending Unavailable HIPOLITO MENDIETA Attending Unavailable HIPOLITO MENDIETA Attending Unavailable HIPOLITO MENDIETA Attending Unavailable Allergies Allergy Classification Reported Allergen(s) Allergy Type Date of Onset Reaction(s) Facility (3 sources) Angiotensin Converting Enzyme (Hossein) Inhibitors; Translations: [HOSSEIN INHIBITORS] Drug allergy (disorder) 2 [facility] (3 sources) Sulfonamides (Antibiotic); Translations: [SULFA (SULFONAMIDE ANTIBIOTICS)] Drug allergy (disorder) 2 [facility] (10 sources) Angiotensin-conve rting enzyme inhibitor agent Drug Allergy 4 Other, Unknown [facility] (10 sources) Sulfonamides (Antibiotic) Drug Allergy 4 Other, Unknown [facility] (11 sources) Verapamil; Translations: [VERAPAMIL] Drug Allergy 4 Unknown [facility] Healthcare Medications Current Medications Medication Drug Class(es) Dates Sig (Normalized) Sig (Original) amiodarone hydrochloride 200 mg oral tablet (10 sources) Antiarrhythmic Start: 06-26-2023 take 1 tablet by mouth in the morning amiodarone (Pacerone) 200 MG tablet Take 200 mg by mouth in the morning. 06/26/2023 Active apixaban 2.5 mg oral tablet (10 sources) Factor Xa Inhibitor Start: 07-25-2023 take 1 tablet by mouth in the morning Eliquis 2.5 MG tablet Take 2.5 mg by mouth in the morning and 2.5 mg before bedtime. 07/25/2023 Active furosemide 20 mg oral tablet (10 sources) Loop Diuretic Start: 06-26-2023 take 1 tablet by mouth in the morning furosemide (Lasix) 20 MG tablet Take 20 mg by mouth in the morning. 06/26/2023 Active irbesartan 75 mg oral tablet (10 sources) Angiotensin 2 Receptor Willis Start: 06-26-2023 take 1 tablet by mouth in the morning irbesartan (Avapro) 75 MG tablet Take 75 mg by mouth in the morning. 06/26/2023 Active levothyroxine sodium 0.05 mg oral tablet (10 sources) l-Thyroxine take 1 tablet by mouth in the morning levothyroxine (Synthroid, Levoxyl) 50 MCG tablet Take 1 tablet by mouth in the morning. Active metoprolol tartrate 25 mg oral tablet (10 sources) beta-Adrenergic Willis take 1 tablet by mouth once daily metoprolol tartrate (Lopressor) 25 MG tablet Take 1 tablet every day by oral route for 85 days. Active fiymzecosugj-lpzf-g inerals-folic acid (Centrum Silver, geriatric,) tablet (10 sources) multivitamin-iro n- minerals-folic acid (Centrum Silver, geriatric,) tablet as directed Orally Active multivitamin-iro a-bsknrrjk-lcanl acid (Centrum Silver, geriatric,) tablet as directed Orally 0 Active potassium chloride 10 meq extended release oral tablet (10 sources) Start: 06-26-2023 take 1 tablet by mouth in the morning potassium chloride CR (Klor-Con) 10 MEQ ER tablet Take 10 mEq by mouth in the morning. 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; Translations: [HTN HEART DISEASE W/HEART FAIL] Onset: 02-01-2023 Chronic Mycoses (5 sources) Onychomycosis; Translations: [Tinea unguium] 11-08-2023 Episodic Nutritional deficiencies (1 source) Vitamin D deficiency, unspecified; Translations: [VITAMIN D DEFICIENCY UNSPECIFIED] Onset: 02-01-2023 Chronic Other aftercare (1 source) [facility] (current) use of anticoagulants; Translations: [LONGTERM CURRNT USE ANTICOAGULANTS] Onset: 01-17-2023 Episodic Other aftercare (5 sources) Other residential (current) drug therapy; Translations: [OTH LONGTERM CURRENT DRUG THERAPY] Onset: 10-17-2022 Episodic Other aftercare (1 source) 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; 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] Onset: 01-17-2023 Episodic Other connective tissue disease (2 sources) Pain in left foot; Translations: [Pain in left foot] 11-08-2023 Episodic Other connective tissue disease (2 sources) Pain of toes of bilateral feet; Translations: [...] COUGH, UNSPECIFIED; Translations: [COUGH, UNSPECIFIED] Onset: 09-30-2022 Urinary tract infections (2 sources) Urinary tract infection, site not specified; Translations: [Urinary tract infection, site not specified] Onset: 01-28-2025 Episodic Viral infection (2 sources) Verruca plantaris; Translations: [Plantar wart] 11-08-2023 Episodic [...] Name Value Interpretation Reference Range Facility 36on 02-03-2025 36 Regarding lab result s from 01/28/2025: MD Alejandra Hansen MA Please reassure her that her urine does not appear to have any infection. Her labs really would not explain her excessive fatigue. Would recommend following up with Dr. Mccoy as mentioned. Thank you. Patient informed. She verbalized understanding. [facility] Office Visiton 01-28-2025 Follow-up visit [id number] Alfa Escobedo 1940 F Date Provider Department Center 01/28/2025 KAYA STEELE Family History Problem Relation Age of Onset Diabetes Mother Hypertension Mother Hypertension Father Diabetes Sister Heart attack Maternal Grandmother Family Status - Relation Status Age at Mother Father Sister Maternal Grandmother Level of Service:19518 [place] OFFICE/OUTPATIENT ESTABLISHED MOD MDM 30 MIN [facility] Urine Cultureon 01-28-2025 Bacteria identified Cx Nom (U) No Growth 2 Days PERFORMED BY: [place] [address] PATHOLOGIST DICTATING TRANSCRIBING MACHINE SERVICER NINA CM M.D. Normal [facility] Comment on above: Performed By: #### C UU #### [facility] [address] [place] [address] 36on 08-15-2024 36 Regarding lab result s from 08/14/2024: MD Alejandra Hansen MA S.cr was 1.24, now 1.22 - continue medical rx Thanks LM on . [facility] Office Visiton 08-07-2024 Follow-up visit [id number] Alfa Escobedo 1940 F Date Provider Department Center 08/07/2024 KAYA STEELE Family History Problem Relation Age of Onset Diabetes Mother Hypertension Mother Hypertension Father Diabetes Sister Heart attack Maternal Grandmother Family Status - Relation Status Age at Mother Father Sister Maternal Grandmother Level of Service:60231 [place] OFFICE/OUTPATIENT ESTABLISHED MOD MDM 30 MIN [facility] 36on 07-01-2024 36 Regarding labs from 06/28/2024: MD Alejandra Hansen MA Her free T4 is high; she needs to discuss with whoever is managing her thyroid medications Thanks Labs faxed to Dr. Mccoy's office on . I called his office just now to confirm they received results. [facility] BNPon 01-26-2023 Natriuretic peptide B (Bld) [Mass/Vol] 1751.0 pg/mL Normal <=1,800.0 [facility] Comment on above: Performed By: #### L IVER, TSH #### [facility] [address] [place] [address] Dr. Tierney Rivera CBC AUTO DIFFon 01-26-2023 BASO # 0.0 103/ul Normal 0.0-0.1 [facility] Comment on above: Performed By: #### C BC #### [facility] [address] [place] [address] Dr. Tierney Rivera Basophils/100 WBC (Bld) 0.3 % Normal 0.2-2.0 [facility] Comment on above: Performed By: #### C BC #### [facility] [address] [place] [address] Dr. Tierney Rivera EO # 0.1 103/ul Normal 0.0-0.7 [facility] Comment on above: Performed By: #### C BC #### [facility] [address] [place] [address] Dr. Tierney Rivera Eosinophils/100 WBC (Bld) 2.3 % Normal 0.9-7.0 [facility] Comment on above: Performed By: #### C BC #### [facility] [address] [place] [address] Dr. Tierney Rivera Erythrocyte distribution width (RBC) [Ratio] 13.1 % Normal 11.0-15.0 [facility] Comment on above: Performed By: #### C BC #### [facility] [address] [place] [address] Dr. Tierney Rivera Hematocrit (Bld) [Volume fraction] 43.5 % Normal 36.0-48.0 [facility] Comment on above: Performed By: #### C BC #### [facility] [address] [place] [address] Dr. Tierney Rivera Hemoglobin (Bld) [Mass/Vol] 13.9 g/dL Normal 12.0-16.0 [facility] Comment on above: Performed By: #### C BC #### [facility] [address] [place] [address] Dr. Tierney Rivera IG # 0.02 10e3/ul Normal 0.00-0.03 [facility] Comment on above: Performed By: #### C BC #### [facility] [address] [place] [address] Dr. Tierney Rivera IG % 0.3 % Normal 0.0-0.5 [facility] Comment on above: Performed By: #### C BC #### [facility] [address] [place] [address] Dr. Tierney Rivera LYMPH # 1.2 103/ul Normal 1.2-3.8 [facility] Comment on above: Performed By: #### C BC #### [facility] [address] [place] [address] Dr. Tierney Rivera Lymphocytes/100 WBC (Bld) 20.6 % Normal 20.5-60.0 [facility] Comment on above: Performed By: #### C BC #### [facility] [address] [place] [address] Dr. Tierney Rivera MANUAL DIFF REQ NO Normal [facility] Comment on above: Performed By: #### C BC #### [facility] [address] [place] [address] Dr. Tierney Rivera MCH (RBC) [Entitic mass] 29.4 pg Normal 26.7-34.0 [facility] Comment on above: Performed By: #### C BC #### [facility] [address] [place] [address] Dr. Tierney Rivera MCHC (RBC) [Mass/Vol] 32.0 g/dL Normal 29.9-35.2 [facility] Comment on above: Performed By: #### C BC #### [facility] [address] [place] [address] Dr. Tierney Rivera MCV (RBC) [Entitic vol] 92.2 fL Normal 81.0-99.0 [facility] Comment on above: Performed By: #### C BC #### [facility] [address] [place] [address] Dr. Tierney Rivera MONO # 0.6 103/ul Normal 0.3-0.8 [facility] Comment on above: Performed By: #### C BC #### [facility] [address] [place] [address] Dr. Tierney Rivera Monocytes/100 WBC (Bld) 10.2 % Normal 1.7-12.0 [facility] Comment on above: Performed By: #### C BC #### [facility] [address] [place] [address] Dr. Tierney Rivera NEUT # 3.8 103/ul Normal 1.4-6.5 [facility] Comment on above: Performed By: #### C BC #### [facility] [address] [place] [address] Dr. Tierney Rivera Neutrophils/100 WBC (Bld) 66.3 % Normal 43.0-75.0 [facility] Comment on above: Performed By: #### C BC #### [facility] [address] [place] [address] Dr. Tierney Rivera Platelet mean volume (Bld) [Entitic vol] 11.2 fL Normal 9.5-13.5 [facility] Comment on above: Performed By: #### C BC #### [facility] [address] [place] [address] Dr. Tierney Rivera PLT 253 103/ul Normal 150-450 [facility] Comment on above: Performed By: #### C BC #### [facility] [address] [place] [address] Dr. Tierney Rivera RBC 4.72 106/ul Normal 4.20-5.40 [facility] Comment on above: Performed By: #### C BC #### [facility] [address] [place] [address] Dr. Tierney Rivera WBC 5.8 103/ul Normal 4.0-11.0 [facility] Comment on above: Performed By: #### C BC #### [facility] [address] [place] [address] Dr. Tierney Rivera FREE THYROXINE INDEX T7on FTI 5.18 Critically high 1.30-4.50 [facility] Comment on above: Performed By: #### L CHAMP, TSH #### [facility] [address] [place] [address] Dr. Tierney Rivera T3U 36.0 % Normal 30.0-39.0 [facility] Comment on above: Performed By: #### L IVER, TSH #### [facility] [address] [address] [address] Tierney Rivera T4 [Mass/Vol] 14.40 ug/dL Critically high 4.80-13.90 [facility] Comment on above: Performed By: #### L IVER, TSH #### [facility] [address] [address] [address] Tierney Rivera GLYCOHEMOGLOBIN A1Con 2022 ADA RECOMMENDATION SEE BELOW Normal [facility] Comment on above: Result Comment: ADA RECOMMENDED LIMIT 4.0 - 6.0 ADA THERAPEUTIC TARGET < 7.0 ACTION SUGGESTED > 7.0 Performed By: #### L IVER, TSH #### [facility] [address] [place] [address] Dr. Tierney Rivera Glucose [Mass/Vol] 117 mg/dL Normal [facility] Comment on above: Performed By: #### L IVER, TSH #### [facility] [address] [address] [address] Tierney Rivera HbA1c (Bld) [Mass fraction] 5.7 % Normal 4.5-6.2 [facility] Comment on above: Performed By: #### L IVER, TSH #### [facility] [address] [address] [address] Tierney Rivera IRONon 01-26-2023 Iron [Mass/Vol] 67.0 ug/dL Normal 50.0-170.0 [facility] Comment on above: Performed By: #### V ITAD, IRON #### [facility] [address] [address] [address] Tierney Rivera PROF 14(COMP METB)on 023 Albumin [Mass/Vol] 4.0 g/dL Normal 3.4-5.0 [facility] Comment on above: Performed By: #### L IVER, TSH #### [facility] [address] [place] [address] Dr. Tierney Rivera Albumin/Globulin [Mass ratio] 1.1 {ratio} Normal [facility] Comment on above: Performed By: #### L CHAMP, TSH #### [facility] [address] [address] [address] Tierney Rivera ALP [Catalytic activity/Vol] 98 U/L Normal 46-116 [facility] Comment on above: Performed By: #### L CHAMP, TSH #### [facility] [address] [address] [address] Tierney Rivera ALT [Catalytic activity/Vol] 29 U/L Normal 14-59 [facility] Comment on above: Performed By: #### L CHAMP, TSH #### [facility] [address] [place] [address] Dr. Tierney Rivera Anion gap [Moles/Vol] 11.7 mmol/L Normal [facility] Comment on above: Performed By: #### Breonna OAKES, TSH #### [facility] [address] [place] [address] Dr. Tierney Rivera AST [Catalytic activity/Vol] 22 U/L Normal 15-37 [facility] Comment on above: Performed By: #### L CHAMP TSH #### [facility] [address] [address] [address] Tierney Rivera Bilirubin [Mass/Vol] 0.4 mg/dL Normal 0.2-1.0 [facility] Comment on above: Performed By: #### Breonna OAKES, TSH #### [facility] [address] [address] [address] Tierney Rivera Calcium [Mass/Vol] 10.1 mg/dL Normal 8.5-10.1 [facility] Comment on above: Performed By: #### L CHAMP, TSH #### [facility] [address] [address] [address] Tierney Rivera Chloride [Moles/Vol] 103 mmol/L Normal 98-107 [facility] Comment on above: Performed By: #### L CHAMP, TSH #### [facility] [address] [place] [address] Dr. Tierney Rivera CO2 [Moles/Vol] 30.5 mmol/L Normal 21.0-32.0 [facility] Comment on above: Performed By: #### L CHAMP, TSH #### [facility] [address] [address] [address] Tierney Rivera Creatinine [Mass/Vol] 1.15 mg/dL Critically high 0.55-1.02 [facility] Comment on above: Performed By: #### L CHAMP, TSH #### [facility] [address] [place] [address] Dr. Tierney Rivera EGFR-AF ROMANIAN 55 mL/min/1.73m2 Critically low >=60 [facility] Comment on above: Performed By: #### L CHAMP, TSH #### [facility] [address] [place] [address] Dr. Tierney Rivera EGFR-NON AF ROMANIAN 45 mL/min/1.73m2 Critically low >=60 [facility] Comment on above: Performed By: #### L CHAMP, TSH #### [facility] [address] [place] [address] Dr. Tierney Rivera Globulin (S) [Mass/Vol] 3.8 g/dL Normal [facility] Comment on above: Performed By: #### L CHAMP, TSH #### [facility] [address] [place] [address] Dr. Tierney Rivera Glucose [Mass/Vol] 97 mg/dL Normal 74-106 [facility] Comment on above: Performed By: #### L CHAMP, TSH #### [facility] [address] [place] [address] Dr. Tierney Rivera Potassium [Moles/Vol] 4.2 mmol/L Normal 3.5-5.1 [facility] Comment on above: Performed By: #### L CHAMP, TSH #### [facility] [address] [place] [address] Dr. Tierney Rivera Protein [Mass/Vol] 7.8 g/dL Normal 6.4-8.2 [facility] Comment on above: Performed By: #### L CHAMP, TSH #### [facility] [address] [place] [address] Dr. Tierney Rivera Sodium [Moles/Vol] 141 mmol/L Normal 136-145 [facility] Comment on above: Performed By: #### L CHAMP, TSH #### [facility] [address] [place] [address] Dr. Tierney Rivera Urea nitrogen [Mass/Vol] 18.0 mg/dL Normal 7.0-18.0 [facility] Comment on above: Performed By: #### L CHAMP, TSH #### [facility] [address] [place] [address] Dr. Tierney Rivera Urea nitrogen/Creatinine [Mass ratio] 15.7 mg/mg Normal [facility] Comment on above: Performed By: #### L CHAMP, TSH #### [facility] [address] [place] [address] Dr. Tierney Rivera TSHon 01-26-2023 TSH 2.066 uIU/mL Normal 0.358-3.740 [facility] Comment on above: Performed By: #### L CHAMP, TSH #### [facility] [address] [place] [address] Dr. Tierney Rivera VITAMIN D 25 OHon 01-26-2023 VIT D 25-OH 45.0 ng/mL Normal [facility] Comment on above: Performed By: #### V SHANNEN, IRON #### [facility] [address] [place] [address] Dr. Tierney Rivera VIT D RANGES SEE BELOW Normal [facility] Comment on above: Result Comment: <20 ng/mL Vit D deficient 20 - <30 ng/mL Vit D insufficient 30 - 100 ng/mL Vit D sufficient >100 ng/mL Potential Toxicity Performed By: #### V ITAD, IRON #### [facility] [address] [place] [address] Dr. Tierney Rivera BNPon 01-15-2023 Natriuretic peptide B (Bld) [Mass/Vol] 868.0 pg/mL Normal <=1,800.0 [facility] Comment on above: Performed By: #### H STROPN, BNP, CMP #### [facility] [address] [place] [address] Dr. Tierney Rivera CBC AUTO DIFFon 01-15-2023 BASO # 0.0 103/ul Normal 0.0-0.1 [facility] Comment on above: Performed By: #### L IVER, TSH #### [facility] [address] [place] [address] Dr. Tierney Rivera Basophils/100 WBC (Bld) 0.3 % Normal 0.2-2.0 [facility] Comment on above: Performed By: #### L IVER, TSH #### [facility] [address] [place] [address] Dr. Tierney Rivera EO # 0.1 103/ul Normal 0.0-0.7 [facility] Comment on above: Performed By: #### L IVER, TSH #### [facility] [address] [place] [address] Dr. Tierney Rivera Eosinophils/100 WBC (Bld) 1.7 % Normal 0.9-7.0 [facility] Comment on above: Performed By: #### L IVER, TSH #### [facility] [address] [place] [address] Dr. Tierney Rivera Erythrocyte distribution width (RBC) [Ratio] 13.2 % Normal 11.0-15.0 [facility] Comment on above: Performed By: #### L IVER, TSH #### [facility] [address] [place] [address] Dr. Tierney Rivera Hematocrit (Bld) [Volume fraction] 45.1 % Normal 36.0-48.0 [facility] Comment on above: Performed By: #### L IVER, TSH #### [facility] [address] [place] [address] Dr. Tierney Rivera Hemoglobin (Bld) [Mass/Vol] 15.1 g/dL Normal 12.0-16.0 [facility] Comment on above: Performed By: #### L IVER, TSH #### [facility] [address] [place] [address] Dr. Tierney Rivera IG # 0.01 10e3/ul Normal 0.00-0.03 [facility] Comment on above: Performed By: #### L IVER, TSH #### [facility] [address] [place] [address] Dr. Tierney Rivera IG % 0.2 % Normal 0.0-0.5 [facility] Comment on above: Performed By: #### L IVER, TSH #### [facility] [address] [place] [address] Dr. Tierney Rivera LYMPH # 2.2 103/ul Normal 1.2-3.8 [facility] Comment on above: Performed By: #### L IVER, TSH #### [facility] [address] [place] [address] Dr. Tierney Rivera Lymphocytes/100 WBC (Bld) 32.5 % Normal 20.5-60.0 [facility] Comment on above: Performed By: #### L IVER, TSH #### [facility] [address] [place] [address] Dr. Tierney Rivera MANUAL DIFF REQ NO Normal [facility] Comment on above: Performed By: #### L IVBISNHU, TSH #### [facility] [address] [place] [address] Dr. Tierney Rivera MCH (RBC) [Entitic mass] 30.0 pg Normal 26.7-34.0 [facility] Comment on above: Performed By: #### L IVBISHNU, TSH #### [facility] [address] [place] [address] Dr. Tierney Rivera MCHC (RBC) [Mass/Vol] 33.5 g/dL Normal 29.9-35.2 [facility] Comment on above: Performed By: #### L IVER, TSH #### [facility] [address] [place] [address] Dr. Tierney Rivera MCV (RBC) [Entitic vol] 89.7 fL Normal 81.0-99.0 [facility] Comment on above: Performed By: #### L IVER, TSH #### [facility] Laboratory [address] [place] [address] Dr. Tierney Rivera MONO # 0.8 103/ul Normal 0.3-0.8 [facility] Comment on above: Performed By: #### L CHAMP, TSH #### [facility] Laboratory [address] [place] [address] Dr. Tierney Rivera Monocytes/100 WBC (Bld) 12.6 % Critically high 1.7-12.0 [facility] Comment on above: Performed By: #### L CHAMP, TSH #### [facility] Laboratory [address] [place] [address] Dr. Tierney Rivera NEUT # 3.5 103/ul Normal 1.4-6.5 [facility] Comment on above: Performed By: #### L CHAMP, TSH #### [facility] Laboratory [address] [place] [address] Dr. Tierney Rivera Neutrophils/100 WBC (Bld) 52.7 % Normal 43.0-75.0 [facility] Comment on above: Performed By: #### Breonna OAKES TSH #### [facility] Laboratory [address] [place] [address] Dr. Tierney Rivera Platelet mean volume (Bld) [Entitic vol] 11.0 fL Normal 9.5-13.5 [facility] Comment on above: Performed By: #### Breonna OAKES, TSH #### [facility] Laboratory [address] [place] [address] Dr. Tierney Rivera PLT 266 103/ul Normal 150-450 [facility] Comment on above: Performed By: #### Breonna OAKES, TSH #### [facility] Laboratory [address] [place] [address] Dr. Tierney Rivera RBC 5.03 106/ul Normal 4.20-5.40 [facility] Comment on above: Performed By: #### L CHAMP, TSH #### [facility] Laboratory [address] [place] [address] Dr. Tierney Rivera WBC 6.6 103/ul Normal 4.0-11.0 [facility] Comment on above: Performed By: #### Breonna OAKES TSH #### [facility] Laboratory [address] [place] [address] Dr. Tierney Rivera CULTURE BLOODon 01-15-2023 Microscopic examination of blood, culture Culture Observations: NO GROWTH AT 5 DAYS. Normal [facility] Comment on above: Performed By: #### L IVBISHNU, TSH #### [facility] Laboratory [address] [place] [address] Dr. Tierney Rivera Microscopic examination of blood, culture Culture Observations: NO GROWTH AT 5 DAYS. Normal [facility] Comment on above: Performed By: #### L IVER, TSH #### [facility] Laboratory [address] [place] [address] Dr. Tierney Rivera ER URINE PROFILEon 3 Bilirubin Ql (U) Negative Normal NEGATIVE [facility] Comment on above: Performed By: #### L IVBISHNU, TSH #### [facility] Laboratory [address] [place] [address] Dr. Tierney Rivera Clarity (U) CLEAR Normal CLEAR [facility] Comment on above: Performed By: #### L CHAMP, TSH #### [facility] Laboratory [address] [place] [address] Dr. Tierney Rviera Color (U) LT. YELLOW Normal YELLOW [facility] Comment on above: Performed By: #### L IVER, TSH #### [facility] Laboratory [address] [place] [address] Dr. Tierney Rivera ERUDEBD A micrscopic examination will be performed if indicated. Normal [facility] Comment on above: Performed By: #### L IVBISHNU, TSH #### [facility] Laboratory [address] [place] [address] Dr. Tierney Rivera Glucose Ql (U) Negative Normal NEGATIVE [facility] Comment on above: Performed By: #### L IVER, TSH #### [facility] Laboratory [address] [place] [address] Dr. Tierney Rivera Hemoglobin Ql (U) Negative Normal NEGATIVE [facility] Comment on above: Performed By: #### L IVER, TSH #### [facility] Laboratory [address] [place] [address] Dr. Tierney Rivera Ketones Ql (U) Negative Normal NEGATIVE [facility] Comment on above: Performed By: #### L IVER, TSH #### [facility] Laboratory [address] [place] [address] Dr. Tierney Rivera LEUKOCYTES Negative Normal NEGATIVE [facility] Comment on above: Performed By: #### L IVER, TSH #### [facility] Laboratory [address] [place] [address] Dr. Tierney Rivera Nitrite Ql (U) Negative Normal NEGATIVE [facility] Comment on above: Performed By: #### L LILAER, TSH #### [facility] Laboratory [address] [place] [address] Dr. Tierney Rivera pH (U) 7.5 [pH] Normal 5-9 [facility] Comment on above: Performed By: #### L CHAMP, TSH #### [facility] Laboratory [address] [place] [address] Dr. Tierney Rivera SPEC GRAVITY 1.010 Normal 1.005-<=1.02 5 [facility] Comment on above: Performed By: #### L CHAMP, TSH #### [facility] Laboratory [address] [place] [address] Dr. Tierney Rivera UA PROTEIN Negative Normal NEGATIVE/ TRACE [facility] Comment on above: Performed By: #### L CHAMP, TSH #### [facility] Laboratory [address] [place] [address] Dr. Tierney Rivera UR MICRO IND NOT INDICATED Normal [facility] Comment on above: Performed By: #### L CHAMP, TSH #### [facility] Laboratory [address] [place] [address] Dr. Tierney Rivera Urobilinogen Qn (U) 0.2 {Radu'U}/dL Normal 0.2 - 1. 0 [facility] Comment on above: Performed By: #### L LILAER, TSH #### [facility] Laboratory [address] [place] [address] Dr. Tierney Rivera LACTATE/LACTIC ACIDon 2022 Lactate [Moles/Vol] 1.5 mmol/L Normal 0.4-2.0 [facility] Comment on above: Performed By: #### L ACT #### [facility] Laboratory [address] [address] [address] Tierney Rivera PROF 14(COMP METB)on 023 Albumin [Mass/Vol] 4.3 g/dL Normal 3.4-5.0 [facility] Comment on above: Performed By: #### L IVER, TSH #### [facility] Laboratory [address] [address] [address] Tierney Rivera Albumin/Globulin [Mass ratio] 1.2 {ratio} Normal [facility] Comment on above: Performed By: #### L IVER, TSH #### [facility] [address] [address] [address] Tierney Rivera ALP [Catalytic activity/Vol] 111 U/L Normal 46-116 [facility] Comment on above: Performed By: #### L IVER, TSH #### [facility] [address] [address] [address] Tierney Rivera ALT [Catalytic activity/Vol] 23 U/L Normal 14-59 [facility] Comment on above: Performed By: #### L IVER, TSH #### [facility] [address] [address] [address] Tierney Rivera Anion gap [Moles/Vol] 11.8 mmol/L Normal [facility] Comment on above: Performed By: #### L IVER, TSH #### [facility] [address] [address] [address] Tierney Rivera AST [Catalytic activity/Vol] 22 U/L Normal 15-37 [facility] Comment on above: Performed By: #### L IVER, TSH #### [facility] [address] [address] [address] Tierney Rivera Bilirubin [Mass/Vol] 0.4 mg/dL Normal 0.2-1.0 [facility] Comment on above: Performed By: #### L IVER, TSH #### [facility] [address] [address] [address] Tierney Rivera Calcium [Mass/Vol] 10.6 mg/dL Critically high 8.5-10.1 [facility] Comment on above: Performed By: #### L IVER, TSH #### [facility] [address] [address] [address] Tierney Rivera Chloride [Moles/Vol] 103 mmol/L Normal 98-107 [facility] Comment on above: Performed By: #### L IVER, TSH #### [facility] Laboratory [address] [place] [address] Dr. Tierney Rivera CO2 [Moles/Vol] 29.2 mmol/L Normal 21.0-32.0 [facility] Comment on above: Performed By: #### L IVER, TSH #### [facility] Laboratory [address] [place] [address] Dr. Tierney Rivera Creatinine [Mass/Vol] 1.13 mg/dL Critically high 0.55-1.02 [facility] Comment on above: Performed By: #### L IVER, TSH #### [facility] Laboratory [address] [place] [address] Dr. Tierney Rivera EGFR-AF ROMANIAN 56 mL/min/1.73m2 Critically low >=60 [facility] Comment on above: Performed By: #### L IVER, TSH #### [facility] Laboratory [address] [place] [address] Dr. Tierney Rivera EGFR-NON AF ROMANIAN 46 mL/min/1.73m2 Critically low >=60 [facility] Comment on above: Performed By: #### L IVER, TSH #### [facility] Laboratory [address] [place] [address] Dr. Tierney Rivera Globulin (S) [Mass/Vol] 3.7 g/dL Normal [facility] Comment on above: Performed By: #### L IVER, TSH #### [facility] Laboratory [address] [place] [address] Dr. Tierney Rivera Glucose [Mass/Vol] 109 mg/dL Critically high 74-106 [facility] Comment on above: Performed By: #### L IVER, TSH #### [facility] Laboratory [address] [place] [address] Dr. Tierney Rivera Potassium [Moles/Vol] 4.0 mmol/L Normal 3.5-5.1 [facility] Comment on above: Performed By: #### L CHAMP, TSH #### [facility] Laboratory [address] [place] [address] Dr. Tierney Rivera Protein [Mass/Vol] 8.0 g/dL Normal 6.4-8.2 [facility] Comment on above: Performed By: #### L CHAMP, TSH #### [facility] [address] [address] [address] Tierney Rivera Sodium [Moles/Vol] 140 mmol/L Normal 136-145 [facility] Comment on above: Performed By: #### L CHAMP, TSH #### [facility] Laboratory [address] [place] [address] Dr. Tierney Rivera Urea nitrogen [Mass/Vol] 17.0 mg/dL Normal 7.0-18.0 [facility] Comment on above: Performed By: #### Breonna OAKES, TSH #### [facility] Laboratory [address] [place] [address] Dr. Tierney Rviera Urea nitrogen/Creatinine [Mass ratio] 15.0 mg/mg Normal [facility] Comment on above: Performed By: #### Breonna OAKES, TSH #### [facility] Laboratory [address] [place] [address] Dr. Tierney Rivera TROPONIN, HIGH SENSITIVITYon 01-15-2023 HSTROP 21.6 pg/mL Normal 4.0-51.3 [facility] Comment on above: Result Comment: CUT- OFF POINTS HAVE BEEN ESTABLISHED BASED ON THE FOURTH UNIVERSAL DEFINITIONS OF MYOCARDIAL INFARCTION. THE UPPER REFERENCE LIMIT (URL) OF TROPONIN, DEFINED THE 99TH PERCENTILE OF cTnI DISTRIBUTION IN A REFERENCE POPULATION, HAS BEEN CONFIRMED THE DECISION THRESHOLD FOR TX DIAGNOSIS. Performed By: #### H STROPN, BNP, CMP #### [facility] Laboratory [address] [place] [address] Dr. Tierney Rivera XR CHEST 1 Von [...] CONSTANCE LAI Date: 2023-01-15 00:29 Normal [facility] FREE T4on 10-17-2022 Free T4 [Mass/Vol] 1.49 ng/dL Critically high 0.76-1.46 [facility] Comment on above: Performed By: #### L CHAMP TSH #### [facility] Laboratory [address] [address] [address] Tierney Rivera LIVER PROFILEon 10-17-2022 Albumin [Mass/Vol] 3.7 g/dL Normal 3.4-5.0 [facility] Comment on above: Performed By: #### L CHAMP TSH #### [facility] Laboratory [address] [place] [address] Dr. Tierney Rivera Albumin/Globulin [Mass ratio] 1.1 {ratio} Normal [facility] Comment on above: Performed By: #### L CHAMP TSH #### [facility] Laboratory [address] [place] [address] Dr. Tierney Rivera ALP [Catalytic activity/Vol] 104 U/L Normal 46-116 [facility] Comment on above: Performed By: #### L CHAMP, TSH #### [facility] Laboratory [address] [address] [address] Tierney Rivera ALT [Catalytic activity/Vol] 27 U/L Normal 14-59 [facility] Comment on above: Performed By: #### L CHAMP, TSH #### [facility] Laboratory [address] [place] [address] Dr. Tierney Rivera AST [Catalytic activity/Vol] 23 U/L Normal 15-37 [facility] Comment on above: Performed By: #### L IVBISHNU, TSH #### [facility] Laboratory [address] [address] [address] Tierney Rivera BILI, CONJUGATED 0.1 mg/dL Normal 0.0-0.2 [facility] Comment on above: Performed By: #### L IVER, TSH #### [facility] Laboratory [address] [place] [address] Dr. Tierney Rivera Bilirubin [Mass/Vol] 0.4 mg/dL Normal 0.2-1.0 [facility] Comment on above: Performed By: #### L IVER, TSH #### [facility] Laboratory [address] [place] [address] Dr. Tierney Rivera Globulin (S) [Mass/Vol] 3.5 g/dL Normal [facility] Comment on above: Performed By: #### L IVER, TSH #### [facility] Laboratory [address] [place] [address] Dr. Tierney Rivera Protein [Mass/Vol] 7.2 g/dL Normal 6.4-8.2 [facility] Comment on above: Performed By: #### L IVER, TSH #### [facility] Laboratory [address] [place] [address] Dr. Tierney Rivera TSHon 10-17-2022 TSH 1.020 uIU/mL Normal 0.358-3.740 [facility] Comment on above: Performed By: #### L IVER, TSH #### [facility] Laboratory [address] [place] [address] Dr. Tierney Rivera XR CHEST 2 Von [...] FLORENTINO MAURO Date: 2022-10-17 09:46 Normal [facility] Covid-19 PCR (CVDTB)on SARS-CoV-2 (COVID-19) RNA SEDRICK+probe Ql (Unsp spec) Detected Critically abnormal NOT DETECTED [facility] Comment on above: Result Comment: This test is not yet approved or cleared by the [place] FDA. When there are no FDA-approved or cleared tests available, and other criteria are met, FDA can make tests available under an emergency access mechanism called an Emergency Use Authorization (EUA). The EUA for this test is supported by the Steam Room Attendant of Health and Human Service's (HHS's) declaration [...] used). Performed By: #### C VDTB #### [facility] Laboratory [address] [place] [address] Dr. Tierney Rivera INFLUENZA A AND B AGon 09-27 [facility] SEE BELOW Normal [facility] Comment on above: Result Comment: Nega tive for Flu A protein angiten. Infection due to Flu A cannot be ruled out. Flu A angiten in the sample may be below the detection limit of the test. Performed By: #### I NFLUAB #### [facility] Laboratory [address] [place] [address] Dr. Tierney Rivera INFLUBANNER SEE BELOW Normal [facility] Comment on above: Result Comment: Nega tive for Flu B protein antigen. Infection due to Flu B cannot be ruled out. Flu B antigen in the sample may be below the detection limit of the test. Performed By: #### I NFLUAB #### [facility] Laboratory [address] [place] [address] Dr. Tierney Rivera INFLUENZA A AG Negative Normal NEGATIVE SEE COMMENT [facility] Comment on above: Performed By: #### I NFLUAB #### [facility] Laboratory [address] [place] [address] Dr. Tierney Rivera INFLUENZA B AG Negative Normal NEGATIVE SEE COMMENT [facility] Comment on above: Performed By: #### I NFLUAB #### [facility] Laboratory [address] [place], [place] [address] Dr. Tierney Rivera Cardiovascular Lab Reporton 06-11-2021 Cardiovascular Lab Report [facility] Patient Name: Lucille Escobedo [facility] Laura MR #: [id number] Department of Physician: Kaya Olvera Medicine Fredo Division of Service Date: 06/10/2021 Cardiology Birthdate: 1940 Adult Cardiovascular Room #: [facility] [address] [place], [place] [address] Cardiovascular Laboratory Report FINAL IMPRESSION: 1. Angiographically [...] Follow up with Dr. Olvera in the [facility]. 8. Follow up with Dr. Mccoy as scheduled. PROCEDURES: Ultrasound-guided access of the right common femoral vein, ultrasound-guided access of right common femoral artery, limited femoral angiography, right heart catheterization, bilateral selective coronary angiography, placement of a 5-Saudi Arabian MynxGrip closure device. METHODS: After risks, benefits, and alternatives were explained, written informed consent was obtained. The patient was prepped and draped in usual sterile fashion over both groins. Using 1% lidocaine solution, local infiltration anesthesia was achieved. Using modified Seldinger technique, a micropuncture kit and under ultrasound guidance access to the right common femoral vein was obtained. A 6-Saudi Arabian 11 cm sheath was inserted without difficulty. This was repeated over the artery; a 5-Saudi Arabian 11 cm sheath was inserted. A Mcdonald catheter was used for right heart catheterization. Pressures were measured in the right atrium, right ventricle, pulmonary artery, and pulmonary capillary wedge positions. Oxygen saturations were obtained and cardiac output/cardiac index was calculated using modified Gisele principle. The Mcdonald catheter was removed. Bilateral selective coronary angiography was performed using 5-Saudi Arabian JL4 and JR4 catheters. After reviewing the images, it was elected to conclude the procedure. All catheters were removed. A 5-Saudi Arabian MynxGrip closure device was deployed per protocol [...] P Kaya Olvera M.D. Date Dict: 06/10/2021/01:03 Cruz/Kaya Olvera M.D (more content not included)... Normal [facility] Vital Signs Date Time Vital Sign Value Performing Clinician Faci lity 02-06-2025 09:32-0400 Body height 167.6 cm Hipolito Brown DPM Work Phone: [facility] 02-06-2025 09:32-0400 Body mass index (BMI) [Ratio] 17.27 kg/m2 Hipolito Brown DPM Work Phone: [facility] 02-06-2025 09:32-0400 Body weight 48.53 kg Hipolito Brown DPM Work Phone: [facility] 02-06-2025 09:32-0400 Respiratory rate 18 /min Hipolito Brown DPM Work Phone: [facility] 11-21-2024 09:40-0500 Body height 167.6 cm Hipolito Brown DPM Work Phone: [facility] 11-21-2024 09:40-0500 Body mass index (BMI) [Ratio] 17.27 kg/m2 Hipolito Brown DPM Work Phone: [facility] 11-21-2024 09:40-0500 Body weight 48.53 kg Hipolito Brown DPM Work Phone: [facility] 11-21-2024 09:40-0500 Respiratory rate 18 /min Hipolito Brown DPM Work Phone: [facility] 09-05-2024 10:08-0500 Body height 167.6 cm Hipolito Brown DPM Work Phone: [facility] 09-05-2024 10:08-0500 Body mass index (BMI) [Ratio] 17.27 kg/m2 Hipolito Brown DPM Work Phone: [facility] 09-05-2024 10:08-0500 Body weight 48.53 kg Hipolito Brown DPM Work Phone: [facility] 09-05-2024 10:08-0500 Respiratory rate 16 /min Hipolito Brown DPM Work Phone: [facility] 06-20-2024 09:59-0400 Body height 167.6 cm Hipolito Brown DPM Work Phone: [facility] 06-20-2024 09:59-0400 Body mass index (BMI) [Ratio] 17.27 kg/m2 Hipolito Brown DPM Work Phone: [facility] 06-20-2024 09:59-0400 Body weight 48.53 kg Hipolito Brown DPM Work Phone: [facility] 06-20-2024 09:59-0400 Diastolic blood pressure 80 mm[Hg] Hipolito Brown DPM Work Phone: [facility] 06-20-2024 09:59-0400 Heart rate 75 /min Hipolito Brown DPM Work Phone: [facility] 06-20-2024 09:59-0400 Respiratory rate 18 /min Hipolito Brown DPM Work Phone: [facility] 06-20-2024 09:59-0400 Systolic blood pressure 127 mm[Hg] Hipolito Brown DPM Work Phone: [facility] 11-09-2023 13:51-0500 Body height 167.6 cm Hipolito Brown DPM Work Phone: [facility] 11-09-2023 13:51-0500 Body mass index (BMI) [Ratio] 17.27 kg/m2 Hipolito Brown DPM Work Phone: [facility] 11-09-2023 13:51-0500 Body weight 48.53 kg Hipolito Brown DPM Work Phone: [facility] 11-09-2023 13:51-0500 Diastolic blood pressure 81 mm[Hg] Hipolito Mendieta DPM Work Phone: [facility] 11-09-2023 13:51-0500 Heart rate 78 /min Hipolito Mendieta DPM Work Phone: [facility] 11-09-2023 13:51-0500 Systolic blood pressure 120 mm[Hg] Hipolito Mendieta DPM Work Phone: [facility] Healthcare Encounters Encounter Date Encounter Type Care Provider Facility Start: 02-06-2025 End: 02-06-2025 Bamboo flowsheet Hipolito Mendieta DPM Work Phone: [facility] Start: 02-06-2025 End: 02-06-2025 Bamboo flowsheet Hipolito Mendieta DPM Work Phone: [facility] Start: 02-06-2025 End: 02-06-2025 Patient encounter procedure Hipolito Mendieta DPM Work Phone: [facility] Comment on above: Pain due to onychomy cosis of toenails of both feet (Primary Dx); Verruca plantaris; Foot pain, left Start: 02-06-2025 End: 02-06-2025 ambulatory HIPOLITO MENDIETA Not Available Start: 01-28-2025 End: 01-28-2025 Departed Referred Kaya Olvera Work Phone: [facility] Start: 01-28-2025 End: 01-28-2025 ambulatory Ehab [facility] Work Phone: Start: 11-21-2024 End: 11-21-2024 Bamboo flowsheet Hipolito Mendieta DPM Work Phone: [facility] Start: 11-21-2024 End: 11-21-2024 Bamboo flowsheet Hipolito Mendieta DPM Work Phone: [facility] Start: 11-21-2024 End: 11-21-2024 ambulatory HIPOLITO MENDIETA Not Available Start: 11-21-2024 End: 11-21-2024 Patient encounter procedure Hipolito Mendieta DPM Work Phone: [facility] Comment on above: Pain due to onychomy cosis of toenails of both feet (Primary Dx) Start: 09-05-2024 End: 09-05-2024 Bamboo flowsheet Hipolito Mendieta DPM Work Phone: [facility] Start: 09-05-2024 End: 09-05-2024 Bamboo flowsheet Hipolito Mendieta DPM Work Phone: [facility] Start: 09-05-2024 End: 09-05-2024 Patient encounter procedure Hipolito Mendieta DPM Work Phone: [facility] Comment on above: Pain due to onychomy cosis of toenails of both feet (Primary Dx) Start: 09-05-2024 End: 09-05-2024 ambulatory HIPOLITO MENDIETA Not Available Start: 08-07-2024 End: 08-07-2024 ambulatory [facility] Start: 06-20-2024 End: 06-20-2024 Bamboo flowsheet Hipolito Mendieta DPM Work Phone: [facility] Start: 06-20-2024 End: 06-20-2024 Bamboo flowsheet Hipolito Mendieta DPM Work Phone: [facility] Start: 06-20-2024 End: 06-20-2024 Patient encounter procedure Hipolito Mendieta DPM Work Phone: [facility] Comment on above: Onychomycosis (Prima ry Dx); Toe pain, bilateral Start: 06-20-2024 End: 06-20-2024 ambulatory HIPOLITO MENDIETA Not Available Start: 04-11-2024 End: 04-11-2024 ambulatory HIPOLITO MENDIETA Not Available Start: 11-09-2023 Chart abstracting Hipolito garrido DPM Work Phone: [facility] Start: 11-09-2023 End: 11-09-2023 Patient encounter procedure Hipolito Mendieta DPLaura Work Phone: [facility] Comment on above: Verruca plantaris (P rimary Dx); Foot pain, left; Onychomycosis; Toe pain, bilateral Start: 01-26-2023 End: 01-27-[address] GERBER MCCOY . Facility: Start: 01-15-2023 End: 01-15-[address] CYNTHIA ROMERO . Facility: Start: 10-17-2022 End: 10-18-[address] GERBER MCCOY . Facility: Start: 09-27-2022 End: 09-27-[address] GERBER MCCOY . Facility: Start: 06-10-2021 End: 06-11-2021 ambulatory KAYA OLVERA Facility:[facility] Plan of Treatment Date Care Activity Detail Author Start: 02-06-2025 End: 02-06-2025 Patient encounter procedure [facility] Comment on above: Pain due to onychomy cosis of toenails of both feet (Primary Dx) Start: 01-28-2025 Bacteria identified in Urine by Culture Urine Culture [facility] Start: 01-28-2025 Urine culture [facility] Start: 11-21-2024 End: 11-21-2024 Patient encounter procedure 11/21/2024 9:30 AM EST Procedure Visit [facility] [address] [facility] [address] [place] [address] Hipolito Mendieta DPM [address] [facility] [address] [place] [address] [facility] Start: 09-05-2024 End: 09-05-2024 Patient encounter procedure 09/05/2024 10:10 AM EST Procedure Visit [facility] [address] [place] [address] Hipolito Mendieta DPM [address] [address] Pain due to onychomycosis of toenails of both feet (Primary Dx) [facility] Comment on above: Pain due to onychomy cosis of toenails of both feet (Primary Dx) Start: 06-20-2024 End: 06-20-2024 Patient encounter procedure 06/20/2024 10:00 AM EDT Procedure Visit [facility] [address] [facility] [address] [place] [address] Hipolito Mendieta DPM [address] [address] Onychomycosis (Primary Dx); Toe pain, bilateral [facility] Comment on above: Onychomycosis (Prima ry Dx); Toe pain, bilateral Start: 11-09-2023 End: 11-09-2023 Patient encounter procedure 11/09/2023 1:50 PM EST Procedure Visit [facility] [address] [facility] [address] [place] [address] Hipolito Mendieta, ADOLFO [address] [address] [facility] Payers Date Payer Category Payer Self-pay 2023 Unknown [facility] [id number] 2023-Present [address] [place] [address] [id number] 2018 Private Health Insurance [id number] 2018 Unknown [id number] 2006 Medicare [id number] 1959 Medicare [id number] 1959 Unknown [id number] 1941 Unknown [id number] [id number]. 2.647 1941 Unknown [id number] 2.16.840.1.546663.3.579. 2.593 1941 Unknown [id number] 2.16.840.1.251970.3.579. 2.593 1941 Unknown [id number] 2.16.840.1.338941.3.579. 2.593 1941 Unknown [id number] 2.16.840.1.712540.3.579. 2.593 1941 Unknown [id number] 2.16.840.1.374905.3.579. 2.1259 1941 Unknown [id number] 2.16.840.1.952121.3.579. 2.1259 1941 Unknown [id number] 2.16.840.1.018709.3.579. 2.1259 1941 Unknown [id number] 2.16.840.1.387777.3.579. 2.1259 1941 Unknown [id number] 2.16.840.1.626181.3.579. 2.1259 Medicare Medicare [id number] Unknown [employer] [id number] Unknown [id number] [id number]. 2.531 Social History Date Type Detail Facility Start: 08-31-2023 Tobacco smoking status INIS Tobacco smoking consumption unknown [facility] Start: 10-12-2023 End: 02-06-2025 Alcohol intake Defer [facility] Start: 1940 Sex Assigned At Not on file [facility] Gender identity Not on file [facility] are Start: 01-29-2025 Sex Female (finding) Idris [facility] Start: 1940 Sex Assigned At Female F [facility] Clinical Notes 11-09-2023 to 02-06-2025 Hipolito Mendieta, DPM - 02/06/2025 9:30 AM EDTHipolito Mendieta, DPM - 11/21/2024 9:30 AM ESTHipolito Mendieta, DPM - 09/05/2024 10:10 AM ESTHipolito Mendieta, DPM - 06/20/2024 10:00 AM EDT Note Date & Type Note Facility 02-06-2025 History of Present illness Narrative Patient: Lucille Escobedo : 1940 PCP: Gerber Mccoy MD SUBJECTIVE Patient presents today with a CC of elongated, thick nails. Pt states nails have been elongated and thick for many years and cause pain with ambulation in shoegear. Pt has tried previous treatment with minimal relief. Pt presents today for nail care and treatment. Patient presents today for follow up of skin lesion/neoplasm of unknown origin to the left foot Pt states that previous treatment of acid tx with some improvement Pt rates pain the pain on a 1-10 scale an intensity of 2 Pt presents today for followup. Allergies: Allergies Allergen Reactions Hossein Inhibitors Other and Unknown Sulfa Antibiotics Other and Unknown Verapamil Unknown Past Medical History: Past Medical History: Diagnosis Date Hypertension ([facility]) Medications: Current Outpatient Medications: amiodarone [...] route for 85 days., Disp: , Rfl: nhkmqeoanegd-ouqc-sueohqaq-folic acid (Centrum Silver, geriatric,) tablet, as directed [...] tobacco: Not on file Vaping Use Vaping status: Unknown Substance and Sexual Activity Alcohol use: Defer Drug use: Defer Sexual activity: Defer Other Topics Concern Not on file Social History Narrative Not on file Social Drivers of Health Financial Resource Strain: Not on file Food Insecurity: Not on file Transportation Needs: Not on file Physical Activity: Not on file Stress: Not on file Social Connections: Not on file Intimate Partner Violence: Unknown (11/16/2023) Re[facility] from [facility] Safety & Environment Fear of Current or Ex-Partner: Not on file Emotionally Abused: Not on file Physically Abused: Not on file Sexually Abused: Not on file Physically or Sexually Abused: Not on file Housing Stability: Not on file ROS: General: denies fever, chills, fatigue, malaise OBJECTIVE LE EXAM: DERM: Positive hair growth b/l feet. Left sub 2nd metatarsal region has a 0.2 cm x 0.2 cm round nummular lesion Elongated thick yellow crumbly nails digits 1 through 10 with positive hair growth VASC: Positive palpable pedal pulses bilaterally NEURO: Gross sensation intact to bilateral feet ORTHO: Positive pain on palpation to toenails of the left 1,2,3,4,5 toes and right 1,2,3,4,5 toes Positive pain on palpation to the left foot lesion ASSESSMENT 1. Pain due to onychomycosis of toenails of both feet 2. Verruca plantaris 3. Foot pain, left PLAN Discussed proper foot care with patient today. Debride nails in length and thickness digits 1 through 10 Application of salinocaine acid medication to lesion/lesions located at left foot Informed pt of risks and benefits of procedure including high reoccurence rate, infection, pain and consent given. Application of DSD post procedure. Hipolito Mendieta DPM documented in this encounter [facility] 01-28-2025 Note [facility] Cardiology Clinic Note Chief Complaint: Patient here for 6 month follow up . Patient complains of fatigue and wants to discuss taking medications away. HPI: Lucille Escobedo is a 84 y.o. [...] a few months ago; this resolved spontaneously UPDATE . She has been complaining of worsening fatigue over the past 2 months. She states that within a couple of hours of waking up in the morning, she feels ready to go back to sleep. She takes a nap. This occurs throughout the day. Pertinently, she denies exertional shortness of breath. She has no chest pain. She denies palpitations, lightheadedness or dizziness. She has no orthopnea, paroxysmal, dyspnea, or lower extremity edema. She has not put on any unintentional weight gain. There has been no blood in the urine or stools. However, she tells me her urine has bubbles . Cardiology ROS: Review of Systems Constitutional: Positive for malaise/fatigue. Musculoskeletal: Positive for arthritis, back pain and [...] Sister Heart attack Maternal Grandmother Allergies Hossein inhibitors, Sulfa (sulfonamide antibiotics), and Verapamil Medications Current Outpatient Medications: amiodarone (Pacerone) 200 mg tablet, Take 1 tablet (200 mg) by mouth once daily as directed., Disp: 90 tablet, Rfl: 3 apixaban (Eliquis) 2.5 mg tablet, Take 1 tablet by mouth in the morning and at bedtime., Disp: , Rfl: dapagliflozin propanediol (Farxiga) 10 mg, Take 1 tablet (10 mg) by mouth in the morning., Disp: 30 tablet, Rfl: 11 ferrous sulfate 325 (65 Fe) MG tablet, Take 325 mg by mouth with breakfast., Disp: , Rfl: furosemide (Lasix) 20 mg tablet, Take 1 tablet (20 mg) by mouth in the morning., Disp: 90 tablet, Rfl: 3 irbesartan (Avapro) 75 mg tablet, Take 75 mg by mouth in the morning., Disp: , Rfl: isosorbide mononitrate ER (Imdur) 30 mg 24 hr tablet, Take 30 mg by mouth in the morning., Disp: , Rfl: levothyroxine (Synthroid, Levoxyl) 50 mcg tablet, Take 50 mcg by mouth every other day., Disp: , Rfl: liothyronine (Cytomel) 5 mcg tablet, TAKE 2 TABLETS BY MOUTH ON AN EMPTY STOMACH DAILY, Disp: , Rfl: metoprolol tartrate (Lopressor) 25 mg tablet, Take 25 mg by mouth two times daily., Disp: , Rfl: potassium chloride CR (Klor-Con) 10 mEq ER tablet, Take 1 tablet by mouth in the morning., Disp: , Rfl: Last Recorded Vitals BP 141/60 (BP Location: Left arm, Patient Position: Sitting) Pulse 56 Ht 1.676 m (5' 6 ) Wt [...] regurgitation. Moderate to severe mitral regurgitation. Transesophageal Echocardiogram-[facility] Name: LUCILLE ESCOBEDO Study Date: 06/10/2021 10:12 AM MRN: (more content not included)... [facility] 11-21-2024 History of Present illness Narrative Patient: Lucille Escobedo : 1940 PCP: Gerber Mccoy MD SUBJECTIVE Patient presents today with a CC of [...] History: Past Medical History: Diagnosis Date Hypertension ([facility]) Medications: Current Outpatient Medications: amiodarone [...] route for 85 days., Disp: , Rfl: bornmsshwoex-qqly-qerszthj-folic acid (Centrum Silver, geriatric,) tablet, as directed [...] tobacco: Not on file Vaping Use Vaping status: Unknown Substance and Sexual Activity Alcohol use: Defer Drug use: Defer Sexual activity: Defer Other Topics Concern Not on file Social History Narrative Not on file Social Drivers of Health Financial Resource Strain: Not on file Food Insecurity: Not on file Transportation Needs: Not on file Physical Activity: Not on file Stress: Not on file Social Connections: Not on file Intimate Partner Violence: Unknown (11/16/2023) [facility] from [facility] [place] Safety & Environment Fear of Current or Ex-Partner: Not on file Emotionally Abused: Not on file Physically Abused: Not on file Sexually Abused: Not on file Physically or Sexually Abused: Not on file Housing Stability: Not on file ROS: General: denies fever, chills, fatigue, malaise OBJECTIVE LE EXAM: DERM: Positive hair growth b/l feet. Left sub 2nd metatarsal region has healed lesion Elongated thick yellow crumbly nails digits 1 through 10 with positive hair growth VASC: Positive palpable pedal pulses bilaterally NEURO: Gross sensation intact to bilateral feet ORTHO: Positive pain on palpation to toenails of the left 1,2,3,4,5 toes and right 1,2,3,4,5 toes ASSESSMENT 1. Pain due to onychomycosis of toenails of both feet PLAN Discussed proper foot care with patient today. Debride nails in length and thickness digits 1 through 10 Hipolito Mendieta DPM documented in this encounter [facility] 09-05-2024 History of Present illness Narrative Patient: Lucille Escobedo : 1940 PCP: Gerber Mccoy MD SUBJECTIVE Patient presents today with a CC of [...] History: Past Medical History: Diagnosis Date Hypertension ([facility]) Medications: Current Outpatient Medications: amiodarone [...] route for 85 days., Disp: , Rfl: cjvpbdtcevwi-mlzz-bodzvcgp-folic acid (Centrum Silver, geriatric,) tablet, as directed [...] tobacco: Not on file Vaping Use Vaping status: Unknown Substance and Sexual Activity Alcohol use: Defer Drug use: Defer Sexual activity: Defer Other Topics Concern Not on file Social History Narrative Not on file Social Drivers of Health Financial Resource Strain: Not on file Food Insecurity: Not on file Transportation Needs: Not on file Physical Activity: Not on file Stress: Not on file Social Connections: Not on file Intimate Partner Violence: Unknown (11/16/2023) Received from [facility] [place] Safety & Environment Fear of Current or Ex-Partner: Not on file Emotionally Abused: Not on file Physically Abused: Not on file Sexually Abused: Not on file Physically or Sexually Abused: Not on file Housing Stability: Not on file ROS: General: denies fever, chills, fatigue, malaise OBJECTIVE LE EXAM: DERM: Positive hair growth b/l feet. Left sub 2nd metatarsal region has healed lesion Elongated thick yellow crumbly nails digits 1 through 10 with positive hair growth VASC: Positive palpable pedal pulses bilaterally NEURO: Gross sensation intact to bilateral feet ORTHO: Positive pain on palpation to nails 1 through 10 ASSESSMENT 1. Pain due to onychomycosis of toenails of both feet PLAN Discussed proper foot care with patient today. Debride nails in length and thickness digits 1 through 10 Hipolito Mendieta DPM documented in this encounter [facility] 08-07-2024 Note [facility] Cardiology Clinic Note Chief Complaint: Patient here for 1 year follow up CAD, PAF, and mitral valve regurgitation. She had an echo in Aug 2023 after last apt. She was seen in [facility] ED twice in Sep 2023 for [...] regurgitation. Moderate to severe mitral regurgitation. Transesophageal Echocardiogram-[facility] Name: LUCILLE ESCOBEDO Study Date: 06/10/2021 10:12 AM B/P: 126 mmHg/68 mmHg HR: Date of : 1940 Location: [facility] Height: 66 in. Age: 81 year(s) Patient Room : Weight: 135 lb. Gender: Female Patient Status: OutPt BSA: 1.69 m2 Indication: Atrial Fibrillation Examination: TUAN/CFI with Cardioversion Image Quality: Good Patient Consent: Informed, written consent was obtained for the procedure s p @ c 3 Exam Location: A TUAN was performed in the Biomedical Electronics Technician without complications s p @ c 3 Anesthesia Pharyngeal anesthesia with viscous Lidocaine Conclusions Left Ventricle: The left ventricle is normal size. Global left ventricular systolic function is severely reduced. The EF is 20 % visually. Diffuse global hypokinesis. Right Ventricle: The right ventricle is normal in size. Right ventricular systolic function appea (more content not included)... [facility] 06-20-2024 History of Present illness Narrative Patient: Lucille Escobedo : 1940 PCP: Gerber Mccoy MD SUBJECTIVE Patient presents today with a CC of [...] History: Past Medical History: Diagnosis Date Hypertension (CMS/HCC) Medications: Current Outpatient Medications: amiodarone (Pacerone) 200 [...] route for 85 days., Disp: , Rfl: gqfuetbsitbc-rpha-tughqvbw-folic acid (Centrum Silver, geriatric,) tablet, as directed [...] tobacco: Not on file Vaping Use Vaping status: Unknown Substance and Sexual Activity Alcohol use: Defer Drug use: Defer Sexual activity: Defer Other Topics Concern Not on file Social History Narrative Not on file Social Determinants of Health Financial Resource Strain: Not on file Food Insecurity: Not on file Transportation Needs: Not on file Physical Activity: Not on file Stress: Not on file Social Connections: Not on file Intimate Partner Violence: Unknown (11/16/2023) Received from [facility] [place] Safety & Environment Fear of Current or Ex-Partner: Not on file Emotionally Abused: Not on file Physically Abused: Not on file Sexually Abused: Not on file Physically or Sexually Abused: Not on file Housing Stability: Not on file ROS: General: denies fever, chills, fatigue, malaise OBJECTIVE LE EXAM: DERM: Positive hair growth b/l feet. Left sub 2nd metatarsal region has healed lesion Elongated thick yellow crumbly nails digits 1 through 10 with positive hair growth VASC: Positive palpable pedal pulses bilaterally NEURO: Gross sensation intact to bilateral feet ORTHO: Positive pain on palpation to nails 1 through 10 ASSESSMENT 1. Onychomycosis 2. Toe pain, bilateral PLAN Discussed proper foot care with patient today. Debride nails in length and thickness digits 1 through 10 Hipolito Mendieta DPM documented in this encounter [facility] 11-09-2023 History of Present illness Narrative Patient: [...] History: Past Medical History: Diagnosis Date Hypertension ([facility]) Medications: Current Outpatient Medications: amiodarone [...] route for 85 days., Disp: , Rfl: kipjpgxgzntr-igyp-dxzmkftc-folic acid (Centrum Silver, geriatric,) tablet, as directed [...] DPM documented in this encounter [facility] Evaluation note Diagnosis Verruca plantaris- Primary Plantar wart Foot pain, left Pain in soft tissues of limb Onychomycosis Dermatophytosis of nail Toe pain, bilateral [facility]* Diagnosis Pain due to onychomycosis of toenails of both feet- Primary [facility]* Diagnosis Onychomycosis- Primary Dermatophytosis of nail Toe pain, bilateral [facility] noteNo assessment information availableMartin [facility] Hospital Work Phone: Evaluation note* Diagnosis Pain due to onychomycosis of toenails of both feet- Primary Verruca plantaris Plantar wart Foot pain, left Pain in soft tissues of limb documented in this encounter [facility] Summary [...] and content) DATE CREATED AUTHOR 06/15/2021 [facility] DATE CREATED AUTHOR AUTHOR'S ORGANIZ ATION 02/02/2023 [facility] DATE CREATED AUTHOR AUTHOR'S ORGANIZ ATION 01/31/2025 [facility] DATE CREATED AUTHOR AUTHOR'S ORGANIZ ATION 02/04/2025 [facility] DATE CREATED AUTHOR AUTHOR'S ORGANIZ ATION 02/07/2025 [facility] dical Specialists EPIC Care Teams (unrecognized sec tion and content) Outdoor Landscape Architect Relationship Specialty Start Date End Date Gerber Mccoy MD [address] [place] [address] PCP - General Family Medicine 08/31/23 Outdoor Landscape Architect Relationship Specialty Start Date End Date Gerber Mccoy MD [address] [place] [address] PCP - General Family Medicine 08/31/23 Outdoor Landscape Architect Relationship Specialty Start Date End Date Gerber Mccoy MD [address] [place] [address] PCP - General Family Medicine 08/31/23 Outdoor Landscape Architect Relationship Specialty Start Date End Date Gerber Mccoy MD [address] [place] [facility] [address] PCP - General Family Medicine 08/31/23 Outdoor Landscape Architect Relationship Specialty Start Date End Date Gerber Mccoy MD [address] [place] [address] PCP - General Family Medicine 08/31/23 Team Status: Inactive Member Role Status Dates Kaya Olvera Attending Provider Active Start: January 28, 2025 End: January 28, 2025 Outdoor Landscape Architect Relationship Specialty Start Date End Date Gerber Mccoy MD [address] [place] [facility] [place] [address] PCP - General Family Medicine 08/31/23 Reason for Visit (unrecogniz ed section and content) Reason Comments Toenail Care Non dm Nails Reason Comments Toenail Care Non dm nial care Reason Comments Toenail Care Non dm nail care Goals (unrecognized section and content) Goals may be documented in a n alternate section FOR RECORDS PERTAINING TO PATIENTS WHO ARE [...] BE BASED ON THE PRIMARY CLINICAL RECORDS. [facility]. provides no warranty or guarantee of the accuracy or completeness of information in this document.
== END 2025-02-10 09:34 | disposition home or self-care (01) ==
LOC: RAD 09:34
PROVIDERS: PCP Family Medicine; Visit Provider Internal Medicine Interventional Cardiology
DX: Z79.899 Other long term (current) drug therapy (principal)
CPT/HCPCS: 71046

== ENCOUNTER 2025-05-31 09:52 | Emergency (ER) | payer MEDICARE, OTHER, SELFPAY ==
[2025-05-31 09:57] VITALS: BP 170/66; PULSE 53; TEMP 36.1; O2SAT 100; BMI 17.8
--- OUTSIDE RECORDS SUMMARY | 2025-05-31 10:02 | XMS_ITS | CCD ---
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 Name Role Phone ELTAHAWY, EHAB A Attending Unavailable ELTAHAWY, EHAB A Admitting Unavailable MANUELAY, GERBER Referring Unavailable MANUELAY, GERBER Primary Care Unavailable HOY ., DR MAYES Primary Care Unavailable SHANTEL GARCIA Attending Unavailable JOSE, SHANTEL Admitting Unavailable CUDAHY, DR FLORENTINO Mello Consulting Unavailable JOSE, SHANTEL [...] Unavailable Gerber Mccoy MD Primary Care Provider [phone] [place], Ehab A Attending Provider [place], Ehab A Attending Unavailable [place], Ehab A Admitting Unavailable ELTAHAWY, TERRENCEAB Attending Unavailable ELTAHAWY, EHAB Attending Unavailable Gerber Mccoy MD Primary Care Provider [phone] HIPOLITO MENDIETA Attending Unavailable HIPOLITO MENDIETA Attending Unavailable HIPOLITO MENDIETA Attending Unavailable HIPOLITO MENDIETA Attending Unavailable HIPOLITO MENDIETA Attending Unavailable Allergies Allergy Classification Reported Allergen(s) Allergy Type Date of Onset Reaction(s) Facility (3 sources) Angiotensin Converting Enzyme (Hossein) Inhibitors; Translations: [HOSSEIN INHIBITORS] Drug allergy (disorder) 2 [facility] Repository (3 sources) Sulfonamides (Antibiotic); Translations: [SULFA (SULFONAMIDE ANTIBIOTICS)] Drug allergy (disorder) 2 [facility] Repository (12 sources) Angiotensin-conve rting enzyme inhibitor agent Drug Allergy 4 Other, Unknown [facility] (12 sources) Sulfonamides (Antibiotic) Drug Allergy 4 Other, Unknown [facility] (13 sources) Verapamil; Translations: [VERAPAMIL] Drug Allergy 4 Unknown [facility] Healthcare Medications Current Medications Medication Drug Class(es) Dates Sig (Normalized) Sig (Original) amiodarone hydrochloride 200 mg oral tablet (12 sources) Antiarrhythmic Start: 06-26-2023 take 1 tablet by mouth in the morning amiodarone (Pacerone) 200 MG tablet Take 200 mg by mouth in the morning. 06/26/2023 Active apixaban 2.5 mg oral tablet (12 sources) Factor Xa Inhibitor Start: 07-25-2023 take 1 tablet by mouth in the morning Eliquis 2.5 MG tablet Take 2.5 mg by mouth in the morning and 2.5 mg before bedtime. 07/25/2023 Active furosemide 20 mg oral tablet (12 sources) Loop Diuretic Start: 06-26-2023 take 1 tablet by mouth in the morning furosemide (Lasix) 20 MG tablet Take 20 mg by mouth in the morning. 06/26/2023 Active irbesartan 75 mg oral tablet (12 sources) Angiotensin 2 Receptor Willis Start: 06-26-2023 take 1 tablet by mouth in the morning irbesartan (Avapro) 75 MG tablet Take 75 mg by mouth in the morning. 06/26/2023 Active levothyroxine sodium 0.05 mg oral tablet (12 sources) l-Thyroxine take 1 tablet by mouth in the morning levothyroxine (Synthroid, Levoxyl) 50 MCG tablet Take 1 tablet by mouth in the morning. Active metoprolol tartrate 25 mg oral tablet (12 sources) beta-Adrenergic Willis take 1 tablet by mouth once daily metoprolol tartrate (Lopressor) 25 MG tablet Take 1 tablet every day by oral route for 85 days. Active fyydkfinzzph-qbvn-b inerals-folic acid (Centrum Silver, geriatric,) tablet (12 sources) multivitamin-iro n- minerals-folic acid (Centrum Silver, geriatric,) tablet as directed Orally Active multivitamin-iro n-vpvhdkvq-nfcrh acid (Centrum Silver, geriatric,) tablet as directed Orally 0 Active potassium chloride 10 meq extended release oral tablet (12 sources) Start: 06-26-2023 take 1 tablet by [...] DISEASE W/HEART FAIL] Onset: 02-01-2023 Chronic Mycoses (6 sources) Onychomycosis; Translations: [Tinea unguium] 11-08-2023 Episodic Nutritional deficiencies (1 source) Vitamin D deficiency, unspecified; Translations: [VITAMIN D DEFICIENCY UNSPECIFIED] Onset: 02-01-2023 Chronic Other 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 (1 source) 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 Patient informed. She verbalized understanding. Normal [facility] Office Visiton 01-28-2025 Follow-up visit [id number] Alfa Escobedo 1940 F Date Provider Department Center 01/28/2025 KAYA STEELE Family History Problem Relation Age of Onset Diabetes Mother Hypertension Mother Hypertension Father Diabetes Sister Heart attack Maternal Grandmother Family Status - Relation Status Age at Mother Father Sister Maternal Grandmother Level of Service:38786 [place] OFFICE/OUTPATIENT ESTABLISHED MOD MDM 30 MIN [facility] Urine Cultureon 01-28-2025 Bacteria identified Cx Nom (U) No Growth 2 Days PERFORMED BY: [place] [address] PATHOLOGIST RAYON TESTER NINA CM M.D. Normal [facility] Comment on above: Performed By: #### C UU #### [facility] [address] [place] [address] 36on 08-15-2024 36 Regarding lab result s from 08/14/2024: MD Alejandra Hansen MA S.cr was 1.24, now 1.22 - continue medical rx Thanks LM on . [facility] Office Visiton 08-07-2024 Follow-up visit [id number] Alfa Escobedo 1940 F Date Provider Department Center 08/07/2024 KAYA STEELE Family History Problem Relation Age of Onset Diabetes Mother Hypertension Mother Hypertension Father Diabetes Sister Heart attack Maternal Grandmother Family Status - Relation Status Age at Mother Father Sister Maternal Grandmother Level of Service:46158 [place] OFFICE/OUTPATIENT ESTABLISHED MOD MDM 30 MIN [facility] 36on 07-01-2024 36 Regarding labs from 06/28/2024: MD Alejandra Hansen MA Her free T4 is high; she needs to discuss with whoever is managing her thyroid medications Thanks Labs faxed to Dr. Mccoy's office on . I called his office just now to confirm they received results. [facility] BNPon 01-26-2023 Natriuretic peptide B (Bld) [Mass/Vol] 1751.0 pg/mL Normal <=1,800.0 [facility] Comment on above: Performed By: #### L IVER, TSH #### [facility] [address] [place] [address] Dr. Tierney Rivera CBC AUTO DIFFon 01-26-2023 BASO # 0.0 103/ul Normal 0.0-0.1 [facility] Comment on above: Performed By: #### C BC #### [facility] [address] [place] [address] Dr. Tierney Rivera Basophils/100 WBC (Bld) 0.3 % Normal 0.2-2.0 [facility] Comment on above: Performed By: #### C BC #### [facility] [address] [place] [address] Dr. Tierney Rivera EO # 0.1 103/ul Normal 0.0-0.7 [facility] Comment on above: Performed By: #### C BC #### [facility] [address] [place] [address] Dr. Tierney Rivera Eosinophils/100 WBC (Bld) 2.3 % Normal 0.9-7.0 [facility] Comment on above: Performed By: #### C BC #### [facility] [address] [place] [address] Dr. Tierney Rivera Erythrocyte distribution width (RBC) [Ratio] 13.1 % Normal 11.0-15.0 [facility] Comment on above: Performed By: #### C BC #### [facility] [address] [place] [address] Dr. Tierney Rivera Hematocrit (Bld) [Volume fraction] 43.5 % Normal 36.0-48.0 [facility] Comment on above: Performed By: #### C BC #### [facility] [address] [place] [address] Dr. Tierney Rivera Hemoglobin (Bld) [Mass/Vol] 13.9 g/dL Normal 12.0-16.0 [facility] Comment on above: Performed By: #### C BC #### [facility] [address] [place] [address] Dr. Tierney Rivera IG # 0.02 10e3/ul Normal 0.00-0.03 [facility] Comment on above: Performed By: #### C BC #### [facility] [address] [place] [address] Dr. Tierney Rivera IG % 0.3 % Normal 0.0-0.5 [facility] Comment on above: Performed By: #### C BC #### [facility] [address] [place] [address] Dr. Tierney Rivera LYMPH # 1.2 103/ul Normal 1.2-3.8 [facility] Comment on above: Performed By: #### C BC #### [facility] [address] [place] [address] Dr. Tierney Rivera Lymphocytes/100 WBC (Bld) 20.6 % Normal 20.5-60.0 [facility] Comment on above: Performed By: #### C BC #### [facility] [address] [place] [address] Dr. Tierney Rivera MANUAL DIFF REQ NO Normal [facility] Comment on above: Performed By: #### C BC #### [facility] [address] [place] [address] Dr. Tierney Rivera MCH (RBC) [Entitic mass] 29.4 pg Normal 26.7-34.0 [facility] Comment on above: Performed By: #### C BC #### [facility] [address] [place] [address] Dr. Tierney Rivera MCHC (RBC) [Mass/Vol] 32.0 g/dL Normal 29.9-35.2 [facility] Comment on above: Performed By: #### C BC #### [facility] [address] [place] [address] Dr. Tierney Rivera MCV (RBC) [Entitic vol] 92.2 fL Normal 81.0-99.0 [facility] Comment on above: Performed By: #### C BC #### [facility] [address] [place] [address] Dr. Tierney Rivera MONO # 0.6 103/ul Normal 0.3-0.8 [facility] Comment on above: Performed By: #### C BC #### [facility] [address] [place] [address] Dr. Tierney Rivera Monocytes/100 WBC (Bld) 10.2 % Normal 1.7-12.0 [facility] Comment on above: Performed By: #### C BC #### [facility] [address] [place] [address] Dr. Tierney Rivera NEUT # 3.8 103/ul Normal 1.4-6.5 [facility] Comment on above: Performed By: #### C BC #### [facility] [address] [place] [address] Dr. Tierney Rivera Neutrophils/100 WBC (Bld) 66.3 % Normal 43.0-75.0 [facility] Comment on above: Performed By: #### C BC #### [facility] [address] [place] [address] Dr. Tierney Rivera Platelet mean volume (Bld) [Entitic vol] 11.2 fL Normal 9.5-13.5 [facility] Comment on above: Performed By: #### C BC #### [facility] [address] [place] [address] Dr. Tierney Rivera PLT 253 103/ul Normal 150-450 [facility] Comment on above: Performed By: #### C BC #### [facility] [address] [place] [address] Dr. Tierney Rivera RBC 4.72 106/ul Normal 4.20-5.40 [facility] Comment on above: Performed By: #### C BC #### [facility] [address] [place] [address] Dr. Tierney Rivera WBC 5.8 103/ul Normal 4.0-11.0 [facility] Comment on above: Performed By: #### C BC #### [facility] [address] [place] [address] Dr. Tierney Rivera FREE THYROXINE INDEX T7on FTI 5.18 Critically high 1.30-4.50 [facility] Comment on above: Performed By: #### L CHAMP, TSH #### [facility] [address] [place] [address] Dr. Tierney Rivera T3U 36.0 % Normal 30.0-39.0 [facility] Comment on above: Performed By: #### L IVER, TSH #### [facility] [address] [address] [address] Tierney Rviera T4 [Mass/Vol] 14.40 ug/dL Critically high 4.80-13.90 [facility] Comment on above: Performed By: #### L IVER, TSH #### [facility] [address] [address] [address] Tierney Rivera GLYCOHEMOGLOBIN A1Con 2022 ADA RECOMMENDATION SEE BELOW Normal [facility] Comment on above: Result Comment: ADA RECOMMENDED LIMIT 4.0 - 6.0 ADA THERAPEUTIC TARGET < 7.0 ACTION SUGGESTED > 7.0 Performed By: #### L IVER, TSH #### [facility] [address] [place] [address] Dr. Tierney Rivera Glucose [Mass/Vol] 117 mg/dL Normal [facility] Comment on above: Performed By: #### L IVER, TSH #### [facility] [address] [address] [address] Tierney Rivera HbA1c (Bld) [Mass fraction] 5.7 % Normal 4.5-6.2 [facility] Comment on above: Performed By: #### L IVER, TSH #### [facility] [address] [address] [address] Tierney Rivera IRONon 01-26-2023 Iron [Mass/Vol] 67.0 ug/dL Normal 50.0-170.0 [facility] Comment on above: Performed By: #### V ITAD, IRON #### [facility] [address] [address] [address] Tierney Rivera PROF 14(COMP METB)on 023 Albumin [Mass/Vol] 4.0 g/dL Normal 3.4-5.0 [facility] Comment on above: Performed By: #### L IVER, TSH #### [facility] [address] [place] [address] Dr. Tierney Rivera Albumin/Globulin [Mass ratio] 1.1 {ratio} Normal [facility] Comment on above: Performed By: #### L CHAMP, TSH #### [facility] [address] [address] [address] Tierney Rivera ALP [Catalytic activity/Vol] 98 U/L Normal 46-116 [facility] Comment on above: Performed By: #### L CHAMP, TSH #### [facility] [address] [address] [address] Tierney Rivera ALT [Catalytic activity/Vol] 29 U/L Normal 14-59 [facility] Comment on above: Performed By: #### L CHAMP, TSH #### [facility] [address] [place] [address] Dr. Tierney Rivera Anion gap [Moles/Vol] 11.7 mmol/L Normal [facility] Comment on above: Performed By: #### Breonna OAKES, TSH #### [facility] [address] [place] [address] Dr. Tierney Rivera AST [Catalytic activity/Vol] 22 U/L Normal 15-37 [facility] Comment on above: Performed By: #### L CHAMP TSH #### [facility] [address] [address] [address] Tierney Rivera Bilirubin [Mass/Vol] 0.4 mg/dL Normal 0.2-1.0 [facility] Comment on above: Performed By: #### Breonna OAKES, TSH #### [facility] [address] [address] [address] Tierney Rivera Calcium [Mass/Vol] 10.1 mg/dL Normal 8.5-10.1 [facility] Comment on above: Performed By: #### L CHAMP, TSH #### [facility] [address] [address] [address] Tierney Rivera Chloride [Moles/Vol] 103 mmol/L Normal 98-107 [facility] Comment on above: Performed By: #### L CHAMP, TSH #### [facility] [address] [place] [address] Dr. Tierney Rivera CO2 [Moles/Vol] 30.5 mmol/L Normal 21.0-32.0 [facility] Comment on above: Performed By: #### L CHAMP, TSH #### [facility] [address] [address] [address] Tierney Rivera Creatinine [Mass/Vol] 1.15 mg/dL Critically high 0.55-1.02 [facility] Comment on above: Performed By: #### L CHAMP, TSH #### [facility] [address] [place] [address] Dr. Tierney Rivera EGFR-AF CHINESE 55 mL/min/1.73m2 Critically low >=60 [facility] Comment on above: Performed By: #### L CHAMP, TSH #### [facility] [address] [place] [address] Dr. Tierney Rivera EGFR-NON AF CHINESE 45 mL/min/1.73m2 Critically low >=60 [facility] Comment on above: Performed By: #### L CHAMP, TSH #### [facility] [address] [place] [address] Dr. Tierney Rivera Globulin (S) [Mass/Vol] 3.8 g/dL Normal [facility] Comment on above: Performed By: #### L CHAMP, TSH #### [facility] [address] [place] [address] Dr. Tierney Rivera Glucose [Mass/Vol] 97 mg/dL Normal 74-106 [facility] Comment on above: Performed By: #### L CHAMP, TSH #### [facility] [address] [place] [address] Dr. Tierney Rivera Potassium [Moles/Vol] 4.2 mmol/L Normal 3.5-5.1 [facility] Comment on above: Performed By: #### L CHAMP, TSH #### [facility] [address] [place] [address] Dr. Tierney Rivera Protein [Mass/Vol] 7.8 g/dL Normal 6.4-8.2 [facility] Comment on above: Performed By: #### L CHAMP, TSH #### [facility] [address] [place] [address] Dr. Tierney Rivera Sodium [Moles/Vol] 141 mmol/L Normal 136-145 [facility] Comment on above: Performed By: #### L CHAMP, TSH #### [facility] [address] [place] [address] Dr. Tierney Rivera Urea nitrogen [Mass/Vol] 18.0 mg/dL Normal 7.0-18.0 [facility] Comment on above: Performed By: #### L CHAMP, TSH #### [facility] [address] [place] [address] Dr. Tierney Rivera Urea nitrogen/Creatinine [Mass ratio] 15.7 mg/mg Normal [facility] Comment on above: Performed By: #### L CHAMP, TSH #### [facility] [address] [place] [address] Dr. Tierney Rivera TSHon 01-26-2023 TSH 2.066 uIU/mL Normal 0.358-3.740 [facility] Comment on above: Performed By: #### L CHAMP, TSH #### [facility] [address] [place] [address] Dr. Tierney Rivera VITAMIN D 25 OHon 01-26-2023 VIT D 25-OH 45.0 ng/mL Normal [facility] Comment on above: Performed By: #### V SHANNEN, IRON #### [facility] [address] [place] [address] Dr. Tierney Rivera VIT D RANGES SEE BELOW Normal [facility] Comment on above: Result Comment: <20 ng/mL Vit D deficient 20 - <30 ng/mL Vit D insufficient 30 - 100 ng/mL Vit D sufficient >100 ng/mL Potential Toxicity Performed By: #### V ITAD, IRON #### [facility] [address] [place] [address] Dr. Tierney Rivera BNPon 01-15-2023 Natriuretic peptide B (Bld) [Mass/Vol] 868.0 pg/mL Normal <=1,800.0 [facility] Comment on above: Performed By: #### H STROPN, BNP, CMP #### [facility] [address] [place] [address] Dr. Tireney Rivera CBC AUTO DIFFon 01-15-2023 BASO # 0.0 103/ul Normal 0.0-0.1 [facility] Comment on above: Performed By: #### L IVER, TSH #### [facility] [address] [place] [address] Dr. Tierney Rivera Basophils/100 WBC (Bld) 0.3 % Normal 0.2-2.0 [facility] Comment on above: Performed By: #### L IVER, TSH #### [facility] [address] [place] [address] Dr. Tierney Rivera EO # 0.1 103/ul Normal 0.0-0.7 [facility] Comment on above: Performed By: #### L IVER, TSH #### [facility] [address] [place] [address] Dr. Tierney Rivera Eosinophils/100 WBC (Bld) 1.7 % Normal 0.9-7.0 [facility] Comment on above: Performed By: #### L IVER, TSH #### [facility] [address] [place] [address] Dr. Tierney Rivera Erythrocyte distribution width (RBC) [Ratio] 13.2 % Normal 11.0-15.0 [facility] Comment on above: Performed By: #### L IVER, TSH #### [facility] [address] [place] [address] Dr. Tierney Rivera Hematocrit (Bld) [Volume fraction] 45.1 % Normal 36.0-48.0 [facility] Comment on above: Performed By: #### L IVER, TSH #### [facility] [address] [place] [address] Dr. Tierney Rivera Hemoglobin (Bld) [Mass/Vol] 15.1 g/dL Normal 12.0-16.0 [facility] Comment on above: Performed By: #### L IVER, TSH #### [facility] [address] [place] [address] Dr. Tierney Rivera IG # 0.01 10e3/ul Normal 0.00-0.03 [facility] Comment on above: Performed By: #### L IVER, TSH #### [facility] [address] [place] [address] Dr. Tierney Rivera IG % 0.2 % Normal 0.0-0.5 [facility] Comment on above: Performed By: #### L IVER, TSH #### [facility] [address] [place] [address] Dr. Tierney Rivera LYMPH # 2.2 103/ul Normal 1.2-3.8 [facility] Comment on above: Performed By: #### L IVER, TSH #### [facility] [address] [place] [address] Dr. Tierney Rivera Lymphocytes/100 WBC (Bld) 32.5 % Normal 20.5-60.0 [facility] Comment on above: Performed By: #### L IVER, TSH #### [facility] [address] [place] [address] Dr. Tierney Rivera MANUAL DIFF REQ NO Normal [facility] Comment on above: Performed By: #### L IVBISHNU, TSH #### [facility] [address] [place] [address] Dr. Tierney Rivera MCH (RBC) [Entitic mass] 30.0 pg Normal 26.7-34.0 [facility] Comment on above: Performed By: #### L IVBISHNU, TSH #### [facility] [address] [place] [address] Dr. Tierney Rivera MCHC (RBC) [Mass/Vol] 33.5 g/dL Normal 29.9-35.2 [facility] Comment on above: Performed By: #### L IVER, TSH #### [facility] [address] [place] [address] Dr. Tierney Rivera MCV (RBC) [Entitic vol] 89.7 fL Normal 81.0-99.0 [facility] Comment on above: Performed By: #### L IVER, TSH #### [facility] [address] [place] [address] Dr. Tierney Rivera MONO # 0.8 103/ul Normal 0.3-0.8 [facility] Comment on above: Performed By: #### L CHAMP, TSH #### [facility] [address] [place] [address] Dr. Tierney Rivera Monocytes/100 WBC (Bld) 12.6 % Critically high 1.7-12.0 [facility] Comment on above: Performed By: #### L CHAMP, TSH #### [facility] [address] [place] [address] Dr. Tierney Rivera NEUT # 3.5 103/ul Normal 1.4-6.5 [facility] Comment on above: Performed By: #### L CHAMP, TSH #### [facility] [address] [place] [address] Dr. Tierney Rivera Neutrophils/100 WBC (Bld) 52.7 % Normal 43.0-75.0 [facility] Comment on above: Performed By: #### Breonna OAKES TSH #### [facility] [address] [place] [address] Dr. Tierney Rivera Platelet mean volume (Bld) [Entitic vol] 11.0 fL Normal 9.5-13.5 [facility] Comment on above: Performed By: #### Breonna OAKES, TSH #### [facility] [address] [place] [address] Dr. Tierney Rivera PLT 266 103/ul Normal 150-450 [facility] Comment on above: Performed By: #### Breonna OAKES, TSH #### [facility] [address] [place] [address] Dr. Tierney Rivera RBC 5.03 106/ul Normal 4.20-5.40 [facility] Comment on above: Performed By: #### L CHAMP, TSH #### [facility] [address] [place] [address] Dr. Tierney Rivera WBC 6.6 103/ul Normal 4.0-11.0 [facility] Comment on above: Performed By: #### Breonna OAKES TSH #### [facility] [address] [place] [address] Dr. Tierney Rivera CULTURE BLOODon 01-15-2023 Microscopic examination of blood, culture Culture Observations: NO GROWTH AT 5 DAYS. Normal [facility] Comment on above: Performed By: #### L IVBISHNU, TSH #### [facility] [address] [place] [address] Dr. Tierney Rivera Microscopic examination of blood, culture Culture Observations: NO GROWTH AT 5 DAYS. Normal [facility] Comment on above: Performed By: #### L IVER, TSH #### [facility] [address] [place] [address] Dr. Tierney Rivera ER URINE PROFILEon 3 Bilirubin Ql (U) Negative Normal NEGATIVE [facility] Comment on above: Performed By: #### L IVBISHNU, TSH #### [facility] [address] [place] [address] Dr. Tierney Rivera Clarity (U) CLEAR Normal CLEAR [facility] Comment on above: Performed By: #### L CHAMP, TSH #### [facility] [address] [place] [address] Dr. Tierney Rivera Color (U) LT. YELLOW Normal YELLOW [facility] Comment on above: Performed By: #### L IVER, TSH #### [facility] [address] [place] [address] Dr. Tierney Rivera ERUDEBD A micrscopic examination will be performed if indicated. Normal [facility] Comment on above: Performed By: #### L IVBISHNU, TSH #### [facility] [address] [place] [address] Dr. Tierney Rivera Glucose Ql (U) Negative Normal NEGATIVE [facility] Comment on above: Performed By: #### L IVER, TSH #### [facility] [address] [place] [address] Dr. Tierney Rivera Hemoglobin Ql (U) Negative Normal NEGATIVE [facility] Comment on above: Performed By: #### L IVER, TSH #### [facility] [address] [place] [address] Dr. Tierney Rivera Ketones Ql (U) Negative Normal NEGATIVE [facility] Comment on above: Performed By: #### L IVER, TSH #### [facility] [address] [place] [address] Dr. Tierney Rivera LEUKOCYTES Negative Normal NEGATIVE [facility] Comment on above: Performed By: #### L IVER, TSH #### [facility] [address] [place] [address] Dr. Tierney Rivera Nitrite Ql (U) Negative Normal NEGATIVE [facility] Comment on above: Performed By: #### L LILAER, TSH #### [facility] [address] [place] [address] Dr. Tierney Rivera pH (U) 7.5 [pH] Normal 5-9 [facility] Comment on above: Performed By: #### L CHAMP, TSH #### [facility] [address] [place] [address] Dr. Tierney Rivera SPEC GRAVITY 1.010 Normal 1.005-<=1.02 5 [facility] Comment on above: Performed By: #### L CHAMP, TSH #### [facility] [address] [place] [address] Dr. Tierney Rivera UA PROTEIN Negative Normal NEGATIVE/ TRACE [facility] Comment on above: Performed By: #### L CHAMP, TSH #### [facility] [address] [place] [address] Dr. Tierney Rivera UR MICRO IND NOT INDICATED Normal [facility] Comment on above: Performed By: #### L CHAMP, TSH #### [facility] [address] [place] [address] Dr. Tierney Rivera Urobilinogen Qn (U) 0.2 {Radu'U}/dL Normal 0.2 - 1. 0 [facility] Comment on above: Performed By: #### L LILAER, TSH #### [facility] [address] [place] [address] Dr. Tierney Rivera LACTATE/LACTIC ACIDon 2022 Lactate [Moles/Vol] 1.5 mmol/L Normal 0.4-2.0 [facility] Comment on above: Performed By: #### L ACT #### [facility] [address] [address] [address] Tierney Rivera PROF 14(COMP METB)on 023 Albumin [Mass/Vol] 4.3 g/dL Normal 3.4-5.0 [facility] Comment on above: Performed By: #### L IVER, TSH #### [facility] [address] [address] [address] Tierney Rivera Albumin/Globulin [Mass ratio] 1.2 {ratio} Normal [facility] Comment on above: Performed By: #### L IVER, TSH #### [facility] [address] [address] [address] Tierney Rivera ALP [Catalytic activity/Vol] 111 U/L Normal 46-116 [facility] Comment on above: Performed By: #### L IVER, TSH #### [facility] [address] [address] [address] Tierney Rivera ALT [Catalytic activity/Vol] 23 U/L Normal 14-59 [facility] Comment on above: Performed By: #### L IVER, TSH #### [facility] [address] [address] [address] Tierney Rivera Anion gap [Moles/Vol] 11.8 mmol/L Normal [facility] Comment on above: Performed By: #### L IVER, TSH #### [facility] [address] [address] [address] Tierney Rivera AST [Catalytic activity/Vol] 22 U/L Normal 15-37 [facility] Comment on above: Performed By: #### L IVER, TSH #### [facility] [address] [address] [address] Tierney Rivera Bilirubin [Mass/Vol] 0.4 mg/dL Normal 0.2-1.0 [facility] Comment on above: Performed By: #### L IVER, TSH #### [facility] [address] [address] [address] Tierney Rivera Calcium [Mass/Vol] 10.6 mg/dL Critically high 8.5-10.1 [facility] Comment on above: Performed By: #### L IVER, TSH #### [facility] [address] [address] [address] Tierney Rivera Chloride [Moles/Vol] 103 mmol/L Normal 98-107 [facility] Comment on above: Performed By: #### L IVER, TSH #### [facility] [address] [place] [address] Dr. Tierney Rivera CO2 [Moles/Vol] 29.2 mmol/L Normal 21.0-32.0 [facility] Comment on above: Performed By: #### L IVER, TSH #### [facility] [address] [place] [address] Dr. Tierney Rivera Creatinine [Mass/Vol] 1.13 mg/dL Critically high 0.55-1.02 [facility] Comment on above: Performed By: #### L IVER, TSH #### [facility] [address] [place] [address] Dr. Tierney Rivera EGFR-AF CHINESE 56 mL/min/1.73m2 Critically low >=60 [facility] Comment on above: Performed By: #### L IVER, TSH #### [facility] [address] [place] [address] Dr. Tierney Rivera EGFR-NON AF CHINESE 46 mL/min/1.73m2 Critically low >=60 [facility] Comment on above: Performed By: #### L IVER, TSH #### [facility] [address] [place] [address] Dr. Tierney Rivera Globulin (S) [Mass/Vol] 3.7 g/dL Normal [facility] Comment on above: Performed By: #### L IVER, TSH #### [facility] [address] [place] [address] Dr. Tierney Rivera Glucose [Mass/Vol] 109 mg/dL Critically high 74-106 [facility] Comment on above: Performed By: #### L IVER, TSH #### [facility] [address] [place] [address] Dr. Tierney Rivera Potassium [Moles/Vol] 4.0 mmol/L Normal 3.5-5.1 [facility] Comment on above: Performed By: #### L CHAMP, TSH #### [facility] [address] [place] [address] Dr. Tierney Rivera Protein [Mass/Vol] 8.0 g/dL Normal 6.4-8.2 [facility] Comment on above: Performed By: #### L CHAMP, TSH #### [facility] [address] [address] [address] Tierney Rivera Sodium [Moles/Vol] 140 mmol/L Normal 136-145 [facility] Comment on above: Performed By: #### L CHAMP, TSH #### [facility] [address] [place] [address] Dr. Tierney Rivera Urea nitrogen [Mass/Vol] 17.0 mg/dL Normal 7.0-18.0 [facility] Comment on above: Performed By: #### Breonna OAKES, TSH #### [facility] [address] [place] [address] Dr. Tierney Rivera Urea nitrogen/Creatinine [Mass ratio] 15.0 mg/mg Normal [facility] Comment on above: Performed By: #### Breonna OAKES, TSH #### [facility] [address] [place] [address] Dr. Tierney Rivera TROPONIN, HIGH SENSITIVITYon 01-15-2023 HSTROP 21.6 pg/mL Normal 4.0-51.3 [facility] Comment on above: Result Comment: CUT- OFF POINTS HAVE BEEN ESTABLISHED BASED ON THE FOURTH UNIVERSAL DEFINITIONS OF MYOCARDIAL INFARCTION. THE UPPER REFERENCE LIMIT (URL) OF TROPONIN, DEFINED THE 99TH PERCENTILE OF cTnI DISTRIBUTION IN A REFERENCE POPULATION, HAS BEEN CONFIRMED THE DECISION THRESHOLD FOR RI DIAGNOSIS. Performed By: #### H STROPN, BNP, CMP #### [facility] [address] [place] [address] Dr. Tierney Rivera XR CHEST 1 Von [...] by: CONSTANCE LAI Date: 2023-01-15 00:29 Normal [facility] FREE T4on 10-17-2022 Free T4 [Mass/Vol] 1.49 ng/dL Critically high 0.76-1.46 [facility] Comment on above: Performed By: #### L CHAMP TSH #### [facility] [address] [address] [address] Tierney Rivera LIVER PROFILEon 10-17-2022 Albumin [Mass/Vol] 3.7 g/dL Normal 3.4-5.0 [facility] Comment on above: Performed By: #### L CHAMP TSH #### [facility] [address] [place] [address] Dr. Tierney Rivera Albumin/Globulin [Mass ratio] 1.1 {ratio} Normal [facility] Comment on above: Performed By: #### L CHAMP TSH #### [facility] [address] [place] [address] Dr. Tierney Rivera ALP [Catalytic activity/Vol] 104 U/L Normal 46-116 [facility] Comment on above: Performed By: #### L CHAMP, TSH #### [facility] [address] [address] [address] Tierney Rivera ALT [Catalytic activity/Vol] 27 U/L Normal 14-59 [facility] Comment on above: Performed By: #### L CHAMP, TSH #### [facility] [address] [place] [address] Dr. Tierney Rivera AST [Catalytic activity/Vol] 23 U/L Normal 15-37 [facility] Comment on above: Performed By: #### L IVBISHNU, TSH #### [facility] [address] [address] [address] Tierney Rivera BILI, CONJUGATED 0.1 mg/dL Normal 0.0-0.2 [facility] Comment on above: Performed By: #### L IVER, TSH #### [facility] [address] [place] [address] Dr. Tierney Rivera Bilirubin [Mass/Vol] 0.4 mg/dL Normal 0.2-1.0 [facility] Comment on above: Performed By: #### L IVER, TSH #### [facility] [address] [place] [address] Dr. Tierney Rivera Globulin (S) [Mass/Vol] 3.5 g/dL Normal [facility] Comment on above: Performed By: #### L IVER, TSH #### [facility] [address] [place] [address] Dr. Tierney Rivera Protein [Mass/Vol] 7.2 g/dL Normal 6.4-8.2 [facility] Comment on above: Performed By: #### L IVER, TSH #### [facility] [address] [place] [address] Dr. Tierney Rivera TSHon 10-17-2022 TSH 1.020 uIU/mL Normal 0.358-3.740 [facility] Comment on above: Performed By: #### L IVER, TSH #### [facility] [address] [place] [address] Dr. Tierney Rivera XR CHEST 2 Von [...] FLORENTINO MAURO Date: 2022-10-17 09:46 Normal [facility] Covid-19 PCR (CVDTB)on SARS-CoV-2 (COVID-19) RNA SEDRICK+probe Ql (Unsp spec) Detected Critically abnormal NOT DETECTED [facility] Comment on above: Result Comment: This test is not yet approved or cleared by the [place] FDA. When there are no FDA-approved or cleared tests available, and other criteria are met, FDA can make tests available under an emergency access mechanism called an Emergency Use Authorization (EUA). The EUA for this test is supported by the [place] of Health and Human Service's (HHS's) declaration [...] used). Performed By: #### C VDTB #### [facility] [address] [place] [address] Dr. Tierney Rivera INFLUENZA A AND B AGon 09-27 [facility] SEE BELOW Normal [facility] Comment on above: Result Comment: Nega tive for Flu A protein angiten. Infection due to Flu A cannot be ruled out. Flu A angiten in the sample may be below the detection limit of the test. Performed By: #### I NFLUAB #### [facility] [address] [place] [address] Dr. Tierney Rivera [facility] Normal [facility] Comment on above: Result Comment: Nega tive for Flu B protein antigen. Infection due to Flu B cannot be ruled out. Flu B antigen in the sample may be below the detection limit of the test. Performed By: #### I NFLUAB #### [facility] [address] [place] [address] Dr. Tierney Rivera INFLUENZA A AG Negative Normal NEGATIVE SEE COMMENT [facility] Comment on above: Performed By: #### I NFLUAB #### [facility] [address] [place] [address] Dr. Tierney Rivera INFLUENZA B AG Negative Normal NEGATIVE SEE COMMENT [facility] Comment on above: Performed By: #### I NFLUAB #### [facility] [address] [place], [place] [address] Dr. Tierney Rivera Cardiovascular Lab Reporton 06-11-2021 Cardiovascular Lab Report [facility] Patient Name: uLcille Escobedo [facility] Laura MR #: [id number] Department of Physician: Kaya Patel Medicine [facility] Division of Service Date: 06/10/2021 Cardiology Birthdate: 1940 Adult Cardiovascular Room #: [facility] [address] [place], [place] [address] Cardiovascular Laboratory Report FINAL IMPRESSION: 1. Angiographically [...] Follow up with Dr. Patel in the [facility]. 8. Follow up with Dr. Mccoy as scheduled. PROCEDURES: Ultrasound-guided access of the right common femoral vein, ultrasound-guided access of right common femoral artery, limited femoral angiography, right heart catheterization, bilateral selective coronary angiography, placement of a 5-Filipino MynxGrip closure device. METHODS: After risks, benefits, and alternatives were explained, written informed consent was obtained. The patient was prepped and draped in usual sterile fashion over both groins. Using 1% lidocaine solution, local infiltration anesthesia was achieved. Using modified Seldinger technique, a micropuncture kit and under ultrasound guidance access to the right common femoral vein was obtained. A 6-Filipino 11 cm sheath was inserted without difficulty. This was repeated over the artery; a 5-Filipino 11 cm sheath was inserted. A Mcdonald catheter was used for right heart catheterization. Pressures were measured in the right atrium, right ventricle, pulmonary artery, and pulmonary capillary wedge positions. Oxygen saturations were obtained and cardiac output/cardiac index was calculated using modified Gisele principle. The Mcdonald catheter was removed. Bilateral selective coronary angiography was performed using 5-Filipino JL4 and JR4 catheters. After reviewing the images, it was elected to conclude the procedure. All catheters were removed. A 5-Filipino MynxGrip closure device was deployed per protocol [...] P Kaya Patel M.D. Date Dict: 06/10/2021/01:03 Cruz/Kaya Patel M.D (more content not included)... Normal [facility] Vital Signs Date Time Vital Sign Value Performing Clinician Belemi pernell 04-17-2025 09:29-0400 Body height 167.6 cm Hipolito Brown DPM Work Phone: [facility] 04-17-2025 09:29-0400 Body mass index (BMI) [Ratio] 17.27 kg/m2 Hipolito Brown DPM Work Phone: [facility] 04-17-2025 09:29-0400 Body weight 48.53 kg Hipolito Brown DPM Work Phone: [facility] 04-17-2025 09:29-0400 Respiratory rate 16 /min Hipolito Brown DPM Work Phone: [facility] 02-06-2025 09:32-0400 Body height 167.6 cm Hipolito Brown DPM Work Phone: [facility] 02-06-2025 09:32-0400 Body mass index (BMI) [Ratio] 17.27 kg/m2 Hipolito Brown DPM Work Phone: [facility] 02-06-2025 09:32-0400 Body weight 48.53 kg Hipolito Brown DPM Work Phone: [facility] 02-06-2025 09:32-0400 Respiratory rate 18 /min Hipolito Brown DPM Work Phone: [facility] 11-21-2024 09:40-0500 Body height 167.6 cm Hipolito Brown DPM Work Phone: [facility] 11-21-2024 09:40-0500 Body mass index (BMI) [Ratio] 17.27 kg/m2 Hipolito Brown DPM Work Phone: [facility] 11-21-2024 09:40-0500 Body weight 48.53 kg Hipolito Brown DPM Work Phone: [facility] 11-21-2024 09:40-0500 Respiratory rate 18 /min Hipolito Brown DPM Work Phone: [facility] 09-05-2024 10:08-0500 Body height 167.6 cm Hipolito Brown DPM Work Phone: [facility] 09-05-2024 10:08-0500 Body mass index (BMI) [Ratio] 17.27 kg/m2 Hipolito Brown DPM Work Phone: [facility] 09-05-2024 10:08-0500 Body weight 48.53 kg Hipolito Brown DPM Work Phone: [facility] 09-05-2024 10:08-0500 Respiratory rate 16 /min Hipolito Brown DPM Work Phone: [facility] 06-20-2024 09:59-0400 Body height 167.6 cm Hipolito Brown DPM Work Phone: [facility] 06-20-2024 09:59-0400 Body mass index (BMI) [Ratio] 17.27 kg/m2 Hipolito Brown DPM Work Phone: [facility] 06-20-2024 09:59-0400 Body weight 48.53 kg Hipolito Brown DPM Work Phone: [facility] 06-20-2024 09:59-0400 Diastolic blood pressure 80 mm[Hg] Hipolito Brown DPM Work Phone: [facility] 06-20-2024 09:59-0400 Heart rate 75 /min Hipolito Brown DPM Work Phone: [facility] 06-20-2024 09:59-0400 Respiratory rate 18 /min Hipolito Brown DPM Work Phone: [facility] 06-20-2024 09:59-0400 Systolic blood pressure 127 mm[Hg] Hipolito Mendieta DPM Work Phone: [facility] 11-09-2023 13:51-0500 Body height 167.6 cm Hipolito Mendieta DPM Work Phone: [facility] 11-09-2023 13:51-0500 Body mass index (BMI) [Ratio] 17.27 kg/m2 Hipolito Mendieta DPM Work Phone: [facility] 11-09-2023 13:51-0500 Body weight 48.53 kg Hipolito Mendieta DPM Work Phone: [facility] 11-09-2023 13:51-0500 Diastolic blood pressure 81 mm[Hg] Hipolito Mendieta DPM Work Phone: [facility] 11-09-2023 13:51-0500 Heart rate 78 /min Hipolito Mendieta DPM Work Phone: [facility] 11-09-2023 13:51-0500 Systolic blood pressure 120 mm[Hg] Hipolito Mendieta DPM Work Phone: [facility] Healthcare Encounters Encounter Date Encounter Type Care Provider Facility Start: 04-17-2025 End: 04-17-2025 Bamboo flowsheet Hipolito Mendieta DPM Work Phone: [facility] Start: 04-17-2025 End: 04-17-2025 Bamboo flowsheet Hipolito Mendieta DPM Work Phone: [facility] Start: 04-17-2025 End: 04-17-2025 Patient encounter procedure Hipolito Mendieta DPM Work Phone: [facility] Comment on above: Verruca plantaris (P rimary Dx); Foot pain, left; Pain due to onychomycosis of toenails of both feet Start: 04-17-2025 End: 04-17-2025 ambulatory HIPOLITO MENDIETA Not Available Start: 02-06-2025 End: 02-06-2025 Bamboo flowsheet Hipolito Mendieta DPM Work Phone: [facility] Start: 02-06-2025 End: 02-06-2025 Bamboo flowsheet Hipolito Mendieta DPM Work Phone: [facility] Start: 02-06-2025 End: 02-06-2025 Patient encounter procedure Hipolito Mendieta DPM Work Phone: [facility] Comment on above: Pain due to onychomy cosis of toenails of both feet (Primary Dx); Verruca plantaris; Foot pain, left Start: 02-06-2025 End: 02-06-2025 ambulatory HIPOLITO MENDIETA Not Available Start: 01-28-2025 End: 01-28-2025 [facility] Work Phone: [facility] Start: 01-28-2025 End: 01-28-2025 ambulatory ab [facility] Work Phone: Start: 11-21-2024 End: 11-21-2024 Bamboo flowsheet Hipolito Mendieta DPM Work Phone: [facility] Start: 11-21-2024 End: 11-21-2024 Bamboo flowslaura Mendieta DPM Work Phone: [facility] Start: 11-21-2024 End: 11-21-2024 ambulatory HIPOLITO MENDIETA Not Available Start: 11-21-2024 End: 11-21-2024 Patient encounter procedure Hipolito Mendieta DPM Work Phone: [facility] Comment on above: Pain due to onychomy cosis of toenails of both feet (Primary Dx) Start: 09-05-2024 End: 09-05-2024 Bamboo flowslaura Mendieta DPM Work Phone: [facility] [...] Not Available Start: 08-07-2024 End: 08-07-2024 ambulatory [facility] Start: 06-20-2024 End: 06-20-2024 Bamboo flowsheet Hipolito Mendieta DPM Work Phone: [facility] Start: 06-20-2024 End: 06-20-2024 Bamboo flowsheet Hipolito Mendieta DPM Work Phone: [facility] Start: 06-20-2024 End: 06-20-2024 Patient encounter procedure Hipolito Mendieta DPM Work Phone: [facility] Comment on above: Onychomycosis (Prima ry Dx); Toe pain, bilateral Start: 06-20-2024 End: 06-20-2024 ambulatory HIPOLITO MENDIETA Not Available Start: 11-09-2023 [...] Facility: Start: 06-10-2021 End: 06-11-2021 [facility] Plan of Treatment Date Care Activity Detail Author Start: 04-17-2025 End: 04-17-2025 Patient encounter procedure 04/17/2025 9:30 AM EDT Procedure Visit [facility] [address] [facility] [address] [place] [id number] Hipolito Mendieta DPM [address] [address] Verruca plantaris (Primary Dx); Foot pain, left; Pain due to onychomycosis of toenails of both feet [facility] Comment on above: Verruca plantaris (P rimary Dx); Foot pain, left; Pain due to onychomycosis of toenails of both feet Start: 02-06-2025 End: 02-06-2025 Patient encounter procedure [facility] Comment on above: Pain due to onychomy cosis of toenails of both feet (Primary Dx) Start: 01-28-2025 Bacteria identified in Urine by Culture Urine Culture [facility] Start: 01-28-2025 Urine culture [facility] Start: 11-21-2024 End: 11-21-2024 Patient encounter procedure 11/21/2024 9:30 AM EST Procedure Visit [facility] [address] [facility] [address] [place] [id number] Hipolito Mendieta DPM [address] [address] [facility] Start: 09-05-2024 End: 09-05-2024 Patient encounter procedure 09/05/2024 10:10 AM EST Procedure Visit [facility] [address] [place] [address] Hipolito Mendieta, PAULAM [address] [address] Pain due to onychomycosis of toenails of both feet (Primary Dx) [facility] Comment on above: Pain due to onychomy cosis of toenails of both feet (Primary Dx) Start: 06-20-2024 End: 06-20-2024 Patient encounter procedure 06/20/2024 10:00 AM EDT Procedure Visit [facility] [address] [facility] [address] [place] [address] Hipolito Mendieta, ADOLFO [address] [address] Onychomycosis (Primary Dx); Toe pain, bilateral [facility] Comment on above: Onychomycosis (Prima ry Dx); Toe pain, bilateral Start: 11-09-2023 End: 11-09-2023 Patient encounter procedure 11/09/2023 1:50 PM EST Procedure Visit [facility] [address] [facility] [address] [place] [address] Hipolito Mendieta, DPM [address] [address] [facility] Payers Date Payer Category Payer Self-pay 2023 Unknown [facility] [place] [id number] 2023-Present [address] [facility] [place] [address] [id number] 2018 Private Health Insurance [id number] 2018 Unknown [id number] 2006 Medicare [id number]. [id number] 1959 Medicare [id number] 1959 Unknown [id number] 1941 Unknown [id number] 2.16.840.1.070756.3.579. 2.647 1941 Unknown [id number] 2.16.840.1.208918.3.579. 2.593 1941 Unknown [id number] 2.16.840.1.928751.3.579. 2.593 1941 Unknown [id number] 2.16.840.1.977104.3.579. 2.593 1941 Unknown [id number] 2.16.840.1.398356.3.579. 2.593 1941 Unknown [id number] 2.16.840.1.801379.3.579. 2.1259 1941 Unknown [id number] 2.16.840.1.318410.3.579. 2.1259 1941 Unknown [id number] 2.16.840.1.482606.3.579. 2.1259 1941 Unknown [id number] 2.16.840.1.466965.3.579. 2.1259 1941 Unknown [id number] 2.16.840.1.471036.3.579. 2.1259 Medicare Medicare [id number] Unknown [employer] [id number] Unknown [id number] [id number]. 2.531 Social History Date Type Detail Facility Start: 12-07-2023 Tobacco smoking status NHIS Tobacco smoking consumption unknown [facility] Start: 10-12-2023 End: 04-17-2025 Alcohol intake Defer [facility] Start: 1940 Sex Assigned At Not on file [facility] Gender identity Not on file [facility] Start: 01-29-2025 Sex Female (finding) [facility] Start: 1940 Sex Assigned At Female F [facility] Clinical Notes 11-09-2023 to 04-17-2025 Hipolito Mendieta, DP - 04/17/2025 9:30 AM EDTNictimothy Mendieta, DPM - 02/06/2025 9:30 AM EDTNicholrosalia Mendieta, DP - 11/21/2024 9:30 AM ESTNicholrosalia Mendieta, [facility] - 09/05/2024 10:10 AM EST Note Date & Type Note Facility 04-17-2025 History of Present illness Narrative Patient: Lucille [...] on a 1-10 scale an intensity of 3 Pt presents today for followup. Allergies: Allergies Allergen Reactions Hossein Inhibitors Other and Unknown Sulfa Antibiotics Other and Unknown Verapamil Unknown Past Medical History: Past Medical History: Diagnosis Date Hypertension Medications: Current Outpatient Medications: amiodarone (Pacerone) 200 [...] route for 85 days., Disp: , Rfl: tbvjrqrwuiuy-vrmx-rqxpudtm-folic acid (Centrum Silver, geriatric,) tablet, as directed [...] Partner Violence: Unknown (11/16/2023) Received from [facility] [place] [facility] Fear of Current [...] metatarsal region has a 0.2 cm x 0.1 cm round nummular lesion Elongated thick yellow crumbly nails digits 1 through 10 with positive hair growth VASC: Positive palpable pedal pulses bilaterally NEURO: Gross sensation intact to bilateral feet ORTHO: Positive pain on palpation to toenails of the left 1,2,3,4,5 toes and right 1,2,3,4,5 toes Positive pain on palpation to the left foot lesion ASSESSMENT 1. Verruca plantaris 2. Foot pain, left 3. Pain due to onychomycosis of toenails of [...] Hipolito Mendieta DPM documented in this encounter [facility] 02-06-2025 History of Present illness Narrative Patient: [...] History: Past Medical History: Diagnosis Date Hypertension ([facility]) Medications: Current Outpatient Medications: amiodarone (Pacerone) 200 [...] route for 85 days., Disp: , Rfl: brkieidlauof-ackp-vqkngtix-folic acid (Centrum Silver, geriatric,) tablet, as directed [...] Partner Violence: Unknown (11/16/2023) Received from [facility] Environment Fear of Current or [...] Hipolito Mendieta DPM documented in this encounter [facility] 01-28-2025 Note [facility] Cardiology Clinic Note Chief Complaint: Patient [...] regurgitation. Moderate to severe mitral regurgitation. Transesophageal Echocardiogram-[facility] Name: LUCILLE ESCOBEDO Study Date: 06/10/2021 10:12 AM MRN: (more content not included)... [facility] 11-21-2024 History of Present illness Narrative [...] History: Past Medical History: Diagnosis Date Hypertension (CMS/[facility]) Medications: Current Outpatient Medications: amiodarone (Pacerone) 200 [...] route for 85 days., Disp: , Rfl: mhdpyrseatyy-mqji-sxiryamd-folic acid (Centrum Silver, geriatric,) tablet, as directed [...] Partner Violence: Unknown (11/16/2023) [facility] [place] [facility] Fear of Current [...] Hipolito Mendieta DPM documented in this encounter [facility] 09-05-2024 History of Present illness [...] route for 85 days., Disp: , Rfl: rsmwaivollps-rmoz-yztkbhqz-folic acid (Centrum Silver, geriatric,) tablet, as directed [...] Partner Violence: Unknown (11/16/2023) [facility] [place] [facility] Fear of Current [...] Hipolito Mendieta DPM documented in this encounter [facility] 08-07-2024 Note [facility] Cardiology Clinic Note Chief Complaint: Patient here for 1 year follow up CAD, PAF, and mitral valve regurgitation. She had an echo in Aug 2023 after last apt. She was seen in [facility] ED twice in Sep 2023 for afib. [...] regurgitation. Moderate to severe mitral regurgitation. Transesophageal Echocardiogram-[facility] Name: LUCILLE ESCOBEDO Study Date: 06/10/2021 10:12 AM B/P: 126 mmHg/68 mmHg HR: Date of : 1940 Location: [facility] Height: 66 in. Age: 81 year(s) Patient Room : Weight: 135 lb. Gender: Female Patient Status: OutPt BSA: 1.69 m2 Indication: Atrial Fibrillation Examination: TUAN/CFI with Cardioversion Image Quality: Good Patient Consent: Informed, written consent was obtained for the procedure s p @ c 3 Exam Location: A TUAN was performed in the [employer] [facility] without complications s p @ c 3 Anesthesia Pharyngeal anesthesia with viscous Lidocaine Conclusions Left Ventricle: The left ventricle is normal size. Global left ventricular systolic function is severely reduced. The EF is 20 % visually. Diffuse global hypokinesis. Right Ventricle: The right ventricle is normal in size. Right ventricular systolic function appea (more content not included)... [facility] 06-20-2024 History of Present illness Narrative [...] route for 85 days., Disp: , Rfl: kkoodokolmjd-nqnp-pfnapcar-folic acid (Centrum Silver, geriatric,) tablet, as directed [...] Partner Violence: Unknown (11/16/2023) [facility] [place] [facility] Fear of Current [...] Hipolito Mendieta DPM documented in this encounter [facility] 11-09-2023 History of Present illness [...] History: Past Medical History: Diagnosis Date Hypertension ([facility]) Medications: Current Outpatient Medications: amiodarone (Pacerone) 200 [...] route for 85 days., Disp: , Rfl: etgymlkfmxvj-ypyl-hkteynhy-folic acid (Centrum Silver, geriatric,) tablet, as directed [...] Hipolito Mendieta DPM documented in this encounter [facility] Healthcare Evaluation note Diagnosis Verruca plantaris- Primary Plantar wart Foot pain, left Pain in soft tissues of limb Onychomycosis Dermatophytosis of nail Toe pain, bilateral documented [facility]* Diagnosis Pain due to onychomycosis of toenails of both feet- Primary documented in this encounter [facility]* Diagnosis Onychomycosis- Primary Dermatophytosis of nail Toe pain, bilateral [facility] noteNo assessment information availableMer[facility] Work Phone: Evaluation note* Diagnosis Pain due to onychomycosis of toenails of both feet- Primary Verruca plantaris Plantar wart Foot pain, left Pain in soft tissues of limb documented [facility]* Diagnosis Verruca plantaris- Primary Plantar wart Foot pain, left Pain in soft tissues of limb Pain due to onychomycosis of toenails of both feet documented in this encounter [facility] Summary [...] and content) DATE CREATED AUTHOR 06/15/2021 [facility] DATE CREATED AUTHOR AUTHOR'S ORGANIZ ATION 02/02/2023 [facility] pital DATE CREATED AUTHOR AUTHOR'S ORGANIZ ATION 01/31/2025 [facility] DATE CREATED AUTHOR AUTHOR'S ORGANIZ ATION 02/04/2025 [facility] DATE CREATED AUTHOR AUTHOR'S ORGANIZ ATION 04/18/2025 [facility] EPIC Care Teams (unrecognized sec tion and content) Plasterer Helper Relationship Specialty Start Date End Date Gerber Mccoy MD [address] [place] [address] PCP - General Family Medicine 08/31/23 Plasterer Helper Relationship Specialty Start Date End Date Gerber Mccoy MD [address] [place] [address] PCP - General Family Medicine 08/31/23 Plasterer Helper Relationship Specialty Start Date End Date Gerber Mccoy MD [address] [place] [address] PCP - General Family Medicine 08/31/23 Plasterer Helper Relationship Specialty Start Date End Date Gerber Mccoy MD [address] [place] [address] PCP - General Family Medicine 08/31/23 Plasterer Helper Relationship Specialty Start Date End Date Gerber Mccoy MD [address] [place] [address] PCP - [facility] 08/31/23 Team Status: Inactive Member Role Status Dates [facility] Attending Provider Active Start: January 28, 2025 End: January 28, 2025 Plasterer Helper Relationship Specialty Start Date End Date Gerber Mccoy MD [address] [place] [address] PCP - [facility] 08/31/23 Plasterer Helper Relationship Specialty Start Date End Date Gerber Mccoy MD [address] [place] [address] PCP - General Family Medicine 08/31/23 Reason for Visit (unrecogniz ed section and content) Reason Comments Toenail Care Non dm Nails Reason Comments Toenail Care Non dm nial care Reason Comments Toenail Care Non dm nail care Reason Comments Toenail Care Goals (unrecognized section and content) Goals may [...] BE BASED ON THE PRIMARY CLINICAL RECORDS. [employer] provides no warranty or guarantee of the accuracy or completeness of information in this document.
--- NOTE | 2025-05-31 10:06 | PC.NURSE ---
red raised rash to left side back , shoulder blade area and comes around under left arm and to front left side upper chest
--- NOTE | 2025-05-31 10:29 | ED_ITS ---
HPI HPI - General Adult General Chief complaint: Skin/Abscess/Foreign Body Stated complaint: RASH AROUND HER WAIST- STARTED YESTERDAY Time Seen by Provider: 05/31/25 09:58 Source: patient Mode of arrival: walk-in Limitations: no limitations History of Present Illness HPI narrative: Patient is an 85-year-old female presenting to the emergency department for evaluation of a rash. Patient states she noticed the rash approximately 24 hours ago. She states it started in the center of her chest, and is since wrapped around to her back. She states the pain is approximately 5/10. States it is sharp in nature. She has never had a rash like this in the past. She denies ever having her shingles vaccine. She denies any chest pain or shortness of breath. No nausea or vomiting. No fevers or chills. No involvement of the face, eyes, or ears. She denies any immunocompromising conditions such as chemotherapy or immune modulating drugs. Related Data Home Medications ?Medication ?Instructions ?Recorded ?Confirmed amiodarone 200 mg tablet 200 mg PO Q24H 06/03/2303/19 apixaban 2.5 mg tablet (Eliquis) 2.5 mg PO Q12H 05/31/25 irbesartan 75 mg tablet 75 mg PO DAILY 06/03/2303/19 levothyroxine 50 mcg tablet 50 mcg PO .even numbered d ays 06/03/23 05/31/25 multivitamin (Daily Multi-Vitamin 1 tab PO DAILY 06/0305/31/25 tablet) potassium chloride 10 mEq 10 meq PO DAILY 06/03/2303/19 tablet,extended release furosemide 20 mg tablet 20 mg PO DAILY 05/31/2503/19 Previous Rx's ?Medication ?Instructions ?Recorded metoprolol tartrate 25 mg tablet 25 mg PO BID #20 tabs 06/03/23 isosorbide mononitrate 30 mg 30 mg PO DAILY #30 tabs 0 10/14/23 tablet,extended release 24 hr valacyclovir 1 gram tablet 1,000 mg PO DAILY herpes zo ster 7 05/31/25 days #7 tabs Allergies Allergy/AdvReac Type Severity Reaction Status Date / Time Sulfa (Sulfonamide Allergy Intermediate Rash Verified 05/31/25 09:57 Antibiotics) Review of Systems ROS Status of ROS 10 or more systems reviewed and unremark able except as noted in history and below [facility] Medical History (Updated 05/31/25 @ 10:13 by Aldo Land DO) Pulmonary edema ?J81.1 - Chronic pulmonary edema (ICD-10) Surgical History (Updated 10/14/23 @ 07:51 by Yamila Santoyo) H/O: hysterectomy ?Z90.710 - Acquired absence of both cervix and uterus (ICD-10) Social History Smoking status: Never smoker Highest level of school completed/degree received: high school graduate Little interest or pleasure in doing things: not at all Feeling down, depressed, or hopeless: not at all Exam Narrative Exam Narrative: CONSTITUTIONAL: Well-appearing, answering questions and following commands appropriately SKIN: Was warm and dry. EYES: Sclerae white. No vesicles or lesions on the face/eyes EARS, NOSE, THROAT: Moist oral mucosa. No vesicles or lesions in the ears or n ose. RESPIRATORY: Clear to auscultation bilaterally, no wheezes, crackles, or stridor, no use of accessory muscles CARDIOVASCULAR: Normal rate and regular rhythm. There is no S3, S4, murmur, rub. GASTROINTESTINAL: Abdomen is nondistended. MUSCULOSKELETAL: There is a erythematous, confluent, vesicular rash just left of the patient's sternum that wraps around to the midline upper back. The rash francis s not cross midline. Appears to involve the T1 dermatomal distribution. There is no surrounding induration or cellulitic changes. NEUROLOGIC: Patient is awake and alert. Facies were symmetrical. Constitutional Vital Signs, click to edit/add: Last Vital Signs Temp 97 F L 05/31/25 09:57 Pulse 53 L 05/31/25 09:57 Resp 14 05/31/25 09:57 BP 170/66 H 05/31/25 09:57 Pulse Ox 100 05/31/25 09:57 O2 Del Method Room Air 05/31/25 09:57 Course Vital Signs Vital signs: Vital Signs Temperature 97 F L 05/31/25 09:57 Pulse Rate 53 L 05/31/25 09:57 Respiratory Rate 14 05/31/25 09:57 Blood Pressure 170/66 H 05/31/25 09:57 Pulse Oximetry 100 05/31/25 09:57 Oxygen Delivery Method Room Air 05/31/25 09:57 Temperature 97 F L 05/31/25 09:57 Pulse Rate 53 L 05/31/25 09:57 Respiratory Rate 14 05/31/25 09:57 Blood Pressure 170/66 H 05/31/25 09:57 Pulse Oximetry 100 05/31/25 09:57 Oxygen Delivery Method Room Air 05/31/25 09:[address] [facility] Narrative Medical decision making narrative: Patient is an 85-year-old female presenting to the emergency department for evaluation of a painful rash on her chest and back that began 24 hours ago. Her vital signs are significant for mild hypertension, otherwise were within normal limits. She is afebrile and hemodynamic stable. The patient general appears well and nontoxic. The patient's rash is consistent with herpes zoster in the T1 distribution of the chest/back. There does not appear to be superimposed infection. There is no involvement of the face, nose, or ears. She is afebrile without any other systemic symptoms. She has no immunocompromising conditions, I have low concern for disseminated infection. I do believe the patient stable for discharge. With the help of the on-call pharmacist, the patient's creatinine clearance was estimated to be 27mL/min using a BMP from four months ago. Recommended renal dosing with this CrCl is 1 g valacyclovir every 24 hours x 7 days. This was sent electronically to her pharmacy. She was instructed take Tylenol home for pain. She was instructed follow-up with her PCP, she has an appointment already scheduled 5 days from now. Return precautions were given including any new or concerning symptoms. Patient understands and agrees to the plan. FINAL IMPRESSION: #Acute herpes zoster rash of the left chest and back DISPOSITION: Discharged home CONDITION: Good Discharge Plan Discharge Chief Complaint: Skin/Abscess/Foreign Body Clinical Impression: Herpes zoster Qualifiers: Herpes zoster complications: without complications Qualified Code(s): B02.9 - Zoster without complications Patient Disposition: Home, Self-Care Time of Disposition Decision: 10:13 Condition: Good Mode of Transportation: Private Vehicle Prescriptions / Home Meds: New valacyclovir 1 gram tablet 1,000 mg PO DAILY 7 Days Qty: 7 0RF No Action isosorbide mononitrate 30 mg tablet extended release 24 hr 30 mg PO DAILY Qty: 30 11RF amiodarone 200 mg tablet 200 mg PO Q24H irbesartan 75 mg tablet 75 mg PO DAILY levothyroxine 50 mcg tablet 50 mcg PO .even numbered days potassium chloride 10 mEq tablet extended release 10 meq PO DAILY Eliquis 2.5 mg tablet 2.5 mg PO Q12H multivitamin [Daily Multi-Vitamin] Tablet 1 tab PO DAILY metoprolol tartrate 25 mg tablet 25 mg PO BID Qty: 20 0RF furosemide 20 mg tablet 20 mg PO DAILY Print Language: Slovenian Instructions: Radha (ED) Additional Instructions: Follow up with your family Dr and return to ER for any problems or concerns Referrals: Krish Mccoy MD [Primary Care Provider, Family Practice] - 1 week Discharge Date/Time: 05/31/25 10:24
== END 2025-05-31 10:24 | disposition home or self-care (01) ==
PROVIDERS: Emergency Provider Student in an Organized Health Care Education/Training Program; PCP Family Medicine
DX: B02.9 Zoster without complications (principal); Z90.710 Acquired absence of both cervix and uterus
CPT/HCPCS: 99283

== ENCOUNTER 2025-06-13 08:44 | Outpatient (OUT) | payer MEDICARE, OTHER, SELFPAY ==
--- OUTSIDE RECORDS SUMMARY | 2025-06-12 13:39 | XMS_ITS | Clinical Summary ---
Author Organization [employer] Address [id number] [place] [address] Care Team Providers Care Director Data Processing Name Role Phone Krish Mccoy MD Primary Care Provider [phone] Allergies Active Allergy Reactions Criticality Noted Date Comments Hossein Inhibitors 07/26/2021 Sulfa (Sulfonamide Antibiotics) 09/2020 Medications apixaban (ELIQUIS) 2.5 mg tablet Take 2.5 mg by mouth 2 (two) times a day. Active vrqrlarz-jcb-PH- lycopen-lutein (CENTRUM SILVER) 0.4-300-250 mg-mcg-mcg tablet Take 1 tablet by mouth daily. Active furosemide (LASIX) 20 mg tablet Take 20 mg by mouth 2 (two) times a day. Active irbesartan (AVAPRO) 75 mg tablet Take 75 mg by mouth nightly. Active levothyroxine (SYNTHROID, LEVOTHROID) 50 MCG tablet Take 50 mcg by mouth daily. Active metoprolol succinate XL (TOPROL-XL) 50 mg 24 hr tablet Take 50 mg by mouth daily. Active potassium chloride (KAYCIEL) 20 mEq/15 mL solution Take 10 mEq by mouth daily. Active amiodarone (PACERONE) 200 mg tablet Take 200 mg by mouth daily. Active Active Problems Problem Noted Date Diagnosed Date Nonrheumatic mitral valve regurgitation 07/27/20 21 Paroxysmal atrial fibrillation 07/27/2021 Family History Medical History Relation Name Comments Hypertension Father Multiple myeloma Father Diabetes Mother Hypertension Mother Diabetes Sister Multiple myeloma Sister Relation Name Status Comments Father Mother Sister Social History Tobacco Use Types Packs/Day Years Used Date Smoking Tobacco: Never Smokeless Tobacco: Never Alcohol Use Standard Drinks/Week Comments Never 0 (1 standard drink = 0.6 oz pur e alcohol) Comments Unknown Sex and Gender Information Value Date Recorded Sex Assigned at Not on file Legal Sex Female 11:06 AM EDT Gender Identity Not on file Sexual Orientation Not on file Last Filed Vital Signs Vital Sign Reading Time Taken Comments Blood Pressure 151/54 07/27/2021 9:17 AM EDT Pulse 51 07/27/2021 9:17 AM EDT Temperature - - Respiratory Rate - - Oxygen Saturation 100% 07/27/2021 9:17 AM EDT Inhaled Oxygen Concentration - - Weight 52.2 kg (115 lb) 07/27/2021 9:17 AM EDT Height 165.1 cm (5' 5 ) 07/27/2021 9:17 AM EDT Body Mass Index 19.14 07/27/2021 9:17 AM EDT Plan of Treatment Health Maintenance Due Date Last Done Comments Depression Screening 1952 Tobacco Screening 1952 DTaP,Tdap and Td Vaccines (1 - Tdap) 02/10/1960 Zoster (Shingles) Vaccine (1 of 2) 1991 Fall Risk Screening 2006 Influenza Vaccine 05/26/2025 06/24/2020 Medical Devices Not on file Insurance MEDICARE [facility] [place] [address] Care Teams Director Data Processing Relationship Specialty Start Date End Date Krish Mccoy MD PCP - General Family Medicine 07/23/21
--- OUTSIDE RECORDS SUMMARY | 2025-06-12 13:50 | XMS_ITS | CCD ---
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 Name Role Phone ELTAHAWY, EHAB A Attending Unavailable ELTAHAWY, EHAB A Admitting Unavailable MANUELAY, GERBER Referring Unavailable MANUELAY, GERBER Primary Care Unavailable HOY ., DR MAYES Primary Care Unavailable SHANTEL GARCIA Attending Unavailable JOSE, SHANTEL Admitting Unavailable [place], DR FLORENTINO Mello Consulting Unavailable JOSE, SHANTEL [...] Unavailable Gerber Mccoy MD Primary Care Provider [phone] [place], Ehab A Attending Provider [phone] [place], Ehab A Attending Unavailable [place], Ehab A Admitting Unavailable ELTAHAWY, TERRENCEAB Attending Unavailable ELTAHAWY, EHAB Attending Unavailable Gerber Mccoy MD Primary Care Provider [phone] HIPOLITO MENDIETA Attending Unavailable HIPOLITO MENDIETA Attending Unavailable HIPOLITO MENDIETA Attending Unavailable HIPOLITO MENDIETA Attending Unavailable HIPOLITO MENDIETA Attending Unavailable Allergies Allergy Classification Reported Allergen(s) Allergy Type Date of Onset Reaction(s) Facility (3 sources) Angiotensin Converting Enzyme (Hossein) Inhibitors; Translations: [HOSSEIN INHIBITORS] Drug allergy (disorder) [address] [facility] Repository (3 sources) Sulfonamides (Antibiotic); Translations: [SULFA (SULFONAMIDE ANTIBIOTICS)] Drug allergy (disorder) [address] [facility] Repository (12 sources) Angiotensin-conve rting enzyme inhibitor agent Drug Allergy 4 Other, Unknown [facility] (12 sources) Sulfonamides (Antibiotic) Drug Allergy 4 Other, Unknown [facility] (13 sources) Verapamil; Translations: [VERAPAMIL] Drug Allergy 4 Unknown [facility] Healthcare Medications Current Medications Medication Drug [...] by oral route for 85 days. 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 Patient informed. She verbalized understanding. Normal [facility] Office Visiton 01-28-2025 Follow-up visit [id number] Alfa Escobedo 1940 F Date Provider Department Center 01/28/2025 KAYA STEELE Family History Problem Relation Age of Onset Diabetes Mother Hypertension Mother Hypertension Father Diabetes Sister Heart attack Maternal Grandmother Family Status - Relation Status Age at Mother Father Sister Maternal Grandmother Level of Service:[address] [place] OFFICE/OUTPATIENT ESTABLISHED MOD MDM 30 MIN [facility] Urine Cultureon 01-28-2025 Bacteria identified Cx Nom (U) No Growth 2 Days PERFORMED BY: [place] [address] PATHOLOGIST NURSE RESEARCH NINA CM M.D. Normal [facility] Comment on above: Performed By: #### C UU #### [facility] [address] [place] [address] 36on 08-15-2024 36 Regarding lab result s from 08/14/2024: MD Alejandra Hansen MA S.cr was 1.24, now 1.22 - continue medical rx Thanks LM on . [facility] Office Visiton 08-07-2024 Follow-up visit [id number] Alfa Escobedo 1940 F Date Provider Department Center 08/07/2024 KAYA STEELE Family History Problem Relation Age of Onset Diabetes Mother Hypertension Mother Hypertension Father Diabetes Sister Heart attack Maternal Grandmother Family Status - Relation Status Age at Mother Father Sister Maternal Grandmother Level of Service:[address] [place] OFFICE/OUTPATIENT ESTABLISHED MOD MDM 30 MIN [facility] 36on 07-01-2024 36 Regarding labs from 06/28/2024: MD Alejandra Hansen MA Her free T4 is high; she needs to discuss with whoever is managing her thyroid medications Thanks Labs faxed to Dr. Mccoy's office on . I called his office just now to confirm they received results. [facility] BNPon 01-26-2023 Natriuretic peptide B (Bld) [Mass/Vol] 1751.0 pg/mL Normal <=1,800.0 [facility] Comment on above: Performed By: #### L IVER, TSH #### [facility] [address] [place] [address] Dr. Tierney Rivera CBC AUTO DIFFon 01-26-2023 BASO # 0.0 103/ul Normal 0.0-0.1 [facility] Comment on above: Performed By: #### C BC #### [facility] [address] [place] [address] Dr. Tierney Rivera Basophils/100 WBC (Bld) 0.3 % Normal 0.2-2.0 [facility] Comment on above: Performed By: #### C BC #### [facility] [address] [place] [address] Dr. Tierney Rivera EO # 0.1 103/ul Normal 0.0-0.7 [facility] Comment on above: Performed By: #### C BC #### [facility] [address] [place] [address] Dr. Tierney Rivera Eosinophils/100 WBC (Bld) 2.3 % Normal 0.9-7.0 [facility] Comment on above: Performed By: #### C BC #### [facility] [address] [place] [address] Dr. Tierney Rivera Erythrocyte distribution width (RBC) [Ratio] 13.1 % Normal 11.0-15.0 [facility] Comment on above: Performed By: #### C BC #### [facility] [address] [place] [address] Dr. Tierney Rivera Hematocrit (Bld) [Volume fraction] 43.5 % Normal 36.0-48.0 [facility] Comment on above: Performed By: #### C BC #### [facility] [address] [place] [address] Dr. Tierney Rivera Hemoglobin (Bld) [Mass/Vol] 13.9 g/dL Normal 12.0-16.0 [facility] Comment on above: Performed By: #### C BC #### [facility] [address] [place] [address] Dr. Tierney Rivera IG # 0.02 10e3/ul Normal 0.00-0.03 [facility] Comment on above: Performed By: #### C BC #### [facility] [address] [place] [address] Dr. Tierney Rivera IG % 0.3 % Normal 0.0-0.5 [facility] Comment on above: Performed By: #### C BC #### [facility] [address] [place] [address] Dr. Tierney Rivera LYMPH # 1.2 103/ul Normal 1.2-3.8 [facility] Comment on above: Performed By: #### C BC #### [facility] [address] [place] [address] Dr. Tierney Rivera Lymphocytes/100 WBC (Bld) 20.6 % Normal 20.5-60.0 [facility] Comment on above: Performed By: #### C BC #### [facility] [address] [place] [address] Dr. Tierney Rivera MANUAL DIFF REQ NO Normal [facility] Comment on above: Performed By: #### C BC #### [facility] [address] [place] [address] Dr. Tierney Rivera MCH (RBC) [Entitic mass] 29.4 pg Normal 26.7-34.0 [facility] Comment on above: Performed By: #### C BC #### [facility] [address] [place] [address] Dr. Tierney Rivera MCHC (RBC) [Mass/Vol] 32.0 g/dL Normal 29.9-35.2 [facility] Comment on above: Performed By: #### C BC #### [facility] [address] [place] [address] Dr. Tierney Rivera MCV (RBC) [Entitic vol] 92.2 fL Normal 81.0-99.0 [facility] Comment on above: Performed By: #### C BC #### [facility] [address] [place] [address] Dr. Tierney Rivera MONO # 0.6 103/ul Normal 0.3-0.8 [facility] Comment on above: Performed By: #### C BC #### [facility] [address] [place] [address] Dr. Tierney Rivera Monocytes/100 WBC (Bld) 10.2 % Normal 1.7-12.0 [facility] Comment on above: Performed By: #### C BC #### [facility] [address] [place] [address] Dr. Tierney Rivera NEUT # 3.8 103/ul Normal 1.4-6.5 [facility] Comment on above: Performed By: #### C BC #### [facility] [address] [place] [address] Dr. Tierney Rivera Neutrophils/100 WBC (Bld) 66.3 % Normal 43.0-75.0 [facility] Comment on above: Performed By: #### C BC #### [facility] [address] [place] [address] Dr. Tierney Rivera Platelet mean volume (Bld) [Entitic vol] 11.2 fL Normal 9.5-13.5 [facility] Comment on above: Performed By: #### C BC #### [facility] [address] [place] [address] Dr. Tierney Rivera PLT 253 103/ul Normal 150-450 [facility] Comment on above: Performed By: #### C BC #### [facility] [address] [place] [address] Dr. Tierney Rivera RBC 4.72 106/ul Normal 4.20-5.40 [facility] Comment on above: Performed By: #### C BC #### [facility] [address] [place] [address] Dr. Tierney Rivera WBC 5.8 103/ul Normal 4.0-11.0 [facility] Comment on above: Performed By: #### C BC #### [facility] [address] [place] [address] Dr. Tierney Rivera FREE THYROXINE INDEX T7on FTI 5.18 Critically high 1.30-4.[address] [facility] Comment on above: Performed By: #### L CHAMP, TSH #### [facility] [address] [place] [address] Dr. Tierney Rivera T3U 36.0 % Normal 30.0-39.0 [facility] Comment on above: Performed By: #### L IVER, TSH #### [facility] [address] [address] [address] Tierney Rivera T4 [Mass/Vol] 14.40 ug/dL Critically high 4.80-13.90 [facility] Comment on above: Performed By: #### L IVER, TSH #### [facility] [address] [address] [address] Tierney Rivera GLYCOHEMOGLOBIN A1Con 2022 ADA RECOMMENDATION SEE BELOW Normal [facility] Comment on above: Result Comment: ADA RECOMMENDED LIMIT 4.0 - 6.0 ADA THERAPEUTIC TARGET < 7.0 ACTION SUGGESTED > 7.0 Performed By: #### L IVER, TSH #### [facility] [address] [place] [address] Dr. Tierney Rivera Glucose [Mass/Vol] 117 mg/dL Normal [facility] Comment on above: Performed By: #### L IVER, TSH #### [facility] [address] [address] [address] Tierney Rivera HbA1c (Bld) [Mass fraction] 5.7 % Normal 4.5-6.2 [facility] Comment on above: Performed By: #### L IVER, TSH #### [facility] [address] [address] [address] Tierney Rivera IRONon 01-26-2023 Iron [Mass/Vol] 67.0 ug/dL Normal 50.0-170.0 [facility] Comment on above: Performed By: #### V ITAD, IRON #### [facility] [address] [address] [address] Tierney Rivera PROF 14(COMP METB)on 023 Albumin [Mass/Vol] 4.0 g/dL Normal 3.4-5.0 [facility] Comment on above: Performed By: #### L IVER, TSH #### [facility] [address] [place] [address] Dr. Tierney Rivera Albumin/Globulin [Mass ratio] 1.1 {ratio} Normal [facility] Comment on above: Performed By: #### L CHAMP, TSH #### [facility] [address] [address] [address] Tierney Rivera ALP [Catalytic activity/Vol] 98 U/L Normal 46-116 [facility] Comment on above: Performed By: #### L CHAMP, TSH #### [facility] [address] [address] [address] Tierney Rivera ALT [Catalytic activity/Vol] 29 U/L Normal 14-59 [facility] Comment on above: Performed By: #### L CHAMP, TSH #### [facility] [address] [place] [address] Dr. Tierney Rivera Anion gap [Moles/Vol] 11.7 mmol/L Normal [facility] Comment on above: Performed By: #### Breonna OAKES, TSH #### [facility] [address] [place] [address] Dr. Tierney Rivera AST [Catalytic activity/Vol] 22 U/L Normal 15-37 [facility] Comment on above: Performed By: #### L CHAMP TSH #### [facility] [address] [address] [address] Tierney Rivera Bilirubin [Mass/Vol] 0.4 mg/dL Normal 0.2-1.0 [facility] Comment on above: Performed By: #### Breonna OAKES, TSH #### [facility] [address] [address] [address] Tierney Rivera Calcium [Mass/Vol] 10.1 mg/dL Normal 8.5-10.1 [facility] Comment on above: Performed By: #### L CHAMP, TSH #### [facility] [address] [address] [address] Tierney Rivera Chloride [Moles/Vol] 103 mmol/L Normal 98-107 [facility] Comment on above: Performed By: #### L CHAMP, TSH #### [facility] [address] [place] [address] Dr. Tierney Rivera CO2 [Moles/Vol] 30.5 mmol/L Normal 21.0-32.0 [facility] Comment on above: Performed By: #### L CHAMP, TSH #### [facility] [address] [address] [address] Tierney Rivera Creatinine [Mass/Vol] 1.15 mg/dL Critically high 0.55-1.02 [facility] Comment on above: Performed By: #### L CHAMP, TSH #### [facility] [address] [place] [address] Dr. Tierney Rivera EGFR-AF PANAMANIAN 55 mL/min/1.73m2 Critically low >=60 [facility] Comment on above: Performed By: #### L CHAMP, TSH #### [facility] [address] [place] [address] Dr. Tierney Rivera EGFR-NON AF PANAMANIAN 45 mL/min/1.73m2 Critically low >=60 [facility] Comment on above: Performed By: #### L CHAMP, TSH #### [facility] [address] [place] [address] Dr. Tierney Rivera Globulin (S) [Mass/Vol] 3.8 g/dL Normal [facility] Comment on above: Performed By: #### L CHAMP, TSH #### [facility] [address] [place] [address] Dr. Tierney Rivera Glucose [Mass/Vol] 97 mg/dL Normal 74-106 [facility] Comment on above: Performed By: #### L CHAMP, TSH #### [facility] [address] [place] [address] Dr. Tierney Rivera Potassium [Moles/Vol] 4.2 mmol/L Normal 3.5-5.1 [facility] Comment on above: Performed By: #### L CHAMP, TSH #### [facility] [address] [place] [address] Dr. Tierney Rivera Protein [Mass/Vol] 7.8 g/dL Normal 6.4-8.2 [facility] Comment on above: Performed By: #### L CHAMP, TSH #### [facility] [address] [place] [address] Dr. Tierney Rivera Sodium [Moles/Vol] 141 mmol/L Normal 136-145 [facility] Comment on above: Performed By: #### L CHAMP, TSH #### [facility] [address] [place] [address] Dr. Tierney Rivera Urea nitrogen [Mass/Vol] 18.0 mg/dL Normal 7.0-18.0 [facility] Comment on above: Performed By: #### L CHAMP, TSH #### [facility] [address] [place] [address] Dr. Tierney Rivera Urea nitrogen/Creatinine [Mass ratio] 15.7 mg/mg Normal [facility] Comment on above: Performed By: #### L CHAMP, TSH #### [facility] [address] [place] [address] Dr. Tierney Rivera TSHon 01-26-2023 TSH 2.066 uIU/mL Normal 0.358-3.740 [facility] Comment on above: Performed By: #### L CHAMP, TSH #### [facility] [address] [place] [address] Dr. Tierney Rivera VITAMIN D 25 OHon 01-26-2023 VIT D 25-OH 45.0 ng/mL Normal [facility] Comment on above: Performed By: #### V SHANNEN, IRON #### [facility] [address] [place] [address] Dr. Tierney Rivera VIT D RANGES SEE BELOW Normal [facility] Comment on above: Result Comment: <20 ng/mL Vit D deficient 20 - <30 ng/mL Vit D insufficient 30 - 100 ng/mL Vit D sufficient >100 ng/mL Potential Toxicity Performed By: #### V ITAD, IRON #### [facility] [address] [place] [address] Dr. Tierney Rivera BNPon 01-15-2023 Natriuretic peptide B (Bld) [Mass/Vol] 868.0 pg/mL Normal <=1,800.0 [facility] Comment on above: Performed By: #### H STROPN, BNP, CMP #### [facility] [address] [place] [address] Dr. Tierney Rivera CBC AUTO DIFFon 01-15-2023 BASO # 0.0 103/ul Normal 0.0-0.1 [facility] Comment on above: Performed By: #### L IVER, TSH #### [facility] [address] [place] [address] Dr. Tierney Rivera Basophils/100 WBC (Bld) 0.3 % Normal 0.2-2.0 [facility] Comment on above: Performed By: #### L IVER, TSH #### [facility] [address] [place] [address] Dr. Tierney Rivera EO # 0.1 103/ul Normal 0.0-0.7 [facility] Comment on above: Performed By: #### L IVER, TSH #### [facility] [address] [place] [address] Dr. Tierney Rivera Eosinophils/100 WBC (Bld) 1.7 % Normal 0.9-7.0 [facility] Comment on above: Performed By: #### L IVER, TSH #### [facility] [address] [place] [address] Dr. Tierney Rivera Erythrocyte distribution width (RBC) [Ratio] 13.2 % Normal 11.0-15.0 [facility] Comment on above: Performed By: #### L IVER, TSH #### [facility] [address] [place] [address] Dr. Tierney Rivera Hematocrit (Bld) [Volume fraction] 45.1 % Normal 36.0-48.0 [facility] Comment on above: Performed By: #### L IVER, TSH #### [facility] [address] [place] [address] Dr. Tierney Rivera Hemoglobin (Bld) [Mass/Vol] 15.1 g/dL Normal 12.0-16.0 [facility] Comment on above: Performed By: #### L IVER, TSH #### [facility] [address] [place] [address] Dr. Tierney Rivera IG # 0.01 10e3/ul Normal 0.00-0.03 [facility] Comment on above: Performed By: #### L IVER, TSH #### [facility] [address] [place] [address] Dr. Tierney Rivera IG % 0.2 % Normal 0.0-0.5 [facility] Comment on above: Performed By: #### L IVER, TSH #### [facility] [address] [place] [address] Dr. Tierney Rivera LYMPH # 2.2 103/ul Normal 1.2-3.8 [facility] Comment on above: Performed By: #### L IVER, TSH #### [facility] [address] [place] [address] Dr. Tierney Rivera Lymphocytes/100 WBC (Bld) 32.5 % Normal 20.5-60.0 [facility] Comment on above: Performed By: #### L IVER, TSH #### [facility] [address] [place] [address] Dr. Tierney Rivera MANUAL DIFF REQ NO Normal [facility] Comment on above: Performed By: #### L IVBISHNU, TSH #### [facility] [address] [place] [address] Dr. Tierney Rivera MCH (RBC) [Entitic mass] 30.0 pg Normal 26.7-34.0 [facility] Comment on above: Performed By: #### L IVBISHNU, TSH #### [facility] [address] [place] [address] Dr. Tierney Rivera MCHC (RBC) [Mass/Vol] 33.5 g/dL Normal 29.9-35.2 [facility] Comment on above: Performed By: #### L IVER, TSH #### [facility] [address] [place] [address] Dr. Tierney Rivera MCV (RBC) [Entitic vol] 89.7 fL Normal 81.0-99.0 [facility] Comment on above: Performed By: #### L IVER, TSH #### [facility] [address] [place] [address] Dr. Tierney Rivera MONO # 0.8 103/ul Normal 0.3-0.8 [facility] Comment on above: Performed By: #### L CHAMP, TSH #### [facility] [address] [place] [address] Dr. Tierney Rivera Monocytes/100 WBC (Bld) 12.6 % Critically high 1.7-12.0 [facility] Comment on above: Performed By: #### L CHAMP, TSH #### [facility] [address] [place] [address] Dr. Tierney Rivera NEUT # 3.5 103/ul Normal 1.4-6.5 [facility] Comment on above: Performed By: #### L CHAMP, TSH #### [facility] [address] [place] [address] Dr. Tierney Rivera Neutrophils/100 WBC (Bld) 52.7 % Normal 43.0-75.0 [facility] Comment on above: Performed By: #### Breonna OAKES TSH #### [facility] [address] [place] [address] Dr. Tierney Rivera Platelet mean volume (Bld) [Entitic vol] 11.0 fL Normal 9.5-13.5 [facility] Comment on above: Performed By: #### Breonna OAKES, TSH #### [facility] [address] [place] [address] Dr. Tiernye Rivera PLT 266 103/ul Normal 150-450 [facility] Comment on above: Performed By: #### Breonna OAKES, TSH #### [facility] [address] [place] [address] Dr. Tierney Rivera RBC 5.03 106/ul Normal 4.20-5.40 [facility] Comment on above: Performed By: #### L CHAMP, TSH #### [facility] [address] [place] [address] Dr. Tierney Rivera WBC 6.6 103/ul Normal 4.0-11.0 [facility] Comment on above: Performed By: #### Breonna OAKES TSH #### [facility] [address] [place] [address] Dr. Tierney Rivera CULTURE BLOODon 01-15-2023 Microscopic examination of blood, culture Culture Observations: NO GROWTH AT 5 DAYS. Normal [facility] Comment on above: Performed By: #### L IVBISHNU, TSH #### [facility] [address] [place] [address] Dr. Tierney Rivera Microscopic examination of blood, culture Culture Observations: NO GROWTH AT 5 DAYS. Normal [facility] Comment on above: Performed By: #### L IVER, TSH #### [facility] [address] [place] [address] Dr. Tierney Rivera ER URINE PROFILEon 3 Bilirubin Ql (U) Negative Normal NEGATIVE [facility] Comment on above: Performed By: #### L IVBISHNU, TSH #### [facility] [address] [place] [address] Dr. Tierney Rivera Clarity (U) CLEAR Normal CLEAR [facility] Comment on above: Performed By: #### L CHAMP, TSH #### [facility] [address] [place] [address] Dr. Tierney Rivera Color (U) LT. YELLOW Normal YELLOW [facility] Comment on above: Performed By: #### L IVER, TSH #### [facility] [address] [place] [address] Dr. Tierney Rivera ERUDEBD A micrscopic examination will be performed if indicated. Normal [facility] Comment on above: Performed By: #### L IVBISHNU, TSH #### [facility] [address] [place] [address] Dr. Tierney Rivera Glucose Ql (U) Negative Normal NEGATIVE [facility] Comment on above: Performed By: #### L IVER, TSH #### [facility] [address] [place] [address] Dr. Tierney Rivera Hemoglobin Ql (U) Negative Normal NEGATIVE [facility] Comment on above: Performed By: #### L IVER, TSH #### [facility] [address] [place] [address] Dr. Tierney Rivera Ketones Ql (U) Negative Normal NEGATIVE [facility] Comment on above: Performed By: #### L IVER, TSH #### [facility] [address] [place] [address] Dr. Tierney Rivera LEUKOCYTES Negative Normal NEGATIVE [facility] Comment on above: Performed By: #### L IVER, TSH #### [facility] [address] [place] [address] Dr. Tierney Rivera Nitrite Ql (U) Negative Normal NEGATIVE [facility] Comment on above: Performed By: #### L LILAER, TSH #### [facility] [address] [place] [address] Dr. Tierney Rivera pH (U) 7.5 [pH] Normal 5-9 [facility] Comment on above: Performed By: #### L CHAMP, TSH #### [facility] [address] [place] [address] Dr. Tierney Rivera SPEC GRAVITY 1.010 Normal 1.005-<=1.02 5 [facility] Comment on above: Performed By: #### L CHAMP, TSH #### [facility] [address] [place] [address] Dr. Tierney Rivera UA PROTEIN Negative Normal NEGATIVE/ TRACE [facility] Comment on above: Performed By: #### L CHAMP, TSH #### [facility] [address] [place] [address] Dr. Tierney Rivera UR MICRO IND NOT INDICATED Normal [facility] Comment on above: Performed By: #### L CHAMP, TSH #### [facility] [address] [place] [address] Dr. Tierney Rivera Urobilinogen Qn (U) 0.2 {Radu'U}/dL Normal 0.2 - 1. 0 [facility] Comment on above: Performed By: #### L LILAER, TSH #### [facility] [address] [place] [address] Dr. Tierney Rivera LACTATE/LACTIC ACIDon 2022 Lactate [Moles/Vol] 1.5 mmol/L Normal 0.4-2.0 [facility] Comment on above: Performed By: #### L ACT #### [facility] [address] [address] [address] Tierney Rivera PROF 14(COMP METB)on 023 Albumin [Mass/Vol] 4.3 g/dL Normal 3.4-5.0 [facility] Comment on above: Performed By: #### L IVER, TSH #### [facility] [address] [address] [address] Tierney Rivera Albumin/Globulin [Mass ratio] 1.2 {ratio} Normal [facility] Comment on above: Performed By: #### L IVER, TSH #### [facility] [address] [address] [address] Tierney Rivera ALP [Catalytic activity/Vol] 111 U/L Normal 46-116 [facility] Comment on above: Performed By: #### L IVER, TSH #### [facility] [address] [address] [address] Tierney Rivera ALT [Catalytic activity/Vol] 23 U/L Normal 14-59 [facility] Comment on above: Performed By: #### L IVER, TSH #### [facility] [address] [address] [address] Tierney Rivera Anion gap [Moles/Vol] 11.8 mmol/L Normal [facility] Comment on above: Performed By: #### L IVER, TSH #### [facility] [address] [address] [address] Tierney Rivera AST [Catalytic activity/Vol] 22 U/L Normal 15-37 [facility] Comment on above: Performed By: #### L IVER, TSH #### [facility] [address] [address] [address] Tierney Rivera Bilirubin [Mass/Vol] 0.4 mg/dL Normal 0.2-1.0 [facility] Comment on above: Performed By: #### L IVER, TSH #### [facility] [address] [address] [address] Tierney Rivera Calcium [Mass/Vol] 10.6 mg/dL Critically high 8.5-10.1 [facility] Comment on above: Performed By: #### L IVER, TSH #### [facility] [address] [address] [address] Tierney Rivera Chloride [Moles/Vol] 103 mmol/L Normal 98-107 [facility] Comment on above: Performed By: #### L IVER, TSH #### [facility] [address] [place] [address] Dr. Tierney Rivera CO2 [Moles/Vol] 29.2 mmol/L Normal 21.0-32.0 [facility] Comment on above: Performed By: #### L IVER, TSH #### [facility] [address] [place] [address] Dr. Tierney Rivera Creatinine [Mass/Vol] 1.13 mg/dL Critically high 0.55-1.02 [facility] Comment on above: Performed By: #### L IVER, TSH #### [facility] [address] [place] [address] Dr. Tierney Rivera EGFR-AF PANAMANIAN 56 mL/min/1.73m2 Critically low >=60 [facility] Comment on above: Performed By: #### L IVER, TSH #### [facility] [address] [place] [address] Dr. Tierney Rivera EGFR-NON AF PANAMANIAN 46 mL/min/1.73m2 Critically low >=60 [facility] Comment on above: Performed By: #### L IVER, TSH #### [facility] [address] [place] [address] Dr. Tierney Rivera Globulin (S) [Mass/Vol] 3.7 g/dL Normal [facility] Comment on above: Performed By: #### L IVER, TSH #### [facility] [address] [place] [address] Dr. Tierney Rivera Glucose [Mass/Vol] 109 mg/dL Critically high 74-106 [facility] Comment on above: Performed By: #### L IVER, TSH #### [facility] [address] [place] [address] Dr. Tierney Rivera Potassium [Moles/Vol] 4.0 mmol/L Normal 3.5-5.1 [facility] Comment on above: Performed By: #### L CHAMP, TSH #### [facility] [address] [place] [address] Dr. Tierney Rivera Protein [Mass/Vol] 8.0 g/dL Normal 6.4-8.2 [facility] Comment on above: Performed By: #### L CHAMP, TSH #### [facility] [address] [address] [address] Tierney Rivera Sodium [Moles/Vol] 140 mmol/L Normal 136-145 [facility] Comment on above: Performed By: #### L CHAMP, TSH #### [facility] [address] [place] [address] Dr. Tierney Rivera Urea nitrogen [Mass/Vol] 17.0 mg/dL Normal 7.0-18.0 [facility] Comment on above: Performed By: #### Breonna OAKES, TSH #### [facility] [address] [place] [address] Dr. Tierney Rivera Urea nitrogen/Creatinine [Mass ratio] 15.0 mg/mg Normal [facility] Comment on above: Performed By: #### Breonna OAKES, TSH #### [facility] [address] [place] [address] Dr. Tierney Rivera TROPONIN, HIGH SENSITIVITYon 01-15-2023 HSTROP 21.6 pg/mL Normal 4.0-51.3 [facility] Comment on above: Result Comment: CUT- OFF POINTS HAVE BEEN ESTABLISHED BASED ON THE FOURTH UNIVERSAL DEFINITIONS OF MYOCARDIAL INFARCTION. THE UPPER REFERENCE LIMIT (URL) OF TROPONIN, DEFINED THE 99TH PERCENTILE OF cTnI DISTRIBUTION IN A REFERENCE POPULATION, HAS BEEN CONFIRMED THE DECISION THRESHOLD FOR AL DIAGNOSIS. Performed By: #### H STROPN, BNP, CMP #### [facility] [address] [place] [address] Dr. Tierney Rivera XR CHEST 1 Von [...] by: CONSTANCE LAI Date: 2023-01-15 00:29 Normal [facility] FREE T4on 10-17-2022 Free T4 [Mass/Vol] 1.49 ng/dL Critically high 0.76-1.46 [facility] Comment on above: Performed By: #### L CHAMP TSH #### [facility] [address] [address] [address] Tierney Rivera LIVER PROFILEon 10-17-2022 Albumin [Mass/Vol] 3.7 g/dL Normal 3.4-5.0 [facility] Comment on above: Performed By: #### L CHAMP TSH #### [facility] [address] [place] [address] Dr. Tierney Rivera Albumin/Globulin [Mass ratio] 1.1 {ratio} Normal [facility] Comment on above: Performed By: #### L CHAMP TSH #### [facility] [address] [place] [address] Dr. Tierney Rivera ALP [Catalytic activity/Vol] 104 U/L Normal 46-116 [facility] Comment on above: Performed By: #### L CHAMP, TSH #### [facility] [address] [address] [address] Tierney Rivera ALT [Catalytic activity/Vol] 27 U/L Normal 14-59 [facility] Comment on above: Performed By: #### L CHAMP, TSH #### [facility] [address] [place] [address] Dr. Tierney Rivera AST [Catalytic activity/Vol] 23 U/L Normal 15-37 [facility] Comment on above: Performed By: #### L IVBISHNU, TSH #### [facility] [address] [address] [address] Tierney Rivera BILI, CONJUGATED 0.1 mg/dL Normal 0.0-0.2 [facility] Comment on above: Performed By: #### L IVER, TSH #### [facility] [address] [place] [address] Dr. Tierney Rivera Bilirubin [Mass/Vol] 0.4 mg/dL Normal 0.2-1.0 [facility] Comment on above: Performed By: #### L IVER, TSH #### [facility] [address] [place] [address] Dr. Tierney Rivera Globulin (S) [Mass/Vol] 3.5 g/dL Normal [facility] Comment on above: Performed By: #### L IVER, TSH #### [facility] [address] [place] [address] Dr. Tierney Rivera Protein [Mass/Vol] 7.2 g/dL Normal 6.4-8.2 [facility] Comment on above: Performed By: #### L IVER, TSH #### [facility] [address] [place] [address] Dr. Tierney Rivera TSHon 10-17-2022 TSH 1.020 uIU/mL Normal 0.358-3.740 [facility] Comment on above: Performed By: #### L IVER, TSH #### [facility] [address] [place] [address] Dr. Tierney Rivera XR CHEST 2 Von [...] FLORENTINO MAURO Date: 2022-10-17 09:46 Normal [facility] Covid-19 PCR (CVDTB)on SARS-CoV-2 (COVID-19) RNA SEDRICK+probe Ql (Unsp spec) Detected Critically abnormal NOT DETECTED [facility] Comment on above: Result Comment: This test is not yet approved or cleared by the [place] FDA. When there are no FDA-approved or cleared tests available, and other criteria are met, FDA can make tests available under an emergency access mechanism called an Emergency Use Authorization (EUA). The EUA for this test is supported by the Press Tender [employer] Signal of Health and Human Service's (HHS's) declaration [...] used). Performed By: #### C VDTB #### [facility] [address] [place] [address] Dr. Tierney Rivera INFLUENZA A AND B AGon 09-27 [facility] SEE BELOW Normal [facility] Comment on above: Result Comment: Nega tive for Flu A protein angiten. Infection due to Flu A cannot be ruled out. Flu A angiten in the sample may be below the detection limit of the test. Performed By: #### I NFLUAB #### [facility] [address] [place] [address] Dr. Tierney Rivera INFLUUNITED [facility] AIR [facility] SEE BELOW Normal [facility] Comment on above: Result Comment: Nega tive for Flu B protein antigen. Infection due to Flu B cannot be ruled out. Flu B antigen in the sample may be below the detection limit of the test. Performed By: #### I NFLUAB #### [facility] [address] [place] [address] Dr. Tierney Rivera INFLUENZA A AG Negative Normal NEGATIVE SEE COMMENT [facility] Comment on above: Performed By: #### I NFLUAB #### [facility] [address] [place] [address] Dr. Tierney Rivera INFLUENZA B AG Negative Normal NEGATIVE SEE COMMENT [facility] Comment on above: Performed By: #### I NFLUAB #### [facility] [address] [place], [place] [address] Dr. Tierney Rivera Cardiovascular Lab Reporton 06-11-2021 Cardiovascular Lab Report [facility] Patient Name: Lucille Escobedo [facility] Laura MR #: [id number] Department of Physician: Kaya Patel Medicine [facility] Division of Service Date: 06/10/2021 Cardiology Birthdate: 1940 Adult Cardiovascular Room #: [facility] [address] [place], [place] [address] Cardiovascular Laboratory Report FINAL IMPRESSION: 1. Angiographically [...] Follow up with Dr. Patel in the [facility]. 8. Follow up with Dr. Mccoy as scheduled. PROCEDURES: Ultrasound-guided access of the right common femoral vein, ultrasound-guided access of right common femoral artery, limited femoral angiography, right heart catheterization, bilateral selective coronary angiography, placement of a 5-[place] Citizen MynxGrip closure device. METHODS: After risks, benefits, and alternatives were explained, written informed consent was obtained. The patient was prepped and draped in usual sterile fashion over both groins. Using 1% lidocaine solution, local infiltration anesthesia was achieved. Using modified Seldinger technique, a micropuncture kit and under ultrasound guidance access to the right common femoral vein was obtained. A 6-[place] Citizen 11 cm sheath was inserted without difficulty. This was repeated over the artery; a 5-[place] Citizen 11 cm sheath was inserted. A Mcdonald catheter was used for right heart catheterization. Pressures were measured in the right atrium, right ventricle, pulmonary artery, and pulmonary capillary wedge positions. Oxygen saturations were obtained and cardiac output/cardiac index was calculated using modified Gisele principle. The Mcdonald catheter was removed. Bilateral selective coronary angiography was performed using 5-[place] Citizen JL4 and JR4 catheters. After reviewing the images, it was elected to conclude the procedure. All catheters were removed. A 5-[place] Citizen MynxGrip closure device was deployed per protocol [...] M.D (more content not included)... Normal [facility] Vital Signs Date Time Vital Sign Value Performing Clinician Belemi pernell 04-17-2025 09:29-0400 Body height 167.6 cm Hipolito Brown DPM Work Phone: [facility] 04-17-2025 09:29-0400 Body mass index (BMI) [Ratio] 17.27 kg/m2 Hipolito Brown DPM Work Phone: [facility] 04-17-2025 09:29-0400 Body weight 48.53 kg Hipolito Brown DPM Work Phone: [facility] 04-17-2025 09:29-0400 Respiratory rate 16 /min Hipolito Brown DPM Work Phone: [facility] 02-06-2025 09:32-0400 Body height 167.6 cm Hipolito Brown DPM Work Phone: [facility] 02-06-2025 09:32-0400 Body mass index (BMI) [Ratio] 17.27 kg/m2 Hipolito Brown DPM Work Phone: [facility] 02-06-2025 09:32-0400 Body weight 48.53 kg Hipolito Brown DPM Work Phone: [facility] 02-06-2025 09:32-0400 Respiratory rate 18 /min Hipolito Brown DPM Work Phone: [facility] 11-21-2024 09:40-0500 Body height 167.6 cm Hipolito Brown DPM Work Phone: [facility] 11-21-2024 09:40-0500 Body mass index (BMI) [Ratio] 17.27 kg/m2 Hipolito Brown DPM Work Phone: [facility] 11-21-2024 09:40-0500 Body weight 48.53 kg Hipolito Brown DPM Work Phone: [facility] 11-21-2024 09:40-0500 Respiratory rate 18 /min Hipolito Brown DPM Work Phone: [facility] 09-05-2024 10:08-0500 Body height 167.6 cm Hipolito Brown DPM Work Phone: [facility] 09-05-2024 10:08-0500 Body mass index (BMI) [Ratio] 17.27 kg/m2 Hipolito Brown DPM Work Phone: [facility] 09-05-2024 10:08-0500 Body weight 48.53 kg Hipolito Brown DPM Work Phone: [facility] 09-05-2024 10:08-0500 Respiratory rate 16 /min Hipolito Brown DPM Work Phone: [facility] 06-20-2024 09:59-0400 Body height 167.6 cm Hipolito Brown DPM Work Phone: [facility] 06-20-2024 09:59-0400 Body mass index (BMI) [Ratio] 17.27 kg/m2 Hipolito Brown DPM Work Phone: [facility] 06-20-2024 09:59-0400 Body weight 48.53 kg Hipolito Brown DPM Work Phone: [facility] 06-20-2024 09:59-0400 Diastolic blood pressure 80 mm[Hg] Hipolito Brown DPM Work Phone: [facility] 06-20-2024 09:59-0400 Heart rate 75 /min Hipolito Brown DPM Work Phone: [facility] 06-20-2024 09:59-0400 Respiratory rate 18 /min Hipolito Brown DPM Work Phone: [facility] 06-20-2024 09:59-0400 Systolic blood pressure 127 mm[Hg] Hipolito Mendieta DPM Work Phone: [facility] 11-09-2023 13:51-0500 Body height 167.6 cm Hipolito Mendieta DPM Work Phone: [facility] 11-09-2023 13:51-0500 Body mass index (BMI) [Ratio] 17.27 kg/m2 Hipolito Mendieta DPM Work Phone: [facility] 11-09-2023 13:51-0500 Body weight 48.53 kg Hipolito Mendieta DPM Work Phone: [facility] 11-09-2023 13:51-0500 Diastolic blood pressure 81 mm[Hg] Hipolito Mendieta DPM Work Phone: [facility] 11-09-2023 13:51-0500 Heart rate 78 /min Hipolito Mendieta DPM Work Phone: [facility] 11-09-2023 13:51-0500 Systolic blood pressure 120 mm[Hg] Hipolito Mendieta DPM [facility] Phone[facility] Encounters Encounter Date Encounter Type Care Provider Facility Start: 04-17-2025 End: 04-17-2025 Bamboo flowsheet Hipolito Mendieta DPM Work Phone: [facility] Start: 04-17-2025 End: 04-17-2025 Bamboo flowsheet Hipolito Mendieta DPM Work Phone: [facility] Start: 04-17-2025 End: 04-17-2025 Patient encounter procedure Hipolito Mendieta DPM Work Phone: [facility] Comment on above: Verruca plantaris (P rimary Dx); Foot pain, left; Pain due to onychomycosis of toenails of both feet Start: 04-17-2025 End: 04-17-2025 ambulatory HIPOLITO MENDIETA Not Available Start: 02-06-2025 End: 02-06-2025 Bamboo flowsheet Hipolito Mendieta DPM Work Phone: [facility] Start: 02-06-2025 End: 02-06-2025 Bamboo flowsheet Hipolito Mendieta DPM Work Phone: [facility] Start: 02-06-2025 End: 02-06-2025 Patient encounter procedure Hipolito Mendieta DPM Work Phone: [facility] Comment on above: Pain due to onychomy cosis of toenails of both feet (Primary Dx); Verruca plantaris; Foot pain, left Start: 02-06-2025 End: 02-06-2025 ambulatory HIPOLITO MENDIETA Not Available Start: 01-28-2025 End: 01-28-2025 [facility] Start: 01-28-2025 End: 01-28-2025 ambulatory ab [facility] Work Phone: Start: 11-21-2024 End: 11-21-2024 Bamboo flowsheet Hipolito Mendieta DPM Work Phone: [facility] Start: 11-21-2024 End: 11-21-2024 Bamboo flowslaura Mendieta DPM Work Phone: [facility] Start: 11-21-2024 End: 11-21-2024 ambulatory HIPOLITO MENDIETA Not Available Start: 11-21-2024 End: 11-21-2024 Patient encounter procedure Hipolito Mendieta DPM Work Phone: [facility] Comment on above: Pain [...] Not Available Start: 08-07-2024 End: 08-07-2024 ambulatory [facility] Start: 06-20-2024 End: 06-20-2024 Bamboo flowsheet [...] Facility: Start: 06-10-2021 End: 06-11-2021 [facility] Plan of Treatment Date Care Activity Detail Author Start: 04-17-2025 End: 04-17-2025 Patient encounter procedure 04/17/2025 9:30 AM EDT Procedure Visit [facility] [address] [facility] [address] [place] [id number] Hipolito Mendieta DPM [address] [address] Verruca plantaris (Primary Dx); Foot pain, left; [...] identified in Urine by Culture Urine Culture [facility] Start: 01-28-2025 Urine culture [facility] Start: 11-21-2024 End: 11-21-2024 Patient encounter procedure 11/21/2024 9:30 AM EST Procedure Visit [facility] [address] [facility] [address] [place] [phone] Hipolito Mendieta DPM [address] [address] [facility] Start: 09-05-2024 End: 09-05-2024 Patient encounter procedure 09/05/2024 10:10 AM EST Procedure Visit [facility] [address] [place] [address] Hipolito Mendieta, PAULAM [address] [address] Pain due to onychomycosis of toenails of both feet (Primary Dx) [facility] Comment on above: Pain due to onychomy cosis of toenails of both feet (Primary Dx) Start: 06-20-2024 End: 06-20-2024 Patient encounter procedure 06/20/2024 10:00 AM EDT Procedure Visit [facility] [address] [facility] [address] [place] [address] Hipolito Mendieta, ADOLFO [address] [address] Onychomycosis (Primary Dx); Toe pain, bilateral [facility] Comment on above: Onychomycosis (Prima ry Dx); Toe pain, bilateral Start: 11-09-2023 End: 11-09-2023 Patient encounter procedure 11/09/2023 1:50 PM EST Procedure Visit [facility] [address] [facility] [address] [place] [address] Hipolito Mendieta, DPM [address] [address] [facility] Payers Date Payer Category Payer Self-pay [address] [facility] [employer] [id number] 2023-Present [address] [facility] [facility] [place] [address] [id number] 2018 Private Health Insurance [id number] 2018 Unknown [id number] 2006 Medicare [id number] 1959 Medicare [id number] 1959 Unknown [id number] 1940 Unknown [id number] [id number]. 2.647 1940 Unknown [id number] 2.16.840.1.035508.3.579. 2.593 1940 Unknown [id number] 2.16.840.1.239791.3.579. 2.593 1940 Unknown [id number] 2.16.840.1.141199.3.579. 2.593 1941 Unknown [id number] 2.16.840.1.590179.3.579. 2.593 1941 Unknown [id number] 2.16.840.1.024542.3.579. 2.1259 1941 Unknown [id number] 2.16.840.1.318843.3.579. 2.1259 1941 Unknown [id number] 2.16.840.1.984223.3.579. 2.1259 1940 Unknown [id number] 2.16.840.1.436120.3.579. 2.1259 1940 Unknown [id number] [id number]. 2.1259 Medicare Medicare [id number] Unknown [employer] [id number] Unknown [id number] [id number]. 2.531 Social History Date Type Detail Facility Start: 12-07-2023 Tobacco smoking status NHIS Tobacco smoking consumption unknown [facility] Start: 10-12-2023 End: 04-17-2025 Alcohol intake [facility] Start: 1940 Sex Assigned At Not on file [facility] Gender identity [facility] file [facility] Start: 01-29-2025 Sex Female (finding) [facility] Start: 1940 Sex Assigned At Female [facility] Clinical Notes 11-09-2023 to 04-17-2025 Hipolito [...] route for 85 days., Disp: , Rfl: jhqtzmcccwss-ukhs-mvgzqbgp-folic acid (Centrum Silver, geriatric,) tablet, as directed [...] Partner Violence: Unknown (11/16/2023) Received from [facility] [place] [facility] Fear of Current [...] Hipolito Mendieta DPM documented in this encounter [facility] 02-06-2025 History of Present illness Narrative Patient: Lucille Escobedo : 1940 PCP: Gerbre Mccoy MD SUBJECTIVE Patient presents today with [...] History: Past Medical History: Diagnosis Date Hypertension ([facility]) Medications: Current Outpatient Medications: amiodarone (Pacerone) 200 [...] route for 85 days., Disp: , Rfl: ihszwsvgzqrx-tnal-tmenqmuc-folic acid (Centrum Silver, geriatric,) tablet, as directed [...] Partner Violence: Unknown (11/16/2023) [facility] from [facility] Fear of Current or [...] Hipolito Mendieta DPM documented in this encounter [facility] 01-28-2025 Note [facility] Cardiology [...] regurgitation. Moderate to severe mitral regurgitation. Transesophageal Echocardiogram-[facility] Name: LUCILLE ESCOBEDO Study Date: 06/10/2021 10:12 AM MRN: (more content not included)... [facility] 11-21-2024 History of Present illness Narrative Patient: [...] History: Past Medical History: Diagnosis Date Hypertension ([facility]) Medications: Current Outpatient Medications: amiodarone (Pacerone) 200 [...] route for 85 days., Disp: , Rfl: ubwtysvnxkdd-jiij-menlrqpr-folic acid (Centrum Silver, geriatric,) tablet, as directed [...] Partner Violence: Unknown (11/16/2023) Received from [facility] [place] [facility] Fear of Current [...] Hipolito Mendieta DPM documented in this encounter [facility] 09-05-2024 History of Present illness Narrative [...] route for 85 days., Disp: , Rfl: tdmoktfwyckh-zcfq-iuqozfwy-folic acid (Centrum Silver, geriatric,) tablet, as directed [...] Partner Violence: Unknown (11/16/2023) Received from [facility], [facility] [place] [facility] [place] [facility] Environment Fear of Current [...] Hipolito Mendieta DPM documented in this encounter [facility] 08-07-2024 Note [facility] Cardiology [...] regurgitation. Moderate to severe mitral regurgitation. Transesophageal Echocardiogram-[facility] Name: LUCILLE ESCOBEDO Study Date: 06/10/2021 10:12 AM B/P: 126 mmHg/68 mmHg HR: Date of : 1940 Location: [facility] Height: 66 in. Age: 81 year(s) Patient Room : Weight: 135 lb. Gender: Female Patient Status: OutPt BSA: 1.69 m2 Indication: Atrial Fibrillation Examination: TUAN/CFI with Cardioversion Image Quality: Good Patient Consent: Informed, written consent was obtained for the procedure s p @ c 3 Exam Location: A TUAN was performed in the Escalator [employer]structor without complications s p @ c 3 Anesthesia Pharyngeal anesthesia with viscous Lidocaine Conclusions Left Ventricle: The left ventricle is normal size. Global left ventricular systolic function is severely reduced. The EF is 20 % visually. Diffuse global hypokinesis. Right Ventricle: The right ventricle is normal in size. Right ventricular systolic function appea (more content not included)... [facility] 06-20-2024 History of Present illness Narrative Patient: [...] route for 85 days., Disp: , Rfl: pvvbxkjjppwk-lcnk-zseucisy-folic acid (Centrum Silver, geriatric,) tablet, as directed [...] Partner Violence: Unknown (11/16/2023) [facility] [place] [facility] Fear of Current [...] Hipolito Mendieta DPM documented in this encounter [facility] 11-09-2023 History of Present illness Narrative [...] History: Past Medical History: Diagnosis Date Hypertension ([facility] Medications: Current Outpatient Medications: amiodarone (Pacerone) 200 [...] route for 85 days., Disp: , Rfl: [id number]-pffc-owczqopg-folic acid (Centrum Silver, geriatric,) tablet, as directed [...] Hipolito Mendieta DPM documented in this encounter [facility] Evaluation note Diagnosis Verruca plantaris- Primary [...] [facility] noteNo assessment information availableProm[facility] Work Phone: Evaluation note* Diagnosis [...] and content) DATE CREATED AUTHOR 06/15/2021 [facility] DATE CREATED AUTHOR AUTHOR'S ORGANIZ ATION 02/02/2023 [facility] pital DATE CREATED AUTHOR AUTHOR'S ORGANIZ ATION 01/31/2025 [facility] DATE CREATED AUTHOR AUTHOR'S ORGANIZ ATION 02/04/2025 [facility] DATE CREATED AUTHOR AUTHOR'S ORGANIZ ATION 04/18/2025 [facility] [employer] Care Teams (unrecognized sec tion and content) Chisel Worker Relationship Specialty Start Date End Date Gerber Mccoy MD [address] [place] [address] PCP - General Family Medicine 08/31/23 Chisel Worker Relationship Specialty Start Date End Date Gerber Mccoy MD [address] [place] [address] PCP - General Family Medicine 08/31/23 Chisel Worker Relationship Specialty Start Date End Date Gerber Mccoy MD [address] [place] [address] PCP - General Family Medicine 08/31/23 Chisel Worker Relationship Specialty Start Date End Date Gerber Mccoy MD [address] [place] [address] PCP - General Family Medicine 08/31/23 Chisel Worker Relationship Specialty Start Date End Date Gerber Mccoy MD [address] [place] [address] PCP - [facility] 08/31/23 Team Status: Inactive Member Role Status Dates [facility] Att[facility] Active Start: January 28, 2025 End: January 28, 2025 Chisel Worker Relationship Specialty Start Date End Date Gerber Mccoy MD [address] [place] [address] PCP - [facility] 08/31/23 Chisel Worker Relationship Specialty Start Date End Date Gerber Mccoy MD [address] [place] [address] PCP - General Family Medicine 08/31/23 Reason [...] BE BASED ON THE PRIMARY CLINICAL RECORDS. [employer] provides no warranty or guarantee of the accuracy or completeness of information in this document.
--- OUTSIDE RECORDS SUMMARY | 2025-06-13 08:47 | XMS_ITS | CCD ---
Author Organization [facility] CliniSymi Care Team Providers Care Correction Lieutenant Name Role Phone ELTAHAWY, EHAB A Attending Unavailable ELTAHAWY, EHAB A Admitting Unavailable MANUELAY, GERBER Referring Unavailable MANUELAY, GERBER Primary Care Unavailable HOY ., DR MAYES Primary Care Unavailable SHANTEL GARCIA Attending Unavailable JOSE, SHANTEL Admitting Unavailable PAINT LICK, DR FLORENTINO Mello Consulting Unavailable JOSE, HSANTEL Consulting Unavailable HOY ., DR MAYES Admitting [...] Unavailable Gerber Mccoy MD Primary Care Provider [phone] [place], Ehab A Attending Provider [phone] [place], Ehab A Attending Unavailable [place], Ehab A Admitting Unavailable ELTAHAWY, TERRENCEAB Attending Unavailable ELTAHAWY, EHAB Attending Unavailable Gerber Mccoy MD Primary Care Provider [phone] HIPOLITO MENDIETA Attending Unavailable HIPOLITO MENDIETA Attending Unavailable HIPOLITO MENDIETA Attending Unavailable HIPOLITO MENDIETA Attending Unavailable HIPOLITO MENDIETA Attending Unavailable Allergies Allergy Classification Reported Allergen(s) Allergy Type Date of Onset Reaction(s) Facility (3 sources) Angiotensin Converting Enzyme (Hossein) Inhibitors; Translations: [HOSSEIN INHIBITORS] Drug allergy (disorder) 2 [facility] Repository (3 sources) Sulfonamides (Antibiotic); Translations: [SULFA (SULFONAMIDE ANTIBIOTICS)] Drug allergy (disorder) 2 [facility] Repository (12 sources) Angiotensin-conve rting enzyme inhibitor agent Drug Allergy 4 Other, Unknown [facility] (12 sources) Sulfonamides (Antibiotic) Drug Allergy 4 Other, Unknown [facility] (13 sources) Verapamil; Translations: [VERAPAMIL] Drug Allergy 4 Unknown [facility] Medications Current Medications Medication Drug Class(es) [...] by oral route for 85 days. Active rqxlivdwefsa-xfhq-e inerals-folic acid (Centrum Silver, geriatric,) tablet (12 sources) multivitamin-iro n- minerals-folic acid (Centrum Silver, geriatric,) tablet as directed Orally Active multivitamin-iro a-msmdfjzq-hewpx acid (Centrum Silver, geriatric,) tablet as directed [...] Onset: 02-01-2023 Chronic Other aftercare (1 source) prison (current) use of anticoagulants; Translations: [SNF CURRNT USE ANTICOAGULANTS] Onset: 01-17-2023 Episodic Other aftercare (5 sources) Other extermination inspector (current) drug therapy; Translations: [OTH SNF CURRENT DRUG THERAPY] Onset: 10-17-2022 Episodic Other aftercare (1 source) prison (current) use of aspirin; Translations: [SNF CURRENT USE OF ASPIRIN] Onset: 01-17-2023 Episodic [...] you. Patient informed. She verbalized understanding. Normal [facility] Office Visiton 01-28-2025 Follow-up visit [id number] Alfa Escobedo 1940 F Date Provider Department Center 01/28/2025 KAYA STEELE Family History Problem Relation Age of Onset Diabetes Mother Hypertension Mother Hypertension Father Diabetes Sister Heart attack Maternal Grandmother Family Status - Relation Status Age at Mother Father Sister Maternal Grandmother Level of Service:67386 [place] OFFICE/OUTPATIENT ESTABLISHED MOD MDM 30 MIN [facility] Urine Cultureon 01-28-2025 Bacteria identified Cx Nom (U) No Growth 2 Days PERFORMED BY: [place] [address] PATHOLOGIST RADIAL SAW OPERATOR NINA CM M.D. Normal [facility] Comment on above: Performed By: #### C UU #### [facility] [address] [place] [address] 36on 08-15-2024 36 Regarding lab result s from 08/14/2024: MD Alejandra Hansen MA S.cr was 1.24, now 1.22 - continue medical rx Thanks LM on . [facility] Office Visiton 08-07-2024 Follow-up visit [id number] Alfa Escobedo 1940 F Date Provider Department Center 08/07/2024 KAYA STEELE Family History Problem Relation Age of Onset Diabetes Mother Hypertension Mother Hypertension Father Diabetes Sister Heart attack Maternal Grandmother Family Status - Relation Status Age at Mother Father Sister Maternal Grandmother Level of Service:84294 [place] OFFICE/OUTPATIENT ESTABLISHED MOD MDM 30 MIN [facility] 36on 07-01-2024 36 Regarding labs from 06/28/2024: MD Alejandra Hansen MA Her free T4 is high; she needs to discuss with whoever is managing her thyroid medications Thanks Labs faxed to Dr. Mccoy's office on . I called his office just now to confirm they received results. [facility] BNPon 01-26-2023 Natriuretic peptide B (Bld) [Mass/Vol] 1751.0 pg/mL Normal <=1,800.0 [facility] Comment on above: Performed By: #### L IVER, TSH #### [facility] [address] [place] [address] Dr. Tierney Rivera CBC AUTO DIFFon 01-26-2023 BASO # 0.0 103/ul Normal 0.0-0.1 [facility] Comment on above: Performed By: #### C BC #### [facility] [address] [place] [address] Dr. Tierney Rivera Basophils/100 WBC (Bld) 0.3 % Normal 0.2-2.0 [facility] Comment on above: Performed By: #### C BC #### [facility] [address] [place] [address] Dr. Tierney Rivera EO # 0.1 103/ul Normal 0.0-0.7 [facility] Comment on above: Performed By: #### C BC #### [facility] [address] [place] [address] Dr. Tierney Rivera Eosinophils/100 WBC (Bld) 2.3 % Normal 0.9-7.0 [facility] Comment on above: Performed By: #### C BC #### [facility] [address] [place] [address] Dr. Tierney Rivera Erythrocyte distribution width (RBC) [Ratio] 13.1 % Normal 11.0-15.0 [facility] Comment on above: Performed By: #### C BC #### [facility] [address] [place] [address] Dr. Tierney Rivera Hematocrit (Bld) [Volume fraction] 43.5 % Normal 36.0-48.0 [facility] Comment on above: Performed By: #### C BC #### [facility] [address] [place] [address] Dr. Tierney Rivera Hemoglobin (Bld) [Mass/Vol] 13.9 g/dL Normal 12.0-16.0 [facility] Comment on above: Performed By: #### C BC #### [facility] [address] [place] [address] Dr. Tierney Rivera IG # 0.02 10e3/ul Normal 0.00-0.03 [facility] Comment on above: Performed By: #### C BC #### [facility] [address] [place] [address] Dr. Tierney Rivera IG % 0.3 % Normal 0.0-0.5 [facility] Comment on above: Performed By: #### C BC #### [facility] [address] [place] [address] Dr. Tierney Rivera LYMPH # 1.2 103/ul Normal 1.2-3.8 [facility] Comment on above: Performed By: #### C BC #### [facility] [address] [place] [address] Dr. Tierney Rivera Lymphocytes/100 WBC (Bld) 20.6 % Normal 20.5-60.0 [facility] Comment on above: Performed By: #### C BC #### [facility] [address] [place] [address] Dr. Tierney Rivera MANUAL DIFF REQ NO Normal [facility] Comment on above: Performed By: #### C BC #### [facility] [address] [place] [address] Dr. Tierney Rivera MCH (RBC) [Entitic mass] 29.4 pg Normal 26.7-34.0 [facility] Comment on above: Performed By: #### C BC #### [facility] [address] [place] [address] Dr. Tierney Rivera MCHC (RBC) [Mass/Vol] 32.0 g/dL Normal 29.9-35.2 [facility] Comment on above: Performed By: #### C BC #### [facility] [address] [place] [address] Dr. Tierney Rivera MCV (RBC) [Entitic vol] 92.2 fL Normal 81.0-99.0 [facility] Comment on above: Performed By: #### C BC #### [facility] [address] [place] [address] Dr. Tierney Rivera MONO # 0.6 103/ul Normal 0.3-0.8 [facility] Comment on above: Performed By: #### C BC #### [facility] [address] [place] [address] Dr. Tierney Rivera Monocytes/100 WBC (Bld) 10.2 % Normal 1.7-12.0 [facility] Comment on above: Performed By: #### C BC #### [facility] [address] [place] [address] Dr. Tierney Rivera NEUT # 3.8 103/ul Normal 1.4-6.5 [facility] Comment on above: Performed By: #### C BC #### [facility] [address] [place] [address] Dr. Tierney Rivera Neutrophils/100 WBC (Bld) 66.3 % Normal 43.0-75.0 [facility] Comment on above: Performed By: #### C BC #### [facility] [address] [place] [address] Dr. Tierney Rivera Platelet mean volume (Bld) [Entitic vol] 11.2 fL Normal 9.5-13.5 [facility] Comment on above: Performed By: #### C BC #### [facility] [address] [place] [address] Dr. Tierney Rivera PLT 253 103/ul Normal 150-450 [facility] Comment on above: Performed By: #### C BC #### [facility] [address] [place] [address] Dr. Tierney Rivera RBC 4.72 106/ul Normal 4.20-5.40 [facility] Comment on above: Performed By: #### C BC #### [facility] [address] [place] [address] Dr. Tierney Rivera WBC 5.8 103/ul Normal 4.0-11.0 [facility] Comment on above: Performed By: #### C BC #### [facility] [address] [place] [address] Dr. Tierney Rivera FREE THYROXINE INDEX T7on FTI 5.18 Critically high 1.30-4.50 [facility] Comment on above: Performed By: #### L CHAMP, TSH #### [facility] [address] [place] [address] Dr. Tierney Rivera T3U 36.0 % Normal 30.0-39.0 [facility] Comment on above: Performed By: #### L IVER, TSH #### [facility] [address] [address] [address] Tierney Rivera T4 [Mass/Vol] 14.40 ug/dL Critically high 4.80-13.90 [facility] Comment on above: Performed By: #### L IVER, TSH #### [facility] [address] [address] [address] Tierney Rivera GLYCOHEMOGLOBIN A1Con 2022 ADA RECOMMENDATION SEE BELOW Normal [facility] Comment on above: Result Comment: ADA RECOMMENDED LIMIT 4.0 - 6.0 ADA THERAPEUTIC TARGET < 7.0 ACTION SUGGESTED > 7.0 Performed By: #### L IVER, TSH #### [facility] [address] [place] [address] Dr. Tierney Rivera Glucose [Mass/Vol] 117 mg/dL Normal [facility] Comment on above: Performed By: #### L IVER, TSH #### [facility] [address] [address] [address] Tierney Rivera HbA1c (Bld) [Mass fraction] 5.7 % Normal 4.5-6.2 [facility] Comment on above: Performed By: #### L IVER, TSH #### [facility] [address] [address] [address] Tierney Rivera IRONon 01-26-2023 Iron [Mass/Vol] 67.0 ug/dL Normal 50.0-170.0 [facility] Comment on above: Performed By: #### V ITAD, IRON #### [facility] [address] [address] [address] Tierney Rivera PROF 14(COMP METB)on 023 Albumin [Mass/Vol] 4.0 g/dL Normal 3.4-5.0 [facility] Comment on above: Performed By: #### L IVER, TSH #### [facility] [address] [place] [address] Dr. Tierney Rivera Albumin/Globulin [Mass ratio] 1.1 {ratio} Normal [facility] Comment on above: Performed By: #### L CHAMP, TSH #### [facility] [address] [address] [address] Tierney Rivera ALP [Catalytic activity/Vol] 98 U/L Normal 46-116 [facility] Comment on above: Performed By: #### L CHAMP, TSH #### [facility] [address] [address] [address] Tierney Rivera ALT [Catalytic activity/Vol] 29 U/L Normal 14-59 [facility] Comment on above: Performed By: #### L CHAMP, TSH #### [facility] [address] [place] [address] Dr. Tierney Rivera Anion gap [Moles/Vol] 11.7 mmol/L Normal [facility] Comment on above: Performed By: #### Breonna OAKES, TSH #### [facility] [address] [place] [address] Dr. Tierney Rivera AST [Catalytic activity/Vol] 22 U/L Normal 15-37 [facility] Comment on above: Performed By: #### L CHAMP TSH #### [facility] [address] [address] [address] Tierney Rivera Bilirubin [Mass/Vol] 0.4 mg/dL Normal 0.2-1.0 [facility] Comment on above: Performed By: #### Breonna OAKES, TSH #### [facility] [address] [address] [address] Tierney Rivera Calcium [Mass/Vol] 10.1 mg/dL Normal 8.5-10.1 [facility] Comment on above: Performed By: #### L CHAMP, TSH #### [facility] [address] [address] [address] Tierney Rivera Chloride [Moles/Vol] 103 mmol/L Normal 98-107 [facility] Comment on above: Performed By: #### L CHAMP, TSH #### [facility] [address] [place] [address] Dr. Tierney Rivera CO2 [Moles/Vol] 30.5 mmol/L Normal 21.0-32.0 [facility] Comment on above: Performed By: #### L CHAMP, TSH #### [facility] [address] [address] [address] Tierney Rivera Creatinine [Mass/Vol] 1.15 mg/dL Critically high 0.55-1.02 [facility] Comment on above: Performed By: #### L CHAMP, TSH #### [facility] [address] [place] [address] Dr. Tierney Rivera EGFR-AF SURINAMESE 55 mL/min/1.73m2 Critically low >=60 [facility] Comment on above: Performed By: #### L CHAMP, TSH #### [facility] [address] [place] [address] Dr. Tierney Rivera EGFR-NON AF SURINAMESE 45 mL/min/1.73m2 Critically low >=60 [facility] Comment on above: Performed By: #### L CHAMP, TSH #### [facility] [address] [place] [address] Dr. Tierney Rivera Globulin (S) [Mass/Vol] 3.8 g/dL Normal [facility] Comment on above: Performed By: #### L CHAMP, TSH #### [facility] [address] [place] [address] Dr. Tierney Rivera Glucose [Mass/Vol] 97 mg/dL Normal 74-106 [facility] Comment on above: Performed By: #### L CHAMP, TSH #### [facility] [address] [place] [address] Dr. Tierney Rivera Potassium [Moles/Vol] 4.2 mmol/L Normal 3.5-5.1 [facility] Comment on above: Performed By: #### L CHAMP, TSH #### [facility] [address] [place] [address] Dr. Tierney Rivera Protein [Mass/Vol] 7.8 g/dL Normal 6.4-8.2 [facility] Comment on above: Performed By: #### L CHAMP, TSH #### [facility] [address] [place] [address] Dr. Tierney Rivera Sodium [Moles/Vol] 141 mmol/L Normal 136-145 [facility] Comment on above: Performed By: #### L CHAMP, TSH #### [facility] [address] [place] [address] Dr. Tierney Rivera Urea nitrogen [Mass/Vol] 18.0 mg/dL Normal 7.0-18.0 [facility] Comment on above: Performed By: #### L CHAMP, TSH #### [facility] [address] [place] [address] Dr. Tierney Rivera Urea nitrogen/Creatinine [Mass ratio] 15.7 mg/mg Normal [facility] Comment on above: Performed By: #### L CHAMP, TSH #### [facility] [address] [place] [address] Dr. Tierney Rivera TSHon 01-26-2023 TSH 2.066 uIU/mL Normal 0.358-3.740 [facility] Comment on above: Performed By: #### L CHAMP, TSH #### [facility] [address] [place] [address] Dr. Tierney Rivera VITAMIN D 25 OHon 01-26-2023 VIT D 25-OH 45.0 ng/mL Normal [facility] Comment on above: Performed By: #### V SHANNEN, IRON #### [facility] [address] [place] [address] Dr. Tierney Rivera VIT D RANGES SEE BELOW Normal [facility] Comment on above: Result Comment: <20 ng/mL Vit D deficient 20 - <30 ng/mL Vit D insufficient 30 - 100 ng/mL Vit D sufficient >100 ng/mL Potential Toxicity Performed By: #### V ITAD, IRON #### [facility] [address] [place] [address] Dr. Tierney Rivera BNPon 01-15-2023 Natriuretic peptide B (Bld) [Mass/Vol] 868.0 pg/mL Normal <=1,800.0 [facility] Comment on above: Performed By: #### H STROPN, BNP, CMP #### [facility] [address] [place] [address] Dr. Tierney Rivera CBC AUTO DIFFon 01-15-2023 BASO # 0.0 103/ul Normal 0.0-0.1 [facility] Comment on above: Performed By: #### L IVER, TSH #### [facility] [address] [place] [address] Dr. Tierney Rivera Basophils/100 WBC (Bld) 0.3 % Normal 0.2-2.0 [facility] Comment on above: Performed By: #### L IVER, TSH #### [facility] [address] [place] [address] Dr. Tierney Rivera EO # 0.1 103/ul Normal 0.0-0.7 [facility] Comment on above: Performed By: #### L IVER, TSH #### [facility] [address] [place] [address] Dr. Tierney Rivera Eosinophils/100 WBC (Bld) 1.7 % Normal 0.9-7.0 [facility] Comment on above: Performed By: #### L IVER, TSH #### [facility] [address] [place] [address] Dr. Tierney Rivera Erythrocyte distribution width (RBC) [Ratio] 13.2 % Normal 11.0-15.0 [facility] Comment on above: Performed By: #### L IVER, TSH #### [facility] [address] [place] [address] Dr. Tierney Rivera Hematocrit (Bld) [Volume fraction] 45.1 % Normal 36.0-48.0 [facility] Comment on above: Performed By: #### L IVER, TSH #### [facility] [address] [place] [address] Dr. Tierney Rivera Hemoglobin (Bld) [Mass/Vol] 15.1 g/dL Normal 12.0-16.0 [facility] Comment on above: Performed By: #### L IVER, TSH #### [facility] [address] [place] [address] Dr. Tierney Rivera IG # 0.01 10e3/ul Normal 0.00-0.03 [facility] Comment on above: Performed By: #### L IVER, TSH #### [facility] [address] [place] [address] Dr. Tierney Rivera IG % 0.2 % Normal 0.0-0.5 [facility] Comment on above: Performed By: #### L IVER, TSH #### [facility] [address] [place] [address] Dr. Tierney Rivera LYMPH # 2.2 103/ul Normal 1.2-3.8 [facility] Comment on above: Performed By: #### L IVER, TSH #### [facility] [address] [place] [address] Dr. Tierney Rivera Lymphocytes/100 WBC (Bld) 32.5 % Normal 20.5-60.0 [facility] Comment on above: Performed By: #### L IVER, TSH #### [facility] [address] [place] [address] Dr. Tierney Rivera MANUAL DIFF REQ NO Normal [facility] Comment on above: Performed By: #### L IVBISHNU, TSH #### [facility] [address] [place] [address] Dr. Tierney Rivera MCH (RBC) [Entitic mass] 30.0 pg Normal 26.7-34.0 [facility] Comment on above: Performed By: #### L IVBISHNU, TSH #### [facility] [address] [place] [address] Dr. Tierney Rivera MCHC (RBC) [Mass/Vol] 33.5 g/dL Normal 29.9-35.2 [facility] Comment on above: Performed By: #### L IVER, TSH #### [facility] [address] [place] [address] Dr. Tierney Rivera MCV (RBC) [Entitic vol] 89.7 fL Normal 81.0-99.0 [facility] Comment on above: Performed By: #### L IVER, TSH #### [facility] [address] [place] [address] Dr. Tierney Rivrea MONO # 0.8 103/ul Normal 0.3-0.8 [facility] Comment on above: Performed By: #### L CHAMP, TSH #### [facility] [address] [place] [address] Dr. Tierney Rivera Monocytes/100 WBC (Bld) 12.6 % Critically high 1.7-12.0 [facility] Comment on above: Performed By: #### L CHAMP, TSH #### [facility] [address] [place] [address] Dr. Tierney Rivera NEUT # 3.5 103/ul Normal 1.4-6.5 [facility] Comment on above: Performed By: #### L CHAMP, TSH #### [facility] [address] [place] [address] Dr. Tierney Rivera Neutrophils/100 WBC (Bld) 52.7 % Normal 43.0-75.0 [facility] Comment on above: Performed By: #### Breonna OAKES TSH #### [facility] [address] [place] [address] Dr. Tierney Rivera Platelet mean volume (Bld) [Entitic vol] 11.0 fL Normal 9.5-13.5 [facility] Comment on above: Performed By: #### Breonna OAKES, TSH #### [facility] [address] [place] [address] Dr. Tierney Rivera PLT 266 103/ul Normal 150-450 [facility] Comment on above: Performed By: #### Breonna OAKES, TSH #### [facility] [address] [place] [address] Dr. Tierney Rivera RBC 5.03 106/ul Normal 4.20-5.40 [facility] Comment on above: Performed By: #### L CHAMP, TSH #### [facility] [address] [place] [address] Dr. Tierney Rivera WBC 6.6 103/ul Normal 4.0-11.0 [facility] Comment on above: Performed By: #### Breonna OAKES TSH #### [facility] [address] [place] [address] Dr. Tierney Rivera CULTURE BLOODon 01-15-2023 Microscopic examination of blood, culture Culture Observations: NO GROWTH AT 5 DAYS. Normal [facility] [facility] Comment [facility] above: Performed By: #### L IVBISHNU, TSH #### [facility] [address] [place] [address] Dr. Tierney Rivera Microscopic examination of blood, culture Culture Observations: NO GROWTH AT 5 DAYS. Normal [facility] Comment on above: Performed By: #### L IVER, TSH #### [facility] [address] [place] [address] Dr. Tierney Rivera ER URINE PROFILEon 3 Bilirubin Ql (U) Negative Normal NEGATIVE [facility] Comment on above: Performed By: #### L IVBISHNU, TSH #### [facility] [address] [place] [address] Dr. Tierney Rivera Clarity (U) CLEAR Normal CLEAR [facility] Comment on above: Performed By: #### L CHAMP, TSH #### [facility] [address] [place] [address] Dr. Tierney Rivera Color (U) LT. YELLOW Normal YELLOW [facility] Comment on above: Performed By: #### L IVER, TSH #### [facility] [address] [place] [address] Dr. Tierney Rivera ERUDEBD A micrscopic examination will be performed if indicated. Normal [facility] Comment on above: Performed By: #### L IVBISHNU, TSH #### [facility] [address] [place] [address] Dr. Tierney Rivera Glucose Ql (U) Negative Normal NEGATIVE [facility] Comment on above: Performed By: #### L IVER, TSH #### [facility] [address] [place] [address] Dr. Tierney Rivera Hemoglobin Ql (U) Negative Normal NEGATIVE [facility] Comment on above: Performed By: #### L IVER, TSH #### [facility] [address] [place] [address] Dr. Tierney Rivera Ketones Ql (U) Negative Normal NEGATIVE [facility] Comment on above: Performed By: #### L IVER, TSH #### [facility] [address] [place] [address] Dr. Tierney Rivera LEUKOCYTES Negative Normal NEGATIVE [facility] Comment on above: Performed By: #### L IVER, TSH #### [facility] [address] [place] [address] Dr. Tierney Rivera Nitrite Ql (U) Negative Normal NEGATIVE [facility] Comment on above: Performed By: #### L LILAER, TSH #### [facility] [address] [place] [address] Dr. Tierney Rivera pH (U) 7.5 [pH] Normal 5-9 [facility] Comment on above: Performed By: #### L CHAMP, TSH #### [facility] [address] [place] [address] Dr. Tierney Rivera SPEC GRAVITY 1.010 Normal 1.005-<=1.02 5 [facility] Comment on above: Performed By: #### L CHAMP, TSH #### [facility] [address] [place] [address] Dr. Tierney Rivera UA PROTEIN Negative Normal NEGATIVE/ TRACE [facility] Comment on above: Performed By: #### L CHAMP, TSH #### [facility] [address] [place] [address] Dr. Tierney Rivera UR MICRO IND NOT INDICATED Normal [facility] Comment on above: Performed By: #### L CHAMP, TSH #### [facility] [address] [place] [address] Dr. Tierney Rivera Urobilinogen Qn (U) 0.2 {Radu'U}/dL Normal 0.2 - 1. 0 [facility] Comment on above: Performed By: #### L LILAER, TSH #### [facility] [address] [place] [address] Dr. Tierney Rivera LACTATE/LACTIC ACIDon 2022 Lactate [Moles/Vol] 1.5 mmol/L Normal 0.4-2.0 [facility] Comment on above: Performed By: #### L ACT #### [facility] [address] [address] [address] Tierney Rivera PROF 14(COMP METB)on 023 Albumin [Mass/Vol] 4.3 g/dL Normal 3.4-5.0 [facility] Comment on above: Performed By: #### L IVER, TSH #### [facility] [address] [address] [address] Tierney Rivera Albumin/Globulin [Mass ratio] 1.2 {ratio} Normal [facility] Comment on above: Performed By: #### L IVER, TSH #### [facility] [address] [address] [address] Tierney Rivera ALP [Catalytic activity/Vol] 111 U/L Normal 46-116 [facility] Comment on above: Performed By: #### L IVER, TSH #### [facility] [address] [address] [address] Tierney Rivera ALT [Catalytic activity/Vol] 23 U/L Normal 14-59 [facility] Comment on above: Performed By: #### L IVER, TSH #### [facility] [address] [address] [address] Tierney Rivera Anion gap [Moles/Vol] 11.8 mmol/L Normal [facility] Comment on above: Performed By: #### L IVER, TSH #### [facility] [address] [address] [address] Tierney Rivera AST [Catalytic activity/Vol] 22 U/L Normal 15-37 [facility] Comment on above: Performed By: #### L IVER, TSH #### [facility] [address] [address] [address] Tierney Rivera Bilirubin [Mass/Vol] 0.4 mg/dL Normal 0.2-1.0 [facility] Comment on above: Performed By: #### L IVER, TSH #### [facility] [address] [address] [address] Tierney Rivera Calcium [Mass/Vol] 10.6 mg/dL Critically high 8.5-10.1 [facility] Comment on above: Performed By: #### L IVER, TSH #### [facility] [address] [address] [address] Tierney Rivera Chloride [Moles/Vol] 103 mmol/L Normal 98-107 [facility] Comment on above: Performed By: #### L IVER, TSH #### [facility] [address] [place] [address] Dr. Tierney Rivera CO2 [Moles/Vol] 29.2 mmol/L Normal 21.0-32.0 [facility] Comment on above: Performed By: #### L IVER, TSH #### [facility] [address] [place] [address] Dr. Tierney Rivera Creatinine [Mass/Vol] 1.13 mg/dL Critically high 0.55-1.02 [facility] Comment on above: Performed By: #### L IVER, TSH #### [facility] [address] [place] [address] Dr. Tierney Rivera EGFR-AF SURINAMESE 56 mL/min/1.73m2 Critically low >=60 [facility] Comment on above: Performed By: #### L IVER, TSH #### [facility] [address] [place] [address] Dr. Tierney Rivera EGFR-NON AF SURINAMESE 46 mL/min/1.73m2 Critically low >=60 [facility] Comment on above: Performed By: #### L IVER, TSH #### [facility] [address] [place] [address] Dr. Tierney Rivera Globulin (S) [Mass/Vol] 3.7 g/dL Normal [facility] Comment on above: Performed By: #### L IVER, TSH #### [facility] [address] [place] [address] Dr. Tierney Rivera Glucose [Mass/Vol] 109 mg/dL Critically high 74-106 [facility] Comment on above: Performed By: #### L IVER, TSH #### [facility] [address] [place] [address] Dr. Tierney Rivera Potassium [Moles/Vol] 4.0 mmol/L Normal 3.5-5.1 [facility] Comment on above: Performed By: #### L CHAMP, TSH #### [facility] [address] [place] [address] Dr. Tierney Rivera Protein [Mass/Vol] 8.0 g/dL Normal 6.4-8.2 [facility] Comment on above: Performed By: #### L CHAMP, TSH #### [facility] [address] [address] [address] Tierney Rivera Sodium [Moles/Vol] 140 mmol/L Normal 136-145 [facility] Comment on above: Performed By: #### L CHAMP, TSH #### [facility] [address] [place] [address] Dr. Tierney Rivera Urea nitrogen [Mass/Vol] 17.0 mg/dL Normal 7.0-18.0 [facility] Comment on above: Performed By: #### Breonna OAKES, TSH #### [facility] [address] [place] [address] Dr. Tierney Rivera Urea nitrogen/Creatinine [Mass ratio] 15.0 mg/mg Normal [facility] Comment on above: Performed By: #### Breonna OAKES, TSH #### [facility] [address] [place] [address] Dr. Tierney Rivera TROPONIN, HIGH SENSITIVITYon 01-15-2023 HSTROP 21.6 pg/mL Normal 4.0-51.3 [facility] Comment on above: Result Comment: CUT- OFF POINTS HAVE BEEN ESTABLISHED BASED ON THE FOURTH UNIVERSAL DEFINITIONS OF MYOCARDIAL INFARCTION. THE UPPER REFERENCE LIMIT (URL) OF TROPONIN, DEFINED THE 99TH PERCENTILE OF cTnI DISTRIBUTION IN A REFERENCE POPULATION, HAS BEEN CONFIRMED THE DECISION THRESHOLD FOR [place] DIAGNOSIS. Performed By: #### H STROPN, BNP, CMP #### [facility] [address] [place] [address] Dr. Tierney Rivera XR CHEST 1 Von [...] by: CONSTANCE LAI Date: 2023-01-15 00:29 Normal [facility] FREE T4on 10-17-2022 Free T4 [Mass/Vol] 1.49 ng/dL Critically high 0.76-1.46 [facility] Comment on above: Performed By: #### L CHAMP TSH #### [facility] [address] [address] [address] Tierney Rivera LIVER PROFILEon 10-17-2022 Albumin [Mass/Vol] 3.7 g/dL Normal 3.4-5.0 [facility] Comment on above: Performed By: #### L CHAMP TSH #### [facility] [address] [place] [address] Dr. Tierney Rivera Albumin/Globulin [Mass ratio] 1.1 {ratio} Normal [facility] Comment on above: Performed By: #### L CHAMP TSH #### [facility] [address] [place] [address] Dr. Tierney Rivera ALP [Catalytic activity/Vol] 104 U/L Normal 46-116 [facility] Comment on above: Performed By: #### L CHAMP, TSH #### [facility] [address] [address] [address] Tierney Rivera ALT [Catalytic activity/Vol] 27 U/L Normal 14-59 [facility] Comment on above: Performed By: #### L CHAMP, TSH #### [facility] [address] [place] [address] Dr. Tierney Rivera AST [Catalytic activity/Vol] 23 U/L Normal 15-37 [facility] Comment on above: Performed By: #### L IVBISHNU, TSH #### [facility] [address] [address] [address] Tierney Rivera BILI, CONJUGATED 0.1 mg/dL Normal 0.0-0.2 [facility] Comment on above: Performed By: #### L IVER, TSH #### [facility] [address] [place] [address] Dr. Tierney Rivera Bilirubin [Mass/Vol] 0.4 mg/dL Normal 0.2-1.0 [facility] Comment on above: Performed By: #### L IVER, TSH #### [facility] [address] [place] [address] Dr. Tierney Rivera Globulin (S) [Mass/Vol] 3.5 g/dL Normal [facility] Comment on above: Performed By: #### L IVER, TSH #### [facility] [address] [place] [address] Dr. Tierney Rivera Protein [Mass/Vol] 7.2 g/dL Normal 6.4-8.2 [facility] Comment on above: Performed By: #### L IVER, TSH #### [facility] [address] [place] [address] Dr. Tierney Rivera TSHon 10-17-2022 TSH 1.020 uIU/mL Normal 0.358-3.740 [facility] Comment on above: Performed By: #### L IVER, TSH #### [facility] [address] [place] [address] Dr. Tierney Rivera XR CHEST 2 Von [...] FLORENTINO MAURO Date: 2022-10-17 09:46 Normal [facility] Covid-19 PCR (CVDTB)on SARS-CoV-2 (COVID-19) RNA SEDRICK+probe Ql (Unsp spec) Detected Critically abnormal NOT DETECTED [facility] Comment on above: Result Comment: This test is not yet approved or cleared by the [place] FDA. When there are no FDA-approved or cleared tests available, and other criteria are met, FDA can make tests available under an emergency access mechanism called an Emergency Use Authorization (EUA). The EUA for this test is supported by the Trauma Program Manager of Health and Human Service's (HHS's) declaration [...] used). Performed By: #### C VDTB #### [facility] [address] [place] [address] Dr. Tierney Rivera INFLUENZA A AND B AGon 09-27 [facility] SEE BELOW Normal [facility] Comment on above: Result Comment: Nega tive for Flu A protein angiten. Infection due to Flu A cannot be ruled out. Flu A angiten in the sample may be below the detection limit of the test. Performed By: #### I NFLUAB #### [facility] [address] [place] [address] Dr. Tier[facility] Normal [facility] Comment on above: Result Comment: Nega tive for Flu B protein antigen. Infection due to Flu B cannot be ruled out. Flu B antigen in the sample may be below the detection limit of the test. Performed By: #### I NFLUAB #### [facility] [address] [place] [address] Dr. Tierney Rivera INFLUENZA A AG Negative Normal NEGATIVE SEE COMMENT [facility] Comment on above: Performed By: #### I NFLUAB #### [facility] [address] [place] [address] Dr. Tierney Rivera INFLUENZA B AG Negative Normal NEGATIVE SEE COMMENT [facility] Comment on above: Performed By: #### I NFLUAB #### [facility] [address], [place] [address] Dr. Tierney Rivera Cardiovascular Lab Reporton 06-11-2021 Cardiovascular Lab Report [facility] Patient Name: Lucille Escobedo [facility] Laura MR #: [id number] Department of Physician: Kaya Patel Medicine Fredo Division of Service Date: 06/10/2021 Cardiology Birthdate: 1940 Adult Cardiovascular Room #: [facility] [address] [facility] [place]. [place], [place] [address] Cardiovascular Laboratory Report FINAL IMPRESSION: 1. Angiographically [...] Follow up with Dr. Patel in the [facility]. 8. Follow up with Dr. Mccoy [...] M.D (more content not included)... Normal [facility] Vital Signs Date Time Vital Sign Value Performing Clinician Belemi pernell 04-17-2025 09:29-0400 Body height 167.6 cm Hipolito Brown DPM Work Phone: [facility] 04-17-2025 09:29-0400 Body mass index (BMI) [Ratio] 17.27 kg/m2 Hipolito Brown DPM Work Phone: [facility] 04-17-2025 09:29-0400 Body weight 48.53 kg Hipolito Brown DPM Work Phone: [facility] 04-17-2025 09:29-0400 Respiratory rate 16 /min Hipolito Brown DPM Work Phone: [facility] 02-06-2025 09:32-0400 Body height 167.6 cm Hipolito Brown DPM Work Phone: [facility] 02-06-2025 09:32-0400 Body mass index (BMI) [Ratio] 17.27 kg/m2 Hipolito Brown DPM Work Phone: [facility] 02-06-2025 09:32-0400 Body weight 48.53 kg Hipolito Brown DPM Work Phone: [facility] 02-06-2025 09:32-0400 Respiratory rate 18 /min Hipolito Brown DPM Work Phone: [facility] 11-21-2024 09:40-0500 Body height 167.6 cm Hipolito Brown DPM Work Phone: [facility] 11-21-2024 09:40-0500 Body mass index (BMI) [Ratio] 17.27 kg/m2 Hipolito Brown DPM Work Phone: [facility] 11-21-2024 09:40-0500 Body weight 48.53 kg Hipolito Brown DPM Work Phone: [facility] 11-21-2024 09:40-0500 Respiratory rate 18 /min Hipolito Brown DPM Work Phone: [facility] 09-05-2024 10:08-0500 Body height 167.6 cm Hipolito Brown DPM Work Phone: [facility] 09-05-2024 10:08-0500 Body mass index (BMI) [Ratio] 17.27 kg/m2 Hipolito Brown DPM Work Phone: [facility] 09-05-2024 10:08-0500 Body weight 48.53 kg Hipolito Brown DPM Work Phone: [facility] 09-05-2024 10:08-0500 Respiratory rate 16 /min Hipolito Brown DPM Work Phone: [facility] 06-20-2024 09:59-0400 Body height 167.6 cm Hipolito Brown DPM Work Phone: [facility] 06-20-2024 09:59-0400 Body mass index (BMI) [Ratio] 17.27 kg/m2 Hipolito Brown DPM Work Phone: [facility] 06-20-2024 09:59-0400 Body weight 48.53 kg Hipolito Brown DPM Work Phone: [facility] 06-20-2024 09:59-0400 Diastolic blood pressure 80 mm[Hg] Hipolito Brown DPM Work Phone: [facility] 06-20-2024 09:59-0400 Heart rate 75 /min Hipolito Brown DPM Work Phone: [facility] 06-20-2024 09:59-0400 Respiratory rate 18 /min Hipolito Brown DPM Work Phone: [facility] 06-20-2024 09:59-0400 Systolic blood pressure 127 mm[Hg] Hipolito Mendieta DPM Work Phone: [facility] 11-09-2023 13:51-0500 Body height 167.6 cm Hipolito Mendieta DPM Work Phone: [facility] 11-09-2023 13:51-0500 Body mass index (BMI) [Ratio] 17.27 kg/m2 Hipolito Mendieta DPM Work Phone: [facility] 11-09-2023 13:51-0500 Body weight 48.53 kg Hipolito Mendieta DPM Work Phone: [facility] 11-09-2023 13:51-0500 Diastolic blood pressure 81 mm[Hg] Hipolito Mendieta DPM Work Phone: [facility] 11-09-2023 13:51-0500 Heart rate 78 /min Hipolito Mendieta DPM Work Phone: [facility] 11-09-2023 13:51-0500 Systolic blood pressure 120 mm[Hg] Hipolito Mendieta DPM Work Phone: [facility] Healthcare Encounters Encounter Date Encounter Type Care Provider Facility Start: 04-17-2025 End: 04-17-2025 Bamboo flowsheet Hipolito Mendieta DPM Work Phone: [facility] Start: 04-17-2025 End: 04-17-2025 Bamboo flowsheet Hipolito Mendieta DPM Work Phone: [facility] Start: 04-17-2025 End: 04-17-2025 Patient encounter procedure Hipolito Mendieta DPM Work Phone: [facility] Comment on above: Verruca plantaris (P rimary Dx); Foot pain, left; Pain due to onychomycosis of toenails of both feet Start: 04-17-2025 End: 04-17-2025 ambulatory HIPOLITO MENDIETA Not Available Start: 02-06-2025 End: 02-06-2025 Bamboo flowsheet Hipolito Mendieta DPM Work Phone: [facility] Start: 02-06-2025 End: 02-06-2025 Bamboo flowsheet Hipolito Mendieta DPM Work Phone: [facility] Start: 02-06-2025 End: 02-06-2025 Patient encounter procedure Hipolito Mendieta DPM Work Phone: [facility] Comment on above: Pain due to onychomy cosis of toenails of both feet (Primary Dx); Verruca plantaris; Foot pain, left Start: 02-06-2025 End: 02-06-2025 ambulatory HIPOLITO MENDIETA Not Available Start: 01-28-2025 End: 01-28-2025 [facility] Work Phone: [facility] Start: 01-28-2025 End: 01-28-2025 ambulatory ab [facility] Work Phone: Start: 11-21-2024 End: 11-21-2024 Bamboo flowsheet Hipolito Mendieta DPM Work Phone: [facility] Start: 11-21-2024 End: 11-21-2024 Bamboo flowslaura Mendieta DPM Work Phone: [facility] Start: 11-21-2024 End: 11-21-2024 ambulatory HIPOLITO MENDIETA Not Available Start: 11-21-2024 End: 11-21-2024 Patient encounter procedure Hipolito Mendieta DPM Work Phone: [facility] Comment on above: Pain due [...] Not Available Start: 08-07-2024 End: 08-07-2024 ambulatory [facility] Start: 06-20-2024 End: 06-20-2024 Bamboo [...] Facility: Start: 06-10-2021 End: 06-11-2021 [facility] Plan of Treatment Date Care Activity Detail Author Start: 04-17-2025 End: 04-17-2025 Patient encounter procedure 04/17/2025 9:30 AM EDT Procedure Visit [facility] [address] [facility] [address] [place] [id number] Hipolito Mendieta DPM [address] [address] Verruca plantaris (Primary Dx); Foot pain, left; [...] identified in Urine by Culture Urine Culture [facility] Start: 01-28-2025 Urine culture [facility] Start: 11-21-2024 End: 11-21-2024 Patient encounter procedure 11/21/2024 9:30 AM EST Procedure Visit [facility] [address] [facility] [address] [place] [id number] Hipolito Mendieta DPM [address] [address] [facility] Start: 09-05-2024 End: 09-05-2024 Patient encounter procedure 09/05/2024 10:10 AM EST Procedure Visit [facility] [address] [place] [address] Hipolito Mendieta, PAULAM [address] [address] Pain due to onychomycosis of toenails of both feet (Primary Dx) [facility] Comment on above: Pain due to onychomy cosis of toenails of both feet (Primary Dx) Start: 06-20-2024 End: 06-20-2024 Patient encounter procedure 06/20/2024 10:00 AM EDT Procedure Visit [facility] [address] [facility] [address] [place] [address] Hipolito Mendieta, ADOLFO [address] [address] Onychomycosis (Primary Dx); Toe pain, bilateral [facility] Comment on above: Onychomycosis (Prima ry Dx); Toe pain, bilateral Start: 11-09-2023 End: 11-09-2023 Patient encounter procedure 11/09/2023 1:50 PM EST Procedure Visit [facility] [address] [facility] [address] [place] [address] Hipolito Mendieta, DPM [address] [address] [facility] Payers Date Payer Category Payer Self-pay 2023 Unknown [facility] [employer] [place] [id number] 2023-Present [address] [facility] [facility] [address] [id number] 2018 Private Health Insurance [id number] 2018 Unknown [id number] 2006 Medicare [id number] 1959 Medicare [id number] 1959 Unknown [id number] 1940 Unknown [id number] 2.16.840.1.635659.3.579. 2.647 1940 Unknown [id number] 2.16.840.1.491008.3.579. 2.593 1940 Unknown [id number] 2.16.840.1.201027.3.579. 2.593 1940 Unknown [id number] 2.16.840.1.579923.3.579. 2.593 1940 Unknown [id number] 2.16.840.1.373379.3.579. 2.593 1940 Unknown [id number] 2.16.840.1.426166.3.579. 2.1259 1940 Unknown [id number] 2.16.840.1.223525.3.579. 2.1259 1940 Unknown [id number] 2.16.840.1.756052.3.579. 2.1259 1940 Unknown [id number] 2.16.840.1.670949.3.579. 2.1259 1940 Unknown [id number] 2.16.840.1.127351.3.579. 2.1259 Medicare Medicare [id number] Unknown [employer] [id number] Unknown [id number] [id number]. 2.531 Social History Date Type Detail Facility Start: 12-07-2023 Tobacco smoking status NHIS Tobacco smoking consumption unknown [facility] Healthcare Start: 10-12-2023 End: 04-17-2025 Alcohol intake Defer [facility] Start: 1940 Sex Assigned At Not on file [facility] Gender identity [facility] file [facility] Start: 01-29-2025 Sex Female (finding) Idris [facility] Start: 1940 Sex Assigned At Female F [facility] Clinical Notes 11-09-2023 to 04-17-2025 Hipolito Mendieta, DP - 04/17/2025 9:30 AM EDTNictimothy Mendieta, DPM - 02/06/2025 9:30 AM EDTNicholrosalia Mendieta, DP - 11/21/2024 9:30 AM ESTNicholrosalia Mendieta, [facility] - 09/05/2024 10:10 AM EST Note [...] route for 85 days., Disp: , Rfl: rartsfrknlms-fixh-fslqpblx-folic acid (Centrum Silver, geriatric,) tablet, as directed [...] Partner Violence: Unknown (11/16/2023) Received from [facility] [place] Safety & Environment Fear of Current [...] Hipolito Mendieta DPM documented in this encounter [facility] 02-06-2025 History of Present illness Narrative [...] History: Past Medical History: Diagnosis Date Hypertension ([facility]) Medications: Current Outpatient Medications: amiodarone (Pacerone) 200 [...] route for 85 days., Disp: , Rfl: ujqinrafeunp-wnet-edmrkdbi-folic acid (Centrum Silver, geriatric,) tablet, as directed [...] Partner Violence: Unknown (11/16/2023) Received from [facility] Safety & Environment Fear of Current or [...] Hipolito Mendieta DPM documented in this encounter [facility] 01-28-2025 Note [facility] Cardiology Clinic Note Chief Complaint: Patient here [...] regurgitation. Moderate to severe mitral regurgitation. Transesophageal Echocardiogram-[facility] Name: LUCILLE ESCOBEDO Study Date: 06/10/2021 10:12 AM MRN: (more content not included)... [facility] 11-21-2024 History of Present illness Narrative Patient: [...] History: Past Medical History: Diagnosis Date Hypertension ([facility]) Medications: Current Outpatient Medications: amiodarone (Pacerone) 200 [...] route for 85 days., Disp: , Rfl: zizmpibvasqr-lhty-tkqeqkok-folic acid (Centrum Silver, geriatric,) tablet, as directed [...] Partner Violence: Unknown (11/16/2023) Received from [facility] [place] [facility] [place] Fear of Current [...] length and thickness digits 1 through 10 Hioplito Mendieta DPM documented in this encounter [facility] 09-05-2024 History of Present illness Narrative [...] route for 85 days., Disp: , Rfl: kuxbhbdzckdb-dccd-fpflpzre-folic acid (Centrum Silver, geriatric,) tablet, as directed [...] Partner Violence: Unknown (11/16/2023) Received from [facility] [place] [facility] [place] Fear of Current [...] Hipolito Mendieta DPM documented in this encounter [facility] 08-07-2024 Note [facility] Cardiology Clinic Note Chief Complaint: Patient here for 1 year follow up CAD, PAF, and mitral valve regurgitation. She had an echo in Aug 2023 after last apt. She was seen in [facility] ED twice in Sep 2023 for afib. [...] regurgitation. Moderate to severe mitral regurgitation. Transesophageal Echocardiogram-[facility] Name: LUCILLE ESCOBEDO Study Date: 06/10/2021 10:12 AM B/P: 126 mmHg/68 mmHg HR: Date of : 1940 Location: [facility] Height: 66 in. Age: 81 year(s) Patient Room : Weight: 135 lb. Gender: Female Patient Status: OutPt BSA: 1.69 m2 Indication: Atrial Fibrillation Examination: TUAN/CFI with Cardioversion Image Quality: Good Patient Consent: Informed, written consent was obtained for the procedure s p @ c 3 Exam Location: A TUAN was performed in the [facility] without complications s p @ c 3 Anesthesia Pharyngeal anesthesia with viscous Lidocaine Conclusions Left Ventricle: The left ventricle is normal size. Global left ventricular systolic function is severely reduced. The EF is 20 % visually. Diffuse global hypokinesis. Right Ventricle: The right ventricle is normal in size. Right ventricular systolic function appea (more content not included)... [facility] 06-20-2024 History of Present illness Narrative Patient: [...] route for 85 days., Disp: , Rfl: dtqhcmyuredq-pffh-juzjfcfx-folic acid (Centrum Silver, geriatric,) tablet, as directed [...] Partner Violence: Unknown (11/16/2023) Received from [facility] [place] Fear of Current [...] Hipolito Mendieta DPM documented in this encounter [facility] 11-09-2023 History of Present illness Narrative [...] History: Past Medical History: Diagnosis Date Hypertension ([facility]) Medications: Current Outpatient Medications: amiodarone (Pacerone) 200 [...] route for 85 days., Disp: , Rfl: fudtorzitrvj-ikhj-ivfazxov-folic acid (Centrum Silver, geriatric,) tablet, as directed [...] Hipolito Mendieta DPM documented in this encounter [facility] Healthcare Evaluation note Diagnosis Verruca [...] this [facility] noteNo assessment information availableUniversity [facility] Work Phone: Evaluation note* Diagnosis Pain due [...] and content) DATE CREATED AUTHOR 06/15/2021 [facility] DATE CREATED AUTHOR AUTHOR'S ORGANIZ ATION 02/02/2023 [facility] DATE CREATED AUTHOR AUTHOR'S ORGANIZ ATION 01/31/2025 [facility] DATE CREATED AUTHOR AUTHOR'S ORGANIZ ATION 02/04/2025 [facility] DATE CREATED AUTHOR AUTHOR'S ORGANIZ ATION 04/18/2025 [facility] d[facility] Specialists EPIC Care Teams (unrecognized sec tion and content) Correction Lieutenant Relationship Specialty Start Date End Date Gerber Mccoy MD [address] [place] [address] PCP - General Family Medicine 08/31/23 Correction Lieutenant Relationship Specialty Start Date End Date Gerber Mccoy MD [address] [place] [address] PCP - General Family Medicine 08/31/23 Correction Lieutenant Relationship Specialty Start Date End Date Gerber Mccoy MD [address] [place] [address] PCP - General Family Medicine 08/31/23 Correction Lieutenant Relationship Specialty Start Date End Date Gerber Mccoy MD [address] [place] [address] PCP - General Family Medicine 08/31/23 Correction Lieutenant Relationship Specialty Start Date End Date Gerber Mccoy MD [address] [place] [address] PCP - [facility] 08/31/23 Team Status: Inactive Member Role Status Dates [facility] Attending Provider Active Start: January 28, 2025 End: January 28, 2025 Correction Lieutenant Relationship Specialty Start Date End Date Gerber Mccoy MD [address] [place] [address] PCP - [facility] 08/31/23 Correction Lieutenant Relationship Specialty Start Date End Date Gerber Mccoy MD [address] [place] [address] PCP - General Family Medicine 08/31/23 Reason [...] BE BASED ON THE PRIMARY CLINICAL RECORDS. [employer] provides no warranty or guarantee of the accuracy or completeness of information in this document.
--- OUTSIDE RECORDS SUMMARY | 2025-06-13 08:47 | XMS_ITS | Clinical Summary ---
Author Organization [facility] Address [address] [place] [address] Care Team Providers Care Safe Deposit Box Rental Clerk Name Role Phone Krish Mccoy MD Primary Care Provider [phone] Allergies Active Allergy Reactions Criticality Noted Date Comments Hossein Inhibitors Other,Unknown 09/12/2014 Sulfa Antibiotics Other,Unknown 09/12/2014 Verapamil Unknown 09/28/2023 Medications amiodarone (Pacerone) 200 MG tablet Take 200 mg by mouth in the morning. 06/26/2023 Active Eliquis 2.5 MG tablet Take 2.5 mg by mouth in the morning and 2.5 mg before bedtime. 07/25/2023 Active furosemide (Lasix) 20 MG tablet Take 20 mg by mouth in the morning. 06/26/2023 Active irbesartan (Avapro) 75 MG tablet Take 75 mg by mouth in the morning. 06/26/2023 Active potassium chloride CR (Klor-Con) 10 MEQ ER tablet Take 10 mEq by mouth in the morning. 06/26/2023 Active levothyroxine (Synthroid, Levoxyl) 50 MCG tablet Take 1 tablet by mouth in the morning. Active metoprolol tartrate (Lopressor) 25 MG tablet Take 1 tablet every day by oral route for 85 days. Active multivitamin-ir pf-exooiygb-kmt ic acid (Centrum Silver, geriatric,) tablet as directed Orally Active Active Problems No known active problems Encounters Date Type Department Care Team Description 04/17/2025 9:30 AM EDT Procedure Visit [facility] [address] [place] [id number] Hipolito Mendieta, DPM Verruca plantaris (Primary Dx); Foot pain, left; Pain due to onychomycosis of toenails of both feet 04/17/2025 Bamboo flowsheet [facility] [address] [facility] [address] [place] [address] Hipolito Mendieta DPM 04/17/2025 Travel from Last 3 Months Family History Relation Name Status Comments Father Mother Social History Tobacco Use Types Packs/Day Years Used Date Smoking Tobacco: Unknown Tobacco Cessation:Counseling Given: Yes Alcohol Use Standard Drinks/Week Comments Defer 0 (1 standard drink = 0.6 oz pur e alcohol) Comments Unknown Sex and Gender Information Value Date Recorded Sex Assigned at Not on file Legal Sex Female 8:32 PM EDT Gender Identity Not on file Sexual Orientation Not on file Last Filed Vital Signs Vital Sign Reading Time Taken Comments Blood Pressure 127/80 06/20/2024 9:59 AM EDT Pulse 75 06/20/2024 9:59 AM EDT Temperature - - Respiratory Rate 16 04/17/2025 9:29 AM EDT Oxygen Saturation - - Inhaled Oxygen Concentration - - Weight 48.5 kg (107 lb) 04/17/2025 9:29 AM EDT Height 167.6 cm (5' 6 ) 04/17/2025 9:29 AM EDT Body Mass Index 17.27 04/17/2025 9:29 AM EDT Plan of Treatment Upcoming Encounters Date Type Department Care Team ([facility] st Contact Info) Description 07/17/2025 9:50 AM EDT Procedure Visit [facility] [address] [facility] [address] [place] [address] Hipolito Mendieta DPM [address] [facility] [address] [place] [address] Insurance MEDICARE [employer] [place] [address] Care Teams Safe Deposit Box Rental Clerk Relationship Specialty Start Date End Date Krish Mccoy MD [address] [place] [address] PCP - General Family Medicine 08/31/23
--- OUTSIDE RECORDS SUMMARY | 2025-06-13 08:47 | XMS_ITS | Clinical Summary ---
Author Organization [facility] Address [address] [place] [address] Care Team Providers Care Blood Donor Unit Assistant Name Role Phone Krish Mccoy MD Primary Care Provider [phone] Allergies Active Allergy Reactions Criticality Noted Date Comments Hossein Inhibitors Other 09/12/2014 Sulfa (Sulfonamide Antibiotics) Other 08/25 Verapamil Unknown 09/28/2023 Medications apixaban (Eliquis) 2.5 mg tablet Take 1 tablet by mouth in the morning and at bedtime. Active levothyroxine (Synthroid, Levoxyl) 50 mcg tablet Take 50 mcg by mouth every other day. Active potassium chloride CR (Klor-Con) 10 mEq ER tablet Take 1 tablet by mouth in the morning. Active irbesartan (Avapro) 75 mg tablet Take 75 mg by mouth in the morning. Active amiodarone (Pacerone) 200 mg tabletIndications :Paroxysmal atrial fibrillation (CMS/HCC) Take 1 tablet (200 mg) by mouth once daily as directed. 90 tablet 3 3 Active furosemide (Lasix) 20 mg tabletIndications :Edema, unspecified type Take 1 tablet (20 mg) by mouth in the morning. 90 tablet 3 3 Active metoprolol tartrate (Lopressor) 25 mg tablet Take 25 mg by mouth two times daily. Active liothyronine (Cytomel) 5 mcg tablet TAKE 2 TABLETS BY MOUTH ON AN EMPTY STOMACH DAILY 4 Active ferrous sulfate 325 (65 Fe) MG tablet Take 325 mg by mouth with breakfast. Active isosorbide mononitrate ER (Imdur) 30 mg 24 hr tablet Take 30 mg by mouth in the morning. 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 90 tablet 3 5 02/04/20 26 Active Active Problems Problem Noted Date Diagnosed Date Hyperlipidemia 06/08/2022 Assessment & Plan (02/15/2023 11:00 AM EDT): Stable continue heart healthy diet Assessment & Plan (01/11/2023 12:55 PM EDT): Recommended low cholesterol- heart healthy diet Paroxysmal atrial fibrillation 07/21/2021 Assessment & Plan (02/15/2023 11:01 AM EDT): [id number]= 5 Remains on amiodarone, toprol 25 mg and eliquis anticoagulation Denied any bleeding tendencies Amiodarone annual monitoring- pt will need TSH for thyroid function, PFT for pulm function, and eye exam with opthalmologist Assessment & Plan (01/11/2023 12:55 PM EDT): History of fib/flutter; currently on, amiodarone 200 mg daily, andEliquis Heart rate well controlled, regular rate and rhythm during assessment Dyspnea 07/11/2012 Assessment & Plan (01/11/2023 12:53 PM EDT): stable Coronary atherosclerosis 07/03/2012 Assessment & Plan (02/15/2023 10:59 AM EDT): Continue GDMT, CAD remains stable- no concerning symptoms continue risk factor modifications- heart healthy diet, regular exercise as tolerated and continue all medications. Assessment & Plan (01/11/2023 12:53 PM EDT): MILD (CATH 2009) Continue risk factor modifications including heart healthy diet, exercise on a regular regimen, continue medications No aspirin in light of Eliquis, hold metoprolol r/t bradycardia- will monitor for any recurrent Afib/tachycardia Essential hypertension 07/03/2012 Assessment & Plan (02/15/2023 11:00 AM EDT): Hypertension is well controlled with irbesartan 75 mgin am and 37.5 mg in pm, toprol 25 mg daily Assessment & Plan (01/11/2023 12:57 PM EDT): Hypertension is uncontrolled- increase irbesartan to 150 mg, repeat BMP in 1-2 weeks to assess renal function. Asked pt to monitor b/p at home, start a log of her b/p and bring with her to next visit. Left bundle branch block 07/03/2012 Assessment & Plan (01/11/2023 12:55 PM EDT): Stable Mitral valve regurgitation 07/03/2012 Assessment & Plan (01/11/2023 12:54 PM EDT): Will continue to monitor- she does not want to proceed with mitral clipping procedure Paroxysmal supraventricular tachycardia 07/03/20 12 Assessment & Plan (02/15/2023 11:01 AM EDT): Stable with toprol 35 mg Assessment & Plan (01/11/2023 12:55 PM EDT): stable Family History Medical History Relation Name Comments Hypertension Father Heart attack Maternal Grandmother Diabetes Mother Hypertension Mother Diabetes Sister Relation Name Status Comments Father Maternal Grandmother Mother Sister Social History Tobacco Use Types Packs/Day Years Used Date Smoking Tobacco: Never Smokeless Tobacco: Never Tobacco Cessation:Counseling Given: Not Answered Alcohol Use Standard Drinks/Week Comments Not Currently 0 (1 standard drink = 0.6 oz pur e alcohol) [place] Answer Date Rec orded Fear of Current or Ex-Partner Not on file Emotionally Abused Not on file 11/16/2023 Physically Abused Not on file 11/16/2023 Sexually Abused Not on file 11/16/2023 Physically or Sexually Abused Not on file Comments Unknown Sex and Gender Information Value Date Recorded Sex Assigned at Female 01/24/2025 10:02 AM EDT Legal Sex Female 10:36 PM EDT Gender Identity Female 01/24/2025 10:02 AM EDT Sexual Orientation Heterosexual or Straight 10/2024 10:02 AM EDT Last Filed Vital Signs Vital Sign Reading Time Taken Comments Blood Pressure 141/60 01/28/2025 9:45 AM EDT Pulse 56 01/28/2025 9:45 AM EDT Temperature - - Respiratory Rate - - Oxygen Saturation 98% 01/28/2025 9:45 AM EDT Inhaled Oxygen Concentration - - Weight 49 kg (108 lb) 01/28/2025 9:45 AM EDT Height 167.6 cm (5' 6 ) 01/28/2025 9:45 AM EDT Body Mass Index 17.43 01/28/2025 9:45 AM EDT Plan of Treatment Health Maintenance Due Date Last Done Comments Medicare Annual Wellness (AWV) 1940 Depression Screening 1953 Pneumococcal Vaccine: 50+ Years (1 of 2 - PCV) 02/10/1960 Adult Tetanus 1963 Zoster Vaccines (1 of 2) 1991 Fall Risk Screening 2006 COVID-19 Vaccine ( - season) 2025 Influenza Vaccine (#1) 2025 3, 07/27/2022, 08/25/2021, Additional history exists HIB Vaccines Aged Out No longer eligi ble based on patient's age to complete this topic HPV Vaccines Aged Out No longer eligi ble based on patient's age to complete this topic IPV Vaccines Aged Out No longer eligi ble based on patient's age to complete this topic Meningococcal B Vaccine Aged Out No l onger eligible based on patient's age to complete this topic Meningococcal Vaccine Aged Out No mena jaja eligible based on patient's age to complete this topic Rotavirus Vaccines Aged Out No longer eligible based on patient's age to complete this topic [place] [address] Care Teams Blood Donor Unit Assistant Relationship Specialty Start Date End Date Krish Mccoy MD [address] [facility] [place] [address] PCP - General 01/11/23
--- OUTSIDE RECORDS SUMMARY | 2025-06-13 08:47 | XMS_ITS | Clinical Summary ---
Author Organization [employer] s tem Address [id number] [address] [place] [address] Care Team Providers Care Glass Cutter Name Role Phone Krish Mccoy MD Primary Care Provider [phone] Allergies Active Allergy Reactions Criticality Noted Date Comments Hossein Inhibitors 07/26/2021 Sulfa (Sulfonamide Antibiotics) 09/2020 Medications apixaban (ELIQUIS) 2.5 mg tablet Take 2.5 mg by mouth 2 (two) times a day. Active jrldoiig-vvc-FJ- lycopen-lutein (CENTRUM SILVER) 0.4-300-250 mg-mcg-mcg tablet Take [...] Medical Devices Not on file Insurance MEDIC[place] [address] Care Teams Glass Cutter Relationship Specialty Start Date End Date Krish Mccoy MD PCP - General Family Medicine 07/23/21
[2025-06-13 09:54] LABS: Hematocrit 45.6 % (36.0-48.0); Hemoglobin 15.2 g/dL (12.0-16.0); Immature Granulocytes Abs Auto 0.02 10^3/uL (0.00-0.03); Immature Granulocytes Pct Auto 0.3 % (0.0-0.5); Lymphocytes Absolute Auto 1.5 10^3/uL (1.2-3.8); Mean Corpuscular HGB Conc 33.3 g/dL (29.9-35.2); Mean Corpuscular Hemoglobin 30.6 pg (26.7-34.0); Mean Corpuscular Volume 91.8 fL (81.0-99.0); Platelet Count 285 10^3/uL (150-450); Red Blood Count 4.97 10^6/uL (4.20-5.40); White Blood Count 7.6 10^3/uL (4.0-11.0)
[2025-06-13 09:59] LABS: Iron 96.0 ug/dL (50.0-170.0)
[2025-06-13 10:02] LABS: Alanine Aminotransferase 22 U/L (14-59); Albumin Globulin Ratio 1.1; Albumin Level 4.2 g/dL (3.4-5.0); Alkaline Phosphatase 90 U/L (46-116); Anion Gap 12.5; Aspartate Amino Transferase 22 U/L (15-37); Blood Urea Nitrogen 18.0 mg/dL (7.0-18.0); Calcium 10.4 mg/dL (8.5-10.1); Carbon Dioxide 27.8 mmol/L (21.0-32.0); Chloride 103 mmol/L (98-107); Cholesterol 209 mg/dL (<=200); Estimated GFR (African America 53 (>=60 mL/min/1.73m^2); Estimated GFR (Non-African Ame 44 (>=60 mL/min/1.73m^2); Free T3 4.03 pg/mL (2.18-3.98); Globulin 3.8 g/dL; Glucose 97 mg/dL (74-106); HDL Cholesterol 50 mg/dL (40-60); Potassium 4.3 mmol/L (3.5-5.1); Sodium 139 mmol/L (136-145); Thyroid Stimulating Hormone 1.313 uIU/mL (0.358-3.740); Total Protein 8.0 g/dL (6.4-8.2); Triglycerides 190 mg/dL (<=150); VLDL CHOLESTEROL 38.0 mg/dL
== END 2025-06-13 08:45 | disposition home or self-care (01) ==
LOC: LAB 08:44
PROVIDERS: PCP Family Medicine; Visit Provider Family Medicine
DX: E78.5 Hyperlipidemia, unspecified (principal); I10 Essential (primary) hypertension; H61.20 Impacted cerumen, unspecified ear; E03.9 Hypothyroidism, unspecified; R73.09 Other abnormal glucose; D64.9 Anemia, unspecified
CPT/HCPCS: 36415; 80053; 80061; 83036; 83540; 84436; 84443; 84481; 85025

== ENCOUNTER 2025-06-20 10:26 | Outpatient (OUT) | payer MEDICARE, OTHER, SELFPAY ==
--- OUTSIDE RECORDS SUMMARY | 2025-06-20 10:29 | XMS_ITS | CCD ---
Author Organization [facility] Care Team Providers Care Hse Manager Name Role Phone ELTAHAWY, EHAB A Attending Unavailable ELTAHAWY, EHAB A Admitting Unavailable MANUELAY, GERBER Referring Unavailable MANUELAY, GERBER Primary Care Unavailable HOY ., DR MAYES Primary Care Unavailable SHANTEL GARCIA Attending Unavailable JOSE, SHANTEL Admitting Unavailable VENTURA, DR FLORENTINO Mello Consulting Unavailable JOSE, SHANTEL [...] Unavailable Gerber Mccoy MD Primary Care Provider [phone] [place]tahawy, Ehab A Attending Provider [place]awy, Ehab A Attending Unavailable [place]awy, Ehab A Admitting Unavailable ELTAHAWY, TERRENCEAB Attending Unavailable ELTAHAWY, EHAB Attending Unavailable Gerber Mccoy MD Primary Care Provider [phone] HIPOLITO MENDIETA Attending Unavailable HIPOLITO MENDIETA Attending Unavailable HIPOLITO MENDIETA Attending Unavailable HIPOLITO MENDIETA Attending Unavailable HIPOLITO MENDIETA Attending Unavailable Allergies Allergy Classification Reported Allergen(s) Allergy Type Date of Onset Reaction(s) Facility (3 sources) Angiotensin Converting Enzyme (Hossein) Inhibitors; Translations: [HOSSEIN INHIBITORS] Drug allergy (disorder) 2 [facility] Repository (3 sources) Sulfonamides (Antibiotic); Translations: [SULFA (SULFONAMIDE ANTIBIOTICS)] Drug allergy (disorder) 2 [facility] Repository (12 sources) Angiotensin-conve rting enzyme inhibitor agent Drug Allergy 4 Other, Unknown [facility] (12 sources) Sulfonamides (Antibiotic) Drug Allergy 4 Other, Unknown [facility] (13 sources) Verapamil; Translations: [VERAPAMIL] Drug Allergy 4 Unknown [facility] Healthcare Medications Current Medications Medication [...] by oral route for 85 days. 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 Patient informed. She verbalized understanding. Normal [facility] Office Visiton 01-28-2025 Follow-up visit [id number] Alfa Escobedo 1940 F Date Provider Department Center 01/28/2025 KAYA STEELE Family History Problem Relation Age of Onset Diabetes Mother Hypertension Mother Hypertension Father Diabetes Sister Heart attack Maternal Grandmother Family Status - Relation Status Age at Mother Father Sister Maternal Grandmother Level of Service:81956 [place] OFFICE/OUTPATIENT ESTABLISHED MOD MDM 30 MIN [facility] Urine Cultureon 01-28-2025 Bacteria identified Cx Nom (U) No Growth 2 Days PERFORMED BY: [place] [id number] PATHOLOGIST TAILOR HELPER NINA CM M.D. Normal [facility] Comment on above: Performed By: #### C UU #### [facility] [address] [place] [address] 36on 08-15-2024 36 Regarding lab result s from 08/14/2024: MD Alejandra Hansen MA S.cr was 1.24, now 1.22 - continue medical rx Thanks LM on . [facility] Office Visiton 08-07-2024 Follow-up visit [id number] Alfa Escobedo 1940 F Date Provider Department Center 08/07/2024 KAYA STEELE Family History Problem Relation Age of Onset Diabetes Mother Hypertension Mother Hypertension Father Diabetes Sister Heart attack Maternal Grandmother Family Status - Relation Status Age at Mother Father Sister Maternal Grandmother Level of Service:64166 [place] OFFICE/OUTPATIENT ESTABLISHED MOD MDM 30 MIN [facility] 36on 07-01-2024 36 Regarding labs from 06/28/2024: MD Alejandra Hansen MA Her free T4 is high; she needs to discuss with whoever is managing her thyroid medications Thanks Labs faxed to Dr. Mccoy's office on . I called his office just now to confirm they received results. [facility] BNPon 01-26-2023 Natriuretic peptide B (Bld) [Mass/Vol] 1751.0 pg/mL Normal <=1,800.0 [facility] Comment on above: Performed By: #### L IVER, TSH #### [facility] [address] [place] [address] Dr. Tierney Rivera CBC AUTO DIFFon 01-26-2023 BASO # 0.0 103/ul Normal 0.0-0.1 [facility] Comment on above: Performed By: #### C BC #### [facility] [address] [place] [address] Dr. Tierney Rivera Basophils/100 WBC (Bld) 0.3 % Normal 0.2-2.0 [facility] Comment on above: Performed By: #### C BC #### [facility] [address] [place] [address] Dr. Tierney Rivera EO # 0.1 103/ul Normal 0.0-0.7 [facility] Comment on above: Performed By: #### C BC #### [facility] [address] [place] [address] Dr. Tierney Rivera Eosinophils/100 WBC (Bld) 2.3 % Normal 0.9-7.0 [facility] Comment on above: Performed By: #### C BC #### [facility] [address] [place] [address] Dr. Tierney Rivera Erythrocyte distribution width (RBC) [Ratio] 13.1 % Normal 11.0-15.0 [facility] Comment on above: Performed By: #### C BC #### [facility] [address] [place] [address] Dr. Tierney Rivera Hematocrit (Bld) [Volume fraction] 43.5 % Normal 36.0-48.0 [facility] Comment on above: Performed By: #### C BC #### [facility] [address] [place] [address] Dr. Tierney Rivera Hemoglobin (Bld) [Mass/Vol] 13.9 g/dL Normal 12.0-16.0 [facility] Comment on above: Performed By: #### C BC #### [facility] [address] [place] [address] Dr. Tierney Rivera IG # 0.02 10e3/ul Normal 0.00-0.03 [facility] Comment on above: Performed By: #### C BC #### [facility] [address] [place] [address] Dr. Tierney Rivera IG % 0.3 % Normal 0.0-0.5 [facility] Comment on above: Performed By: #### C BC #### [facility] [address] [place] [address] Dr. Tierney Rivera LYMPH # 1.2 103/ul Normal 1.2-3.8 [facility] Comment on above: Performed By: #### C BC #### [facility] [address] [place] [address] Dr. Tierney Rivera Lymphocytes/100 WBC (Bld) 20.6 % Normal 20.5-60.0 [facility] Comment on above: Performed By: #### C BC #### [facility] [address] [place] [address] Dr. Tierney Rivera MANUAL DIFF REQ NO Normal [facility] Comment on above: Performed By: #### C BC #### [facility] [address] [place] [address] Dr. Tierney Rivera MCH (RBC) [Entitic mass] 29.4 pg Normal 26.7-34.0 [facility] Comment on above: Performed By: #### C BC #### [facility] [address] [place] [address] Dr. Tierney Rivera MCHC (RBC) [Mass/Vol] 32.0 g/dL Normal 29.9-35.2 [facility] Comment on above: Performed By: #### C BC #### [facility] [address] [place] [address] Dr. Tierney Rivera MCV (RBC) [Entitic vol] 92.2 fL Normal 81.0-99.0 [facility] Comment on above: Performed By: #### C BC #### [facility] [address] [place] [address] Dr. Tierney Rivera MONO # 0.6 103/ul Normal 0.3-0.8 [facility] Comment on above: Performed By: #### C BC #### [facility] [address] [place] [address] Dr. Tierney Rivera Monocytes/100 WBC (Bld) 10.2 % Normal 1.7-12.0 [facility] Comment on above: Performed By: #### C BC #### [facility] [address] [place] [address] Dr. Tierney Rivera NEUT # 3.8 103/ul Normal 1.4-6.5 [facility] Comment on above: Performed By: #### C BC #### [facility] [address] [place] [address] Dr. Tierney Rivera Neutrophils/100 WBC (Bld) 66.3 % Normal 43.0-75.0 [facility] Comment on above: Performed By: #### C BC #### [facility] [address] [place] [address] Dr. Tierney Rivera Platelet mean volume (Bld) [Entitic vol] 11.2 fL Normal 9.5-13.5 [facility] Comment on above: Performed By: #### C BC #### [facility] [address] [place] [address] Dr. Tierney Rivera PLT 253 103/ul Normal 150-450 [facility] Comment on above: Performed By: #### C BC #### [facility] [address] [place] [address] Dr. Tierney Rivera RBC 4.72 106/ul Normal 4.20-5.40 [facility] Comment on above: Performed By: #### C BC #### [facility] [address] [place] [address] Dr. Tierney Rivera WBC 5.8 103/ul Normal 4.0-11.0 [facility] Comment on above: Performed By: #### C BC #### [facility] [address] [place] [address] Dr. Tierney Rivera FREE THYROXINE INDEX T7on FTI 5.18 Critically high 1.30-4.50 [facility] Comment on above: Performed By: #### L CHAMP, TSH #### [facility] [address] [place] [address] Dr. Tierney Rivera T3U 36.0 % Normal 30.0-39.0 [facility] Comment on above: Performed By: #### L IVER, TSH #### [facility] [address] [address] [address] Tierney Rivera T4 [Mass/Vol] 14.40 ug/dL Critically high 4.80-13.90 [facility] Comment on above: Performed By: #### L IVER, TSH #### [facility] [address] [address] [address] Tierney Rivera GLYCOHEMOGLOBIN A1Con 2022 ADA RECOMMENDATION SEE BELOW Normal [facility] Comment on above: Result Comment: ADA RECOMMENDED LIMIT 4.0 - 6.0 ADA THERAPEUTIC TARGET < 7.0 ACTION SUGGESTED > 7.0 Performed By: #### L IVER, TSH #### [facility] [address] [place] [address] Dr. Tierney Rivera Glucose [Mass/Vol] 117 mg/dL Normal [facility] Comment on above: Performed By: #### L IVER, TSH #### [facility] [address] [address] [address] Tierney Rivera HbA1c (Bld) [Mass fraction] 5.7 % Normal 4.5-6.2 [facility] Comment on above: Performed By: #### L IVER, TSH #### [facility] [address] [address] [address] Tierney Rivera IRONon 01-26-2023 Iron [Mass/Vol] 67.0 ug/dL Normal 50.0-170.0 [facility] Comment on above: Performed By: #### V ITAD, IRON #### [facility] [address] [address] [address] Tierney Rivera PROF 14(COMP METB)on 023 Albumin [Mass/Vol] 4.0 g/dL Normal 3.4-5.0 [facility] Comment on above: Performed By: #### L IVER, TSH #### [facility] [address] [place] [address] Dr. Tierney Rivera Albumin/Globulin [Mass ratio] 1.1 {ratio} Normal [facility] Comment on above: Performed By: #### L CHAMP, TSH #### [facility] [address] [address] [address] Tierney Rivera ALP [Catalytic activity/Vol] 98 U/L Normal 46-116 [facility] Comment on above: Performed By: #### L CHAMP, TSH #### [facility] [address] [address] [address] Tierney Rivera ALT [Catalytic activity/Vol] 29 U/L Normal 14-59 [facility] Comment on above: Performed By: #### L CHAMP, TSH #### [facility] [address] [place] [address] Dr. Tierney Rivera Anion gap [Moles/Vol] 11.7 mmol/L Normal [facility] Comment on above: Performed By: #### Breonna OAKES, TSH #### [facility] [address] [place] [address] Dr. Tierney Rivera AST [Catalytic activity/Vol] 22 U/L Normal 15-37 [facility] Comment on above: Performed By: #### L CHAMP TSH #### [facility] [address] [address] [address] Tierney Rivera Bilirubin [Mass/Vol] 0.4 mg/dL Normal 0.2-1.0 [facility] Comment on above: Performed By: #### Breonna OAKES, TSH #### [facility] [address] [address] [address] Tierney Rivera Calcium [Mass/Vol] 10.1 mg/dL Normal 8.5-10.1 [facility] Comment on above: Performed By: #### L CHAMP, TSH #### [facility] [address] [address] [address] Tierney Rivera Chloride [Moles/Vol] 103 mmol/L Normal 98-107 [facility] Comment on above: Performed By: #### L CHAMP, TSH #### [facility] [address] [place] [address] Dr. Tierney Rivera CO2 [Moles/Vol] 30.5 mmol/L Normal 21.0-32.0 [facility] Comment on above: Performed By: #### L CHAMP, TSH #### [facility] [address] [address] [address] Tierney Rivera Creatinine [Mass/Vol] 1.15 mg/dL Critically high 0.55-1.02 [facility] Comment on above: Performed By: #### L CHAMP, TSH #### [facility] [address] [place] [address] Dr. Tierney Rivera EGFR-AF CAMEROONIAN 55 mL/min/1.73m2 Critically low >=60 [facility] Comment on above: Performed By: #### L CHAMP, TSH #### [facility] [address] [place] [address] Dr. Tierney Rivera EGFR-NON AF CAMEROONIAN 45 mL/min/1.73m2 Critically low >=60 [facility] Comment on above: Performed By: #### L CHAMP, TSH #### [facility] [address] [place] [address] Dr. Tierney Rivera Globulin (S) [Mass/Vol] 3.8 g/dL Normal [facility] Comment on above: Performed By: #### L CHAMP, TSH #### [facility] [address] [place] [address] Dr. Tierney Rivera Glucose [Mass/Vol] 97 mg/dL Normal 74-106 [facility] Comment on above: Performed By: #### L CHAMP, TSH #### [facility] [address] [place] [address] Dr. Tierney Rivera Potassium [Moles/Vol] 4.2 mmol/L Normal 3.5-5.1 [facility] Comment on above: Performed By: #### L CHAMP, TSH #### [facility] [address] [place] [address] Dr. Tierney Rivera Protein [Mass/Vol] 7.8 g/dL Normal 6.4-8.2 [facility] Comment on above: Performed By: #### L CHAMP, TSH #### [facility] [address] [place] [address] Dr. Tierney Rivera Sodium [Moles/Vol] 141 mmol/L Normal 136-145 [facility] Comment on above: Performed By: #### L CHAMP, TSH #### [facility] [address] [place] [address] Dr. Tierney Rivera Urea nitrogen [Mass/Vol] 18.0 mg/dL Normal 7.0-18.0 [facility] Comment on above: Performed By: #### L CHAMP, TSH #### [facility] [address] [place] [address] Dr. Tierney Rivera Urea nitrogen/Creatinine [Mass ratio] 15.7 mg/mg Normal [facility] Comment on above: Performed By: #### L CHAMP, TSH #### [facility] [address] [place] [address] Dr. Tierney Rivera TSHon 01-26-2023 TSH 2.066 uIU/mL Normal 0.358-3.740 [facility] Comment on above: Performed By: #### L CHAMP, TSH #### [facility] [address] [place] [address] Dr. Tierney Rivera VITAMIN D 25 OHon 01-26-2023 VIT D 25-OH 45.0 ng/mL Normal [facility] Comment on above: Performed By: #### V SHANNEN, IRON #### [facility] [address] [place] [address] Dr. Tierney Rivera VIT D RANGES SEE BELOW Normal [facility] Comment on above: Result Comment: <20 ng/mL Vit D deficient 20 - <30 ng/mL Vit D insufficient 30 - 100 ng/mL Vit D sufficient >100 ng/mL Potential Toxicity Performed By: #### V ITAD, IRON #### [facility] [address] [place] [address] Dr. Tierney Rivera BNPon 01-15-2023 Natriuretic peptide B (Bld) [Mass/Vol] 868.0 pg/mL Normal <=1,800.0 [facility] Comment on above: Performed By: #### H STROPN, BNP, CMP #### [facility] [address] [place] [address] Dr. Tierney Rivera CBC AUTO DIFFon 01-15-2023 BASO # 0.0 103/ul Normal 0.0-0.1 [facility] Comment on above: Performed By: #### L IVER, TSH #### [facility] [address] [place] [address] Dr. Tierney Rivera Basophils/100 WBC (Bld) 0.3 % Normal 0.2-2.0 [facility] Comment on above: Performed By: #### L IVER, TSH #### [facility] [address] [place] [address] Dr. Tierney Rivera EO # 0.1 103/ul Normal 0.0-0.7 [facility] Comment on above: Performed By: #### L IVER, TSH #### [facility] [address] [place] [address] Dr. Tierney Rivera Eosinophils/100 WBC (Bld) 1.7 % Normal 0.9-7.0 [facility] Comment on above: Performed By: #### L IVER, TSH #### [facility] [address] [place] [address] Dr. Tierney Rivera Erythrocyte distribution width (RBC) [Ratio] 13.2 % Normal 11.0-15.0 [facility] Comment on above: Performed By: #### L IVER, TSH #### [facility] [address] [place] [address] Dr. Tierney Rivera Hematocrit (Bld) [Volume fraction] 45.1 % Normal 36.0-48.0 [facility] Comment on above: Performed By: #### L IVER, TSH #### [facility] [address] [place] [address] Dr. Tierney Rivera Hemoglobin (Bld) [Mass/Vol] 15.1 g/dL Normal 12.0-16.0 [facility] Comment on above: Performed By: #### L IVER, TSH #### [facility] [address] [place] [address] Dr. Tierney Rivera IG # 0.01 10e3/ul Normal 0.00-0.03 [facility] Comment on above: Performed By: #### L IVER, TSH #### [facility] [address] [place] [address] Dr. Tierney Rivera IG % 0.2 % Normal 0.0-0.5 [facility] Comment on above: Performed By: #### L IVER, TSH #### [facility] [address] [place] [address] Dr. Tierney Rivera LYMPH # 2.2 103/ul Normal 1.2-3.8 [facility] Comment on above: Performed By: #### L IVER, TSH #### [facility] [address] [place] [address] Dr. Tierney Rivera Lymphocytes/100 WBC (Bld) 32.5 % Normal 20.5-60.0 [facility] Comment on above: Performed By: #### L IVER, TSH #### [facility] [address] [place] [address] Dr. Tierney Rivera MANUAL DIFF REQ NO Normal [facility] Comment on above: Performed By: #### L IVBISHNU, TSH #### [facility] [address] [place] [address] Dr. Tierney Rivera MCH (RBC) [Entitic mass] 30.0 pg Normal 26.7-34.0 [facility] Comment on above: Performed By: #### L IVBISHNU, TSH #### [facility] [address] [place] [address] Dr. Tierney Rivera MCHC (RBC) [Mass/Vol] 33.5 g/dL Normal 29.9-35.2 [facility] Comment on above: Performed By: #### L IVER, TSH #### [facility] [address] [place] [address] Dr. Tierney Rivera MCV (RBC) [Entitic vol] 89.7 fL Normal 81.0-99.0 [facility] Comment on above: Performed By: #### L IVER, TSH #### [facility] [address] [place] [address] Dr. Tierney Rivera MONO # 0.8 103/ul Normal 0.3-0.8 [facility] Comment on above: Performed By: #### L CHAMP, TSH #### [facility] [address] [place] [address] Dr. Tierney Rivera Monocytes/100 WBC (Bld) 12.6 % Critically high 1.7-12.0 [facility] Comment on above: Performed By: #### L CHAMP, TSH #### [facility] [address] [place] [address] Dr. Tierney Rivera NEUT # 3.5 103/ul Normal 1.4-6.5 [facility] Comment on above: Performed By: #### L CHAMP, TSH #### [facility] [address] [place] [address] Dr. Tierney Rivera Neutrophils/100 WBC (Bld) 52.7 % Normal 43.0-75.0 [facility] Comment on above: Performed By: #### Breonna OAKES TSH #### [facility] [address] [place] [address] Dr. Tierney Rivera Platelet mean volume (Bld) [Entitic vol] 11.0 fL Normal 9.5-13.5 [facility] Comment on above: Performed By: #### Breonna OAKES, TSH #### [facility] [address] [place] [address] Dr. Tierney Rivera PLT 266 103/ul Normal 150-450 [facility] Comment on above: Performed By: #### Breonna OAKES, TSH #### [facility] [address] [place] [address] Dr. Tierney Rivera RBC 5.03 106/ul Normal 4.20-5.40 [facility] Comment on above: Performed By: #### L CHAMP, TSH #### [facility] [address] [place] [address] Dr. Tireney Rivera WBC 6.6 103/ul Normal 4.0-11.0 [facility] Comment on above: Performed By: #### Breonna OAKES TSH #### [facility] [address] [place] [address] Dr. Tierney Rivera CULTURE BLOODon 01-15-2023 Microscopic examination of blood, culture Culture Observations: NO GROWTH AT 5 DAYS. Normal [facility] Comment on above: Performed By: #### L IVBISHNU, TSH #### [facility] [address] [place] [address] Dr. Tierney Rivera Microscopic examination of blood, culture Culture Observations: NO GROWTH AT 5 DAYS. Normal [facility] Comment on above: Performed By: #### L IVER, TSH #### [facility] [address] [place] [address] Dr. Tierney Rivera ER URINE PROFILEon 3 Bilirubin Ql (U) Negative Normal NEGATIVE [facility] Comment on above: Performed By: #### L IVBISHNU, TSH #### [facility] [address] [place] [address] Dr. Tierney Rivera Clarity (U) CLEAR Normal CLEAR [facility] Comment on above: Performed By: #### L CHAMP, TSH #### [facility] [address] [place] [address] Dr. Tierney Rivera Color (U) LT. YELLOW Normal YELLOW [facility] Comment on above: Performed By: #### L IVER, TSH #### [facility] [address] [place] [address] Dr. Tierney Rivera ERUDEBD A micrscopic examination will be performed if indicated. Normal [facility] Comment on above: Performed By: #### L IVBISHNU, TSH #### [facility] [address] [place] [address] Dr. Tierney Rivera Glucose Ql (U) Negative Normal NEGATIVE [facility] Comment on above: Performed By: #### L IVER, TSH #### [facility] [address] [place] [address] Dr. Tierney Rivera Hemoglobin Ql (U) Negative Normal NEGATIVE [facility] Comment on above: Performed By: #### L IVER, TSH #### [facility] [address] [place] [address] Dr. Tierney Rivera Ketones Ql (U) Negative Normal NEGATIVE [facility] Comment on above: Performed By: #### L IVER, TSH #### [facility] [address] [place] [address] Dr. Tierney Rivera LEUKOCYTES Negative Normal NEGATIVE [facility] Comment on above: Performed By: #### L IVER, TSH #### [facility] [address] [place] [address] Dr. Tierney Rivera Nitrite Ql (U) Negative Normal NEGATIVE [facility] [facility] Comment on above: Performed By: #### L LILAER, TSH #### [facility] [address] [place] [address] Dr. Tierney Rivera pH (U) 7.5 [pH] Normal 5-9 [facility] Comment on above: Performed By: #### L CHAMP, TSH #### [facility] [address] [place] [address] Dr. Tierney Rivera SPEC GRAVITY 1.010 Normal 1.005-<=1.02 5 [facility] Comment on above: Performed By: #### L CHAMP, TSH #### [facility] [address] [place] [address] Dr. Tierney Rivera UA PROTEIN Negative Normal NEGATIVE/ TRACE [facility] Comment on above: Performed By: #### L CHAMP, TSH #### [facility] [address] [place] [address] Dr. Tierney Rivera UR MICRO IND NOT INDICATED Normal [facility] Comment on above: Performed By: #### L CHAMP, TSH #### [facility] [address] [place] [address] Dr. Tierney Rivera Urobilinogen Qn (U) 0.2 {Radu'U}/dL Normal 0.2 - 1. 0 [facility] Comment on above: Performed By: #### L LILAER, TSH #### [facility] [address] [place] [address] Dr. Tierney Rivera LACTATE/LACTIC ACIDon 2022 Lactate [Moles/Vol] 1.5 mmol/L Normal 0.4-2.0 [facility] Comment on above: Performed By: #### L ACT #### [facility] [address] [address] [address] Tierney Rivera PROF 14(COMP METB)on 023 Albumin [Mass/Vol] 4.3 g/dL Normal 3.4-5.0 [facility] Comment on above: Performed By: #### L IVER, TSH #### [facility] [address] [address] [address] Tierney Rivera Albumin/Globulin [Mass ratio] 1.2 {ratio} Normal [facility] Comment on above: Performed By: #### L IVER, TSH #### [facility] [address] [address] [address] Tierney Rivera ALP [Catalytic activity/Vol] 111 U/L Normal 46-116 [facility] Comment on above: Performed By: #### L IVER, TSH #### [facility] [address] [address] [address] Tierney Rivera ALT [Catalytic activity/Vol] 23 U/L Normal 14-59 [facility] Comment on above: Performed By: #### L IVER, TSH #### [facility] [address] [address] [address] Tierney Rivera Anion gap [Moles/Vol] 11.8 mmol/L Normal [facility] Comment on above: Performed By: #### L IVER, TSH #### [facility] [address] [address] [address] Tierney Rivera AST [Catalytic activity/Vol] 22 U/L Normal 15-37 [facility] Comment on above: Performed By: #### L IVER, TSH #### [facility] [address] [address] [address] Tierney Rivera Bilirubin [Mass/Vol] 0.4 mg/dL Normal 0.2-1.0 [facility] Comment on above: Performed By: #### L IVER, TSH #### [facility] [address] [address] [address] Tierney Rivera Calcium [Mass/Vol] 10.6 mg/dL Critically high 8.5-10.1 [facility] Comment on above: Performed By: #### L IVER, TSH #### [facility] [address] [address] [address] Tierney Rivera Chloride [Moles/Vol] 103 mmol/L Normal 98-107 [facility] Comment on above: Performed By: #### L IVER, TSH #### [facility] [address] [place] [address] Dr. Tierney Rivera CO2 [Moles/Vol] 29.2 mmol/L Normal 21.0-32.0 [facility] Comment on above: Performed By: #### L IVER, TSH #### [facility] [address] [place] [address] Dr. Tierney Rivera Creatinine [Mass/Vol] 1.13 mg/dL Critically high 0.55-1.02 [facility] Comment on above: Performed By: #### L IVER, TSH #### [facility] [address] [place] [address] Dr. Tierney Rivera EGFR-AF CAMEROONIAN 56 mL/min/1.73m2 Critically low >=60 [facility] Comment on above: Performed By: #### L IVER, TSH #### [facility] [address] [place] [address] Dr. Tierney Rivera EGFR-NON AF CAMEROONIAN 46 mL/min/1.73m2 Critically low >=60 [facility] Comment on above: Performed By: #### L IVER, TSH #### [facility] [address] [place] [address] Dr. Tierney Rivera Globulin (S) [Mass/Vol] 3.7 g/dL Normal [facility] Comment on above: Performed By: #### L IVER, TSH #### [facility] [address] [place] [address] Dr. Tierney Rivera Glucose [Mass/Vol] 109 mg/dL Critically high 74-106 [facility] Comment on above: Performed By: #### L IVER, TSH #### [facility] [address] [place] [address] Dr. Tierney Rivera Potassium [Moles/Vol] 4.0 mmol/L Normal 3.5-5.1 [facility] Comment on above: Performed By: #### L CHAMP, TSH #### [facility] [address] [place] [address] Dr. Tierney Rivera Protein [Mass/Vol] 8.0 g/dL Normal 6.4-8.2 [facility] Comment on above: Performed By: #### L CHAMP, TSH #### [facility] [address] [address] [address] Tierney Rivera Sodium [Moles/Vol] 140 mmol/L Normal 136-145 [facility] Comment on above: Performed By: #### L CHAMP, TSH #### [facility] [address] [place] [address] Dr. Tierney Rivera Urea nitrogen [Mass/Vol] 17.0 mg/dL Normal 7.0-18.0 [facility] Comment on above: Performed By: #### Breonna OAKES, TSH #### [facility] [address] [place] [address] Dr. Tierney Rivera Urea nitrogen/Creatinine [Mass ratio] 15.0 mg/mg Normal [facility] Comment on above: Performed By: #### Breonna OAKES, TSH #### [facility] [address] [place] [address] Dr. Tierney Rivera TROPONIN, HIGH SENSITIVITYon 01-15-2023 HSTROP 21.6 pg/mL Normal 4.0-51.3 [facility] Comment on above: Result Comment: CUT- OFF POINTS HAVE BEEN ESTABLISHED BASED ON THE FOURTH UNIVERSAL DEFINITIONS OF MYOCARDIAL INFARCTION. THE UPPER REFERENCE LIMIT (URL) OF TROPONIN, DEFINED THE 99TH PERCENTILE OF cTnI DISTRIBUTION IN A REFERENCE POPULATION, HAS BEEN CONFIRMED THE DECISION THRESHOLD FOR [place] DIAGNOSIS. Performed By: #### H STROPN, BNP, CMP #### [facility] [address] [place] [address] Dr. Tierney Rivera XR CHEST 1 Von [...] by: CONSTANCE LAI Date: 2023-01-15 00:29 Normal [facility] FREE T4on 10-17-2022 Free T4 [Mass/Vol] 1.49 ng/dL Critically high 0.76-1.46 [facility] Comment on above: Performed By: #### L CHAMP TSH #### [facility] [address] [address] [address] Tierney Rivera LIVER PROFILEon 10-17-2022 Albumin [Mass/Vol] 3.7 g/dL Normal 3.4-5.0 [facility] Comment on above: Performed By: #### L CHAMP TSH #### [facility] [address] [place] [address] Dr. Tierney Rivera Albumin/Globulin [Mass ratio] 1.1 {ratio} Normal [facility] Comment on above: Performed By: #### L CHAMP TSH #### [facility] [address] [place] [address] Dr. Tierney Rivera ALP [Catalytic activity/Vol] 104 U/L Normal 46-116 [facility] Comment on above: Performed By: #### L CHAMP, TSH #### [facility] [address] [address] [address] Tierney Rivera ALT [Catalytic activity/Vol] 27 U/L Normal 14-59 [facility] Comment on above: Performed By: #### L CHAMP, TSH #### [facility] [address] [place] [address] Dr. Tierney Rivera AST [Catalytic activity/Vol] 23 U/L Normal 15-37 [facility] Comment on above: Performed By: #### L IVBISHNU, TSH #### [facility] [address] [address] [address] Tierney Rivera BILI, CONJUGATED 0.1 mg/dL Normal 0.0-0.2 [facility] Comment on above: Performed By: #### L IVER, TSH #### [facility] [address] [place] [address] Dr. Tierney Rivera Bilirubin [Mass/Vol] 0.4 mg/dL Normal 0.2-1.0 [facility] Comment on above: Performed By: #### L IVER, TSH #### [facility] [address] [place] [address] Dr. Tierney Rivera Globulin (S) [Mass/Vol] 3.5 g/dL Normal [facility] Comment on above: Performed By: #### L IVER, TSH #### [facility] [address] [place] [address] Dr. Tierney Rivera Protein [Mass/Vol] 7.2 g/dL Normal 6.4-8.2 [facility] Comment on above: Performed By: #### L IVER, TSH #### [facility] [address] [place] [address] Dr. Tierney Rivera TSHon 10-17-2022 TSH 1.020 uIU/mL Normal 0.358-3.740 [facility] Comment on above: Performed By: #### L IVER, TSH #### [facility] [address] [place] [address] Dr. Tierney Rivera XR CHEST 2 Von [...] FLORENTINO MAURO Date: 2022-10-17 09:46 Normal [facility] Covid-19 PCR (CVDTB)on SARS-CoV-2 (COVID-19) RNA SEDRICK+probe Ql (Unsp spec) Detected Critically abnormal NOT DETECTED [facility] Comment on above: Result Comment: This test is not yet approved or cleared by the [place] FDA. When there are no FDA-approved or cleared tests available, and other criteria are met, FDA can make tests available under an emergency access mechanism called an Emergency Use Authorization (EUA). The EUA for this test is supported by the Supervisor Residential of Health and Human Service's (HHS's) declaration [...] used). Performed By: #### C VDTB #### [facility] [address] [place] [address] Dr. Tierney Rivera INFLUENZA A AND B AGon 09-27 [facility] SEE BELOW Normal [facility] Comment on above: Result Comment: Nega tive for Flu A protein angiten. Infection due to Flu A cannot be ruled out. Flu A angiten in the sample may be below the detection limit of the test. Performed By: #### I NFLUAB #### [facility] [address] [place] [address] Dr. Tierney Rivera [facility] Normal [facility] Comment on above: Result Comment: Nega tive for Flu B protein antigen. Infection due to Flu B cannot be ruled out. Flu B antigen in the sample may be below the detection limit of the test. Performed By: #### I NFLUAB #### [facility] [address] [place] [address] Dr. Tierney Rivera INFLUENZA A AG Negative Normal NEGATIVE SEE COMMENT [facility] Comment on above: Performed By: #### I NFLUAB #### [facility] [address] [place] [address] Dr. Tierney Rivera INFLUENZA B AG Negative Normal NEGATIVE SEE COMMENT [facility] Comment on above: Performed By: #### I NFLUAB #### [facility] [address] [place], [place] [address] Dr. Tierney Rivera Cardiovascular Lab Reporton 06-11-2021 Cardiovascular Lab Report [facility] Patient Name: Lucille Escobedo [facility] Laura MR #: [id number] Department of Physician: Kaya Patel Medicine [facility] Division of Service Date: 06/10/2021 Cardiology Birthdate: 1940 Adult Cardiovascular Room #: [facility] [address] [facility] [place], [place] [address] Cardiovascular Laboratory Report FINAL IMPRESSION: 1. Angiographically [...] Follow up with Dr. Patel in the [facility]. 8. Follow up with Dr. Mccoy as scheduled. PROCEDURES: Ultrasound-guided access of the right common femoral vein, ultrasound-guided access of right common femoral artery, limited femoral angiography, right heart catheterization, bilateral selective coronary angiography, placement of a 5-Greek MynxGrip closure device. METHODS: After risks, benefits, and alternatives were explained, written informed consent was obtained. The patient was prepped and draped in usual sterile fashion over both groins. Using 1% lidocaine solution, local infiltration anesthesia was achieved. Using modified Seldinger technique, a micropuncture kit and under ultrasound guidance access to the right common femoral vein was obtained. A 6-Greek 11 cm sheath was inserted without difficulty. This was repeated over the artery; a 5-Greek 11 cm sheath was inserted. A Mcdonald catheter was used for right heart catheterization. Pressures were measured in the right atrium, right ventricle, pulmonary artery, and pulmonary capillary wedge positions. Oxygen saturations were obtained and cardiac output/cardiac index was calculated using modified Gisele principle. The Mcdonald catheter was removed. Bilateral selective coronary angiography was performed using 5-Greek JL4 and JR4 catheters. After reviewing the images, it was elected to conclude the procedure. All catheters were removed. A 5-Greek MynxGrip closure device was deployed per protocol [...] M.D (more content not included)... Normal [facility] Vital Signs Date Time Vital Sign Value Performing Clinician Belemi pernell 04-17-2025 09:29-0400 Body height 167.6 cm Hipolito Brown DPM Work Phone: [facility] 04-17-2025 09:29-0400 Body mass index (BMI) [Ratio] 17.27 kg/m2 Hipolito Brown DPM Work Phone: [facility] 04-17-2025 09:29-0400 Body weight 48.53 kg Hipolito Brown DPM Work Phone: [facility] 04-17-2025 09:29-0400 Respiratory rate 16 /min Hipolito Brown DPM Work Phone: [facility] 02-06-2025 09:32-0400 Body height 167.6 cm Hipolito Brown DPM Work Phone: [facility] 02-06-2025 09:32-0400 Body mass index (BMI) [Ratio] 17.27 kg/m2 Hipolito Brown DPM Work Phone: [facility] 02-06-2025 09:32-0400 Body weight 48.53 kg Hipolito Brown DPM Work Phone: [facility] 02-06-2025 09:32-0400 Respiratory rate 18 /min Hipolito Brown DPM Work Phone: [facility] 11-21-2024 09:40-0500 Body height 167.6 cm Hipolito Brown DPM Work Phone: [facility] 11-21-2024 09:40-0500 Body mass index (BMI) [Ratio] 17.27 kg/m2 Hipolito Brown DPM Work Phone: [facility] 11-21-2024 09:40-0500 Body weight 48.53 kg Hipolito Brown DPM Work Phone: [facility] 11-21-2024 09:40-0500 Respiratory rate 18 /min Hipolito Brown DPM Work Phone: [facility] 09-05-2024 10:08-0500 Body height 167.6 cm Hipolito Brown DPM Work Phone: [facility] 09-05-2024 10:08-0500 Body mass index (BMI) [Ratio] 17.27 kg/m2 Hipolito Brown DPM Work Phone: [facility] 09-05-2024 10:08-0500 Body weight 48.53 kg Hipolito Brown DPM Work Phone: [facility] 09-05-2024 10:08-0500 Respiratory rate 16 /min Hipolito Brown DPM Work Phone: [facility] 06-20-2024 09:59-0400 Body height 167.6 cm Hipolito Brown DPM Work Phone: [facility] 06-20-2024 09:59-0400 Body mass index (BMI) [Ratio] 17.27 kg/m2 Hipolito Brown DPM Work Phone: [facility] 06-20-2024 09:59-0400 Body weight 48.53 kg Hipolito Brown DPM Work Phone: [facility] 06-20-2024 09:59-0400 Diastolic blood pressure 80 mm[Hg] Hipolito Brown DPM Work Phone: [facility] 06-20-2024 09:59-0400 Heart rate 75 /min Hipolito Brown DPM Work Phone: [facility] 06-20-2024 09:59-0400 Respiratory rate 18 /min Hipolito Brown DPM Work Phone: [facility] 06-20-2024 09:59-0400 Systolic blood pressure 127 mm[Hg] Hipolito Mendieta DPM Work Phone: [facility] 11-09-2023 13:51-0500 Body height 167.6 cm Hipolito Mendieta DPM Work Phone: [facility] 11-09-2023 13:51-0500 Body mass index (BMI) [Ratio] 17.27 kg/m2 Hipolito Mendieta DPM Work Phone: [facility] 11-09-2023 13:51-0500 Body weight 48.53 kg Hipolito Mendieta DPM Work Phone: [facility] 11-09-2023 13:51-0500 Diastolic blood pressure 81 mm[Hg] Hipolito Mendieta DPM Work Phone: [facility] 11-09-2023 13:51-0500 Heart rate 78 /min Hipolito Mendieta DPM Work Phone: [facility] 11-09-2023 13:51-0500 Systolic blood pressure 120 mm[Hg] Hipolito Mendieta DPM Work Phone: [facility] Healthcare Encounters Encounter Date Encounter Type Care Provider Facility Start: 04-17-2025 End: 04-17-2025 Bamboo flowsheet Hipolito Mendieta DPM Work Phone: [facility] Start: 04-17-2025 End: 04-17-2025 Bamboo flowsheet Hipolito Mendieta DPM Work Phone: [facility] Start: 04-17-2025 End: 04-17-2025 Patient encounter procedure Hipolito Mendieta DPM Work Phone: [facility] Comment on above: Verruca plantaris (P rimary Dx); Foot pain, left; Pain due to onychomycosis of toenails of both feet Start: 04-17-2025 End: 04-17-2025 ambulatory HIPOLITO MENDIETA Not Available Start: 02-06-2025 End: 02-06-2025 Bamboo flowsheet Hipolito Mendieta DPM Work Phone: [facility] Start: 02-06-2025 End: 02-06-2025 Bamboo flowsheet Hipolito Mendieta DPM Work Phone: [facility] Start: 02-06-2025 End: 02-06-2025 Patient encounter procedure Hipolito Mendieta DPM Work Phone: [facility] Comment on above: Pain due to onychomy cosis of toenails of both feet (Primary Dx); Verruca plantaris; Foot pain, left Start: 02-06-2025 End: 02-06-2025 ambulatory HIPOLITO MENDIETA Not Available Start: 01-28-2025 End: 01-28-2025 [facility] Work Phone: [facility] Start: 01-28-2025 End: 01-28-2025 ambulatory ab [facility] Work Phone: Start: 11-21-2024 End: 11-21-2024 Bamboo flowsheet Hipolito Mendieta DPM Work Phone: [facility] Start: 11-21-2024 End: 11-21-2024 Bamboo flowslaura Mendieta DPM Work Phone: [facility] Start: 11-21-2024 End: 11-21-2024 ambulatory HIPOLITO MENDIETA Not Available Start: 11-21-2024 End: 11-21-2024 Patient encounter procedure Hipolito Mendieta DPM Work Phone: [facility] Comment on above: Pain [...] Not Available Start: 08-07-2024 End: 08-07-2024 ambulatory [facility] Start: 06-20-2024 End: 06-20-2024 Bamboo flowsheet Hipolito [...] Facility: Start: 06-10-2021 End: 06-11-2021 [facility] Plan of Treatment Date Care Activity Detail Author Start: 04-17-2025 End: 04-17-2025 Patient encounter procedure 04/17/2025 9:30 AM EDT Procedure Visit [facility] [address] [facility] [address] [place] [id number] Hipolito Mendieta DPM [address] [address] Verruca plantaris (Primary Dx); Foot pain, left; [...] identified in Urine by Culture Urine Culture [facility] Start: 01-28-2025 Urine culture [facility] Start: 11-21-2024 End: 11-21-2024 Patient encounter procedure 11/21/2024 9:30 AM EST Procedure Visit [facility] [address] [facility] [address] [place] [id number] Hipolito Mendieta DPM [address] [address] [facility] Start: 09-05-2024 End: 09-05-2024 Patient encounter procedure 09/05/2024 10:10 AM EST Procedure Visit [facility] [address] [place] [address] Hipolito Mendieta, PAULAM [address] [address] Pain due to onychomycosis of toenails of both feet (Primary Dx) [facility] Comment on above: Pain due to onychomy cosis of toenails of both feet (Primary Dx) Start: 06-20-2024 End: 06-20-2024 Patient encounter procedure 06/20/2024 10:00 AM EDT Procedure Visit [facility] [address] [facility] [address] [place] [address] Hipolito Mendieta, ADOLFO [address] [address] Onychomycosis (Primary Dx); Toe pain, bilateral [facility] Comment on above: Onychomycosis (Prima ry Dx); Toe pain, bilateral Start: 11-09-2023 End: 11-09-2023 Patient encounter procedure 11/09/2023 1:50 PM EST Procedure Visit [facility] [address] [facility] [address] [place] [address] Hipolito Mendieta, DPM [address] [address] [facility] Payers Date Payer Category Payer Self-pay 2023 Unknown [facility] [employer] [id number] 2023-Present [address] [facility] [facility] [address] [id number] 2018 Private Health Insurance [id number] 2018 Unknown [id number] 2006 Medicare [id number] 1959 Medicare [id number] 1959 Unknown [id number] 1940 Unknown [id number] [id number]. 2.647 1940 Unknown [id number] [id number]. 2.593 1940 Unknown [id number] 2.16.840.1.386001.3.579. 2.593 1940 Unknown [id number] 2.16.840.1.100994.3.579. 2.593 1941 Unknown [id number] 2.16.840.1.172071.3.579. 2.593 1941 Unknown [id number] [id number]. 2.1259 1941 Unknown [id number] [id number]. 2.1259 1941 Unknown [id number] 2.16.840.1.249159.3.579. 2.1259 1941 Unknown [id number] 2.16.840.1.225506.3.579. 2.1259 1940 Unknown [id number] [id number]. 2.1259 Medicare Medicare [id number] Unknown [employer] [id number] Unknown [id number] [id number]. 2.531 Social History Date Type Detail Facility Start: 12-07-2023 Tobacco smoking status NHIS Tobacco smoking consumption unknown [facility] Start: 10-12-2023 End: 04-17-2025 Alcohol intake Defer [facility] Start: 1940 Sex Assigned At Not on file [facility] Gender identity Not [facility] file [facility] Start: 01-29-2025 Sex Female (finding) [facility] Start: 1940 Sex Assigned At Female F [facility] Clinical Notes 11-09-2023 to 04-17-2025 Hipolito Mendieta, DP - 04/17/2025 9:30 AM EDTNictimothy Mendieta, DPM - 02/06/2025 9:30 AM EDTNicholrosalia Mendieta, DP - 11/21/2024 9:30 AM ESTNicholrosalia Mendieta, [facility] - 09/05/2024 10:10 AM EST Note [...] route for 85 days., Disp: , Rfl: efcwvyhosvjm-qyla-cbqmfhxl-folic acid (Centrum Silver, geriatric,) tablet, as directed [...] Partner Violence: Unknown (11/16/2023) Received from [facility] [place] [facility] Fear of Current [...] Hipolito Mendieta DPM documented in this encounter [facility] 02-06-2025 History of Present illness Narrative [...] History: Past Medical History: Diagnosis Date Hypertension ([facility]) Medications: Current Outpatient Medications: amiodarone [...] route for 85 days., Disp: , Rfl: jrkslxopetco-lwej-aaprhsej-folic acid (Centrum Silver, geriatric,) tablet, as directed [...] Hipolito Mendieta DPM documented in this encounter [facility] 01-28-2025 Note [facility]iology Clinic Note Chief Complaint: Patient [...] regurgitation. Moderate to severe mitral regurgitation. Transesophageal Echocardiogram-[facility] Name: LUCILLE ESCOBEDO Study Date: 06/10/2021 10:12 AM MRN: (more content not included)... [facility] 11-21-2024 History of Present illness Narrative [...] History: Past Medical History: Diagnosis Date Hypertension (CMS/[facility]) Medications: Current Outpatient Medications: amiodarone [...] route for 85 days., Disp: , Rfl: lvefscpbuwbs-ykbd-dmsiwmiy-folic acid (Centrum Silver, geriatric,) tablet, as directed [...] Partner Violence: Unknown (11/16/2023) Received from [facility], [facility] [place] [facility] Fear of Current [...] Hipolito Mendieta DPM documented in this encounter [facility] 09-05-2024 History of Present illness Narrative [...] route for 85 days., Disp: , Rfl: eyeealhrvcxx-mtim-rcdnvjej-folic acid (Centrum Silver, geriatric,) tablet, as directed [...] Partner Violence: Unknown (11/16/2023) Received from [facility], [facility] [place] Safety & Environment Fear of Current [...] Hipolito Mendieta DPM documented in this encounter [facility] 08-07-2024 Note [facility] Cardiology Clinic Note Chief Complaint: Patient here for 1 year follow up CAD, PAF, and mitral valve regurgitation. She had an echo in Aug 2023 after last apt. She was seen in [facility] ED twice in Sep 2023 for [...] regurgitation. Moderate to severe mitral regurgitation. Transesophageal Echocardiogram-[facility] Name: LUCILLE ESCOBEDO Study Date: 06/10/2021 10:12 AM B/P: 126 mmHg/68 mmHg HR: Date of : 1940 Location: [facility] Height: 66 in. Age: 81 year(s) Patient Room : Weight: 135 lb. Gender: Female Patient Status: OutPt BSA: 1.69 m2 Indication: Atrial Fibrillation Examination: TUAN/CFI with Cardioversion Image Quality: Good Patient Consent: Informed, written consent was obtained for the procedure s p @ c 3 Exam Location: A TUAN was performed in the [employer] without complications s p @ c 3 Anesthesia Pharyngeal anesthesia with viscous Lidocaine Conclusions Left Ventricle: The left ventricle is normal size. Global left ventricular systolic function is severely reduced. The EF is 20 % visually. Diffuse global hypokinesis. Right Ventricle: The right ventricle is normal in size. Right ventricular systolic function appea (more content not included)... [facility] 06-20-2024 History of Present illness Narrative [...] route for 85 days., Disp: , Rfl: fnuicpckfbfk-njmc-uqdxkjtf-folic acid (Centrum Silver, geriatric,) tablet, as directed [...] Partner Violence: Unknown (11/16/2023) Received from [facility] [place] Environment Fear of Current [...] Hipolito Mendieta DPM documented in this encounter [facility] 11-09-2023 History of Present illness Narrative [...] History: Past Medical History: Diagnosis Date Hypertension ([facility]) Medications: Current Outpatient Medications: amiodarone [...] route for 85 days., Disp: , Rfl: hzjwwjgyxsnm-leap-xmxkbglh-folic acid (Centrum Silver, geriatric,) tablet, as directed [...] Hipolito Mendieta DPM documented in this encounter [facility] Healthcare Evaluation note Diagnosis Verruca plantaris- [...] this encounter [facility] noteNo assessment information availableAultman Hospital Work Phone: Evaluation note* Diagnosis Pain [...] and content) DATE CREATED AUTHOR 06/15/2021 [facility] DATE CREATED AUTHOR AUTHOR'S ORGANIZ ATION 02/02/2023 [facility] pital DATE CREATED AUTHOR AUTHOR'S ORGANIZ ATION 01/31/2025 [facility] y[facility] Group DATE CREATED AUTHOR AUTHOR'S ORGANIZ ATION 02/04/2025 [facility] DATE CREATED AUTHOR AUTHOR'S ORGANIZ ATION 04/18/2025 [facility] dical Specialists EPIC Care Teams (unrecognized sec tion and content) Hse Manager Relationship Specialty Start Date End Date Gerber Mccoy MD [address] [place] [address] PCP - General Family Medicine 08/31/23 Hse Manager Relationship Specialty Start Date End Date Gerber Mccoy MD [address] [place] [address] PCP - General Family Medicine 08/31/23 Hse Manager Relationship Specialty Start Date End Date Gerber Mccoy MD [address] [place] [address] PCP - General Family Medicine 08/31/23 Hse Manager Relationship Specialty Start Date End Date Gerber Mccoy MD [address] [place] [address] PCP - General Family Medicine 08/31/23 Hse Manager Relationship Specialty Start Date End Date Gerber Mccoy MD [address] [place] [address] PCP - [facility] 08/31/23 Team Status: Inactive Member Role Status Dates [facility] Att[facility] Provider Active Start: January 28, 2025 End: January 28, 2025 Hse Manager Relationship Specialty Start Date End Date Gerber Mccoy MD [address] [place] [address] PCP - [facility] 08/31/23 Hse Manager Relationship Specialty Start Date End Date Gerber Mccoy MD [address] [place] [address] PCP - General Family Medicine 08/31/23 Reason [...] BE BASED ON THE PRIMARY CLINICAL RECORDS. [employer] provides no warranty or guarantee of the accuracy or completeness of information in this document.
== END 2025-06-20 10:27 | disposition home or self-care (01) ==
LOC: RAD 10:26
PROVIDERS: PCP Family Medicine; Visit Provider Family Medicine
DX: M81.0 Age-related osteoporosis without current pathological fracture (principal); M85.88 Other specified disorders of bone density and structure, other site
CPT/HCPCS: 77080

== ENCOUNTER 2025-08-14 10:34 | Outpatient (OUT) | payer MEDICARE, OTHER, SELFPAY ==
--- OUTSIDE RECORDS SUMMARY | 2025-08-13 10:30 | XMS_ITS | Encounter Summary ---
Author Organization [facility] Address [address] [place] [address] Care Team Providers Care Microfilm Clerk Name Role Phone Krish Mccoy MD Primary Care Provider [phone] Encounter Details DateTypeDepartmentCare Team (Latest Contact Info)Ehtixytodbw47/19/2025 10:30 AM ESTOffice Visit [facility] [address] [place] [address] Kaya Patel MD [address] [facility] [address] [facility] [place] [address] Acute combined systolic and diastolic heart failure (CMS/HCC) (Primary Dx); Nonrheumatic mitral valve regurgitation; Fatigue, unspecified type; PAF (paroxysmal atrial fibrillation) (CMS/HCC); Coronary artery disease involving [place]hal[place] coronary artery of [place]en heart without angina pectoris; Essential hypertension; Dyslipidemia Social History Tobacco UseTypesPacks/DayYears UsedDateSmoking Tobacco: NeverSmokeless Tobacco: NeverAlcohol UseStandard Drinks/WeekCommentsNot Currently0 (1 standard drink = 0.6 oz pure alcohol)[place] Safety & EnvironmentAnswerDate RecordedFear of Current or Ex-PartnerNot on file11/16/2023Emotionally AbusedNot on file11/16/2023hysically AbusedNot on file11/16/2023Sexually AbusedNot on file11/16/2023hysically or Sexually AbusedNot on file11/16/2023CommentsUnknownSex and Gender InformationValueDate RecordedSex Assigned at ZckpdOfnxfj29/10/2024 10:02 AM EDT Legal NjmOoeokx35/29/2022 10:36 PM EDTGender FtvpbwwfUqtohr62/02/2025 10:02 AM EDTSexual OrientationHeterosexual or Tltskyme20/02/2025 10:02 AM EDTdocumented as of this encounter Last Filed Vital Signs Vital SignReadingTime TakenCommentsBlood Zbeiqbei363/ 10:20 AM EST Bocsh852708/13/2025 10:20 AM ESTTemperature--Respiratory Rate--Oxygen Saturation 95%08/13/2025 10:20 AM ESTInhaled Oxygen Concentration--Gvrzpy45.2 kg (104 lb) 08/13/2025 10:20 AM FCLMvngxd167.6 cm (5' 6 )08/13/2025 10:20 AM ESTBody Mass Index16.7908/13/2025 10:20 AM ESTdocumented in this encounter Functional Status * BPAnswerDate of DkfonqlqkqAzbote462/ 10:20 AM Rossana Gaspar MA * PulseAnswerDate of GitychsxqzIcunrb7119/19/2025 10:20 AM Rossana Gaspar MA * Audit Alcohol ScreeningQuestionAnswerDate of AssessmentAuthorHow often do you have a drink containing alcohol? 10:42 AM Rossana Gaspar MA * Patient PositionAnswerDate of MjtetxyijjOccssjTccjyde28/19/2025 10:20 AM Rossana Wei MA * BPAnswerDate of DbssiwodibXrgwvu346/ 10:20 AM Rossana Gaspar MA * PulseAnswerDate of YwrbempkwuWlqgkw5388/19/2025 10:20 AM Rossana Gaspar MA * JrG6FsitghEuod of JeczuvgkblJqgveh2932/19/2025 10:20 AM Rossana Gaspar MA * BP LocationAnswerDate of AssessmentAuthorRight arm08/13/2025 10:20 AM Rossana Wei MA * Audit Alcohol ScreeningQuestionAnswerDate of AssessmentAuthorHow often do you have a drink containing alcohol? 10:42 AM Rossana Gaspar MA * Patient PositionAnswerDate of GfjkmcjllxSwrdywCwzhilk70/19/2025 10:20 AM Rossana Wei MA documented as of this encounter Progress Notes * Kaya Patel MD - 08/13/2025 10:30 AM EST Images from the original note were not included. [facility] Cardiology Clinic Note Chief Complaint: Patient here for 6 month follow up . Patient state she has been fighting shingles on her left chestunder her arm and around to her back for 3 months. Patient denies chest pain, SOB/LY, dizziness/lightheaded, leg swelling, racing heart/palpitation abnormal bleeding. Patient complains of increased fatigue. HPI: Rafia Escobedo is a 85 y.o. female with a history of severe [...] few months ago; this resolved spontaneously UPDATE 5.6 She has been complaining of worsening fatigue [...] tells me her urine has bubbles . UPDATE 08/13/2025 She has worsening fatigue but attributes this to shingles but has taken a while and not resolved.She has discomfort over the chest wall skin and the back. She denies angina. She has no new cardiovascular symptoms. Cardiology ROS: Review of Systems Constitutional: Positive for malaise/fatigue. Musculoskeletal: Positive for arthritis, back pain and joint pain. All other systems reviewed and are negative. Past Medical History She has a past medical history of Abnormal ECG, Arrhythmia, Atrial fibrillation (CMS/HCC), Coronaryartery disease, Heart valve disease, Hypertension, LBBB (left bundle branch block), and Paroxysmal supraventricular tachycardia. Surgical History She has a past surgical history that includes Appendectomy; Cardioversion; Cardiac catheterization;and Hysterectomy. Social History She reports that she has never smoked. She has never used smokeless tobacco. She reports that she does not currently use alcohol. She reports that she does not use drugs. Family History Family History Problem Relation Name Age of Onset Diabetes Mother Hypertension Mother Hypertension Father Diabetes Sister Heart attack Maternal Grandmother Allergies Hossein inhibitors, Sulfa (sulfonamide antibiotics), and Verapamil Medications Current Outpatient Medications: amiodarone (Pacerone) 200 mg tablet, Take 1 tablet (200 mg) by mouth once daily as directed., Disp:90 tablet, Rfl: 3 apixaban (Eliquis) 2.5 mg tablet, Take 1 tablet by mouth in the morning and at bedtime., Disp: , Rfl: dapagliflozin propanediol (Farxiga) 10 mg, Take 1 tablet (10 mg) by mouth once daily as directed., Disp: 90 tablet, Rfl: 3 ferrous sulfate 325 (65 Fe) MG tablet, [...] Disp: , Rfl: Last Recorded Vitals BP 157/67 (BP Location: Right arm, Patient Position: Sitting) Pulse (!) 48 Ht 1.676 m (5' 6 ) Wt 47.2 kg (104 lb) SpO2 95% BMI 16.79 kg/m?? Physical Examination: GENERAL: alert and oriented x3, [...] appears low normal limits; ejection fraction estimated sheng 50 to 55%. Severe dilatation of the left atrium. Right ventricle is normal in size and systolic function. Mild to moderate tricuspid regurgitation. Moderate to severe mitral regurgitation. Transesophageal Echocardiogram-[facility] Name: RAFIA ESCOBEDO Study Date: 06/10/2021 10:12 AM B/P: 126 mmHg/68 mmHg HR: Date of : 1940 Location: [facility] Height: 66 in. Age: 81 year(s) Patient Room : Weight: 135 lb. Gender: Female Patient Status: OutPt BSA: 1.69 m2 Indication: Atrial Fibrillation Examination: TUAN/CFI with Cardioversion Image Quality: Good Patient Consent: Informed, written consent was obtained for the procedure s p @ c 3 Exam Location: A TUAN was performed in the [employer] without complications s p @ c 3 [...] Atrium Appendage: Normal left atrial appendage, no thrombus seen. Mitral Valve: Severe mitral regurgitation. There is a slightly eccentric jet of regurgitation that extends to theposterior wall of the left atrium. The valve leaflets appear mildly thickened. There is malcoaptation of the mitral valve leaflets likely due to severe left atrial enlargement. Tricuspid Valve: Moderate tricuspid regurgitation. Overall Conclusions: Immediately following the TUAN, biphasic cardioversion was performed using 360 J, the patient's rhythm was converted to sinus Rhythm Investigations: Patient Name: Rafia Escobedo Service Date: 06/10/2021 Cardiovascular Laboratory Report FINAL IMPRESSION: 1. Angiographically [...] Follow up with Dr. Patel in the [facility]. 8. Follow up with Dr. Mccoy as scheduled. Echocardiogram 07/21/2021 Global left ventricular systolic function is mildly reduced: Ejection fraction is 48%. Severe diastolic dysfunction. The right ventricle is normal in size and systolic function. Severe left atrial enlargement with severe mitral regurgitation. Mild tricuspid regurgitation. RVSP is 48. Mild aortic valve stenosis 12-lead EKG sinus rhythm, 55 bpm, left bundle branch block Echocardiogram 08/2023: Left ventricular systolic function is difficult to assess but is moderately reduced; visually estimated ejection fraction is 30 to 35% The left ventricle is mildly dilated Right ventricle is normal in size and systolic function Diastolic dysfunction Biatrial enlargement Mild tricuspid regurgitation Mildly elevated right ventricular systolic pressure; RVSP 49 mmHg Severe mitral regurgitation The patient refused to undergo a MUGA scan that was recommended at this time. She was refused to be evaluated for possible pacemaker. s.cr 1.24 01/2024 Assessment: Severe mitral regurgitation - asymptomatic; ejection fraction reduced to 30 to 35% Newly diagnosed heart failure with reduced ejection fraction; HFrEF Fatigue ?low output failure Paroxysmal atrial fibrillation/flutter CHADS2-VASc score 6 s/p cardioversion in the past PSVT Coronary atherosclerosis; mild by cath 2010 Essential hypertension Dyslipidemia Fatigue Plan: Current fatigue could be a manifestation of her worsened heart failure and/or recent shingles. Although, I see no other symptoms or signs such as shortness of breath, orthopnea, weight gain, leg edema etc. However the reduced ejection fraction particular with the severe mitral regurgitation may be leading to low cardiac output and subsequent fatigue. I explained this to her. It may also be depression. She is to discuss this with Dr. Mccoy. I urged her to call her primary care physician Dr. Mccoy regarding the shingles Given her mild coronary artery disease, would recommend continued antiplatelet/anticoagulant she ted Eliquis, I recommend a statin Given reduced ejection fraction, she is to continue the beta-lida and ARB that she is currently on. Continue SGLT2 inhibitor. She is also on amiodarone for rhythm control and Eliquis for thromboembolic prophylaxis. She will require labs, PFTs, and eye examinations for chronic amiodarone therapy. She is to monitor her heart rate and blood pressure and let us know of any significant fluctuations. Her left ventricular systolic function is likely a combination of both atrial fibrillation with rate and rhythm related cardiomyopathy as well as structural changes due to the severe, longstanding mitral regurgitation. Ideally, she needs a repeat cardiac catheterization, referral for MitraClip, roslyn consultation with our EP colleagues to consider A-fib ablation versus AV tayler ablation and perman ent pacemaker placement/ICD if EF is confirmed to be less than 35% by MUGA scan - Rafia does not want to do any of this Mrs. Escobedo was evaluated by the structural heart team at the [facility] years ago; she was deemed to be a candidate for MitraClip. However, she has not wanted to proceed given absence of significant symptoms and logistical issues involving her taking care of her adult daughter. I emphasized to Mrs. Escobedo that given her ejection fraction, severe mitral regurgitation, and atrial fibrillation, she is at risk for decompensated heart failure, life-threatening ventricular arrhythmias, and a worsened quality of life. She understands but does not want to proceed with any invasiv e/interventional procedures given the need to take care of her daughter. I recommended that she speak to her family physician and clarify her CODE STATUS. I like to see in follow-up in a year or sooner should problems arise Kaya Patel MD, MPH, FACC, [facility], [facility] Interventional Cardiology Pager Email: [email or web address] documented in this encounter Plan of Treatment Not on file documented as of this encounter Visit Diagnoses Diagnosis Acute combined systolic and diastolic heart failure (CMS/HCC)- Primary Acute combined systolic and diastolic heart failure Nonrheumatic mitral valve regurgitation Fatigue, unspecified type PAF (paroxysmal atrial fibrillation) (CMS/HCC) Atrial fibrillation Coronary artery disease involving [place] coronary artery of [place] heart without angina pectoris Essential hypertension Unspecified essential hypertension Dyslipidemia Other and unspecified hyperlipidemia documented in this encounter Care Teams Team MemberRelationshipSpecialtyStart DateEnd Date Krish Mccoy MD [address] [place], [place] [address] [place] [address] PCP - General01/11/23documented as of this encounter
--- OUTSIDE RECORDS SUMMARY | 2025-08-14 10:39 | XMS_ITS | Clinical Summary ---
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 Name Role Phone Krish Mccoy MD Primary Care Provider [phone] Allergies Active AllergyReactionsCriticalityNoted DateCommentsAce InhibitorsOther 09/12/2014Sulfa (Sulfonamide Antibiotics)Other09/12/2014VerapamilUnknown 09/28/2023 Medications MedicationSigDispense QuantityRefillsLast FilledStart DateEnd DateStatus apixaban (Eliquis) 2.5 mg tablet Take 1 tablet by mouth in the morning and at bedtime.Active levothyroxine (Synthroid, Levoxyl) 50 mcg tablet Take 50 mcg by mouth every other day.Active potassium chloride CR (Klor-Con) 10 mEq ER tablet Take 1 tablet by mouth in the morning.Active irbesartan (Avapro) 75 mg tablet Take 75 mg by mouth in the morning.Active amiodarone (Pacerone) 200 mg tablet Indications:Paroxysmal atrial fibrillation (CMS/HCC)Take 1 tablet (200 mg) by mouth once daily as directed. 90 tablet ctive furosemide (Lasix) 20 mg tablet Indications:Edema, unspecified typeTake 1 tablet (20 mg) by mouth in the morning. 90 tablet ctive metoprolol tartrate (Lopressor) 25 mg tablet Take 25 mg by mouth two times daily.Active liothyronine (Cytomel) 5 mcg tablet TAKE 2 TABLETS BY MOUTH ON AN EMPTY STOMACH DAILY07/01/2024ctive ferrous sulfate 325 (65 Fe) MG tablet Take 325 mg by mouth with breakfast.Active isosorbide mononitrate ER (Imdur) 30 mg 24 hr tablet Take 30 mg by mouth in the morning.Active dapagliflozin propanediol (Farxiga) 10 mg Indications:Acute combined systolic and diastolic heart failure (CMS/HCC)Take 1 tablet (10 mg) by mouth once daily as directed. 90 tablet 305/505/6Active Active Problems ProblemNoted DateDiagnosed DateAcquired absence of female genital organ 5Acquired xschjagyigyjei48/19/4514Fchddprmujbz12/19/2025ardiomyopathy 08/13/2025hest pain08/13/2025OVID-19110/13/2024Electrocardiogram abnormal 08/13/2025Encounter for removal of zducfda7408/13/2025History of appendectomy 08/13/2025History of cardiac xcfpfdnslcjbipy96/19/2025Impacted yvlagmi14/19/2025 Left ventricular mkkicxqhxzt95/19/5940Pokyeydihl12/19/2025Other ill-defined heart sfraydoc42/19/2025Other specified cough08/13/20257093Oyapawhswfws48/19/2025 Perimenopausal koaxpthe18/19/2025Peripheral gebmxnwhja08/19/2025Pulmonary edema 08/13/2025Rheumatic tricuspid vfautqfxrqpxv22/19/2025Rotator cuff syndrome of right iujufpzd01/19/2025Senile ezbzddvkmgup49/19/2025Shoulder pain08/13/2025 Stage 2 chronic kidney vdfnzmu8308/13/2025Systolic heart qxatutx6608/13/2025 Vylmdidktuwgbv02/14/2022 Assessment & Plan (02/15/2023 11:00 AM EDT): Stable continue heart healthy diet Assessment & Plan (01/11/2023 12:55 PM EDT): Recommended low cholesterol- heart healthy diet Paroxysmal atrial erznyszkbyrc60/27/2021 Assessment & Plan (02/15/2023 11:01 AM EDT): UZW4GD7-QJKh= 5 Remains on amiodarone, toprol 25 mg and eliquis anticoagulation Denied any bleeding tendencies Amiodarone annual monitoring- pt will need TSH for thyroid function, PFT for pulm function, and eyeexam with opthalmologist Assessment & Plan (01/11/2023 12:55 PM EDT): History of fib/flutter; currently on, amiodarone 200 mg daily, andEliquis Heart rate well controlled, regular rate and rhythm during assessment Apunkwm5007/11/2012 Assessment & Plan (01/11/2023 12:53 PM EDT): stable Coronary fecpeqljuwejges49/09/2012 Assessment & Plan (02/15/2023 10:59 AM EDT): [...] will monitor for any recurrent Afib/tachycardia Essential xymwypsvsvgh89/09/2012 Assessment & Plan (02/15/2023 11:00 AM EDT): [...] her to next visit. Left bundle branch block07/03/2012 Assessment & Plan (01/11/2023 12:55 PM EDT): Stable Mitral valve ukicevxnnzbmk40/09/2012 Assessment & Plan (01/11/2023 12:54 PM EDT): Will continue to monitor- she does not want to proceed with mitral clipping procedure Paroxysmal supraventricular hrpnvhzsmre97/09/2012 Assessment & Plan (02/15/2023 11:01 AM EDT): Stable with toprol 35 mg Assessment & Plan (01/11/2023 12:55 PM EDT): stable Encounters DateTypeDepartmentCare YpszSvspzmfrjdl70/19/2025 10:30 AM ESTOffice Visit [facility] [address] [place] [address] Kaya Patel MD Acute combined systolic and diastolic heart failure (CMS/HCC) (Primary Dx); Nonrheumatic mitral valve regurgitation; Fatigue, unspecified type; PAF (paroxysmal atrial fibrillation) (CMS/HCC); Coronary artery disease involving [place] coronary artery of [place] heart without angina pectoris; Essential hypertension; Dyslipidemiafrom Last 3 Months Family History Medical HistoryRelationNameCommentsHypertensionFatherHeart attackMaternal GrandmotherDiabetesMotherHypertensionMotherDiabetesSisterRelationNameStatus CommentsFatherDeceasedMaternal GrandmotherMotherDeceasedSister Social History Tobacco UseTypesPacks/DayYears UsedDateSmoking Tobacco: NeverSmokeless Tobacco: Never Tobacco Cessation:Counseling Given: Not Answered Alcohol UseStandard Drinks/WeekCommentsNot Currently0 (1 standard drink = 0.6 oz pure alcohol)[place] Safety & EnvironmentAnswerDate RecordedFear of Current or Ex-PartnerNot on file11/16/2023Emotionally AbusedNot on file11/16/2023hysically AbusedNot on file11/16/2023Sexually AbusedNot on file11/16/2023hysically or Sexually AbusedNot on file11/16/2023CommentsUnknownSex and Gender InformationValueDate RecordedSex Assigned at FwvkvTqjtfk89/02/2025 10:02 AM EDT Legal VieQjwgzq29/29/2022 10:36 PM EDTGender VwtxnbzaJxjilb49/02/2025 10:02 AM EDTSexual OrientationHeterosexual or Hvwazdkl15/02/2025 10:02 AM EDT Last Filed Vital Signs Vital SignReadingTime TakenCommentsBlood Acuwgebi701/6708/13/2025 10:20 AM EST Qqryn948808/13/2025 10:20 AM ESTTemperature--Respiratory Rate--Oxygen Saturation 95%08/13/2025 10:20 AM ESTInhaled Oxygen Concentration--Zdjguq74.2 kg (104 lb) 08/13/2025 10:20 AM OGNRsuiyd160.6 cm (5' 6 )08/13/2025 10:20 AM ESTBody Mass Index16.7908/13/2025 10:20 AM EST Plan of Treatment Health MaintenanceDue DateLast DoneCommentsMedicare Annual Wellness (AWV) 1Depression Ztlhszmny78/18/1953Pneumococcal Vaccine: 50+ Years (1 of 2 - PCV)02/10/1960Adult Doqxfkd7602/09/1963Zoster Vaccines (1 of 2)1991Fall Risk Zsvmloabq90/18/2006COVID-19 Vaccine (1 - season)2025Influenza RarzdivEotixixqf29/21/2025, 07/31/2024, 08/12/2023, Additional history existsHIB VaccinesAged OutNo longer eligible based on patient's age to complete this topic HPV VaccinesAged OutNo longer eligible based on patient's age to complete this topicIPV VaccinesAged OutNo longer eligible based on patient's age to complete this topicMeningococcal B VaccineAged OutNo longer eligible based on patient's age to complete this topicMeningococcal VaccineAged OutNo longer eligible based on patient's age to complete this topicRotavirus VaccinesAged OutNo longer eligible based on patient's age to complete this [place] [id number] Care Teams Team MemberRelationshipSpecialtyStart DateEnd Date Krish Mccoy MD [address] [facility] [place] [address] [facility] - General01/11/23
--- OUTSIDE RECORDS SUMMARY | 2025-08-14 10:39 | XMS_ITS | Patient Health Record ---
Author Organization [facility] in [place] Address [address] [place] [address] Care Team Providers Care Stull Hewer Name Role Phone Casa Mccoy Primary Care Provider [phone] Allergies Allergen (clinical drug ingredient) Drug/Non Drug Allergy documented on EMR Reaction Allergy Type Onset Date Status angiotensin-converting enzyme inhibitor (FN) KALEY Inhib itors Unknown Drug Allergy ActiveSubstance with sulfonamide structure and antibacterial mechanism of action (substance)Sulfa AntibioticsUnknownDrug AllergyActiveverapamilVerapamilUnknown Drug AllergyActive Results Component Value Reference Range Notes FREE T4 Reviewed date:01/28/2025 12:49:44 PM Interpretation: Performing Lab: Notes/Report: [facility] , Free T4 1.33 0.76-1.46 ng/dL Performing Lab:see noteML - [facility] LBPROF 14(COMP METB) Reviewed date:01/28/2025 12:49:44 PM Interpretation: Performing Lab: Notes/Report: [facility] ,Fgnakf453395-475 mmol/LPotassium4.23.5-5.1 mmol/ZQjeqahqd89616-550 mmol/LCarbon Hwbxiqq84.421.0-32.0 mmol/LAnion Gap11.0Dphvgnm6819-361 mg/dLBlood Urea Nitrogen 22.07.0-18.0 mg/dLCreatinine1.170.55-1.02 mg/dLEstimated GFR ( Gpzsjvy76 >=60 mL/min/1.73m 2Estimated GFR (Non- Ame44>=60 mL/min/1.73m 2BUN Creatinine Ratio18.0Smkuupm9.88.5-10.1 mg/dLBilirubin Total0.60.2-1.0 mg/dL Aspartate Amino Ggfegjfiwmw1912-63 U/LAlanine Iiirnznfypvtoykt1832-03 U/L Alkaline Tfazghksrex13351-634 U/LTotal Protein7.16.4-8.2 g/dLAlbumin Level3.8 3.4-5.0 g/dLGlobulin3.3Albumin Globulin Ratio1.2Performing Lab:see noteML - [facility] LBTSH Reviewed date:01/28/2025 12:49:44 PM Interpretation: Performing Lab: Notes/Report: [facility] ,Thyroid Stimulating Hormone0.5770.358-3.740 uIU/mLPerforming Lab:see note - [facility] LBUA RANDOM Reviewed date:01/28/2025 12:49:44 PM Interpretation: Performing Lab: Notes/Report: [facility] ,Color UrineLT. YELLOWYELLOWClarity UrineCLEARCLEARSpecific Lincoln Urine1.025 1.005-1.025pH Urine5.55.0-9.0Protein UrineNEGATIVENEG/TRACE mg/dLGlucose Urine UA>=1000NEGATIVE mg/dLBilirubin UrineNEGATIVENEGATIVEKetones UrineNEGATIVE NEGATIVE mg/dLBlood UrineNEGATIVENEGATIVENitrite UrineNEGATIVENEGATIVE Urobilinogen Urine0.20.2-1.0 EU/dLLeukocyte Esterase UrineNEGATIVENEGATIVE Performing Lab:see note - [facility] LBXR chest 2V Reviewed date:02/10/2025 12:53:02 PM Interpretation: Performing Lab: Notes/Report: Source Facility: [facility]-[address] [place] [address] XRay Report Signed Patient: RAFIA ESCOBEDO MR#: [id number] : 1940 Acct:[id number] Age/Sex: 85 / F ADM Date: 02/10/25 Loc: RAD Attending Dr: Ivelisse Olvera M.D. Ordering Physician: Ivelisse Olvera M.D. Date of Service: 02/10/25 Procedure(s): XR chest 2V Accession Number(s): [id number] cc: Ivelisse Olvera M.D.; Krish Mccoy M.D. [address] [address] Patient Name: RAFIA ESCOBEDO MRN: [id number] date: 1940 Sex: F Assigned Patient Location: [facility] Current Patient Location: RAD Accession/Order Number: [id number] Exam Date: 02/10/2025 09:58 Report Date: 02/10/2025 09:59 At the request of: IVELISSE OLVERA MD Procedure: XR chest 2V XR chest 2V 02/10/2025 9:52 AM SIGNS AND SYMPTOMS: Care Home Use Of Amiodarone PROTOCOL: Frontal and lateral radiographs of the chest COMPARISON: 06/28/2024 FINDINGS: The trachea is midline. The heart and mediastinal structures are within normal limits. The lung parenchyma is clear. The bony thorax is intact. XR/XR chest 2V IMPRESSION: No acute cardiopulmonary pathology. Impression dictated by: Willian Beyer M.D. 02/10/2025 9:59 AM Dictation Location: [place] [address] Electronically authenticated by: [id number] Y Date: 02/10/2025 09:59 Dictated By: Willian Beyer M.D. Signed By: 02/10/25 1011 DD/ 0959 TD/TT: Perioperative Nurse:CBC AUTO DIFF Reviewed date:06/13/2025 05:10:31 PM Interpretation: Performing Lab: Notes/Report: [facility] ,White Blood Count7.64.0-11.0 10 3/uLRed Blood Count4.974.20-5.40 10 6/uL Hawvpxqtle65.212.0-16.0 g/yQNzokwcnbaq56.636.0-48.0 %Mean Corpuscular Qsacck63.8 81.0-99.0 fLMean Corpuscular Fbqoreopwm37.626.7-34.0 pgMean Corpuscular HGB Conc 33.329.9-35.2 g/dLRed Cell Distribution Width13.511.0-15.0 %Platelet Gytjg965 150-450 10 3/uLMean Platelet Hmvies73.99.5-13.5 fLNeutrophils Percent Auto67.1 43.0-75.0 %Lymphocytes Percent Auto19.520.5-60.0 %Monocytes Percent Auto9.91.7- 12.0 %Eosinophils Percent Auto2.70.9-7.0 %Basophils Percent Auto0.50.2-2.0 % Immature Granulocytes Pct Auto0.30.0-0.5 %Neutrophils Absolute Auto5.11.4-6.5 10 3/uLLymphocytes Absolute Auto1.51.2-3.8 10 3/uLMonocytes Absolute Auto0.80.3-0.8 10 3/uLEosinophils Absolute Auto0.20.0-0.7 10 3/uLBasophils Absolute Auto0.00.0- 0.1 10 3/uLImmature Granulocytes Abs Auto0.020.00-0.03 10 3/uLPerforming Lab:see note - [facility] LBFREE T3 Reviewed date:06/13/2025 05:10:31 PM Interpretation: Performing Lab: Notes/Report: [facility] ,Free T34.032.18-3.98 pg/mLPerforming Lab:see [facility] - [facility] LB GLYCOHEMOGLOBIN A1C Reviewed date:06/13/2025 05:10:31 PM Interpretation: Performing Lab: Notes/Report: [facility] ,Glycohemoglobin A1C5.54.5-6.2 % > 7.0 ADA RECOMMENDED LIMIT 4.0 - 6.0 ADA THERAPEUTIC TARGET < 7.0 ACTION SUGGESTED Estimated Average Uhhdhij670Jnysegiaax Lab:see note - [facility] LB LIPID PROFILE Reviewed date:06/13/2025 05:10:32 PM Interpretation: Performing Lab: Notes/Report: [facility] ,Glavjbuolburu093<=150 mg/ePIecwiamgkrv104<=200 mg/dLHDL Uabmnmxdbgv0441-40 mg/dL <40 mg/dl - HIGH CARDIOVASCULAR RISK > or =60 mg/dl - LOW CARDIOVASCULAR RISK LDL Cholesterol Vozfcxltmq011.0 <100 mg/dl OPTIMAL 130-159 mg/dl BORDERLINE HIGH 100-129 mg/dl NEAR OR ABOVE OPTIMAL >190 mg/dl VERY HIGH 160-189 mg/dl HIGH VLDL FISNTGFCAJN37.0Chol HDL Ratio4.2 7.1 - 11.0 MODERATE RISK 4.4 - 7.1 AVERAGE RISK 3.3 - 4.4 LOW RISK >11.0 HIGH RISK Performing Lab:see noteML - [facility] LBPROF 14(COMP METB) Reviewed date:06/13/2025 05:10:32 PM Interpretation: Performing Lab: Notes/Report: [facility] ,Vccexf738483-343 mmol/LPotassium4.33.5-5.1 mmol/PAojoqcjo69394-694 mmol/LCarbon Iwwnphi95.821.0-32.0 mmol/LAnion Gap12.1Vypymvy3704-536 mg/dLBlood Urea Nitrogen 18.07.0-18.0 mg/dLCreatinine1.170.55-1.02 mg/dLEstimated GFR ( Ppuzvwk46 >=60 mL/min/1.73m 2Estimated GFR (Non- Ame44>=60 mL/min/1.73m 2BUN Creatinine Ratio15.5Mzgebuf46.48.5-10.1 mg/dLBilirubin Total0.70.2-1.0 mg/dL Aspartate Amino Ysuxujblgod8540-57 U/LAlanine Tyjxodorlvedjqos1682-59 U/L Alkaline Qexnzpjzsqn0969-974 U/LTotal Protein8.06.4-8.2 g/dLAlbumin Level4.23.4- 5.0 g/dLGlobulin3.8Albumin Globulin Ratio1.1Performing Lab:see noteML - [facility] LBT4 Reviewed date:06/13/2025 05:10:32 PM Interpretation: Performing Lab: Notes/Report: [facility] ,T4 Lhhthuanr61.504.80-13.90 ug/dLPerforming Lab:see noteML - [facility] LBTSH Reviewed date:06/13/2025 05:10:32 PM Interpretation: Performing Lab: Notes/Report: [facility] ,Thyroid Stimulating Hormone1.3130.358-3.740 uIU/mLPerforming Lab:see noteML - [facility] LBIRON Reviewed date:06/13/2025 05:10:31 PM Interpretation: Performing Lab: Notes/Report: [facility] ,Iron96.050.0-170.0 ug/dLPerforming Lab:see noteML - [facility] LB Urine Culture - [facility] Reviewed date:01/30/2025 02:46:55 PM Interpretation: Performing Lab: Notes/Report: [facility] ,Urine Culture - FRMCSee Below For Report No Growth 2 Days Urine Culture - [facility] Urine Culture - [facility] No Growth 2 Days Urine Culture - [facility]rine [facility] - [facility] No Growth 2 Days Urine Culture - FR Urine Culture - [id number] [place] [address] No Growth 2 Days Urine Culture - [facility] Performing Lab:see noteML - [facility] LBCBC AUTO DIFF Reviewed date:01/28/2025 12:49:44 PM Interpretation: Performing Lab: Notes/Report: [facility] ,White Blood Count6.54.0-11.0 10 3/uLRed Blood Count4.814.20-5.40 10 6/uL Psscjawbdp40.612.0-16.0 g/rMViivbzeald05.536.0-48.0 %Mean Corpuscular Fyujfv10.5 81.0-99.0 fLMean Corpuscular Rjqlawxrwn44.426.7-34.0 pgMean Corpuscular HGB Conc 32.829.9-35.2 g/dLRed Cell Distribution Width13.211.0-15.0 %Platelet Aztgw714 150-450 10 3/uLMean Platelet Tbpsod61.29.5-13.5 fLNeutrophils Percent Auto67.7 43.0-75.0 %Lymphocytes Percent Auto17.820.5-60.0 %Monocytes Percent Auto12.41.7- 12.0 %Eosinophils Percent Auto1.40.9-7.0 %Basophils Percent Auto0.50.2-2.0 % Immature Granulocytes Pct Auto0.20.0-0.5 %Neutrophils Absolute Auto4.41.4-6.5 10 3/uLLymphocytes Absolute Auto1.21.2-3.8 10 3/uLMonocytes Absolute Auto0.80.3-0.8 10 3/uLEosinophils Absolute Auto0.10.0-0.7 10 3/uLBasophils Absolute Auto0.00.0- 0.1 10 3/uLImmature Granulocytes Abs Auto0.010.00-0.03 10 3/uLPerforming Lab:see noteML - [facility] LBPROF CHEM 8 (BAS METB) Reviewed date:08/14/2024 12:24:52 PM Interpretation: Performing Lab: Notes/Report: [facility] ,Cssobb331838-846 mmol/LPotassium4.63.5-5.1 mmol/VEzhzzfzb33025-245 mmol/LCarbon Zzqukcz25.821.0-32.0 mmol/LAnion Gap14.1Lfzfdib3379-413 mg/dLBlood Urea Nitrogen 21.07.0-18.0 mg/dLCreatinine1.220.55-1.02 mg/dLEstimated GFR ( Rtnropa71 >=60 mL/min/1.73m 2Estimated GFR (Non- Ame42>=60 mL/min/1.73m 2BUN Creatinine Ratio17.5Gxglhid2.58.5-10.1 mg/dLPerforming Lab:see noteML - [facility] LB Reason For Referral No Information Medications Medication SIG (Take, Route, Frequency, Duration) Notes Start Date End Date Status Furosemide 20 mg TAKE 1 TABLET BY MOUTH DAILY; D uration: 30 ActiveFerrous Sulfate 325 (65 Fe) MG1 tablet Orally twice a day; Duration: 30 days4ActiveFarxiga 10 MG1 tablet Orally Once a day5Active Eliquis 2.5 mgTAKE 1 TABLET BY MOUTH TWICE DAILY; Duration: 90ActiveIsosorbide Mononitrate ER 30 MG1 tablet in the morning Orally Once a day; Duration: 30 days 4ActiveIrbesartan 75 MG1 tablet Orally Once a day; Duration: 30 days ActiveLevothyroxine Sodium 50 MCG1 tablet in the morning on an empty stomach Orally on EVEN days only; Duration: 90 daysActivevalACYclovir HCl 1 GM1 tablet Orally tid; Duration: 10 days5ActiveCentrum Silver -as directed Orally ActiveAmiodarone HCl 200 mgTAKE 1 TABLET BY MOUTH DAILY; Duration: 30Active Potassium Chloride ER 10 mEqTAKE 1 TABLET BY MOUTH DAILY; Duration: 90Active Metoprolol Tartrate 25 mgTAKE 1 TABLET BY MOUTH TWICE DAILY WITH FOOD; Duration: 90ActiveLiothyronine Sodium 5 mcgTAKE 2 TABLETS BY MOUTH ON AN EMPTY STOMACH DAILY; Duration: 30ActiveNeurontin 100 MG1 capsule at bedtime Orally Once a day; Duration: 30 days5Active Immunizations Vaccine Route Administration Date Status Comme nts Flu, Fluad (21111) 65 yrs and older, single-dose syringe (5867-7190) IM Intramuscular 07/31/2024 Administered Social History Tobacco Use: Social History Observation Description Date Details (start date - stop date) Never Smoker NA - NA Tobacco Use/Smoking Question Answer Notes Patient is a nonsmoker Alcohol Screen (Audit-C) Question Answer Notes Did you have a drink containing alcohol in the p ast year? No Czyiel7DvwwcnqlygolorFfbrvoxhMLACX-R (Standard) Question Answer Notes Did you have a drink containing alcohol in the p ast year? 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)ActiveconfirmedProblemMitral valve disorder (94156430)Nonrheumatic mitral (valve) insufficiency (I34.0)Active confirmedProblemCardiomegaly (4821981)Cardiomegaly (I51.7)ActiveconfirmedProblem Heart disease (disorder) (67284483)Other ill-defined heart diseases (I51.89) ActiveconfirmedProblemPerimenopausal disorder (153437885)Other specified menopausal and perimenopausal disorders (N95.8)ActiveconfirmedProblem Palpitations (62389643)Palpitations (R00.2)ActiveconfirmedProblemRemoval of suture (47865767)Encounter for removal of sutures (Z48.02)ActiveconfirmedProblem Chest pain (71357546)Chest pain (R07.9)ActiveconfirmedProblemSenile osteoporosis (36449584)Senile osteoporosis (M81.0)ActiveconfirmedProblemAtrial fibrillation (88743062)Atrial fibrillation (I48.91)ActiveconfirmedProblemHyperlipidemia (04862316)Hyperlipidemia (E78.5)ActiveconfirmedProblemMitral regurgitation (40967506)Mitral regurgitation (I34.0)ActiveconfirmedProblemCardiomyopathy (03324180)Cardiomyopathy (I42.9)ActiveconfirmedProblemHypothyroidism (57657460) Hypothyroidism (E03.9)ActiveconfirmedProblemAtrial fibrillation (disorder) (85659908)Afib (I48.91)ActiveconfirmedProblemCoronary artery disease (14536653) CAD (coronary artery disease) (I25.10)ActiveconfirmedProblemEssential hypertension (09784044)Essential hypertension (I10)ActiveconfirmedProblemLeft ventricular hypertrophy (21463284)Left ventricular hypertrophy (I51.7)Active confirmedProblemPeripheral neuropathy (030728301)Peripheral neuropathy (G62.9) ActiveconfirmedProblemOsteopenia (333727890)Osteopenia (M85.80)Activeconfirmed ProblemChronic kidney disease stage 2 (054841963)Chronic kidney disease (CKD) stage G2/A1, mildly decreased glomerular filtration rate (GFR) htwtnoa34-18 mL/min/1.73 square meter and albuminuria creatinine ratio less than 30 mg/g (N18.2)ActiveconfirmedProblemLeft bundle branch block (82829919)LBBB (left bundle branch block) (I44.7)ActiveconfirmedProblemImpacted cerumen (55406948) Cerumen impaction (H61.20)ActiveconfirmedProblemWell adult (279917830)Well adult (Z00.00)ActiveconfirmedProblemAcquired hypothyroidism (140715094)Acquired hypothyroidism (E03.9)ActiveconfirmedProblemPulmonary edema (40674675)Pulmonary edema (J81.1)ActiveconfirmedProblemShingles (5625754)Shingles (B02.9)Active confirmedProblemMitral insufficiency (18475953)Mitral insufficiency (I34.0) ActiveconfirmedProblemAortic insufficiency (70209007)Aortic insufficiency (I35.1)ActiveconfirmedProblemRupture of right rotator cuff (61240270566694244) Rotator cuff syndrome of right shoulder (M75.101)ActiveconfirmedProblemShoulder pain (76645683)Pain in shoulder (M25.519)ActiveconfirmedProblemParoxysmal supraventricular tachycardia (34723276)Paroxysmal supraventricular tachycardia (I47.1)ActiveconfirmedProblemHistory of appendectomy (661492484)Hx of appendectomy (Z90.49)ActiveconfirmedProblemSystolic heart failure (748238380) Congestive heart failure with reduced left ventricular function, NYHA class 3 (I50.20)ActiveconfirmedProblemEssential hypertension (01232740)BP (high blood pressure) (I10)ActiveconfirmedProblemHistory of cardiac catheterization (57431691615707)H/O cardiac catheterization (Z98.890)ActiveconfirmedProblem Electrocardiogram abnormal (098291900)Abnormal electrocardiogram during exercise stress test (R94.31)ActiveconfirmedProblemDisease caused by Severe acute respiratory syndrome coronavirus 2 (disorder) (381159505)COVID-19 virus infection (U07.1)ActiveconfirmedProblemCough (finding) (43917796)Other specified cough (R05.8)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 [place] [address] 09/20/2024 Casa Mccoy [place] [address] [place] [address] 06/13/2025Doug HoySenile osteoporosis M81.0[place] [address] [place] [address]/[place] [address] [place] [address]/02/2025Doug HoyCAD (coronary artery disease) I25.10 ; Essential hypertension I10 ; Atrial fibrillation I48.91 and Hypothyroidism E03.[address] [address] [place] [address]/06/2025Do HoyEssential hypertension I10 ; Cerumen impaction H61.20 ; Hyperlipidemia E78.5 and Hypothyroidism E03.[address] [address] 08/14/2025Doug HoyShingles B02.9 Assessments Encounter Date Diagnosis (ICD Code) Assessment Notes Treatment Notes Treatment Clinical Notes Section Notes 11/28/2024 CAD (coronary artery disease) (I CD-10 - I25.10) 11/28/2024Essential hypertension (ICD-10 - I10)06/04/2025Essential hypertension (ICD-10 - I10)06/04/2025erumen impaction (ICD-10 - H61.20)08/14/2025Shingles (ICD-10 - B02.9)06/13/2025Senile osteoporosis (ICD-10 - M81.0)06/04/2025 Hyperlipidemia (ICD-10 - E78.5)11/28/2024trial fibrillation (ICD-10 - I48.91) 11/28/2024Hypothyroidism (ICD-10 - E03.9)06/04/2025Hypothyroidism (ICD-10 - E03.9) Plan Of Treatment Pending Test Test Name Order Date CMP (COMPLETE METABOLIC PANEL) HEMOGLOBIN A1C (GLYCO) 01/31/2024 HEMOGLOBIN A1C (GLYCO) 06/04/2025 IRON, TOTAL 06/04/2025 IRON, TOTAL 01/31/2024 LIPID PANEL (CHOL/TRIG/HDL/LDL) 01/31/20 24 LIPID PANEL (CHOL/TRIG/HDL/LDL) 06/04/20 25 CBC WITH DIFF 01/31/2024 VITAMIN D, 25 LEVEL (TOTAL) 01/31/2024 Insulin Level 01/31/2024 High Sensitivity Troponin 08/14/2025 STOOL OCCULT BLOOD 01/31/2024 BNP 08/14/2025 CBC AUTO DIFF 08/14/2025 PROF 14(COMP METB) 08/14/2025 THYROID PROFILE WITH TSH 01/25/2023 THYROID PROFILE WITH TSH 01/26/2023 THYROID PANEL (T4/TSH/FREE T3) 5 THYROID PANEL (T4/TSH/FREE T3) THYROID PANEL (T4/TSH/FREE T3) 5 ECHOCARDIO M/2D COMPLETE 10/16/2023 DEXA BONE DENSITY 06/13/2025 CMP (COMP MET HESTER) w/eGFR CKD-EPI 2024 CBC WITH DIFF 06/04/2025 Next Appt Details Provider Name:Casa Mccoy, 10:15:00 AM, [address] [place], [address], Insurance Providers Payer Name Payer Address Payer Phone Subscriber Number Group Number Insured Name Patient Relationship to Insured Coverage Start Date Coverage End Date [place] [address] [place] [address] [id number] Gwen Escobedo - patient is the [id number] 2006[employer] OF [id number] [place] [address] 8 [place] [phone] PLAN Gwen Soto - patient is the [id number] 2018 Medical (General) History Medical History History ICD Code COVID-19 virus infection U07.1 Hyperlipidemia E78.5 CAD (coronary artery disease) I25.10 Hypothyroidism E03.9 Atrial fibrillation I48.91 Well adult Z00.00 Aortic insufficiency I35.1 Mitral regurgitation I34.0 Other specified cough R05.8 Cerumen impaction H61.20 Cardiomyopathy I42.9 H/O cardiac catheterization Z98.890 Paroxysmal supraventricular tachycardia I47.1 Abnormal electrocardiogram during exerci se stress test R94.31 Palpitations R00.2 Chest pain R07.9 Encounter for removal of sutures Z48.02 Other specified menopausal and perimenop ausal disorders N95.8 Essential hypertension I10 Osteopenia M85.80 Left ventricular hypertrophy I51.7 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
--- OUTSIDE RECORDS SUMMARY | 2025-08-14 10:39 | XMS_ITS | Clinical Summary ---
Author Organization [facility] Address [id number] [place] [address] Care Team Providers Care Heel Lining Paster Name Role Phone Krish Mccoy MD Primary Care Provider [phone] Allergies Active AllergyReactionsCriticalityNoted DateCommentsAce Snoeqwxqrw29/01/2021 Sulfa (Sulfonamide Antibiotics)07/26/2021 Medications MedicationSigDispense QuantityRefillsLast FilledStart DateEnd DateStatus apixaban (ELIQUIS) 2.5 mg tablet Take 2.5 mg by mouth 2 (two) times a day.Active uqjpibnq-kzi-YB-lycopen-lutein (CENTRUM SILVER) 0.4-300-250 mg-mcg-mcg tablet Take 1 tablet by mouth daily.Active furosemide (LASIX) 20 mg tablet Take 20 mg by mouth 2 (two) times a day.Active irbesartan (AVAPRO) 75 mg tablet Take 75 mg by mouth nightly.Active levothyroxine (SYNTHROID, LEVOTHROID) 50 MCG tablet Take 50 mcg by mouth daily.Active metoprolol succinate XL (TOPROL-XL) 50 mg 24 hr tablet Take 50 mg by mouth daily.Active potassium chloride (KAYCIEL) 20 mEq/15 mL solution Take 10 mEq by mouth daily.Active amiodarone (PACERONE) 200 mg tablet Take 200 mg by mouth daily.Active Active Problems ProblemNoted DateDiagnosed DateNonrheumatic mitral valve jwuvzcxnndjtx45/02/2021 Paroxysmal atrial uvyilkliceth78/02/2021 Family History Medical HistoryRelationNameCommentsHypertensionFatherMultiple myelomaFather DiabetesMotherHypertensionMotherDiabetesSisterMultiple myelomaSisterRelationName StatusCommentsFatherMotherSister Social History Tobacco UseTypesPacks/DayYears UsedDateSmoking Tobacco: NeverSmokeless Tobacco: NeverAlcohol UseStandard Drinks/WeekCommentsNever0 (1 standard drink = 0.6 oz pure alcohol)CommentsUnknownSex and Gender InformationValueDate Recorded Sex Assigned at BirthNot on fileLegal FytTwpmkx27/29/2021 11:06 AM EDTGender IdentityNot on fileSexual OrientationNot on file Last Filed Vital Signs Vital SignReadingTime TakenCommentsBlood Mqdgpsrw018/5407/27/2021 9:17 AM EDT Zxdgi502707/27/2021 9:17 AM EDTTemperature--Respiratory Rate--Oxygen Saturation 100%07/27/2021 9:17 AM EDTInhaled Oxygen Concentration--Antvkv28.2 kg (115 lb) 07/27/2021 9:17 AM RCVByxwvp412.1 cm (5' 5 )07/27/2021 9:17 AM EDTBody Mass Index19.14109/26/2020 9:17 AM EDT Plan of Treatment Health MaintenanceDue DateLast DoneCommentsDepression Venkpfjzc77/18/1953Tobacco Tqyreydry07/18/1953DTaP,Tdap and Td Vaccines (1 - Tdap)02/10/1960Zoster (Shingles) Vaccine (1 of 2)1991Fall Risk Pamnsvgzd61/18/2006RSV ( or age 60+ yrs) (1 - 1-dose 75+ series)02/10/2016Influenza Cearggd0305/26/2025 06/24/2020 Medical Devices [place] [id number] Care Teams Team MemberRelationshipSpecialtyStart DateEnd Date Krish Mccoy MD PCP - GeneralFamily Huesyqun53/29/21
--- OUTSIDE RECORDS SUMMARY | 2025-08-14 10:39 | XMS_ITS | Clinical Summary ---
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 Role Phone Krish Mccoy MD Primary Care Provider [phone] Allergies Active AllergyReactionsCriticalityNoted DateCommentsAce InhibitorsOther,Unknown 09/12/2014Sulfa AntibioticsOther,Wpbjeko1109/12/20141091SkxazyvzdEmpefqc24/04/2024 Medications MedicationSigDispense QuantityRefillsLast FilledStart DateEnd DateStatus amiodarone (Pacerone) 200 MG tablet Take 200 mg by mouth in the morning.06/26/2023ctive Eliquis 2.5 MG tablet Take 2.5 mg by mouth in the morning and 2.5 mg before bedtime.07/25/2023ctive furosemide (Lasix) 20 MG tablet Take 20 mg by mouth in the morning.06/26/2023ctive irbesartan (Avapro) 75 MG tablet Take 75 mg by mouth in the morning.06/26/2023ctive potassium chloride CR (Klor-Con) 10 MEQ ER tablet Take 10 mEq by mouth in the morning.06/26/2023ctive levothyroxine (Synthroid, Levoxyl) 50 MCG tablet Take 1 tablet by mouth in the morning.Active metoprolol tartrate (Lopressor) 25 MG tablet Take 1 tablet every day by oral route for 85 days.Active rubuwonjezdf-qtvv-nrxhuhpt-folic acid (Centrum Silver, geriatric,) tablet as directed OrallyActive Active Problems No known active problems Encounters DateTypeDepartmentCare HounIlyitnzqndt26/23/2025 9:50 AM EDTProcedure Visit [facility] [address] [place] [address] Hipolito Mendieta DPLaura Verruca plantaris (Primary Dx); Foot pain, left; Pain due to onychomycosis of toenails of both feet07/17/2025amboo flowsheet [facility] [address] [place] [address] Hipolito Mendieta DPM 07/17/2025Travelfrom Last 3 Months Family History RelationNameStatusCommentsFatherDeceasedMotherDeceased Social History Tobacco UseTypesPacks/DayYears UsedDateSmoking Tobacco: Unknown Tobacco Cessation:Counseling Given: Yes Alcohol UseStandard Drinks/WeekCommentsDefer0 (1 standard drink = 0.6 oz pure alcohol)CommentsUnknownSex and Gender InformationValueDate RecordedSex Assigned at BirthNot on fileLegal LxxJgmxlk33/01/2023 8:32 PM EDTGender Identity Not on fileSexual OrientationNot on file Last Filed Vital Signs Vital SignReadingTime TakenCommentsBlood Bpcpnjen018/8009 9:59 AM EDT Qizor4348 9:59 AM EDTTemperature--Respiratory Xeap4314 9:49 AM EDTOxygen Saturation--Inhaled Oxygen Concentration--Cahlxu71.5 kg (107 lb) 07/17/2025 9:49 AM RPGLtyicy528.6 cm (5' 6 )07/17/2025 9:49 AM EDTBody Mass Index17.271 9:49 AM EDT Plan of Treatment DateTypeDepartmentCare Team (Latest Contact Info)Zbdqehtuwdz60/15/2026 10:20 AM ESTProcedure Visit [facility] [address] [facility] [address] [place] [id number] Hipolito Mendieta DPM [address] [facility] [address] [place] [address] [place] [phone] Care Teams Team MemberRelationshipSpecialtyStart Date Krish Mccoy MD [address] [place] [address] [facility] Kpmzpufg14/7/23
--- OUTSIDE RECORDS SUMMARY | 2025-08-14 10:57 | XMS_ITS | CCD ---
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 Name Role Phone ELTAHAWY, EHAB A Attending Unavailable ELTAHAWY, EHAB A Admitting Unavailable MANUELAY, GERBER Referring Unavailable MANUELAYGERBER Primary Care Unavailable HOY ., DR MAYES Primary Care Unavailable SHANTEL GARCIA Attending Unavailable JOSE, SHANTEL Admitting Unavailable WOONSOCKET, DR FLORENTINO Mello Consulting Unavailable JOSE, SHANTEL [...] Unavailable Gerber Mccoy MD Primary Care Provider [phone] [place]y, Ehab A Attending Provider Eltahawy, Ehab A Attending Unavailable [place]awy, Ehab A Admitting Unavailable ELTAHAWY, TERRENCEAB Attending Unavailable ELTAHAWY, EHAB Attending Unavailable Gerbre Mccoy MD Primary Care Provider [phone] Gerber Mccoy MD Primary Care Provider [phone] HIPOLITO MENDIETA Attending Unavailable HIPOLITO MENDIETA Attending Unavailable HIPOLITO MENDIETA Attending Unavailable HIPOLITO MENDIETA Attending Unavailable HIPOLITO MENDIETA Attending Unavailable Allergies Allergy ClassificationReported Allergen(s)Allergy TypeDate of OnsetReaction(s) Facility (3 sources)Angiotensin Converting Enzyme (Hossein) Inhibitors; Translations: [HOSSEIN INHIBITORS]Drug allergy (disorder)60-80-5818Rcv [facility] Repository (3 sources)Sulfonamides (Antibiotic); Translations: [SULFA (SULFONAMIDE ANTIBIOTICS)]Drug allergy (disorder)41-19-4015Fcn [facility] Repository (14 sources)Angiotensin-converting enzyme inhibitor agentDrug Lxdenfj03-87-8530 [facility] (14 sources)Sulfonamides (Antibiotic)Drug Wiavlfm52-63-1859Aoerb, UnknownN[facility] Healthcare (15 sources)Verapamil; Translations: [VERAPAMIL]Drug Kdbpotu36-44-9160Qxtsnzf [facility] Healthcare Medications Current Medications MedicationDrug Class(es)DatesSig (Normalized)Sig (Original)amiodarone hydrochloride 200 mg oral tablet (14 sources)AntiarrhythmicStart: 91-50-1600prco 1 tablet by mouth in the morning amiodarone (Pacerone) 200 MG tablet Take 200 mg by mouth in the morning. 06/26/2023 Activeapixaban 2.5 mg oral tablet (14 sources)Factor Xa InhibitorStart: 89-07-2791utaj 1 tablet by mouth in the morningEliquis 2.5 MG tablet Take 2.5 mg by mouth in the morning and 2.5 mg before bedtime. 07/25/2023 Activefurosemide 20 mg oral tablet (14 sources)Loop DiureticStart: 36-12-8988rpyx 1 tablet by mouth in the morning furosemide (Lasix) 20 MG tablet Take 20 mg by mouth in the morning. 06/26/2023 Activeirbesartan 75 mg oral tablet (14 sources)Angiotensin 2 Receptor BlockerStart: 09-91-3442plhx 1 tablet by mouth in the morningirbesartan (Avapro) 75 MG tablet Take 75 mg by mouth in the morning. 06/26/2023 Activelevothyroxine sodium 0.05 mg oral tablet (14 sources)l-Thyroxinetake 1 tablet by mouth in the morninglevothyroxine (Synthroid, Levoxyl) 50 MCG tablet Take 1 tablet by mouth in the morning. Active metoprolol tartrate 25 mg oral tablet (14 sources)beta-Adrenergic Blockertake 1 tablet by mouth once dailymetoprolol tartrate (Lopressor) 25 MG tablet Take 1 tablet every day by oral route for 85 days. Alqqhwcysxnpejlxdz-uqsq-hoxeikmb-folic acid (Centrum Silver, geriatric,) tablet (14 sources)eyzlidjbvwga-usvn-bpecjube-folic acid (Centrum Silver, geriatric,) tablet as directed Orally Ejgskrqwgrncqkvgos-cnuz-pfqurlil-folic acid (Centrum Silver, geriatric,) tablet as directed Orally 0 Activepotassium chloride 10 meq extended release oral tablet (14 sources)Start: 17-47-5676rjzr 1 tablet by mouth in the morningpotassium chloride CR (Klor-Con) 10 MEQ ER tablet Take 10 mEq by mouth in the morning. 06/26/2023 Active Problems Active Problems Problem ClassificationProblemDateDocumented DateEpisodic/ChronicCardiac dysrhythmias (1 source)Unspecified atrial fibrillation; Translations: [UNSPECIFIED ATRIAL FIBRILLATION]Onset: 53-66-0636OofyvkqXoyamaa dysrhythmias (8 sources)Palpitations; Translations: [Tachycardia, unspecified]Onset: 21-08-4120CvqoitglDfeultplzb heart failure; nonhypertensive (3 sources)Unspecified diastolic (congestive) heart failure; Translations: [Acute combined systolic (congestive) and diastolic (congestive) heart failure] Onset: 14-13-5164AtlbqjzOibgycsjoa and other anemia (1 source)Anemia, unspecified; Translations: [ANEMIA UNSPECIFIED]Onset: 13-05-7336GcffczruRpzsaoss mellitus without complication (1 source)Other abnormal glucose; Translations: [OTHER ABNORMAL GLUCOSE]Onset: 88-63-5776CsbolisyKvoxqpcpzbba with complications and secondary hypertension (1 source)Hypertensive heart disease with heart failure; Translations: [HTN HEART DISEASE W/HEART FAIL]Onset: 36-20-0322PeanqstNatpvzb (7 sources)Onychomycosis; Translations: [Tinea unguium]50-55-0334Nxeywkqp Nutritional deficiencies (1 source)Vitamin D deficiency, unspecified; Translations: [VITAMIN D DEFICIENCY UNSPECIFIED]Onset: 09-54-2900YhoqhrnDtctx aftercare (1 source)long-term (current) use of anticoagulants; Translations: [GROUP HOME CURRNT USE ANTICOAGULANTS]Onset: 73-44-7372RmbanhkqLlaie aftercare (5 sources)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; Translations: [OTH GROUP HOME CURRENT DRUG THERAPY]Onset: 87-61-8514EmwzcsdaMnecs aftercare (1 source)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; Translations: [TECHNICAL PHOTOGRAPHER CURRENT USE OF ASPIRIN]Onset: 54-29-1912RaxseyhhLvluy connective tissue disease (4 sources)Pain in left foot; Translations: [Pain in left foot]11-08-2023 EpisodicOther connective tissue disease (2 sources)Pain of toes of bilateral feet; Translations: [Pain in right toe(s)] 01-69-3091CgppxuodNwvi-; endo-; and myocarditis; cardiomyopathy (except that caused by tuberculosis or sexually transmitted disease) (1 source)Cardiomyopathy, unspecified; Translations: [CARDIOMYOPATHY UNSPECIFIED]Onset: 38-39-6559VcgeflxSvevedw disorders (1 source)Hypothyroidism, unspecified; Translations: [HYPOTHYROIDISM UNSPECIFIED]Onset: 14-74-5679TkaoiqhDgxkzxenrhmr (2 sources)CONTACT W/AND (SUSP) EXPOS COVID-19; Translations: [CONTACT W/AND (SUSP) EXPOS COVID-19]Onset: 81-90-8473Obpevbckizxf (1 source)COUGH, UNSPECIFIED; Translations: [COUGH, UNSPECIFIED]Onset: 00-48-0575Yngkuhf tract infections (2 sources)Urinary tract infection, site not specified; Translations: [Urinary tract infection, site not specified]Onset: 54-97-4971QyczxrvzSccxr infection (4 sources)Verruca plantaris; Translations: [Plantar wart]68-05-5190Rdynhkze Viral infection (1 source)COVID-19; Translations: [COVID-19]Onset: 09-30-2022 Past or Other Problems Problem ClassificationProblemDateDocumented DateEpisodic/ChronicOther upper respiratory disease (1 source)Nasal congestion; Translations: [NASAL CONGESTION]Onset: 09-30-2022 EpisodicUnclassified (1 source)CONTACT W/AND (SUSP) EXPOS COVID-19; Translations: [CONTACT W/AND (SUSP) EXPOS COVID-19]Onset: 09-27-2022 Results Test NameValueInterpretationReference QcdknMcrrdtvu80lx 02-09-024040Jglncelym lab results from 01/28/2025: EhMD Alejandra Lozano MA Please reassure her that her urine does not appear to have any infection. Her labs really would not explain her excessive fatigue. Would recommend following up with Dr. Mccoy as mentioned. Thank you. Patient informed. She verbalized understanding.[facility] 82-70-4246Oifpil-up [id number] Lucille Escobedo 1940 Date Provider Department Center 01/28/2025 KAYA STEELE Family History Problem Relation Age of Onset Diabetes Mother Hypertension Mother Hypertension Father Diabetes Sister Heart attack Maternal Grandmother Family Status - Relation Status Age at Mother Father Sister Maternal Grandmother Level of Service:20[address] [place] OFFICE/OUTPATIENT ESTABLISHED MOD [facility] HospitalUrine Cultureon 82-21-6043Fthkbwtn identified Cx Nom (U)No Growth 2 Days PERFORMED BY: [place] [address] PATHOLOGIST SUPERINTENDENT STATIONS NINA CM M.D.[facility] Physician GroupComment on above: Performed By: #### CUU #### [facility] [address] [place], [place] [address]on [id number] lab results from 08/14/2024: MD Alejandra Hansen MA S.cr was 1.24, now 1.22 - continue medical rx Thanks LM on VM.[facility] 08-07-2024 Follow-up [id number] Lucille Escobedo 1940 F Date Provider Department Center 08/07/2024 KAYA STEELE Family History Problem Relation Age of Onset Diabetes Mother Hypertension Mother Hypertension Father Diabetes Sister Heart attack Maternal Grandmother Family Status - Relation Status Age at Mother Father Sister Maternal Grandmother Level of Service:[address] [place] OFFICE/OUTPATIENT ESTABLISHED MOD [facility] 30 [facility]36on 95-17-076369Jfsjialgi labs from 06/28/2024: MD Alejandra Hansen MA Her free T4 is high; she needs to discuss with whoever is managing her thyroid medications Thanks Labs faxed to Dr. Mccoy's office on . I called his office just now to confirm they received results.NormalUnParkview HealthBNPon 01-26-2023 Natriuretic peptide B (Bld) [Mass/Vol]1751.0 pg/mLNormal<=1,800.0The [facility] CenterComment on above:Performed By: #### LIVER, TSH #### [facility] [address] [place] [address] Dr. Tierney MartínezC AUTO DIFFon 57-15-7742UXGN #0.0 103/ulNormal0.0-0.1The [facility] CenterComment on above:Performed By: #### CBC #### [facility] [address] [place] [address] Dr. Tierney RiveraBasophils/100 WBC (Bld)0.3 %Normal0.2-2.0The [facility] Comment on above:Performed By: #### CBC #### [facility] [address] [address] [address] Tierney Bishop #0.1 103/ulNormal0.0-0.7The [facility] CenterComment on above: Performed By: #### CBC #### [facility] [address] [place] [address] Dr. Tierney Fairosinophils/100 WBC (Bld)2.3 %Normal0.9-7.0The [facility] Comment on above:Performed By: #### CBC #### [facility] [address] [place] [address] Dr. Tierney Fairrythrocyte distribution width (RBC) [Ratio]13.1 %Mwfbfi11.0-15.0 The [facility] CenterComment on above:Performed By: #### CBC #### [facility] [address] [place] [address] Dr. Tierney RiveraHematocrit (Bld) [Volume fraction]43.5 %Amavev03.0-48.0The [facility] CenterComment on above:Performed By: #### CBC #### [facility] [address] [address] [address] Tierney RiveraHemoglobin (Bld) [Mass/Vol]13.9 g/mOJgrcnr75.0-16.0The [facility] on above:Performed By: #### CBC #### [facility] [address] [address] [address] Tierney Almodovar #0.02 10e3/ulNormal0.00-0.03The [facility] CenterComcorewell health [facility] on above:Performed By: #### CBC #### [facility] [address] [place] [address] Dr. Tierney Almodovar %0.3 %Normal0.0-0.5The [facility] CenterComcorewell health [facility] on above: Performed By: #### CBC #### [facility] [address] [place] [address] Dr. Tierney Mcdaniel #1.2 103/ulNormal1.2-3.8The [facility] on above:Performed By: #### CBC #### [facility] [address] [address] [address] Tierney Rachelhocytes/100 WBC (Bld)20.6 %Vgbpxt88.5-60.0The [facility] on above:Performed By: #### CBC #### [facility] [address] [address] [address] Tierney ReyesUAL DIFF REQNONormalThe [facility] Medical CenterComment on above: Performed By: #### CBC #### [facility] [address] [place] [address] Dr. Tierney Yeh (RBC) [Entitic mass]29.4 otPbwvxw29.7-34.0The [facility] on above:Performed By: #### CBC #### [facility] [address] [place] [address] Dr. Tierney Yeh (RBC) [Mass/Vol]32.0 g/eROlgumb78.9-35.2The [facility] HospitalComment on above:Performed By: #### CBC #### [facility] [address] [address] [address] Tierney Marques (RBC) [Entitic vol]92.2 cJZhdvua42.0-99.0The [facility] CenterComment on above:Performed By: #### CBC #### [facility] [address] [address] [address] Tierney Polanco #0.6 103/ulNormal0.3-0.8The [facility] CenterComment on above:Performed By: #### CBC #### [facility] [address] [place] [address] Dr. Tierney Garcíaocytes/100 WBC (Bld)10.2 %Normal1.7-12.0The [facility] on above:Performed By: #### CBC #### [facility] [address] [place] [address] Dr. Tierney Arriola #3.8 103/ulNormal1.4-6.5The [facility] CenterComment on above:Performed By: #### CBC #### [facility] [address] [place] [address] Dr. Tierney Morenoutrophils/100 WBC (Bld)66.3 %Uxehtp95.0-75.0The [facility] Hospitalment on above:Performed By: #### CBC #### [facility] [address] [place] [address] Dr. Tierney Bassettlet mean volume (Bld) [Entitic vol]11.2 fLNormal9.5-13.5The [facility] CenterComment on above:Performed By: #### CBC #### [facility] [address] [place] [address] Dr. Tierney RiveraPLT253 103/usAbkyhw630-493Mgr [facility] CenterComment on above: Performed By: #### CBC #### [facility] [address] [place] [address] Dr. Tierney RiveraRBC4.72 106/ulNormal4.20-5.40The [facility] on above:Performed By: #### CBC #### [facility] [address] [place] [address] Dr. Tierney RiveraWBC5.8 103/ulNormal4.0-11.0The [facility] on above: Performed By: #### CBC #### [facility] [address] [place] [address] Dr. Tierney Carrasquillo THYROXINE INDEX T7on 22-14-3374GBY6.18Critically high 1.30-4.50The [facility] on above:Performed By: #### LIVER, TSH #### [facility] [address] [place] [address] Dr. Tierney RiveraT3U36.0 %Lzpefh14.0-39.0The [facility] on above: Performed By: #### LIVER, TSH #### [facility] [address] [place] [address] Dr. Tierney RiveraT4 [Mass/Vol]14.40 ug/dLCritically high4.80-13.90The [facility] on above:Performed By: #### LIVER, TSH #### [facility] [address] [place] [address] Dr. Tierney RiveraGLYCOHEMOGLOBIN A1Con 47-02-9258CKY RECOMMENDATIONSEE BELOWNormal The [facility] CenterComcorewell health bl[facility] on above:Result Comment: ADA RECOMMENDED LIMIT 4.0 - 6.0 ADA THERAPEUTIC TARGET < 7.0 ACTION SUGGESTED > 7.0Performed By: #### LIVER, TSH #### [facility] [address] [place] [address] Dr. Tierney RiveraGlucose [Mass/Vol]117 mg/dLNormalThUC Health on above:Performed By: #### LIVER, TSH #### [facility] [address] [place] [address] Dr. Tierney RiveraHbA1c (Bld) [Mass fraction]5.7 %Normal4.5-6.2The [facility] on above:Performed By: #### LIVER, TSH #### [facility] [address] [place] [address] Dr. Tierney Hendrix 56-82-2350Wnaf [Mass/Vol]67.0 ug/aZEhdqqh92.0-170.0The [facility] CenterComment on above:Performed By: #### VITAD, IRON #### [facility] [address] [place] [address] Dr. Tierney RiveraPROF 14(COMP METB)on 74-26-7737Flkgbbk [Mass/Vol]4.0 g/dLNormal 3.4-5.0The [facility] CenterComment on above:Performed By: #### LIVER, TSH #### [facility] [address] [place] [address] Dr. Tierney RvieraAlbumin/Globulin [Mass ratio]1.1 {ratio}NormalThe [facility] Medical CenterComment on above:Performed By: #### LIVER, TSH #### [facility] [address] [place] [address] Dr. Tierney Andujar [Catalytic activity/Vol]98 U/ZSquceb55-916Whn [facility] CenterComment on above:Performed By: #### LIVER, TSH #### [facility] [address] [place] [address] Dr. Tierney Jack [Catalytic activity/Vol]29 U/EHytgwe72-73Pmz [facility] CenterComment on above:Performed By: #### LIVER, TSH #### [facility] [address] [place] [address] Dr. Tierney Mccormack gap [Moles/Vol]11.7 mmol/LNormalThe [facility] on above:Performed By: #### LIVER, TSH #### [facility] [address] [place] [address] Dr. Tierney Lopez [Catalytic activity/Vol]22 U/SVdzelw23-73Jzt [facility] CenterComment on above:Performed By: #### LIVER, TSH #### [facility] [address] [place] [address] Dr. Tierney RiveraBilirubin [Mass/Vol]0.4 mg/dLNormal0.2-1.0[facility] Comment on above:Performed By: #### LIVER, TSH #### [facility] [address] [place] [address] Dr. Tierney RiveraCalcium [Mass/Vol]10.1 mg/dLNormal8.5-10.1[facility] Comment on above:Performed By: #### LIVER, TSH #### [facility] [address] [place] [address] Dr. Tierney RiveraChloride [Moles/Vol]103 mmol/IZapqqn95-889Gbp [facility] Comment on above:Performed By: #### LIVER, TSH #### [facility] [address] [place] [address] Dr. Tierney RiveraCO2 [Moles/Vol]30.5 mmol/WWuncjz39.0-32.0[facility] Comment on above:Performed By: #### LIVER, TSH #### [facility] [address] [place] [address] Dr. Tierney RiveraCreatinine [Mass/Vol]1.15 mg/dLCritically high0.55-1.02[facility] HospitalComment on above:Performed By: #### LIVER, TSH #### [facility] [address] [place] [address] Dr. Tierney FairGFR-AF EAAVGFFN50 mL/min/1.19i6Pvbvfskytv low>=60The [facility] CenterComment on above:Performed By: #### LIVER, TSH #### [facility] [address] [place] [address] Dr. Tierney FairGFR-NON AF XWLCPWSX10 mL/min/1.40x0Ondfiwembq low>=60The [facility] CenterComment on above:Performed By: #### LIVER, TSH #### [facility] [address] [place] [address] Dr. Tierney RiveraGlobulin (S) [Mass/Vol]3.8 g/dLNormalThe [facility] CenterComment on above:Performed By: #### LIVER, TSH #### [facility] [address] [place] [address] Dr. Tierney RiveraGlucose [Mass/Vol]97 mg/rSHqmfvl07-221GsiMercy Health [facility] Hospital Comment on above:Performed By: #### LIVER, TSH #### [facility] [address] [place] [address] Dr. Tierney RiveraPotassium [Moles/Vol]4.2 mmol/LNormal3.5-5.1The [facility] Comment on above:Performed By: #### LIVER, TSH #### [facility] [address] [place] [address] Dr. Tierney RiveraProtein [Mass/Vol]7.8 g/dLNormal6.4-8.2The [facility] Comment on above:Performed By: #### LIVER, TSH #### [facility] [address] [place] [address] Dr. Tierney RiveraSodium [Moles/Vol]141 mmol/ZGjlena409-713Crv [facility] Comment on above:Performed By: #### LIVER, TSH #### [facility] [address] [place] [address] Dr. Tierney RiveraUrea nitrogen [Mass/Vol]18.0 mg/dLNormal7.0-18.0The [facility] CenterComment on above:Performed By: #### LIVER, TSH #### [facility] [address] [place] [address] Dr. Tierney Lima nitrogen/Creatinine [Mass ratio]15.7 mg/mgNormalThe [facility] CenterComment on above:Performed By: #### LIVER, TSH #### [facility] [address] [place] [address] Dr. Tierney RiveraTSHomikaela 35-83-4450USL3.066 uIU/mLNormal0.358-3.740The [facility] CenterComment on above:Performed By: #### LIVER, TSH #### [facility] [address] [place] [address] Dr. Tierney RiveraVITAMIN D 25 OHon 50-43-3044JFW D 25-OH45.0 ng/mLNormalThe [facility] CenterComment on above:Performed By: #### VITAD, IRON #### [facility] [address] [place] [address] Dr. Tierney TYLER [facility] HospitalComment on above: Result Comment: <20 ng/mL Vit D deficient 20 - <30 ng/mL Vit D insufficient 30 - 100 ng/mL Vit D sufficient >100 ng/mL Potential ToxicityPerformed By: #### VITAD, IRON #### [facility] [address] [place] [address] Dr. Tierney Simmons 08-06-4545Oobmizuwggi peptide B (Bld) [Mass/Vol]868.0 pg/mL Normal<=1,800.0The [facility] CenterComment on above:Performed By: #### HSTROPN, BNP, CMP #### [facility] [address] [place] [address] Dr. Tierney Lee AUTO DIFFon 70-21-0367DLVF #0.0 103/ulNormal0.0-0.1The [facility] CenterComment on above:Performed By: #### LIVER, TSH #### [facility] [address] [place] [address] Dr. Tierney Waltonsophils/100 WBC (Bld)0.3 %Normal0.2-2.0[facility] Comment on above:Performed By: #### LIVER, TSH #### [facility] [address] [place] [address] Dr. Tierney Bishop #0.1 103/ulNormal0.0-0.7The [facility] CenterComment on above: Performed By: #### LIVER, TSH #### [facility] [address] [place] [address] Dr. Tierney Fairosinophils/100 WBC (Bld)1.7 %Normal0.9-7.0The [facility] Comment on above:Performed By: #### LIVER, TSH #### [facility] [address] [place] [address] Dr. Tiernye Fairrythrocyte distribution width (RBC) [Ratio]13.2 %Vywwai64.0-15.0 The [facility] CenterComment on above:Performed By: #### LIVER, TSH #### [facility] [address] [place] [address] Dr. Tierney RiveraHematocrit (Bld) [Volume fraction]45.1 %Aworkp97.0-48.0The [facility] CenterComment on above:Performed By: #### LIVER, TSH #### [facility] [address] [place] [address] Dr. Tierney RiveraHemoglobin (Bld) [Mass/Vol]15.1 g/yHRlnxmt02.0-16.0The [facility] CenterComment on above:Performed By: #### LIVER, TSH #### [facility] [address] [place] [address] Dr. Tierney Almodovar #0.01 10e3/ulNormal0.00-0.03The [facility] CenterComcorewell [facility] on above:Performed By: #### LIVER, TSH #### [facility] [address] [place] [address] Dr. Tierney Almodovar %0.2 %Normal0.0-0.5The [facility] CenterComment on above: Performed By: #### LIVER, TSH #### [facility] [address] [place] [address] Dr. Tierney Mcdaniel #2.2 103/ulNormal1.2-3.8The [facility] CenterComment on above:Performed By: #### LIVER, TSH #### [facility] [address] [place] [address] Dr. Tierney Rachelhocytes/100 WBC (Bld)32.5 %Iptrlz22.5-60.0The [facility] CenterComment on above:Performed By: #### LIVER, TSH #### [facility] [address] [place] [address] Dr. Tierney ReyesUAL DIFF REQNONormalThe [facility] CenterComment on above: Performed By: #### LIVER, TSH #### [facility] [address] [place] [address] Dr. Tierney Cedeno (RBC) [Entitic mass]30.0 zmPaktzb36.7-34.0The [facility] CenterComment on above:Performed By: #### LIVER, TSH #### [facility] [address] [place] [address] Dr. Tierney Yeh (RBC) [Mass/Vol]33.5 g/bPOsbadx08.9-35.2The [facility] CenterComment on above:Performed By: #### LIVER, TSH #### [facility] [address] [place] [address] Dr. Tierney Yeh (RBC) [Entitic vol]89.7 yGGgfuxj31.0-99.0The [facility] CenterComment on above:Performed By: #### LIVER, TSH #### [facility] [address] [place] [address] Dr. Tierney Polanco #0.8 103/ulNormal0.3-0.8The [facility] CenterComment on above:Performed By: #### LIVER, TSH #### [facility] [address] [place] [address] Dr. Tierney Garcíaocytes/100 WBC (Bld)12.6 %Critically high1.7-12.0The [facility] CenterComment on above:Performed By: #### LIVER, TSH #### [facility] [address] [place] [address] Dr. Tierney Arriola #3.5 103/ulNormal1.4-6.5The [facility] CenterComment on above:Performed By: #### LIVER, TSH #### [facility] [address] [place] [address] Dr. Tierney Morenoutrophils/100 WBC (Bld)52.7 %Rsvzpu07.0-75.0The [facility] CenterComment on above:Performed By: #### LIVER, TSH #### [facility] [address] [place] [address] Dr. Tierney Mendez mean volume (Bld) [Entitic vol]11.0 fLNormal9.5-13.5The Uc Medical CenterComment on above:Performed By: #### LIVER, TSH #### [facility] [address] [place] [address] Dr. Tierney RiveraPLT266 103/wvEmxgie640-899Hzx [facility] Medical CenterComment on above: Performed By: #### LIVER, TSH #### [facility] [address] [place] [address] Dr. Tierney RiveraRBC5.03 106/ulNormal4.20-5.40The Cassel HospitalComment on above:Performed By: #### LIVER, TSH #### [facility] [address] [place] [address] Dr. Tierney RiveraWBC6.6 103/ulNormal4.0-11.0The [facility] Medical CenterComment on above: Performed By: #### LIVER, TSH #### [facility] [address] [place] [address] Dr. Tierney Chaudhry BLOODon 60-55-0749Wekxjojyxhh examination of blood, cultureCulture Observations: NO GROWTH AT 5 DAYS.NormalThe [facility] Medical CenterComment on above:Performed By: #### LIVER, TSH #### [facility] [address] [place] [address] Dr. Tierney RiveraMicroscopic examination of blood, cultureCulture Observations: NO GROWTH AT 5 DAYS.NormalMercy Health Clermont HospitalComment on above:Performed By: #### LIVER, TSH #### [facility] [address] [place] [address] Dr. Tierney Owusu URINE PROFILEon 78-61-1012Fnfxhzunr Ql (U)NegativeNormal NEGATIVEThe [facility] Medical CenterComment on above:Performed By: #### LIVER, TSH #### [facility] [address] [place] [address] Dr. Tierney Moroe (U)CLEARNormalCLEARThe [facility] CenterComment on above: Performed By: #### LIVER, TSH #### [facility] [address] [place] [address] Dr. Tierney Suarez (U)LT. YELLOWNormalYELLOWThe [facility] Medical CenterComment on above:Performed By: #### LIVER, TSH #### [facility] [address] [address] [address] Tierney Kitchen micrscopic examination will be performed if indicated. NormalThe [facility] Medical CenterComment on above:Performed By: #### LIVER, TSH #### [facility] [address] [address] [address] Tierney RiveraGlucose Ql (U)NegativeNormalNEGATIVEMercy Health Clermont HospitalComment on above:Performed By: #### LIVER, TSH #### [facility] [address] [address] [address] Tierney RiveraHemoglobin Ql (U)NegativeNormalNEGATIVEKettering Health [facility] on above:Performed By: #### LIVER, TSH #### [facility] [address] [place] [address] Dr. Tierney RiveraKetones Ql (U)NegativeNormalNEGATIVEMercy Health Clermont HospitalComment on above:Performed By: #### LIVER, TSH #### [facility] [address] [place] [address] Dr. Tierney RiveraLEUKOCYTESNegativeNormalNEGATIVEMercy Health Clermont HospitalComment on above:Performed By: #### LIVER, TSH #### [facility] [address] [place] [address] Dr. Tierney RiveraNitrite Ql (U)NegativeNormalNEGATIVEMercy Health Clermont HospitalComment on above:Performed By: #### LIVER, TSH #### [facility] [address] [place] [address] Dr. Tierney RiverapH (U)7.5 [pH]Normal5-9WVUMedicine Harrison Community Hospitalment on above: Performed By: #### LIVER, TSH #### [facility] [address] [place] [address] Dr. Tierney RiveraSPEC GRAVITY1.395Aecbuy2.005-<=1.025WVUMedicine Harrison Community Hospitalment on above:Performed By: #### LIVER, TSH #### [facility] [address] [place] [address] Dr. Tierney Linares PROTEINNegativeNormalNEGATIVE/ TRACEThe [facility] Comment on above:Performed By: #### LIVER, TSH #### [facility] [address] [place] [address] Dr. Tierney Mckenzie MICRO INDNOT INDICATEDNormalThe [facility] CenterComment on above:Performed By: #### LIVER, TSH #### [facility] [address] [place] [address] Dr. Tierney RiveraUrobilinogen Qn (U)0.2 {Radu'U}/dLNormal0.2 - 1.0The [facility] Medical CenterComment on above:Performed By: #### LIVER, TSH #### [facility] [address] [place] [address] Dr. Tierney RiveraLACTATE/LACTIC ACIDon 97-43-3030Iietvmq [Moles/Vol]1.5 mmol/L Normal0.4-2.0The [facility] Medical CenterComment on above:Performed By: #### LACT #### [facility] [address] [place] [address] Dr. Tierney RiveraPROF 14(COMP METB)on 69-89-6780Ilguphf [Mass/Vol]4.3 g/dLNormal 3.4-5.0The [facility] CenterComment on above:Performed By: #### LIVER, TSH #### [facility] [address] [place] [address] Dr. Tierney RiveraAlbumin/Globulin [Mass ratio]1.2 {ratio}NormalThe [facility] Medical CenterComment on above:Performed By: #### LIVER, TSH #### [facility] [address] [place] [address] Dr. Tierney CastilloP [Catalytic activity/Vol]111 U/ZRsktgt98-759Izc [facility] CenterComment on above:Performed By: #### LIVER, TSH #### [facility] [address] [place] [address] Dr. Tierney CastilloT [Catalytic activity/Vol]23 U/NFmzuhq79-04Qif [facility] CenterComment on above:Performed By: #### LIVER, TSH #### [facility] [address] [address] [address] Tierney RiveraAnion gap [Moles/Vol]11.8 mmol/LNormalThe [facility] Comment on above:Performed By: #### LIVER, TSH #### [facility] [address] [address] [address] Tierney RiveraAST [Catalytic activity/Vol]22 U/WYfhfiu49-57Ijr [facility] CenterComment on above:Performed By: #### LIVER, TSH #### [facility] [address] [address] [address] Tierney RiveraBilirubin [Mass/Vol]0.4 mg/dLNormal0.2-1.0[facility] Comment on above:Performed By: #### LIVER, TSH #### [facility] [address] [address] [address] Tierney RiveraCalcium [Mass/Vol]10.6 mg/dLCritically high8.5-10.1The [facility] CenterComment on above:Performed By: #### LIVER, TSH #### [facility] [address] [address] [address] Tierney RiveraChloride [Moles/Vol]103 mmol/HTtfkqz51-786Lyc [facility] Comment on above:Performed By: #### LIVER, TSH #### [facility] [address] [address] [address] Tierney RiveraCO2 [Moles/Vol]29.2 mmol/REhvlwk94.0-32.0The [facility] Comment on above:Performed By: #### LIVER, TSH #### [facility] [address] [address] [address] Tierney RiveraCreatinine [Mass/Vol]1.13 mg/dLCritically high0.55-1.02The [facility] CenterComment on above:Performed By: #### LIVER, TSH #### [facility] [address] [address] [address] Monet ChangEGFR-AF ZGXQNXVR46 mL/min/1.34g7Kbyokolmqs low>=60The Elio HospitalComment on above:Performed By: #### LIVER, TSH #### [facility] [address] [address] [address] Tierney FairGFR-NON AF QKPHJUZN99 mL/min/1.52h3Imxpstears low>=60The [facility] CenterComment on above:Performed By: #### LIVER, TSH #### [facility] [address] [address] [address] Tierney RiveraGlobulin (S) [Mass/Vol]3.7 g/dLNormalThe [facility] CenterComment on above:Performed By: #### LIVER, TSH #### [facility] [address] [address] [address] Tierney RiveraGlucose [Mass/Vol]109 mg/dLCritically hnxt89-779Ksk [facility] CenterComment on above:Performed By: #### LIVER, TSH #### [facility] [address] [address] [address] Tierney RiveraPotassium [Moles/Vol]4.0 mmol/LNormal3.5-5.1The [facility] Comment on above:Performed By: #### LIVER, TSH #### [facility] [address] [address] [address] Tierney RiveraProtein [Mass/Vol]8.0 g/dLNormal6.4-8.2[facility] Comment on above:Performed By: #### LIVER, TSH #### [facility] [address] [address] [address] Tierney RiveraSodium [Moles/Vol]140 mmol/EAyydpf001-416YzmMercy Health Clermont Hospital Comment on above:Performed By: #### LIVER, TSH #### [facility] [address] [address] [address] Tierney RiveraUrea nitrogen [Mass/Vol]17.0 mg/dLNormal7.0-18.0The [facility] CenterComment on above:Performed By: #### LIVER, TSH #### [facility] [address] [address] [address] Tierney RiveraUrea nitrogen/Creatinine [Mass ratio]15.0 mg/mgNoWexner Medical CenterComment on above:Performed By: #### LIVER, TSH #### [facility] [address] [place] [address] Dr. Tierney Esquivel, HIGH SENSITIVITYon 98-80-7484FJNFTA73.6 pg/mLNormal 4.0-51.3The [facility] Medical CenterComment on above:Result Comment: CUT-OFF POINTS HAVE BEEN ESTABLISHED BASED ON THE FOURTH UNIVERSAL DEFINITIONS OF MYOCARDIAL INFARCTION. THE UPPER REFERENCE LIMIT (URL) OF TROPONIN, DEFINED THE 99TH PERCENTILE OF cTnI DISTRIBUTION IN A REFERENCE POPULATION, HAS BEEN CONFIRMED THE DECISION THRESHOLD FOR NC DIAGNOSIS.Performed By: #### HSTROPN, BNP, CMP #### [facility] [address] [place] [address] Dr. Tierney RiveraXR CHEST 1 Von 07-76-9938YG CHEST 1 VCHEST X-RAY HISTORY: Chest pain COMPARISON: 05/23/2021 chest [...] Electronically authenticated by: CONSTANCE LAI Date: 2023-01-15 00:29NoWexner Medical CenterFREE T4on 50-17-7135Xont T4 [Mass/Vol]1.49 ng/dLCritically high 0.76-1.46The [facility] Medical CenterComment on above:Performed By: #### LIVER, TSH #### [facility] [address] [place] [address] Dr. Tierney RiveraLILISA PROFILEon 85-00-8159Tabkdcu [Mass/Vol]3.7 g/dLNormal3.4-5.0 The [facility] CenterComcorewell health blodgett hospital on above:Performed By: #### LIVER, TSH #### [facility] [address] [place] [address] Dr. Tierney RiveraAlbumin/Globulin [Mass ratio]1.1 {ratio}NormalThe [facility] Medical CenterComment on above:Performed By: #### LIVER, TSH #### [facility] [address] [place] [address] Dr. Tierney Andujar [Catalytic activity/Vol]104 U/GJottir44-695Whj [facility] CenterComment on above:Performed By: #### LIVER, TSH #### [facility] [address] [place] [address] Dr. Tierney Jakc [Catalytic activity/Vol]27 U/JDpcoll50-27Kcd [facility] CenterComment on above:Performed By: #### LIVER, TSH #### [facility] [address] [place] [address] Dr. Tierney Lopez [Catalytic activity/Vol]23 U/DLedrzo62-19Lub [facility] CenterComcorewell health blodgett hospital on above:Performed By: #### LIVER, TSH #### [facility] [address] [place] [address] Dr. Tierney BurnettI, CONJUGATED0.1 mg/dLNormal0.0-0.2The [facility] Comment on above:Performed By: #### LIVER, TSH #### [facility] [address] [place] [address] Dr. Tierney Burnettirubin [Mass/Vol]0.4 mg/dLNormal0.2-1.0The [facility] Comment on above:Performed By: #### LIVER, TSH #### [facility] [address] [place] [address] Dr. Tierney RiveraGlobulin (S) [Mass/Vol]3.5 g/dLNormalThe [facility] CenterComment on above:Performed By: #### LIVER, TSH #### [facility] [address] [place] [address] Dr. Tierney RiveraProtein [Mass/Vol]7.2 g/dLNormal6.4-8.2The [facility] Comment on above:Performed By: #### LIVER, TSH #### [facility] [address] [place] [address] Dr. Tierney Maldonado 05-86-3962PTO7.020 uIU/mLNormal0.358-3.740The [facility] Hospitalment on above:Performed By: #### LIVER, TSH #### [facility] [address] [place] [address] Dr. Tierney RiveraXR CHEST 2 Von 07-42-7887CJ CHEST 2 VEXAMINATION: XR CHEST 2 V HISTORY: Long-term current use of [...] Electronically authenticated by: FLORENTINO MAURO Date: 2022-10-17 09:46[facility] HospitalCovid-19 PCR (CVDTBH)on 51-67-5962NQCD-CoV-2 (COVID-19) RNA SEDRICK+probe Ql (Unsp spec)DetectedCritically abnormalNOT DETECTEDThe [facility] Medical CenterComment on above:Result Comment: This test is not yet approved or cleared by the [place] FDA. When there are no FDA-approved or cleared tests available, and other criteria are met, FDA can make tests available under an emergency access mechanism called an Emergency Use Authorization (EUA). The EUA for this test is supported by the [employer]ia [employer] Operator of Health and Human Service's (HHS's) [...] no longer be used). Performed By: #### CVDTBH #### [facility] [address] [place] [address] Dr. Tierney Norris AND Chante AGon 14-62-2980EJOPZHCFOUZQP [facility] HospitalComment on above:Result Comment: Negative for Flu A protein angiten. Infection due to Flu A cannot be ruled out. FluA angiten in the sample may be below the detection limit of the test.Performed By: #### INFLUAB #### [facility] [address] [address] [address] Tierney NguyễnNEGHSSUSANA [facility]itan HospitalComment on above: Result Comment: Negative for Flu B protein antigen. Infection due to Flu B cannot be ruled out. FluB antigen in the sample may be below the detection limit of the test.Performed By: #### INFLUAB #### [facility] [address] [address] [address] Tierney Norris AGNegativeNormalNEGATIVE SEE COMMENTThe [facility] on above:Performed By: #### INFLUAB #### [facility] [address] [address] [address] Tierney Sharif AGNegativeNormalNEGATIVE SEE COMMENTThe [facility] on above:Performed By: #### INFLUAB #### [facility] [address] [place] [address] Dr. Tierney RiveraCardiovascular Lab Reporton [id number] Lab Report [facility] Patient Name: Gregg [facility] MR #: [id number] Department of Physician: Cecilia Hansen M.D. Division of Service Date: 06/10/2021 Cardiology Birthdate: 1940 Adult Cardiovascular Room #: [address] [address] Cardiovascular Laboratory Report FINAL IMPRESSION: 1. Angiographically [...] Follow up with Dr. Olvera in the [facility]. 8. Follow up with Dr. Mccoy as scheduled. PROCEDURES: Ultrasound-guided access of the right common femoral vein, ultrasound-guided access of right common femoral artery, limited femoral angiography, right heart catheterization, bilateral selective coronary angiography, placement of a 5-Cuban MynxGrip closure device. METHODS: After risks, benefits, and alternatives were explained, written informed consent was obtained. The patient was prepped and draped in usual sterile fashion over both groins. Using 1% lidocaine solution, local infiltration anesthesia was achieved. Using modified Seldinger technique, a micropuncture kit and under ultrasound guidance access to the right common femoral vein was obtained. A 6-Cuban 11 cm sheath was inserted without difficulty. This was repeated over the artery; a 5-Cuban 11 cm sheath was inserted. A Mcdonald catheter was used for right heart catheterization. Pressures were measured in the right atrium, right ventricle, pulmonary artery, and pulmonary capillary wedge positions. Oxygen saturations were obtained and cardiac output/cardiac index was calculated using modified Gisele principle. The Mcdonald catheter was removed. Bilateral selective coronary angiography was performed using 5-Cuban JL4 and JR4 catheters. After reviewing the images, it was elected to conclude the procedure. All catheters were removed. A 5-Cuban MynxGrip closure device was deployed per protocol [...] P/Kaya Olvera M.D (more content not included)... NormalThe [facility] Vital Signs Date TimeVital SignValuePerforming AwowcdwakJngvifpw09-57-5762 09:49-0400Body zuysvz858.6 cmHipolito Mendieta DPM Work Phone: [facility] SystemsMer[facility] Hospital South, formerly [facility] Medical CenterTbpukoxaql43-23-6981 09:49-0400Body mass index (BMI) [Ratio]17.27 kg/a8EshnrwrdHipolito Mendieta DPM Work Phone: [facility] SystemsMer[facility] Hospital South, formerly St[facility] Medical CenterElonnqmjfv38-02-2023 09:49-0400Body fobzoc48.53 kgHipolito Mendieta DPM Work Phone: [phone]10-23-2025 09:49-0400Respiratory rate18 /minNicholas Brown DPM Work Phone: [phone] [place], [place] [address]Mobjxxaeoc19-38-3606 09:29-0400Body npknyb230.6 cmNicholas Brown DPM Work Phone: [phone])[facility] [place], [place] [address]Rzadcitjhy78-37-0139 09:29-0400Body mass index (BMI) [Ratio]17.27 kg/o0Thigewbz Brown DPM Work Phone: [phone])[address] [place], [place] 1532307-24-2025 09:29-0400Body htbgul57.53 kgNicholas Brown DPM Work Phone: [phone])[address] [place], [place] 1532307-24-2025 09:29-0400Respiratory rate16 /minNicholas Brown DPM Work Phone: [phone] [place], [place] 1532305-15-2025 09:32-0400Body xirfyo984.6 cmNicholas Brown DPM Work Phone: [phone] [place], [place] 1532305-15-2025 09:32-0400Body mass index (BMI) [Ratio]17.27 kg/l3Jgmpmqjw Brown DPM Work Phone: [phone])[address] [place], [place] 15[address]305-15-2025 09:32-0400Body .53 kgNicholas Brown DPM Work Phone: [phone] [place], [place] 15[address]305-15-2025 09:32-0400Respiratory rate18 /minNicholas Brown DPM Work Phone: [phone])[address] [place], [place] 1532302-27-2025 09:40-0500Body .6 cmNicholas Brown DPM Work Phone: [phone] [place], [place] 15[address]302-27-2025 09:40-0500Body mass index (BMI) [Ratio]17.27 kg/e0Kodsrbrl Brown DPM Work Phone: 1(816)[facility] [place], [place] [address]Tschlmkceb91-88-8536 09:40-0500Body rtixqd65.53 kgNicholas Brown DPM Work Phone: [phone])[address] [place], [place] 15[address]302-27-2025 09:40-0500Respiratory rate18 /minJennyrosalia Mendieta DPM Work Phone: [facility] CareSdjjrtsdqq07-16-6791 10:08-0500Body lifoep374.6 cmHipolito Mendieta DPM Work Phone: [facility] CareUkwtjrclfj88-16-7904 10:08-0500Body mass index (BMI) [Ratio]17.27 kg/k5Plrwywvb Brown DPM Work Phone: [phone] [place], [place] [address]Ebyxrebzhr06-07-4657 10:08-0500Body hzxcee46.53 kgRobertbrandon Mendieta DPM Work Phone: [phone] [place], [place] [address]Wiwlyhasse87-02-4881 10:08-0500Respiratory rate16 /minRobertbrandon Mendieta DPM Work Phone: [phone] [place], [place] [address]Lkedrjpocj81-57-8274 09:59-0400Body cbepzc431.6 cmRobertbrandon Mendieta DPM Work Phone: [phone] [place], [place] [address]Mgtnjcuvxt55-90-5932 09:59-0400Body mass index (BMI) [Ratio]17.27 kg/x1KxlaseilHipolito Mendieta DPM Work Phone: [phone] [place], [place] [address]Nxsncncjfe85-76-3098 09:59-0400Body andutw21.53 kgHipolito Mendieta DPM Work Phone: [facility] Health CareFeonrzcbvv71-28-3566 09:59-0400Diastolic blood fvyuisak61 mm[Hg]Hipolito Mendieta DPM Work Phone: [phone] [place] [address]-26-2024 09:59-0400Heart rate75 /min Hipolito Mendieta DPM Work Phone: [phone] [place] [address]-26-2024 09:59-0400Respiratory rate18 /minHipolito Anam DPM Work Phone: [phone] [place] [address]-26-2024 09:59-0400Systolic blood sjbbjugn827 mm[Hg]Hipolito Mendieta DPM Work Phone: 1(915)7-[address] [place], [place] [address]Kbbjwmvxkq15-43-7819 13:51-0500Body yylard841.6 cmJennyrosalia Mendieta DPM Work Phone: noMer[facility], formerly [facility] Medical CenterQeuybymbet85-16-6461 13:51-0500Body mass index (BMI) [Ratio]17.27 kg/d3KssjtvpzHipolito Mendieta DPM Work Phone: [facility] Cgtxuxdthi49-17-6371 13:51-0500Body tvseru61.53 kgHipolito Mendieta DPM Work Phone: noMer[facility], formerly [facility] Medical CenterWgwuoqjule43-33-2218 13:51-0500Diastolic blood sssbafho21 mm[Hg]Hipolito Mendieta DPM Work Phone: noMer[facility], formerly [facility] Medical CenterNsufjhdzfw46-30-4142 13:51-0500Heart rate78 /min Hipolito Mendieta DPM Work Phone: noMer[facility], formerly [facility] Medical CenterWsxnpbpmmq81-11-4881 13:51-0500Systolic blood mm[Hg]Hipolito Mendieta DPM Work Phone: [facility] Encounters Encounter DateEncounter TypeCare ProviderFacilityStart: 07-17-2025 End: 76-61-8194Mtsgzl flowsheetHipolito Jr Mendieta DPM Work Phone: [facility] CI PODIATRYStart: 07-17-2025 End: 91-10-8253Gxykec flowsheetNicholas Jr Brown DPM Work Phone: [facility] CI PODIATRYStart: 07-17-2025 End: 26-51-4523Jrdoazf encounter procedureJennyrosalia Mendieta DPM Work Phone: [facility] CI PODIATRYComment on above:Verruca plantaris (Primary Dx); Foot pain, left; Pain due to onychomycosis of toenails of both feetStart: 07-17-2025 End: 64-60-8307kdiurmzxksLYWKHFHB A BROWNNot AvailableStart: 04-17-2025 End: 64-90-7440Bejmxv flowsheetNicholas Jr Anam DPM Work Phone: [facility] CI PODIATRYStart: 04-17-2025 End: 14-10-0385Oightt Omar Mendieta DPM Work Phone: [facility] CI PODIATRYStart: 04-17-2025 End: 72-30-2314Cclnmyz encounter procedureHipoltio Jr Anam DPM Work Phone: [facility] CI PODIATRYComment on above:Verruca plantaris (Primary Dx); Foot pain, left; Pain due to onychomycosis of toenails of both feetStart: 04-17-2025 End: 36-17-9967ldqowvyputTEMVAIFX A BROWNNot AvailableStart: 02-06-2025 End: 00-81-5222Fancwe Omar Mendieta DPM Work Phone: [facility] CI PODIATRYStart: 02-06-2025 End: 74-54-1983Cscmos Omar Mendieta DPM Work Phone: [facility] CI PODIATRYStart: 02-06-2025 End: 73-39-7060Bqrkfvn encounter procedureHipolito Mendieta DPM Work Phone: [facility] CI PODIATRYComment on above:Pain due to onychomycosis of toenails of both feet (Primary Dx); Verruca plantaris; Foot pain, leftStart: 02-06-2025 End: 70-68-3403fvhstvcqukYBOOEWWC A BROWNNot AvailableStart: 01-28-2025 End: 93-82-5250Hwjrxkug Referredab [facility] Work Phone: [facility] Path Spec Elio HospStart: 01-28-2025 End: 56-57-6371jkyhctnqhbQkqa A [facility] Work Phone: Start: 11-21-2024 End: 47-89-1685Ycjacp Omar Mendieta DPM Work Phone: [facility] CI PODIATRYStart: 11-21-2024 End: 17-19-6912Gjqvuu flowsheetNicholas A Brown DPM Work Phone: [facility] CI PODIATRYStart: 11-21-2024 End: 14-83-3011gohsgmduqzTKIBASQV A BROWNNot AvailableStart: 11-21-2024 End: 72-60-2337Dnzckaw encounter procedureNicholas A Brown DPM Work Phone: [facility] CI PODIATRYComment on above:Pain due to onychomycosis of toenails of both feet (Primary Dx)Start: 09-05-2024 End: 03-56-6372Kagvbs flowsheetNicholas A Brown DPM Work Phone: noMS CI PODIATRYStart: 09-05-2024 End: 83-79-9010Xazuba flowsheetNicholas A Brown DPM Work Phone: [facility] CI PODIATRYStart: 09-05-2024 End: 34-24-3748Oqknxxe encounter procedureNicholas A Brown DPM Work Phone: noMS CI PODIATRYComment on above:Pain due to onychomycosis of toenails of both feet (Primary Dx)Start: 09-05-2024 End: 06-48-1057tilcupcobkBUJRCNEZ A BROWNNot AvailableStart: 08-07-2024 End: 37-56-6593ofxarfwelyGMTZ [facility] Centertart: 06-20-2024 End: 67-96-7908Wtdwsk flowsheetNicholas A Brown DPM Work Phone: noMS CI PODIATRYStart: 06-20-2024 End: 43-73-2807Yugovn flowsheetNicholas A Brown DPM Work Phone: noMS CI PODIATRYStart: 06-20-2024 End: 92-85-0832Auruvrw encounter procedureNicholas A Brown DPM Work Phone: noMS CI PODIATRYComment on above:Onychomycosis (Primary Dx); Toe pain, bilateralStart: 20-07-7205Hkuun abstractingNicholas A Brown DPLaura Work Phone: [facility] CI PODIATRYStart: 11-09-2023 End: 71-63-2835Czduuts encounter procedureHipolito Mendieta DPM Work Phone: n[facility] CI PODIATRYComment on above:Verruca plantaris (Primary Dx); Foot pain, left; Onychomycosis; Toe pain, bilateralStart: 01-26-2023 End: 39-96-9770ozofrefyyqKZ GERBER HOY .Facility:Z0Bmdsi: 01-15-2023 End: 08-97-9353fnrxhjzwijDT CYNTHIA ROMERO .Facility:T5Cytkr: 10-17-2022 End: 30-51-7487jdzpoqlsmrCU GERBER HOY .Facility:J1Soxzu: 09-27-2022 End: 39-06-7209hyqotnfyopGI GERBER HOY .Facility:E4Hazso: 06-10-2021 End: 85-38-2202eorxowxyknTKOT A ELTAHAWYFacility:[facility] Plan of Treatment DateCare ActivityDetailAuthorStart: 07-17-2025 End: 02-30-1887Ydyqxfi encounter yxpintvmq34/23/2025 9:50 AM EDT Procedure Visit [facility] [address] [id number] Hipolito Mendieta DPM [address] [address] Verruca plantaris (Primary Dx); Foot pain, left; Pain due to onychomycosis of toenails of both feetNOMS CI PODIATRYComment on above: Verruca plantaris (Primary Dx); Foot pain, left; Pain due to onychomycosis of toenails of both feetStart: 04-17-2025 End: 27-08-7538Torrngr encounter /24/2025 9:30 AM EDT Procedure Visit [facility] [address] [facility] [address] [place] [id number] Hipolito Mendieta DPM [address] [address] Verruca plantaris (Primary Dx); Foot pain, left; Pain due to onychomycosis of toenails of both feetNOMS CI PODIATRYComment on above: Verruca plantaris (Primary Dx); Foot pain, left; Pain due to onychomycosis of toenails of both feetStart: 02-06-2025 End: 65-30-0621Mxqyyxa encounter procedureNOMS CI PODIATRYComment on above:Pain due to onychomycosis of toenails of both feet (Primary Dx)Start: 01-28-2025 Bacteria identified in Urine by CultureUrine [facility] Hospitaltart: 26-53-8494Etbzm cultureEast Liverpool City Hospitaltart: 11-21-2024 End: 28-70-8588Pozjjgr encounter inrbyrllt06/27/2025 9:30 AM EST Procedure Visit [facility] [address] [address] Hipolito Mendieta DPM [address] [address] [facility] PODIATRYStart: 09-05-2024 End: 52-96-7383Xuhxlly encounter jowczmger39/12/2024 10:10 AM EST Procedure Visit [facility] [address] [facility] [address] [place] [address] Hipolito Mendieta DPM [address] [address] Pain due to onychomycosis of toenails of both feet (Primary Dx)[facility] CI PODIATRYComment on above:Pain due to onychomycosis of toenails of both feet (Primary Dx)Start: 06-20-2024 End: 05-33-0729Otqgogz encounter qurzbdemf32/26/2024 10:00 AM EDT Procedure Visit [facility] [address] [facility] [address] [place] [id number] Hipolito Mendieta DPM [address] [facility] [address] [place] [address] Onychomycosis (Primary Dx); Toe pain, bilateralNOMS CI PODIATRYComment on above:Onychomycosis (Primary Dx); Toe pain, bilateralStart: 11-09-2023 End: 28-99-7609Wmgfdeh encounter bjdxfnehk09/15/2024 1:50 PM EST Procedure Visit [facility] 112 [facility] [address] [place] [address] Hipolito Mendieta DPM [address] [facility] 5 [place] [address] [facility] Payers DatePayer CategoryPayerPolicy [id number] [facility] [id number] 2023-Present [address] [place] [id number] Health [id number] [id number] [id number]. [id number] [id number] [id number] 2.16.840.1.436281.3.57[id number] 2.16.840.1.673221.3.57[id number] 2.16.840.1.411141.3.57[id number] 2.16.840.1.207606.3.57[id number] 2.16.840.1.745129.3.57[id number] 2.16.840.1.157921.3.57[id number] 2.16.840.1.877769.3.57[id number] 2.16.840.1.966092.3.57[id number] 2..840.1.175201.3.57[id number] 2.16.840.1.249871.3.57[id number] [employer] [place] [id number] 2..840.1.796519.3.579.2.531 Social History DateTypeDetailFacilityStart: 64-01-4137Nztunvg smoking status NHISTobacco smoking consumption unknownNOWI HealthcareStart: 10-12-2023 End: 79-00-0346Ufzuser intakeDeferUINTAH BASIN MEDICAL CENTER HealthcareStart: 31-87-4629Nes Assigned At BirthNot on fileUINTAH BASIN MEDICAL CENTER HealthcareGender identityNot on fileUINTAH BASIN MEDICAL CENTER Healthcare Start: 49-30-3103SwvJibqnw (finding)[facility] [place] [facility] Hospitaltart: 17-73-1467Ioo Assigned At BirthMemorial Health System Selby General Hospitaltart: 20-16-9646IsrGsbppiDPXDFormerly [facility] Clinical Notes 11-09-2023 to 07-17-2025 Note Date & RfrzBqdsEoldxzgh29-66-2360 History of Present illness Narrative* Hipolito Norris Anam, DPM - 07/17/2025 9:50 AM EDT Patient: Lucille Escobedo : 1940 PCP: Gerber [...] route for 85 days., Disp: , Rfl: etzwidsgjpnv-xpif-iaxflrdf-folic acid (Centrum Silver, geriatric,) tablet, as directed [...] Partner Violence: Unknown (11/16/2023) Received from [facility] Safety & Environment Fear of [...] procedure including high reoccurence rate, infection, pain andconsent given. Application of DSD post procedure. Hipolito Mendieta DPM documented in this encounterSSM Health CareHmibgfqqng86-45-5338 History of Present illness Narrative* Hipolito Mendieta DPM - 04/17/2025 9:30 AM EDT Patient: Lucille Escobedo : 1940 PCP: Gerber [...] route for 85 days., Disp: , Rfl: szdgesyywnih-gtbd-wrlgeonu-folic acid (Centrum Silver, geriatric,) tablet, as directed [...] Partner Violence: Unknown (11/16/2023) Received from [facility] Safety & Environment Fear of [...] procedure including high reoccurence rate, infection, pain andconsent given. Application of DSD post procedure. Hipolito Mendieta DPM documented in this encounterSSM Health CareLwcqgbbkjc75-51-1953 History of Present illness Narrative* Hipolito Mendieta DPM - 02/06/2025 9:30 AM EDT Patient: Lucille Escobedo : 1940 PCP: Gerber [...] route for 85 days., Disp: , Rfl: vnqjtxbwbvbt-vriz-ojafdzug-folic acid (Centrum Silver, geriatric,) tablet, as directed [...] Partner Violence: Unknown (11/16/2023) Received from [facility] [place] Safety & Environment Fear of [...] procedure including high reoccurence rate, infection, pain andconsent given. Application of DSD post procedure. Hipolito Mendieta DPM documented in this encounterSSM Health CareWbfijhklwy44-42-7632 [facility]BEL[facility] Chief Complaint: Patient here [...] regurgitation. Moderate to severe mitral regurgitation. [facility]esophageal [facility]ocardiogram-[facility] Name: LUCILLE ESCOBEDO Study Date: 06/10/2021 10:12 AM MRN: (more content not included)...[facility]02-27-2025 History of Present illness Narrative* Hipolito Mendieta, DPLaura - 11/21/2024 9:30 AM EST Patient: Lucille Escobedo : 1940 PCP: Gerber [...] route for 85 days., Disp: , Rfl: icqiuxtdmxrv-kdvb-xnwxbzcg-folic acid (Centrum Silver, geriatric,) tablet, as directed [...] Partner Violence: Unknown (11/16/2023) Received from [facility], [facility] [place] Safety & Environment Fear of [...] 10 Hipolito Mendieta DPM documented in this encounterSSM Health CareDgqenvkwjl42-90-6818 History of Present illness Narrative* Hipolito Mendieta DPM - 09/05/2024 10:10 AM EST Patient: Lucille Escobedo : 1940 PCP: Gerber [...] Diagnosis Date Hypertension ([facility]) Medications: Current Outpatient Medications: amiodarone (Pacerone) 200 [...] route for 85 days., Disp: , Rfl: vzruiblkwowz-aktf-pbkjyshg-folic acid (Centrum Silver, geriatric,) tablet, as directed [...] Partner Violence: Unknown (11/16/2023) Received from [facility], [facility] [place] Safety & Environment Fear of [...] 10 Hipolito Mendieta DPM documented in this encounterSSM Health CareHncdgomvzp22-00-3861 [facility] Note Chief Complaint: Patient here for 1 year follow up CAD, PAF, and mitral valve regurgitation. She had an echo in Aug 2023 after last apt. She was seen in [facility] ED twice in Sep 2023 for afib. [...] regurgitation. Moderate to severe mitral regurgitation. Transesophageal Echocardiogram-[facility] Name: LUCILLE ESCOBEDO Study Date: 06/10/2021 10:12 AM B/P: 126 mmHg/68 mmHg HR: Date of : 1940 Location: [facility] Height: 66 in. Age: 81 year(s) Patient Room : Weight: 135 lb. Gender: Female Patient Status: OutPt BSA: 1.69 m2 Indication: Atrial Fibrillation Examination: TUAN/CFI with Cardioversion Image Quality: Good Patient Consent: Informed, written consent was obtained for the procedure s p @ c 3 Exam Location: A TUAN was performed in the [facility] without complications s p @ c 3 Anesthesia Pharyngeal anesthesia with viscous Lidocaine Conclusions Left Ventricle: The left ventricle is normal size. Global left ventricular systolic function is severely reduced. The EF is 20 % visually. Diffuse global hypokinesis. Right Ventricle: The right ventricle is normal in size. Right ventricular systolic function appea (more content not included)...[facility] 06-20-2024 History of Present illness Narrative* Hipolito Mendieta, DPM - 06/20/2024 10:00 AM EDT Patient: Lucille Escobedo : 1940 PCP: Gerber [...] route for 85 days., Disp: , Rfl: khqxartezrrf-fbnq-wzgmjuec-folic acid (Centrum Silver, geriatric,) tablet, as directed [...] Partner Violence: Unknown (11/16/2023) Received from [facility], [facility] [place] Safety & Environment Fear of [...] 10 Hipolito Mendieta DPM documented in this encounterSSM Health CareEpmvsgmwuj77-54-1965 History of Present illness Narrative* Hipolito Mendieta DPM - 11/09/2023 1:50 PM EST Patient: Lucille Escobedo : 1940 PCP: Gerber [...] route for 85 days., Disp: , Rfl: ahiyjoonrnst-uiwz-jjwecpwh-folic acid (Centrum Silver, geriatric,) tablet, as directed [...] procedure including high reoccurence rate, infection, pain andconsent given. Application of DSD post procedure. Discussed proper foot care with patient today. Debride nails in length and thickness digits 1 through 10 Hipolito Mendieta DPM documented in this encounterUINTAH BASIN MEDICAL CENTER HealthcareEvaluation note* Diagnosis Verruca plantaris- Primary Plantar wart Foot pain, left Pain in soft tissues of limb Onychomycosis Dermatophytosis of nail Toe pain, bilateral documented in this encounter [facility] HealthcareEvaluation note* Diagnosis Pain due to onychomycosis of toenails of both feet- Primary documented in this encounter [facility] HealthcareEvaluation note* Diagnosis Onychomycosis- Primary Dermatophytosis of nail Toe pain, bilateral documented in this encounter [facility] HealthcareEvaluation noteNo assessment information availableSelect Medical Specialty Hospital [facility], Inc Work Phone: Evaluation note* Diagnosis Pain due to onychomycosis of toenails of both feet- Primary Verruca plantaris Plantar wart Foot pain, left Pain in soft tissues of limb documented in this encounter [facility] HealthcareEvaluation note* Diagnosis Verruca plantaris- Primary Plantar wart Foot pain, left Pain in soft tissues of limb Pain due to onychomycosis of toenails of both feet documented in this encounter [facility] Healthcare Summary Purpose Family History No Family [...] and content) DATE CREATED AUTHOR 06/15/2021 [facility] DATE CREATED AUTHOR AUTHOR'S ORGANIZ ATION 02/02/2023 [facility] DATE CREATED AUTHOR AUTHOR'S ORGANIZ ATION 01/31/2025 [facility] DATE CREATED AUTHOR AUTHOR'S ORGANIZ ATION 02/04/2025 [facility] DATE CREATED AUTHOR AUTHOR'S ORGANIZ ATION 07/18/2025 [facility] EPIC Care Teams (unrecognized sec tion and content) Team MemberRelationshipSpecialtyStart DateEnd Date Gerber Mccoy MD [address] [place] [address] [facility] - [facility] Wlvervnp46/7/23Team MemberRelationshipSpecialtyStart DateEnd Date Gerber Mccoy MD [address] [place] [address] PCP - GeneralFami Agodfhzz08/7/23Team MemberRelationshipSpecialtyStart DateEnd Date Gerber Mccoy MD [address] [place] [address] PCP - GeneralFamily Awczkeip56/7/23Team MemberRelationshipSpecialtyStart DateEnd Date Gerber Mccoy MD [address] [place] [address] PCP - GeneralFamily Uufaophd28/7/23Team MemberRelationshipSpecialtyStart DateEnd Date Gerber Mccoy MD [address] [place] [address] PCP - GeneralFamily Vvzvaghs95/7/23 Team Status: Inactive Member Role Status Dates Kaya Collazomassachusetts eye & ear infirmarypérez Attending Provider Active Start: January 28, 2025 End: January 28, 2025Team MemberRelationshipSpecialtyStart DateEnd Date Gerber Mccoy MD [address] [place] [facility] [place] [address] PCP - [facility] Nwyakuhz74/7/23Team MemberRelationshipSpecialtyStart DateEnd Date Gerber Mccoy MD [address] [facility] [place] [facility] [place] [address] PCP - [facility]08/31/23 Reason for Visit (unrecogniz ed section and content) ReasonCommentsToenail CareNon dm NailsReasonCommentsToenail CareNon dm nial care ReasonCommentsToenail CareNon dm nail careReasonCommentsToenail Care Goals (unrecognized section and content) Goals [...] BE BASED ON THE PRIMARY CLINICAL RECORDS. [employer] [facility]. provides no warranty or guarantee of the accuracy or completeness of information in this document.
[2025-08-14 11:14] LABS: Hematocrit 43.4 % (36.0-48.0); Hemoglobin 14.0 g/dL (12.0-16.0); Immature Granulocytes Abs Auto 0.01 10^3/uL (0.00-0.03); Immature Granulocytes Pct Auto 0.1 % (0.0-0.5); Lymphocytes Absolute Auto 1.2 10^3/uL (1.2-3.8); Mean Corpuscular HGB Conc 32.3 g/dL (29.9-35.2); Mean Corpuscular Hemoglobin 30.9 pg (26.7-34.0); Mean Corpuscular Volume 95.8 fL (81.0-99.0); Platelet Count 209 10^3/uL (150-450); Red Blood Count 4.53 10^6/uL (4.20-5.40); White Blood Count 6.7 10^3/uL (4.0-11.0)
[2025-08-14 11:30] LABS: Alanine Aminotransferase 32 U/L (14-59); Albumin Globulin Ratio 1.2; Albumin Level 3.8 g/dL (3.4-5.0); Alkaline Phosphatase 89 U/L (46-116); Anion Gap 9.2; Aspartate Amino Transferase 23 U/L (15-37); Blood Urea Nitrogen 20.0 mg/dL (7.0-18.0); Calcium 9.8 mg/dL (8.5-10.1); Carbon Dioxide 33.1 mmol/L (21.0-32.0); Chloride 106 mmol/L (98-107); Estimated GFR (African America 54 (>=60 mL/min/1.73m^2); Estimated GFR (Non-African Ame 45 (>=60 mL/min/1.73m^2); Free T3 3.52 pg/mL (2.18-3.98); Globulin 3.1 g/dL; Glucose 82 mg/dL (74-106); Potassium 4.3 mmol/L (3.5-5.1); Sodium 144 mmol/L (136-145); Thyroid Stimulating Hormone 0.343 uIU/mL (0.358-3.740); Total Protein 6.9 g/dL (6.4-8.2)
[2025-08-14 11:34] LABS: NT Pro B Type Natriuretic Pept 1999.0 pg/mL (<=1800.0)
== END 2025-08-14 10:35 | disposition home or self-care (01) ==
LOC: LAB 10:35
PROVIDERS: PCP Family Medicine; Visit Provider Family Medicine
DX: B02.9 Zoster without complications (principal)
CPT/HCPCS: 36415; 80053; 83880; 84436; 84443; 84481; 84484; 85025